=== PATIENT | female | born 1945 | race Caucasian/White ===

== ENCOUNTER 2020-10-26 12:00 | Outpatient (REF) | payer MEDICARE, SELFPAY ==
[2020-10-26 13:49] LABS: MANUAL DIFF FLAG NO
[2020-10-26 13:58] LABS: Basophils Absolute Auto 0.1 X10*3/uL (0.0-0.2); Eosinophils Absolute Auto 0.4 X10*3/uL (0.0-0.4); Eosinophils Percent Auto 5.9 % (0-4); Hematocrit 37.6 % (37-47); Hemoglobin 11.7 g/dl (12.0-16.0); Imm Gran Abs Auto 0.02 X10*3/uL (0.00-0.03); Imm Gran Pct Auto 0.3 % (0.0-0.4); Lymphocytes Absolute Auto 1.1 X10*3/uL (1.2-4.9); Lymphocytes Percent Auto 17.1 % (20-40); Mean Corpuscular HGB Conc 31.1 g/dl (31.0-35.0); Mean Corpuscular Volume 96.4 fL (80-98); Monocytes Absolute Auto 0.6 X10*3/uL (0.1-1.2); Monocytes Percent Auto 9.8 % (2-11); Neutrophils Absolute Auto 4.1 X10*3/uL (2.0-8.3); Neutrophils Percent Auto 65.9 % (45-73); Platelet Count 175 X10*3/uL (160-400); Red Cell Distribution Width 12.7 % (11.0-16.0); White Blood Count 6.2 X10*3/uL (4.8-10.8)
[2020-10-26 14:11] LABS: Glucose Urine UA NEG (NEG); Leukocyte Esterase Urine TRACE (NEG); Nitrite Urine NEG (NEG); PH 5.5 (5.0-8.0); Urine Blood NEG (NEG); Urine Ketones NEG (NEG); Urine Protein TRACE MG/DL (NEG-TRACE)
[2020-10-26 14:13] LABS: Appearance Urine HAZY; Color Urine YELLOW
[2020-10-26 14:23] LABS: Bacteria Urine 2+ /LPF; RBC Urine 0 /HPF (0); Squamous Epithelial Cell Urine 2+ /LPF
[2020-10-26 14:24] LABS: Alanine Aminotransferase 14 U/L (0-31); Albumin Level 4.3 g/dL (3.5-5.0); Alkaline Phosphatase 61 U/L (39-117); Anion Gap 11 (12-20); Aspartate Amino Transferase 21 U/L (5-31); Bilirubin Total 0.6 mg/dL (0.0-1.0); Blood Urea Nitrogen 16 mg/dL (9-16); Calcium 9.4 mg/dL (8.4-10.2); Carbon Dioxide 31 mmol/L (22-29); Chloride 104 mmol/L (96-108); Estimated Glomerular Filt Rate 43; Glucose Fasting 91 mg/dL (60-99); Sodium 142 mmol/L (135-145); Total Protein 6.4 g/dL (6.5-8.0)
[2020-10-26 14:45] LABS: Thyroid Stimulating Hormone 0.39 uIU/mL (0.32-4.0)
== END 2020-10-26 12:01 | disposition home or self-care (01) ==
LOC: HO.10HDL 12:00
PROVIDERS: Visit Provider Internal Medicine
DX: I10 Essential (primary) hypertension (principal); K58.9 Irritable bowel syndrome, unspecified; E03.9 Hypothyroidism, unspecified; N18.9 Chronic kidney disease, unspecified
CPT/HCPCS: 36415; 80053; 81001; 81003; 84439; 84443; 85025; 87086

== ENCOUNTER 2021-02-01 10:40 | Outpatient (REF) | payer MEDICARE, SELFPAY ==
[2021-02-01 13:15] LABS: MANUAL DIFF FLAG NO
[2021-02-01 13:35] LABS: Basophils Absolute Auto 0.1 X10*3/uL (0.0-0.2); Basophils Percent Auto 1.4 % (0-2); Eosinophils Absolute Auto 0.3 X10*3/uL (0.0-0.4); Eosinophils Percent Auto 5.5 % (0-4); Hematocrit 34.7 % (37-47); Hemoglobin 11.1 g/dl (12.0-16.0); Imm Gran Abs Auto 0.01 X10*3/uL (0.00-0.03); Imm Gran Pct Auto 0.2 % (0.0-0.4); Lymphocytes Absolute Auto 1.2 X10*3/uL (1.2-4.9); Lymphocytes Percent Auto 23.9 % (20-40); Mean Corpuscular Hemoglobin 30.1 pg (27.0-33.0); Mean Platelet Volume 11.8 fL (9.4-12.3); Monocytes Absolute Auto 0.5 X10*3/uL (0.1-1.2); Monocytes Percent Auto 9.4 % (2-11); Neutrophils Percent Auto 59.6 % (45-73); Platelet Count 172 X10*3/uL (160-400); Red Blood Count 3.69 X10*6/uL (4.20-5.50); Red Cell Distribution Width 12.9 % (11.0-16.0); White Blood Count 5.1 X10*3/uL (4.8-10.8)
[2021-02-01 13:40] LABS: Alanine Aminotransferase 11 U/L (0-31); Alkaline Phosphatase 57 U/L (39-117); Anion Gap 9 (12-20); Aspartate Amino Transferase 15 U/L (5-31); Bilirubin Total 0.7 mg/dL (0.0-1.0); Blood Urea Nitrogen 18 mg/dL (9-16); C Reactive Protein 0.07 mg/dL (< or = 0.50); Calcium 8.8 mg/dL (8.4-10.2); Carbon Dioxide 31 mmol/L (22-29); Chloride 106 mmol/L (96-108); Estimated Glomerular Filt Rate 46; Glucose Random 100 mg/dL (60-115); Sodium 142 mmol/L (135-145); Total Protein 6.1 g/dL (6.5-8.0)
== END 2021-02-01 10:41 | disposition home or self-care (01) ==
LOC: HO.10HDL 10:40
PROVIDERS: Visit Provider Internal Medicine
DX: I12.9 Hypertensive chronic kidney disease with stage 1 through stage 4 chronic kidney disease, or unspecified chronic kidney disease (principal); N18.9 Chronic kidney disease, unspecified; K58.9 Irritable bowel syndrome, unspecified; I25.10 Atherosclerotic heart disease of native coronary artery without angina pectoris
CPT/HCPCS: 36415; 80053; 85025; 86140

== ENCOUNTER 2021-03-08 13:11 | Outpatient (REF) | payer MEDICARE, SELFPAY ==
--- NOTE | ~2021-03-08 | MM_ITS ---
EXAMINATION: MM SCREENING DIGITAL BREAST TOMOSYNTHESIS, BILATERAL CLINICAL INFORMATION: Screening. Asymptomatic. The lifetime risk of breast cancer based on the Tyrer-Cuzick Model is 3%. COMPARISON: Mammography: 01/21/2019, 01/03/2018, 12/15/2016, 10/28/2015 TECHNIQUE: Digital breast tomosynthesis is performed in both the craniocaudal and mediolateral oblique views along with computer-aided detection (CAD). Synthesized 2D images are generated from the tomosynthesis. FINDINGS: There are scattered areas of fibroglandular density (ACR BI-RADS breast composition Category b). There are no significant masses, abnormal calcifications, or other abnormalities. Parenchymal pattern is similar to prior studies. No developing density. Again, there is intramammary node mid upper outer left breast and stable smooth nodule anterior central 1:00 right breast. No significant changes. MM/MM tomosynthesis screening BI IMPRESSION: No significant changes from prior exams. ASSESSMENT: BI-RADS 2: Benign RECOMMENDATION: Routine annual mammography screening. This patient's information was entered into a reminder system with a target due date for their next mammogram.
--- NOTE | ~2021-03-08 | MM_ITS ---
EXAMINATION: BONE DENSITOMETRY CLINICAL INDICATION: Menopause. COMPARISON: Previous BD dated 09/08/2010 and baseline BD dated 04/27/2008. TECHNIQUE: Using a [employer] DXA System (software version: 13.1) manufactured by [employer] dual-energy x-ray absorptiometry was performed of the lumbar spine and left hip. The images are of good technical quality. Summary results are attached. FINDINGS: AP SPINE L1-L4 (excluding L2 and L3): The data of L1-L4 has been changed to exclude the L2 and L3 vertebral bodies, because degenerative changes at these levels may cause overestimation of lumbar spine density. Current: BMD 1.230 g/cm2, Z-score 1.9, T-score 0.5, normal, 0.5% increase from previous, 7.0% increase from baseline (<5% change is not significant). Prior: BMD 1.224 g/cm2. Baseline: BMD 1.150 g/cm2. LEFT FEMUR, NECK: Current: BMD 0.922 g/cm2, Z-score 0.9, T-score -0.8, normal. Prior: BMD 0.968 g/cm2. Baseline: BMD 0.965 g/cm2. LEFT FEMUR, TOTAL: Current: BMD 1.045 g/cm2, Z-score 1.8, T-score 0.3, normal, 2.8% decrease from previous, 5.9% decrease from baseline (<5% change is not significant). Prior: BMD 1.075 g/cm2. Baseline: BMD 1.111 g/cm2. IDENTIFIED RISK FACTORS: Secondary osteoporosis, tobacco use (current smoker), menopause. HISTORY OF FRACTURE: None listed. MEDICATIONS: Vitamin D. MM/XR DEXA axial skeleton IMPRESSION: 1. DIAGNOSIS: Normal bone density based on the lowest T-score value of -0.8 in the femoral neck applying World Health Organization criteria. 2. 10-YEAR FRACTURE RISK PREDICTION, FRAX: Major osteoporotic fracture (clinical spine, forearm, hip or shoulder) 9.9%. Hip fracture 2.4%. 3. Treatment Recommendations: NOF guidelines recommend consideration for treatment in postmenopausal women and men age 50 and older presenting with the following: -A hip or vertebral (clinical or morphometric) fracture. -T-score less than or equal to -2.5 at the femoral neck or spine after appropriate evaluation to exclude secondary causes. -Low bone mass at the hip or spine and a 10-year fracture probability by FRAX of greater than or equal to 3% for hip fracture or greater than or equal to 20% for major osteoporotic fracture based on the [place] adapted WHO algorithm. 4. Other Recommendations: All treatment decisions require clinical judgment and consideration of individual patient factors, including patient preferences, comorbidities, previous drug use, risk factors not captured in the FRAX model (e.g. frailty, falls, vitamin D deficiency, increased bone turnover, interval significant decline in bone density) and possible under or overestimation of fracture risk by FRAX. FUTURE SCAN RECOMMENDATION: People with diagnosed cases of osteoporosis or at high risk for fracture should have regular bone mineral density tests. For patients eligible for Medicare, routine testing is allowed once every 2 years. The testing frequency can be increased to one year for patients who have rapidly progressing disease, those who are receiving or discontinuing medical therapy to restore bone mass, or have additional risk factors.
== END 2021-03-08 13:12 | disposition home or self-care (01) ==
LOC: HO.MAMMO 13:11
PROVIDERS: PCP Internal Medicine; Visit Provider Internal Medicine
DX: Z12.31 Encounter for screening mammogram for malignant neoplasm of breast (principal); M81.0 Age-related osteoporosis without current pathological fracture; F17.200 Nicotine dependence, unspecified, uncomplicated; Z78.0 Asymptomatic menopausal state
CPT/HCPCS: 77063; 77067; 77080

== ENCOUNTER 2021-05-31 12:58 | Outpatient (REF) | payer MEDICARE, SELFPAY ==
[2021-05-31 13:35] LABS: MANUAL DIFF FLAG NO
[2021-05-31 13:37] LABS: Basophils Absolute Auto 0.1 X10*3/uL (0.0-0.2); Basophils Percent Auto 0.9 % (0-2); Eosinophils Absolute Auto 0.4 X10*3/uL (0.0-0.4); Eosinophils Percent Auto 4.6 % (0-4); Hematocrit 34.1 % (37-47); Imm Gran Abs Auto 0.03 X10*3/uL (0.00-0.03); Imm Gran Pct Auto 0.4 % (0.0-0.4); Lymphocytes Absolute Auto 1.4 X10*3/uL (1.2-4.9); Lymphocytes Percent Auto 17.8 % (20-40); Mean Corpuscular HGB Conc 32.3 g/dl (31.0-35.0); Mean Corpuscular Hemoglobin 30.1 pg (27.0-33.0); Mean Corpuscular Volume 93.4 fL (80-98); Mean Platelet Volume 10.9 fL (9.4-12.3); Monocytes Absolute Auto 0.7 X10*3/uL (0.1-1.2); Monocytes Percent Auto 8.6 % (2-11); Neutrophils Absolute Auto 5.2 X10*3/uL (2.0-8.3); Neutrophils Percent Auto 67.7 % (45-73); Platelet Count 163 X10*3/uL (160-400); Red Blood Count 3.65 X10*6/uL (4.20-5.50); Red Cell Distribution Width 13.2 % (11.0-16.0); White Blood Count 7.6 X10*3/uL (4.8-10.8)
[2021-05-31 14:01] LABS: Alanine Aminotransferase 12 U/L (0-31); Albumin Level 4.2 g/dL (3.5-5.0); Alkaline Phosphatase 69 U/L (39-117); Anion Gap 16 (12-20); Aspartate Amino Transferase 19 U/L (5-31); Bilirubin Total 0.6 mg/dL (0.0-1.0); Blood Urea Nitrogen 23 mg/dL (9-16); Calcium 9.7 mg/dL (8.4-10.2); Carbon Dioxide 23 mmol/L (22-29); Chloride 105 mmol/L (96-108); Cholesterol 187 mg/dL; Estimated Glomerular Filt Rate 37; Glucose Random 97 mg/dL (60-115); Iron 104 mcg/dL (30-160); Percent Iron Saturation 33 % (15-50); Potassium 4.4 mmol/L (3.3-5.1); Sodium 140 mmol/L (135-145); Total Iron Binding Capacity 315 mcg/dL (228-428); Total Protein 6.4 g/dL (6.5-8.0); Unsaturated Iron Binding 211 ug/dL
[2021-05-31 14:24] LABS: Free T4 (Free Thyroxine) 1.09 ng/dL (0.71-1.85); Thyroid Stimulating Hormone 0.25 uIU/mL (0.32-4.0)
== END 2021-05-31 12:59 | disposition home or self-care (01) ==
LOC: HO.LAB 12:58
PROVIDERS: PCP Internal Medicine; Visit Provider Internal Medicine
DX: D64.9 Anemia, unspecified (principal); I25.10 Atherosclerotic heart disease of native coronary artery without angina pectoris; E03.9 Hypothyroidism, unspecified; I12.9 Hypertensive chronic kidney disease with stage 1 through stage 4 chronic kidney disease, or unspecified chronic kidney disease; N18.9 Chronic kidney disease, unspecified
CPT/HCPCS: 36415; 80053; 82465; 83540; 84439; 84443; 85025

== ENCOUNTER → 2021-09-14 15:00 | Outpatient (REF) | payer MEDICARE, SELFPAY ==
--- NOTE | 2021-09-14 15:03 | CA_ITS ---
Transthoracic Echocardiogram Patient (Last, First, Middle): Tonia Lynch, Gender: Female Date of : 1945 Age: 76 Procedure Date: 09/14/2021 Procedure Type: Transthoracic Echocardiogram Location: OP Height: 162.56 cm Weight: 77.11 kg BSA: 1.83 m2 Heart Rate: bpm BP: 130 / 80 mmHg Director Of Media: MUSA Referring MD: Reza Nava MD Pigment Grinder: Dion Degroot MD Symptoms: CARDIAC MURMUR, ASHD WWITHOUT PECTORIS Study Quality: Fair ECG Rhythm: Sinus Conclusions: - 1. Ebgp-au-aqpstixe LV systolic dysfunction with underlying wall motion abnormality which are not completely well defined on this study suggestive underlying CAD with grade 1 diastolic dysfunction next 2. Mildly dilated left atrium 3. Mitral and calcification with normal cardiac valvular Doppler 4. Normal RV systolic pressure 5. Trivial pericardial effusion Findings Left Ventricle Normal left ventricular cavity size. There is normal left ventricular wall thickness. The left ventricular systolic function is mild to moderately decreased. The visually estimated ejection fraction is between 40-45%. There is evidence of regional wall motion abnormalities. Spectral Doppler is indicative of an impaired relaxation filling pattern. E/E prime ratio is <8, consistent with normal filling pressures. Evidence suggests grade I (mild) diastolic dysfunction. Right Ventricle Normal right ventricular cavity size and systolic function. Atria The left atrium is mildly dilated. Interatrial shunt cannot be excluded. The right atrium is normal in size. Aortic Valve There is mild calcification of the aortic valve. There are fibrocalcifications on the aortic valve leaflets. There is no aortic valve stenosis. There is no aortic valve regurgitation. Mitral Valve There is mild anterior and moderate posterior mitral leaflet thickening. There is moderate mitral annular calcification. There is trace mitral valve regurgitation. There is no mitral valve stenosis. Pulmonic Valve The pulmonic valve was not well visualized. Tricuspid Valve Likely normal tricuspid valve structure and function. There is trace tricuspid valve regurgitation. The right ventricular systolic pressure is normal. The right ventricular systolic pressure is 26 mmHg. Normal right atrial pressure. There is no evidence of pulmonary hypertension. Great Vessels All visible segments of the aorta are normal in size. The pulmonary artery was not well visualized. Venous The inferior vena cava is normal in size and collapses greater than 50% with inspiration. Large echo lucent cystic structure noticed in the liver. Dedicated liver imaging should be considered Pericardium/Pleural There is a trivial loculated pericardial effusion overlying the left ventricle. Prior Study Comparison No previous study in the last 5 years for comparison Measurements 2D Linear Measurements IVSd: 0.78 0.6-0.9/0.6-1.0 cm LVIDd: 4.97 3.9-5.3/4.2-5.9 cm LVIDd Index: 2.72 2.4-3.2/2.2-3.1 cm/m2 LVIDs: 3.62 2.0-3.6 cm LVPWd: 0.90 0.7-1.1 cm Ao Root: 3.20 2.1-3.5 cm LA Diam: 4.00 2.7-3.8/3.0-4.0 cm LAIDs Index: 2.19 1.5-2.3 cm/m2 LV Mass: 177.89 67-162/88-224 g LV Mass Index: 97.21 43-95/49-115 g/m2 LVOT Diam: 2.30 3.0+(-)1.3 cm 2D Systolic Function EF 4C: 53.60 >55% EF 2C: 36.70 >55% EF BiP: 46.80 >55% Mitral Valve MV Pk E: 0.55 MV PK A: 0.88 MV Decel Time: 151.00 E/A: 0.60 E'Lateral: 3.05 E'Medial: 3.59 E/E' Med: 15.30 E/E' Lat: 18.00 PHT: 44.00 MVA PHT: 5.00 Decel [place]: 3.62 Aortic Valve AoV Pk Pipo: 1.15 AoV Mn Pipo: 0.83 AoV VTI: 0.27 AoV Pk Grad: 5.00 Aov Mn Grad: 3.00 ABIGAIL Cont.VTI: 2.27 LVOT LVOT Pk Pipo: 0.58 LVOT Mn Pipo: 0.38 LVOT VTI: 0.15 LVOT Pk Grad: 1.00 LVOT Mn Grad: 1.00 LVOT Diam: 2.30 LVOT Area: 4.15 Diastolic Function MV Pk E: 0.55 MV Pk A: 0.88 E/A: 0.60 E'Medial: 3.59 E/E' Med: 15.30 E' Laterial: 3.05 E/E' Lat: 18.00 Right Ventricle TAPSE (mm): 1.69 TVS' Pipo: 18.00 Tricuspid Valve TR Pk Pipo: 2.38 TR Pk Grad: 23.00 RA Press: 3.00 RVSP: 26.00 Great Vessels Aorta Ao Root-2D: 3.20 2.0-3.7 cm Ao Asc: 3.10 2.1-3.4 cm Ao Arch: 2.70 Updated in Other Vendor System with Status of Final Dion Degroot MD electronically signed on 09/15/2021 9:02:17 AM with status of Final
== END ==
LOC: HO.CARD 15:00
PROVIDERS: PCP Internal Medicine; Visit Provider Internal Medicine
DX: I25.10 Atherosclerotic heart disease of native coronary artery without angina pectoris (principal); R01.1 Cardiac murmur, unspecified
CPT/HCPCS: 93306

== ENCOUNTER 2021-09-23 11:07 | Outpatient (REF) | payer MEDICARE, SELFPAY ==
[2021-09-23 13:59] LABS: MANUAL DIFF FLAG NO
[2021-09-23 14:03] LABS: Basophils Absolute Auto 0.1 X10*3/uL (0.0-0.2); Basophils Percent Auto 1.3 % (0-2); Eosinophils Absolute Auto 0.3 X10*3/uL (0.0-0.4); Eosinophils Percent Auto 4.7 % (0-4); Hematocrit 33.7 % (37.0-47.0); Hemoglobin 10.7 g/dl (12.0-16.0); Imm Gran Abs Auto 0.02 X10*3/uL (0.00-0.03); Imm Gran Pct Auto 0.3 % (0.0-0.4); Lymphocytes Absolute Auto 1.3 X10*3/uL (1.2-4.9); Mean Corpuscular HGB Conc 31.8 g/dl (31.0-35.0); Mean Corpuscular Hemoglobin 30.2 pg (27.0-33.0); Mean Corpuscular Volume 95.2 fL (80.0-98.0); Mean Platelet Volume 12.2 fL (9.4-12.3); Monocytes Absolute Auto 0.7 X10*3/uL (0.1-1.2); Monocytes Percent Auto 10.1 % (2-11); Neutrophils Absolute Auto 4.6 x10*3/uL (2.0-8.3); Neutrophils Percent Auto 64.6 % (45-73); Platelet Count 162 X10*3/uL (160-400); Red Blood Count 3.54 X10*6/uL (4.20-5.50); Red Cell Distribution Width 12.9 % (11.0-16.0); White Blood Count 7.1 X10*3/uL (4.8-10.8)
[2021-09-23 14:30] LABS: Alanine Aminotransferase 13 U/L (0-31); Alkaline Phosphatase 60 U/L (39-117); Anion Gap 13 (12-20); Aspartate Amino Transferase 18 U/L (5-31); Bilirubin Total 0.8 mg/dL (0.0-1.0); Blood Urea Nitrogen 20 mg/dL (9-16); Calcium 9.3 mg/dL (8.4-10.2); Carbon Dioxide 28 mmol/L (22-29); Chloride 105 mmol/L (96-108); Estimated Glomerular Filt Rate 40; Glucose Fasting 87 mg/dL (60-99); Potassium 3.9 mmol/L (3.3-5.1); Sodium 142 mmol/L (135-145); Total Protein 6.1 g/dL (6.5-8.0)
== END 2021-09-23 11:08 | disposition home or self-care (01) ==
LOC: HO.10HDL 11:07
PROVIDERS: Visit Provider Internal Medicine
DX: I12.9 Hypertensive chronic kidney disease with stage 1 through stage 4 chronic kidney disease, or unspecified chronic kidney disease (principal); N18.9 Chronic kidney disease, unspecified; D64.9 Anemia, unspecified; E03.9 Hypothyroidism, unspecified
CPT/HCPCS: 36415; 80053; 85025

== ENCOUNTER → 2021-10-27 14:31 | Outpatient (BNVA) | payer MEDICARE, SELFPAY | PROVIDERS: PCP Internal Medicine; Referring Provider Internal Medicine; Visit Provider Internal Medicine Cardiovascular Disease | DX: I25.10 Atherosclerotic heart disease of native coronary artery without angina pectoris (principal); I42.9 Cardiomyopathy, unspecified; R06.00 Dyspnea, unspecified | CPT/HCPCS: 93005; 99202 ==

== ENCOUNTER → 2021-12-28 13:52 | Outpatient (BNVA) | payer MEDICARE, SELFPAY | PROVIDERS: PCP Internal Medicine; Referring Provider Internal Medicine; Visit Provider Nurse Practitioner Family | DX: I25.10 Atherosclerotic heart disease of native coronary artery without angina pectoris (principal); I42.9 Cardiomyopathy, unspecified; R06.00 Dyspnea, unspecified; Z95.5 Presence of coronary angioplasty implant and graft | CPT/HCPCS: 99212 ==

== ENCOUNTER 2022-01-31 15:29 | Outpatient (REF) | payer MEDICARE, SELFPAY ==
[2022-01-31 15:52] LABS: MANUAL DIFF FLAG NO
[2022-01-31 16:31] LABS: Basophils Absolute Auto 0.1 X10*3/uL (0.0-0.2); Basophils Percent Auto 1.1 % (0-2); Eosinophils Absolute Auto 0.3 X10*3/uL (0.0-0.4); Eosinophils Percent Auto 3.7 % (0-4); Hematocrit 34.5 % (37.0-47.0); Hemoglobin 10.7 g/dl (12.0-16.0); Imm Gran Abs Auto 0.01 X10*3/uL (0.00-0.03); Imm Gran Pct Auto 0.1 % (0.0-0.4); Lymphocytes Absolute Auto 1.4 X10*3/uL (1.2-4.9); Lymphocytes Percent Auto 18.9 % (20-40); Mean Corpuscular Hemoglobin 29.8 pg (27.0-33.0); Mean Corpuscular Volume 96.1 fL (80.0-98.0); Mean Platelet Volume 11.9 fL (9.4-12.3); Monocytes Absolute Auto 0.5 X10*3/uL (0.1-1.2); Monocytes Percent Auto 7.2 % (2-11); Neutrophils Absolute Auto 5.1 x10*3/uL (2.0-8.3); Platelet Count 157 X10*3/uL (160-400); Red Blood Count 3.59 X10*6/uL (4.20-5.50); Red Cell Distribution Width 12.9 % (11.0-16.0); White Blood Count 7.4 X10*3/uL (4.8-10.8)
[2022-01-31 16:45] LABS: Prothrombin Time 11.5 SEC (9.9-13.0)
[2022-01-31 17:08] LABS: Anion Gap 15 (12-20); Blood Urea Nitrogen 24 mg/dL (9-16); Calcium 9.9 mg/dL (8.4-10.2); Carbon Dioxide 24 mmol/L (22-29); Chloride 106 mmol/L (96-108); Estimated Glomerular Filt Rate 35; Glucose Random 87 mg/dL (60-115); Potassium 4.3 mmol/L (3.3-5.1); Sodium 141 mmol/L (135-145)
== END 2022-01-31 15:30 | disposition home or self-care (01) ==
LOC: HO.LAB 15:29
PROVIDERS: PCP Internal Medicine; Visit Provider Nurse Practitioner Family
DX: I42.9 Cardiomyopathy, unspecified (principal); R06.00 Dyspnea, unspecified
CPT/HCPCS: 36415; 80048; 85025; 85610

== ENCOUNTER 2022-02-06 13:56 | Outpatient (REF) | payer MEDICARE, SELFPAY ==
[2022-02-06 15:20] LABS: Anion Gap 13 (12-20); Blood Urea Nitrogen 16 mg/dL (9-16); Calcium 9.7 mg/dL (8.4-10.2); Carbon Dioxide 24 mmol/L (22-29); Chloride 105 mmol/L (96-108); Estimated Glomerular Filt Rate 42; Glucose Random 86 mg/dL (60-115); Potassium 3.9 mmol/L (3.3-5.1); Sodium 138 mmol/L (135-145)
== END 2022-02-06 13:57 | disposition home or self-care (01) ==
LOC: HO.LAB 13:56
PROVIDERS: PCP Internal Medicine; Visit Provider Nurse Practitioner Family
DX: I25.10 Atherosclerotic heart disease of native coronary artery without angina pectoris (principal)
CPT/HCPCS: 36415; 80048

== ENCOUNTER 2022-03-13 14:56 | Outpatient (REF) | payer MEDICARE, SELFPAY ==
--- NOTE | ~2022-03-13 | MM_ITS ---
EXAMINATION: MM SCREENING DIGITAL BREAST TOMOSYNTHESIS, BILATERAL CLINICAL INFORMATION: Screening. Asymptomatic. The lifetime risk of breast cancer based on the Tyrer-Cuzick Model is 3%. COMPARISON: Mammography: 03/08/2021, 01/21/2019, 01/03/2018 TECHNIQUE: Digital breast tomosynthesis is performed in both the craniocaudal and mediolateral oblique views along with computer-aided detection (CAD). Synthesized 2D images are generated from the tomosynthesis. Additional exaggerated right CC view is provided. FINDINGS: There are scattered areas of fibroglandular density (ACR BI-RADS breast composition Category b). There are no significant masses, abnormal calcifications, or other abnormalities. There is fine fibronodular pattern similar to prior studies. Intramammary nodes again seen mid upper outer left breast. There is chronic oval nodular asymmetry mid 3:00 right breast similar to prior studies. No developing density or architectural abnormality. No significant changes. MM/MM tomosynthesis screening BI IMPRESSION: No mammographic evidence of malignancy. ASSESSMENT: BI-RADS 2: Benign RECOMMENDATION: Routine annual mammography screening. This patient's information was entered into a reminder system with a target due date for their next mammogram.
== END 2022-03-13 14:57 | disposition home or self-care (01) ==
LOC: HO.MAMMO 14:56
PROVIDERS: Visit Provider Internal Medicine
DX: Z12.31 Encounter for screening mammogram for malignant neoplasm of breast (principal)
CPT/HCPCS: 77063; 77067

== ENCOUNTER 2022-04-04 13:52 | Outpatient (REF) | payer MEDICARE, SELFPAY ==
[2022-04-04 15:37] LABS: MANUAL DIFF FLAG NO
[2022-04-04 16:00] LABS: Basophils Absolute Auto 0.1 X10*3/uL (0.0-0.2); Basophils Percent Auto 1.5 % (0-2); Eosinophils Absolute Auto 0.4 X10*3/uL (0.0-0.4); Eosinophils Percent Auto 7.2 % (0-4); Hematocrit 29.2 % (37.0-47.0); Hemoglobin 9.5 g/dl (12.0-16.0); Imm Gran Abs Auto 0.02 X10*3/uL (0.00-0.03); Imm Gran Pct Auto 0.3 % (0.0-0.4); Lymphocytes Percent Auto 16.8 % (20-40); Mean Corpuscular HGB Conc 32.5 g/dl (31.0-35.0); Mean Corpuscular Hemoglobin 30.4 pg (27.0-33.0); Mean Corpuscular Volume 93.6 fL (80.0-98.0); Mean Platelet Volume 11.8 fL (9.4-12.3); Monocytes Absolute Auto 0.7 X10*3/uL (0.1-1.2); Monocytes Percent Auto 11.2 % (2-11); Neutrophils Absolute Auto 3.8 x10*3/uL (2.0-8.3); Platelet Count 151 X10*3/uL (160-400); Red Blood Count 3.12 X10*6/uL (4.20-5.50); Red Cell Distribution Width 13.2 % (11.0-16.0)
[2022-04-04 16:40] LABS: Alanine Aminotransferase 29 U/L (0-31); Alkaline Phosphatase 66 U/L (39-117); Anion Gap 12 (12-20); Aspartate Amino Transferase 33 U/L (5-31); Blood Urea Nitrogen 25 mg/dL (9-16); C Reactive Protein 0.05 mg/dL (< or = 0.50); Carbon Dioxide 24 mmol/L (22-29); Chloride 106 mmol/L (96-108); Estimated Glomerular Filt Rate 26; Glucose Random 102 mg/dL (60-115); Potassium 3.8 mmol/L (3.3-5.1); Sodium 138 mmol/L (135-145); Total Protein 6.4 g/dL (6.5-8.0)
[2022-04-04 16:46] LABS: Erythrocyte Sedimentation Rate 12 MM/HR (0-20)
[2022-04-04 16:47] LABS: B Type Natriuretic Peptide 165 pg/mL (<100)
[2022-04-04 17:03] LABS: Free T4 (Free Thyroxine) 1.43 ng/dL (0.71-1.85); Thyroid Stimulating Hormone 0.04 uIU/mL (0.32-4.0)
== END 2022-04-04 13:53 | disposition home or self-care (01) ==
LOC: HO.LAB 13:52
PROVIDERS: PCP Internal Medicine; Referring Provider Internal Medicine; Visit Provider Nurse Practitioner Family
DX: I25.10 Atherosclerotic heart disease of native coronary artery without angina pectoris (principal); R06.00 Dyspnea, unspecified; M54.2 Cervicalgia; I12.9 Hypertensive chronic kidney disease with stage 1 through stage 4 chronic kidney disease, or unspecified chronic kidney disease; N18.9 Chronic kidney disease, unspecified; M54.9 Dorsalgia, unspecified; I42.9 Cardiomyopathy, unspecified; Z95.5 Presence of coronary angioplasty implant and graft; Z98.890 Other specified postprocedural states
CPT/HCPCS: 36415; 80053; 83880; 84439; 84443; 85025; 85652; 86140; 99212

== ENCOUNTER → 2022-04-19 15:11 | Outpatient (BNVA) | payer MEDICARE, SELFPAY | PROVIDERS: PCP Internal Medicine; Referring Provider Internal Medicine; Visit Provider Nurse Practitioner Family | DX: I42.9 Cardiomyopathy, unspecified (principal); I25.10 Atherosclerotic heart disease of native coronary artery without angina pectoris; R06.00 Dyspnea, unspecified; Z98.890 Other specified postprocedural states; Z95.5 Presence of coronary angioplasty implant and graft | CPT/HCPCS: 99212 ==

== ENCOUNTER 2022-05-13 13:33 | Emergency (ER) | payer MEDICARE, SELFPAY ==
--- NOTE | 2022-05-13 | ECG_ITS ---
Test Reason : DIZZINESS Blood Pressure : / mmHG Vent. Rate : 071 BPM Atrial Rate : 071 BPM P-R Int : 130 ms QRS Dur : 124 ms QT Int : 462 ms P-R-T Axes : -09 048 -07 degrees QTc Int : 502 ms Normal sinus rhythm Left bundle branch block Abnormal ECG When compared with ECG of 09-AUG-2015 09:25, Premature ventricular complexes are no longer Present Criteria for Septal infarct are no longer Present Referred By: Generic ED Physician Electronically Signed By:FRANK VERAS MD
--- NOTE | ~2022-05-13 | XR_ITS ---
EXAMINATION: XR CHEST CLINICAL INFORMATION: Shortness of breath COMPARISON: 01/22/2018 TECHNIQUE: Frontal view of the chest was obtained. FINDINGS: Cardiomediastinal silhouette is normal. The lungs are clear without consolidation, pleural effusion or pneumothorax. Atherosclerotic calcification in the aortic arch. XR/XR chest 1V IMPRESSION: No acute cardiopulmonary process.
[2022-05-13 13:35] VITALS: BP 129/46; PULSE 73; RESP 18; TEMP 36.1; O2SAT 98; BMI 27.1
[2022-05-13 14:00] LABS: MANUAL DIFF FLAG NO
[2022-05-13 14:02] LABS: Basophils Percent Auto 0.8 % (0-2); Eosinophils Absolute Auto 0.3 X10*3/uL (0.0-0.4); Eosinophils Percent Auto 8.7 % (0-4); Hematocrit 32.6 % (37.0-47.0); Hemoglobin 10.7 g/dl (12.0-16.0); Imm Gran Abs Auto 0.01 X10*3/uL (0.00-0.03); Imm Gran Pct Auto 0.3 % (0.0-0.4); Lymphocytes Absolute Auto 0.9 X10*3/uL (1.2-4.9); Mean Corpuscular HGB Conc 32.8 g/dl (31.0-35.0); Mean Corpuscular Volume 94.5 fL (80.0-98.0); Mean Platelet Volume 10.9 fL (9.4-12.3); Monocytes Absolute Auto 0.5 X10*3/uL (0.1-1.2); Monocytes Percent Auto 14.9 % (2-11); Neutrophils Absolute Auto 1.8 x10*3/uL (2.0-8.3); Neutrophils Percent Auto 50.3 % (45-73); Platelet Count 153 X10*3/uL (160-400); Red Blood Count 3.45 X10*6/uL (4.20-5.50); Red Cell Distribution Width 13.2 % (11.0-16.0); White Blood Count 3.6 X10*3/uL (4.8-10.8)
[2022-05-13 14:22] LABS: Alanine Aminotransferase 11 U/L (0-31); Albumin Level 4.1 g/dL (3.5-5.0); Alkaline Phosphatase 62 U/L (39-117); Anion Gap 14 (12-20); Aspartate Amino Transferase 19 U/L (5-31); Bilirubin Direct 0.2 mg/dL (0.0-0.5); Bilirubin Total 0.4 mg/dL (0.0-1.0); Blood Urea Nitrogen 18 mg/dL (9-16); Calcium 9.5 mg/dL (8.4-10.2); Carbon Dioxide 24 mmol/L (22-29); Chloride 104 mmol/L (96-108); Creatinine Clr Calc Pharmacy 28.6; Estimated Glomerular Filt Rate 32; Glucose Random 108 mg/dL (60-115); Lipase 39 U/L (8-78); Potassium 3.6 mmol/L (3.3-5.1); Sodium 138 mmol/L (135-145); Total Protein 6.6 g/dL (6.5-8.0)
[2022-05-13 14:28] LABS: Troponin-I High Sensitivity 44.2 ng/L (<3.5-17.0)
[2022-05-13 14:28] LABS: B Type Natriuretic Peptide 200 pg/mL (<100)
[2022-05-13 14:51] LABS: Influenza A PCR NEGATIVE (Negative); Influenza B PCR NEGATIVE (Negative); Resp Syncy Virus RNA Qual PCR NEGATIVE (Negative); SARS COV2 PCR INHOUSE POSITIVE (Negative)
--- NOTE | 2022-05-13 15:00 | ED.DIZZY ---
HPI - Dizziness General Chief Complaint: Dizziness Stated Complaint: Cough/Weakness/Cough Time Seen by Provider: 05/13/22 13:45 Source: patient Mode of arrival: ambulatory Limitations: no limitations History of Present Illness HPI Narrative: 77-year-old female with a history of HLD, cardiomyopathy (last ef 40-45% echo 09/14/21), asthma/bronchitis, coronary artery disease (recent cath 02/10 with 2 RAYMOND placed to RCA) here with reports of URI symptoms with continued shortness of breath w/ exertion, dizziness with moving for longer period time. Patient tells me that for more than 6 months she has had shortness of breath and near-syncope. These were her pre cath symptoms. She felt that they would be resolved after having a cardiac catheterization but they continued. 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 For the last 1 week she has had cough, sore throat, chills, body aches (started Sunday) She came to the emergency room today because she felt like her shortness of breath and dizziness were worsened and she was becoming quite frustrated at home. She denies any fevers, chills, leg swelling or leg pain. Patient has received COVID vaccinations x3 (moderna) Related Data Home Medications Medication Instructions Recorded Confirmed amlodipine 5 mg tablet 5 mg PO DAILY 10/27/21 04/19/22 aspirin 81 mg tablet,delayed 81 mg PO DAILY 10/27/21 04/19/22 release cholecalciferol (vitamin D3) 25 25 mcg PO DAILY 10/27/21 04/19/22 mcg (1,000 unit) capsule dicyclomine 20 mg tablet 20 mg PO TID 10/27/21 04/19/22 fluticasone 250 mcg-salmeterol 50 1 ea inhalation BID 10/27/21 04/19/22 mcg/dose blistr powdr for inhalation (Advair Diskus) levothyroxine 75 mcg tablet 75 mcg PO DAILY 10/27/21 04/19/22 lorazepam 1 mg tablet 1 mg PO BID PRN 10/27/21 04/19/22 pantoprazole 40 mg tablet,delayed 40 mg PO DAILY 10/27/21 04/19/22 release rosuvastatin 20 mg tablet 20 mg PO BEDTIME 10/27/21 04/19/22 atenolol 25 mg tablet 25 mg PO DAILY 02/27/22 04/19/22 albuterol sulfate 90 mcg/actuation 0 mcg inhalation 04/19/22 04/19/22 aerosol inhaler Previous Rx's Medication Instructions Recorded clopidogrel 75 mg tablet (Plavix) 75 mg PO DAILY 30 days #30 tabs 04/04/22 Allergies Allergy/AdvReac Type Severity Reaction Status Date / Time citalopram Allergy Unknown upsets Verified 04/04/22 14:20 stomach Review of Systems Review of Systems: Yes all other systems are reviewed and are negative Constitutional: Constitutional: Reports no additional constitutional complaints, Reports body ache(s), Reports chills, Denies fever(s), Denies headache(s) and Reports weakness Eyes: Eyes: Reports no additional eye complaints and Denies change in vision ENT: Reports system reviewed and no additional complaints, except as documented, Reports dizziness, Denies headache(s), Denies nasal congestion, Denies nasal discharge, Denies neck pain and Reports sore throat Cardiovascular: Cardiovascular: Reports no additional cardiovascular complaints, Denies chest pain, Denies leg edema and Reports dyspnea Respiratory: Respiratory: Reports no additional respiratory complaints, Reports cough and Reports dyspnea Gastrointestinal: Gastrointestinal: Reports no additional gastrointestinal complaints, Denies abdominal pain, Denies diarrhea, Denies nausea and Denies vomiting Genitourinary: Genitourinary: Reports no additional female genitourinary complaints and Denies urinary incontinence Musculoskeletal: Musculoskeletal: Reports no additional musculoskeletal complaints, Denies back pain, Denies arthralgias, Denies joint swelling, Denies neck pain, Denies numbness and Denies tingling Integumentary/Breasts: Skin/Breast: Reports system reviewed and no additional complaints, except as docu and Denies rash Neurologic: Reports system reviewed and no additional complaints, except as documented, Denies Abnormal speech present, Reports dizziness, Denies headache(s), Denies numbness, Denies tingling and Reports weakness PMFSH Past Medical History Attestation statement: The following information was validated with the patient. Source: old records reviewed and nursing notes reviewed Family History Family History Mother CAD (coronary artery disease) Father No problems noted. Social History Social History Alcohol intake: current Alcohol intake frequency: a few times a week Patient Tobacco Use Status: Former Tobacco user Quit Date: 1989 Smoked: 40 +/- Advance Directives: Yes Advance Directives Information Provided: Yes Advance Directives on File: No Physical Exam Vital Signs: Vital Signs: Last Vital Signs Temp 98.1 F 05/13/22 16:11 Pulse 61 05/13/22 16:11 Resp 18 05/13/22 16:11 BP 139/64 05/13/22 16:11 Pulse Ox 96 05/13/22 16:11 O2 Del Method 05/13/22 16:11 BMI result Body Mass Index 27.1 Const: General: cooperative, healthy appearing, comfortable and no acute distress Orientation/consciousness: patient oriented x3 Limitations: no limitations HEENT: Head: Yes normal to inspection Ears: hearing grossly normal bilaterally and TM's normal bilaterally General nose exam: Normal external nose present Face and sinus: Yes normal facial exam Mouth: Normal oral and palatal mucosa present Throat: Yes posterior oropharynx normal, Yes tonsils normal and Yes uvula midline Eyes: General: appearance normal, both eyes and all related structures Pupils: Equal, round and reactive pupils present Neck: Neck: Yes normal visual inspection, Yes full ROM, Yes no lymphadenopathy and Yes no meningeal signs Chest: Chest palpation & inspection: normal inspection of the chest Resp: Effort & Inspection: normal respiratory effort Auscultation: clear to auscultation bilaterally Cardio: Rate: regular rate Rhythm: regular rhythm Peripheral pulses: Peripheral pulses 2+ throughout GI: Inspection: Yes normal to inspection Palpation (GI): Soft to palpation and nontender Auscultation: normal bowel sounds Back/Spine/Pelvis: Thoracic/Lumbar Spine: thoracic and lumbar spine normal to inspection Skin: General skin exam: no rashes or lesions noted Neuro: General: patient oriented x3, no meningeal signs, no focal motor deficits and normal sensation to monofilament Cranial nerves: Yes CN's II-XII intact bilaterally, Yes Equal, round and reactive pupils present, Yes Bilaterally intact EOM present, Yes Nystagmus not present, Yes Normal facial strength present and Yes Midline tongue present Cognition (Neuro): normal cognition Speech: No Abnormal speech present Gait exam (Neuro): Normal gait present Motor exam (neuro): 5/5 motor strength present throughout Sensory Exam: Normal double simultaneous stimulation for sensation Extrem: General: Yes normal to inspection, Yes no pedal edema and Yes no calf tenderness Course Course Course Narrative: COVID screen is positive. Chest x-ray shows no acute finding. No hypoxia or tachypnea or tachycardia. Patient's orthostatics are positive. Will receive 1 L of fluid and reassess Troponin indeterminate. No EKG changes. Plan for repeat 3 hour. Low concern for ACS. Labs show leukopenia, mild thrombocytopenia consistent with a viral infection Reevaluation(s) Reevaluation #1: 1830-troponin x2 unchanged. Patient feels improved after receiving 1 L of IV fluid. Will discharge home with supportive care. Unfortunately due to the length of her symptoms she is not a candidate for antiviral COVID treatment or monoclonal antibodies. Recommend supportive care. Reviewed worrisome signs and symptoms of when to return to the emergency department. Comfortable discharge home. MDM - Dizziness MDM Narrative Medical decision making narrative: 69-year-old female here with your URI symptoms since Sunday with acute on chronic dyspnea with exertion, dizziness with moving. Vitals are stable. Normal neurological exam. Will send testing for flu, COVID, obtain chest x-ray, labs and EKG -low concern for ACS with troponin x2 unchanged an EKG which shows no ischemic changes and no chest pain with atypical symptoms for ACS. -low concern for PE with no hypoxia, no tachypnea, no tachycardia, no clinical findings concerning for DVT. Medical Records Attestation: I reviewed the patient's medical records. Lab Data Attestation: I reviewed the patient's lab results. Result diagrams: 05/13/22 13:53 05/13/22 13:54 Labs: Lab Results 05/13/22 05/13/22 05/13/22 Range/Units 13:53 13:54 13:54 WBC 3.6 L (4.8-10.8) X10*3/uL RBC 3.45 L (4.20-5.50) X10*6/uL Hgb 10.7 L (12.0-16.0) g/dl Hct 32.6 L (37.0-47.0) % MCV 94.5 (80.0-98.0) fL MCH 31.0 (27.0-33.0) pg MCHC 32.8 (31.0-35.0) g/dl RDW 13.2 (11.0-16.0) % Plt Count 153 L (160-400) X10*3/uL MPV 10.9 (9.4-12.3) fL Immature Gran % (Auto) 0.3 (0.0-0.4) % Neut % (Auto) 50.3 (45-73) % Lymph % (Auto) 25.0 (20-40) % [place] % (Auto) 14.9 H (2-11) % Eos % (Auto) 8.7 H (0-4) % Baso % (Auto) 0.8 (0-2) % Lymph # (Auto) 0.9 L (1.2-4.9) X10*3/uL [place] # (Auto) 0.5 (0.1-1.2) X10*3/uL Eos # (Auto) 0.3 (0.0-0.4) X10*3/uL Baso # (Auto) 0.0 (0.0-0.2) X10*3/uL Abs Immat Gran (auto) 0.01 (0.00-0.03) X10*3/uL Absolute Neuts (auto) 1.8 L (2.0-8.3) x10*3/uL Absolute Nucleated RBC 0.000 (0.0-0.012) X10*3/uL Nucleated RBC % (auto) 0.0 (0.0-0.2) /100WBC Sodium 138 (135-145) mmol/L Potassium 3.6 (3.3-5.1) mmol/L Chloride 104 (96-108) mmol/L Carbon Dioxide 24 (22-29) mmol/L Anion Gap 14 (12-20) BUN 18 H (9-16) mg/dL Creatinine 1.57 H (0.5-1.4) mg/dL Estim Creat Clear Calc 28.6 Estimated GFR 32 Random Glucose 108 (60-115) mg/dL Calcium 9.5 (8.4-10.2) mg/dL Magnesium 1.9 (1.6-2.6) mg/dL Total Bilirubin 0.4 (0.0-1.0) mg/dL Direct Bilirubin 0.2 (0.0-0.5) mg/dL AST 19 D (5-31) U/L ALT 11 (0-31) U/L Alkaline Phosphatase 62 (39-117) U/L Troponin I High Sens (<3.5-17.0) ng/L B-Natriuretic Peptide 200 H (<100) pg/mL Total Protein 6.6 (6.5-8.0) g/dL Albumin 4.1 (3.5-5.0) g/dL Lipase 39 (8-78) U/L Influenza Type A (PCR) (Negative) Influenza Type B (PCR) (Negative) RSV RNA Qual (PCR) (Negative) SARS-CoV-2 RNA (RT-PCR) (Negative) 05/13/22 05/13/22 05/13/22 Range/Units 13:54 13:55 17:49 WBC (4.8-10.8) X10*3/uL RBC (4.20-5.50) X10*6/uL Hgb (12.0-16.0) g/dl Hct (37.0-47.0) % MCV (80.0-98.0) fL MCH (27.0-33.0) pg MCHC (31.0-35.0) g/dl RDW (11.0-16.0) % Plt Count (160-400) X10*3/uL MPV (9.4-12.3) fL Immature Gran % (Auto) (0.0-0.4) % Neut % (Auto) (45-73) % Lymph % (Auto) (20-40) % [place] % (Auto) (2-11) % Eos % (Auto) (0-4) % Baso % (Auto) (0-2) % Lymph # (Auto) (1.2-4.9) X10*3/uL [place] # (Auto) (0.1-1.2) X10*3/uL Eos # (Auto) (0.0-0.4) X10*3/uL Baso # (Auto) (0.0-0.2) X10*3/uL Abs Immat Gran (auto) (0.00-0.03) X10*3/uL Absolute Neuts (auto) (2.0-8.3) x10*3/uL Absolute Nucleated RBC (0.0-0.012) X10*3/uL Nucleated RBC % (auto) (0.0-0.2) /100WBC Sodium (135-145) mmol/L Potassium (3.3-5.1) mmol/L Chloride (96-108) mmol/L Carbon Dioxide (22-29) mmol/L Anion Gap (12-20) BUN (9-16) mg/dL Creatinine (0.5-1.4) mg/dL Estim Creat Clear Calc Estimated GFR Random Glucose (60-115) mg/dL Calcium (8.4-10.2) mg/dL Magnesium (1.6-2.6) mg/dL Total Bilirubin (0.0-1.0) mg/dL Direct Bilirubin (0.0-0.5) mg/dL AST (5-31) U/L ALT (0-31) U/L Alkaline Phosphatase (39-117) U/L Troponin I High Sens 44.2 H 38.7 H (<3.5-17.0) ng/L B-Natriuretic Peptide (<100) pg/mL Total Protein (6.5-8.0) g/dL Albumin (3.5-5.0) g/dL Lipase (8-78) U/L Influenza Type A (PCR) NEGATIVE (Negative) Influenza Type B (PCR) NEGATIVE (Negative) RSV RNA Qual (PCR) NEGATIVE (Negative) SARS-CoV-2 RNA (RT-PCR) POSITIVE A (Negative) Imaging Data Chest x-ray: Attestation: I personally reviewed and interpreted this imaging study as follows: Radiologist's impression: [place] [id number] XRay Report Signed Patient: Tonia Lynch MR#: [id number] : 1945 Acct:[id number] Age/Sex: 77 / F ADM Date: 05/13/22 Loc: .ED Attending Dr: Ordering Physician: Galdino Galvan MD Date of Service: 05/13/22 Procedure(s): XR chest 1V Accession Number(s): [id number] cc: Galdino Galvan MD~ EXAMINATION: XR CHEST CLINICAL INFORMATION: Shortness of breath COMPARISON: 01/22/2018 TECHNIQUE: Frontal view of the chest was obtained. FINDINGS: Cardiomediastinal silhouette is normal. The lungs are clear without consolidation, pleural effusion or pneumothorax. Atherosclerotic calcification in the aortic arch. XR/XR chest 1V IMPRESSION: No acute cardiopulmonary process. ? ECG Data Attestation: I personally reviewed and interpreted this ECG as follows: ECG interpretation date: 05/13/22 ECG interpretation time: 13:36 Interpretation: Normal sinus rhythm with a rate of 71, normal MA, normal QRS, left bundle-branch block, QTC 502 Discharge Plan Discharge Clinical Impression: Orthostatic hypotension, COVID-19 Patient Disposition: Home, Self-Care Instructions: Hypotension (ED), COVID-19 (Coronavirus Disease 2019) (ED) Additional Instructions: Change positions slowly Stay well hydrated Take Tylenol for pain or fever Prescriptions: No Action atenolol 25 mg tablet 25 mg PO DAILY clopidogrel [Plavix] 75 mg tablet 75 mg PO DAILY 30 Days Qty: 30 2RF Rx Instructions: On the first day ONLY - take 300mg ( 4 tabs) followed by 1 tablet daily pantoprazole 40 mg tablet,delayed release (DR/EC) 40 mg PO DAILY dicyclomine 20 mg tablet 20 mg PO TID levothyroxine 75 mcg tablet 75 mcg PO DAILY amlodipine 5 mg tablet 5 mg PO DAILY fluticasone propion-salmeterol [Advair Diskus] 250-50 mcg/dose blister with device 1 ea inhalation BID lorazepam 1 mg tablet 1 mg PO BID PRN rosuvastatin 20 mg tablet 20 mg PO BEDTIME aspirin 81 mg tablet,delayed release (DR/EC) 81 mg PO DAILY cholecalciferol (vitamin D3) 25 mcg (1,000 unit) capsule 25 mcg PO DAILY albuterol sulfate 90 mcg/actuation HFA aerosol inhaler 0 mcg inhalation Referrals: Reza Nava MD [Primary Care Provider] -
[2022-05-13 15:39] LABS: Magnesium 1.9 mg/dL (1.6-2.6)
[2022-05-13 15:53] VITALS: BP 142/63; PULSE 60
[2022-05-13 15:57] VITALS: BP 119/56; PULSE 65
[2022-05-13 15:58] VITALS: BP 92/49; PULSE 70
[2022-05-13 16:11] VITALS: BP 139/64; PULSE 61; RESP 18; TEMP 36.7; O2SAT 96
[2022-05-13] MEDS: 0.9 % Sodium Chloride 1,000 ML 999 ML IV (16:43)
--- NOTE | 2022-05-13 16:44 | PC.NURSE ---
patient A/OX4. pupils equal and reactive . patient positive for covid. lungs clear .heart rate regular rhythm . skin pink warm dry and intact . bowels active in all four quadrants . patient aware of plan of care .
[2022-05-13 18:19] LABS: Troponin-I High Sensitivity 38.7 ng/L (<3.5-17.0)
== END 2022-05-13 18:57 | disposition home or self-care (01) ==
PROVIDERS: Nurse Practitioner Family; Emergency Provider Emergency Medicine Emergency Medical Services; PCP Internal Medicine
DX: U07.1 COVID-19 (principal); R06.02 Shortness of breath; I95.1 Orthostatic hypotension; Z79.899 Other long term (current) drug therapy
CPT/HCPCS: 0241U; 36415; 71045; 80053; 82248; 83690; 83735; 83880; 84484; 85025; 93005; 96360; 99284

== ENCOUNTER 2022-06-05 12:58 | Outpatient (RCR) | payer MEDICARE, SELFPAY ==
[2022-06-05 13:27] VITALS: BP 114/62; BP 136/58; BMI 26.4
--- NOTE | 2022-06-05 15:31 | MHC.CR.ITI ---
[address] [phone] F: [phone] Please see additional notes from [facility] Initial Assessment/ITP Cardiac Rehab Initial Assessment/ITP Start: 05/08/22 12:28 Freq: Status: Active Protocol: Activity Type Activity Date Activity User E-sign Co-sign Detail Recorded Client Recorded Date Recorded By Document 06/05/22 13:27 [email or web address] [id number] 06/05/22 13:39 BRIEN 06/05/22 13:27 Cardiac Rehab ITP Initial [Excercise] -Podiatrist Required Yes -Preferred Language Scottish -Number of sessions approved 36 -Diagnosis Angioplasty ( PTCA) Z95.5 -Other Diagnosis asthma, stents, mi 20 yrs ago, high cholesterol, hypothyroid, CAD -Comments angioplasty [Functional Assessment] -6 Min Cycle (distance in miles/ ft) 830 -METS Achieved 2.20 -Resting HR 64 -Resting BP 114/62 -Resting SpO2 100 -Exercise HR 79 -Exercise BP 136/58 -Exercise SpO2 98 -RPE 11 -Dyspnea No -ECG Summary SR with BBB -Comments Tolerated walk well [Pre Rehab] -Pre Rehab Home Exercise No -Comments Pt does not exercise- does house work when she can, used to walk in neighborhood and loves to dance but since angioplasty she is very tired. -Risk Stratification: Low Risk Uncomplicated Participants ME; CABG; angioplasty; atherectomy -Fall Risk No -Assistive Devices None -Comments steady gait [Exercise Plan] [Intervention] -Exercise Prescription NuStep, Recumbent Bike, UBE -Duration Intensity 36 Sessions -Frequency 2-3x/week -Angina with Exercise No [Exercise Education] -Exercise Education Exercise orientation, Exercise safety ,RPE,Self pulse checking,Signs and symptoms, Warmup/cooldown -Date Completed 06/05/22 -Initials darshan -Education Summary Pt understands the above teachings. Demonstrated self pulse check. [Exercise Goals] -Exercise Most Days of the Week Yes -Exercise 30-45 mins/day Yes -Target HR Range +20 - +30 beats above resting -Target RPE range 11-13 -Increase METS next 30 days 0.5-1.0 METS Every two weeks -METs goal by Discharge 5 METS -Comments Pt does not exercise much at home. Spoke to pt, about above goals while here in rehab. [Nutrition] [Hyperlipidemia] -Hyperlipidemia Yes -Are lab results available No [Diabetes] -Diabetes No -Are lab results available No -Monitors Glucose No [Weight Management] -Height 5 ft 4 in -Weight 70 kg -BMI 26.4 -Recommended Diet dash -Comments Lost 15lbs since stent/ angioplasty, unintentional- decreased appetite, smaller portions. [Drug/Alchohol Use] -Drug/Alcohol Use Yes -Type wine -Amount one glass per night [Nutritional Screen (Rate Your Plate)] -Score 34 -Interpretation of Score many ways pt can make healthier choices -Comments tries to watch what she eats. [Nutrition Plan] [Intervention] -Referral(s) Nutrition Brochures [Nutrition Education] -Nutrition Education Hydration, Nutrition, Reading food labels -Date Completed 06/05/22 -Initials darshan -Education Summary Importance of hydration during/ after exercise went over with pt. [Nutrition Goals] -Goals BMI < 25, Fasting BG 80- 120 mg/dL,HDL > 40,LDL < 70, Total CHOL < 200 -Weight goal no -Comments recently lost 15lbs [Psycho/Social] -Learning Barriers None -Occupation Retired -PHQ9 Score 8 -Interpretation of Score higher score at risk for depression -Plan of Action/Follow-up to fax to pcp -Comments pt feels down sometimes because shes tired -Patient Self-Reports Depression No -Family Support Lives with spouse/others -Comments Daughter lives in downstairs apartment- very supportive- more than daughter. Daughter has addiction issues- was on prescription opioids for back problems. [Psycho/Social Plan] [Intervention] -Referral(s) No consult needed,Patient refused consults [Psycho/Social Education] -Psycho/Social Education Advanced directives, Coping techniques, Depression and CAD,Positive support system, Relaxation Techniques, Reviewed PHQ9 Score w/pt, Stress management -Date Completed 06/05/22 -Initials darshan -Education Summary Loves to read, used to love dancing but since stents/ angioplasty has slowed down- no energy [Psycho/Social Goals] -Goals Improve depression screen score, Improve depressive symptoms,Manage /reduce stress [Other Core Comp] [Risk Factors] -Risk Factors Dyslipidemia, Hypertension, Physical Inactivity -Comments: Pt on HTN meds as well as high cholesterol meds. [Hypertension] -Hypertention Yes -Resting BP: 114/62 [Tobacco Use] -Patient Tobacco Use Status Former Tobacco user -Years smoked 30 yrs -Smoking Quit Date 30 years ago [Heart Failure] -Heart Failure No -Dyspnea at Rest No [Other Core Comp Plan] [Intervention] -Referral(s) Not Applicable [Other Core Comp Education] -Other Core Comp Education Medication compliance, Understanding hypertension -Date Completed 06/05/22 -Initials darshan -Education Summary Takes meds as prescribed, went over whole list, pt knows what meds are for. [Other Core Comp Goals] -Goals Medication compliance, Resting BP < 130/80 -Comments Compliant with meds [Medication Plan] [Intervention] -Medications albuterol sulfate 90 mcg inh prn wheezing/sob amlodipine 5mg po daily asa 81 mg po daily atenolol 25 mg po daily vit d3 25 mcg po daily dicyclomine 20mg tid prn advair 250/50 mcg bid lorazepam 1mg po bid prn rosuvastatin 20 mg po hs levothyroxine 75 mg po daily pratoprazole 40 mg po daily -Compliance Patient reports compliance w/ prescribed meds [Medication Education] -Education Importance of medication compliance, Medication purpose, Medication schedule, Medication side effects -Date Completed 06/05/22 -Initials darshan -Education Summary pt takes meds as prescribed [Medication Goals] -Goals Adherence to medication compliance [Treatment Times] -Rehab Services with ECG Monitor -Time 1300 -End Time 1530 -Visit Duration 150
[2022-07-04 06:59] VITALS: BP 108/62; BMI 25.5
--- NOTE | 2022-07-04 08:10 | MHC.CR.ITR ---
[address] [phone] F: [phone] Please see additional notes from [facility] Reassessment/ITP Cardiac Rehab Reassessment/ITP Start: 05/08/22 12:28 Freq: Status: Active Protocol: Activity Type Activity Date Activity User E-sign Co-sign Detail Recorded Client Recorded Date Recorded By Document 07/04/22 06:59 NAEEM [id number] 07/04/22 08:09 NAEEM 07/04/22 06:59 Cardiac Rehab Reassessment/ITP [Exercise] -Engineer Exhauster Required No -Preferred Language Maltese -Progress Note Type 30-Day Note -Total Sessions Attended 9 -Comments angioplasty Pat has increased intensity and duration of exercise with supervision and guidance. She seeks out opportunity to increase her exercise routine. (e.g has added free weights to increase strength) [Functional Assessment] -ECG Summary SR with BBB -Home-Based Rehab Pt approved for home-based exercise -Comments had not exercised since stent placement but has started walking at moderate pace on non-rehab days. -Fall Risk No [Exercise Plan] [Intervention] -Exercise Prescription NuStep, Recumbent Bike, UBE -Duration Intensity 36 Sessions -Angina with Exercise No [Home Exercise] -Mode walking -Frequency non-rehab days -Intensity moderate -Comments continues to be easily fatigued. walks to tolerance. [Exercise Education] -Exercise Education Exercise orientation, Exercise safety ,Home exercise, RPE,Self pulse checking,Signs and symptoms, Warmup/cooldown -Date Completed 06/05/22 -Initials darshan -Education Summary Accurately demonstrates self pulse check. warms up with resistant bands and cools down with free weights. Uses equipment safely and is aware of S/S to monitor. Understand and uses RPE scale appropriately [Exercise Goals] -Exercise Most Days of the Week Yes -Exercise 30-45 mins/day Yes -Target HR Range +20 - +30 beats above resting -Target RPE range 11-13 -Increase METS next 30 days 0.5-1.0 METS Every two weeks -METs goal by Discharge 5 METS -Comments Pt does not exercise much at home. Spoke to pt, about above goals while here in rehab. [Nutrition] [Hyperlipidemia] -Are lab results available Yes -Hyperlipidemia Yes -Comments 03/25/2022 cholesterol- 187 triglycerides- 114 LDL-103 HDL- 70 [Diabetes] -Diabetes No -Fasting Glucose 87 -Date 09/23/21 [Weight Management] -Weight 67.5 kg -BMI 25.5 -Comments has lost 2.5 kg since starting CR [Drug/Alchohol Use] -Drug/Alcohol Use Yes -Comment drinks 1 glass of wine nightly [Nutrition Plan] [Intervention] -Attended Nutrition Brochures [Nutrition Education] -Nutrition Education Hydration, Nutrition, Reading food labels -Date Completed 06/05/22 -Initials darshan -Education Summary Importance of hydration during/ after exercise went over with pt. hydrates freely . Denies awareness of any S/S of hypo /hyperglycemia. [Nutrition Goals] -Goals BMI < 25, Fasting BG 80- 120 mg/dL,HDL > 40,LDL < 70, Total CHOL < 200 -Weight goal none -Comments happy with current weight [Psycho/Social] -Occupation Retired -PHQ9 Score 8 -Interpretation of Score moderate risk for depression -Plan of Action/Follow-up to fax to pcp -Patient Self-Reports Depression No -Comments continues to express concern re: becoming easily fatigued . [Psycho/Social Plan] [Intervention] -Attended No consult needed [Psycho/Social Education] -Psycho/Social Education Advanced directives, Coping techniques, Depression and CAD,Positive support system, Relaxation Techniques, Reviewed PHQ9 Score w/pt, Sexuality and CAD,Signs and symptoms of CAD ,Stress management -Date Completed 06/05/22 -Initials darshan -Education Summary Loves to read, used to love dancing but since stents/ angioplasty has slowed down- no energy no questions or concerns re: sexuality, support system, relaxation and coping techniques [Psycho/Social Goals] -Goals Improve depression screen score, Improve depressive symptoms,Manage /reduce stress [Other Core Comp] [Hypertension] -Hypertention Yes -Resting BP: 108/62 -Medication Changes No [Tobacco Use] -Change in Use No -Comments smoked in the past (> 30 years ago) [Heart Failure] -Heart Failure No -Dyspnea at Rest No [Other Core Comp Plan] [Intervention] -Attended Not Applicable [Other Core Comp Education] -Other Core Comp Education HF Disease progression, Medication compliance,Risk factor modifications, RPD Scale/SOB management, Understanding hypertension -Date Completed 06/05/22 -Initials darshan -Education Summary Takes meds as prescribed, went over whole list, pt knows what meds are for. denies questions or concerns. [Other Core Comp Goals] -Goals Manage risk factors, Medication compliance, Resting BP < 130/80 -Comments Compliant with meds Is aware of risk factors to monitor (Diet, exercise, depression etc) [Medication Plan] [Intervention] -Medications albuterol sulfate 90 mcg INH amlodipine 5 mg PO Daily ASA 81 mg PO Daily Atenolol 25 mg PO Daily Vit D3 25 mcg PO Daily plavix 75 mg PO daily for 30 days dicyclomine 20 mg PO TID fluticasone propion-s salmeterol 250- 50 mcg/dose BID INH lorazepam 1mg PO BID prn rosuvastatin 20 mg PO HS levothyroxine 75 mg Pratoprazole 40 mg PO daily -Compliance Patient reports compliance w/ prescribed meds [Medication Education] -Education Importance of medication compliance, Medication purpose, Medication schedule, Medication side effects -Date Completed 06/05/22 -Initials darshan -Education Summary pt takes meds as prescribed [Medication Goals] -Goals Adherence to medication compliance
[2022-07-31 08:43] VITALS: BP 122/62; BMI 25.9
--- NOTE | 2022-07-31 08:50 | MHC.CR.ITR ---
[address] [phone] F: [phone] Please see additional notes from [facility] Reassessment/ITP Cardiac Rehab Reassessment/ITP Start: 05/08/22 12:28 Freq: Status: Active Protocol: Activity Type Activity Date Activity User E-sign Co-sign Detail Recorded Client Recorded Date Recorded By Document 07/31/22 08:43 NAEEM [id number] 07/31/22 08:49 NAEEM 07/31/22 08:43 Cardiac Rehab Reassessment/ITP [Exercise] -Curing Room Supervisor Required No -Preferred Language Maltese -Progress Note Type 60-Day Note -Total Sessions Attended 9 -Comments angioplasty Pat has increased intensity and duration of exercise with supervision and guidance. She seeks out opportunity to increase her exercise routine. (e.g has added free weights to increase strength) [Functional Assessment] -ECG Summary SR with BBB -Home-Based Rehab Pt approved for home-based exercise -Comments had not exercised since stent placement but has started walking at moderate pace on non-rehab days. -Fall Risk No [Exercise Plan] [Intervention] -Exercise Prescription NuStep, Recumbent Bike, UBE -Duration Intensity 36 Sessions -Exercise Minutes/Day 30 -Exercise Days/Week 5 -Angina with Exercise No -Peak METs 4 [Home Exercise] -Mode walking -Frequency non-rehab days -Intensity moderate -Comments continues to be easily fatigued. walks to tolerance. [Exercise Education] -Exercise Education Exercise orientation, Exercise safety ,Home exercise, RPE,Self pulse checking,Signs and symptoms, Warmup/cooldown -Date Completed 06/05/22 -Initials darshan -Education Summary Accurately demonstrates self pulse check. warms up with resistant bands and cools down with free weights. Uses equipment safely and is aware of S/S to monitor. Understand and uses RPE scale appropriately [Exercise Goals] -Exercise Most Days of the Week Yes -Exercise 30-45 mins/day Yes -Target HR Range +20 - +30 beats above resting -Target RPE range 11-13 -Increase METS next 30 days 0.5-1.0 METS Every two weeks -METs goal by Discharge 5 METS -Comments has been sedentary up until recently. [Nutrition] [Hyperlipidemia] -Are lab results available Yes -Hyperlipidemia Yes -Comments 03/25/2022 cholesterol- 187 triglycerides- 114 LDL-103 HDL- 70 [Diabetes] -Diabetes No -Fasting Glucose 87 -Date 09/23/21 [Weight Management] -Weight 68.68 kg -BMI 25.9 [Drug/Alchohol Use] -Drug/Alcohol Use Yes -Comment drinks 1 glass of wine nightly [Nutrition Plan] [Intervention] -Attended Nutrition Brochures [Nutrition Education] -Nutrition Education Hydration, Nutrition, Reading food labels -Date Completed 06/05/22 -Initials darshan -Education Summary Importance of hydration during/ after exercise went over with pt. hydrates freely . Denies awareness of any S/S of hypo /hyperglycemia. [Nutrition Goals] -Goals BMI < 25, Fasting BG 80- 120 mg/dL,HDL > 40,LDL < 70, Total CHOL < 200 -Weight goal none -Comments happy with current weight [Psycho/Social] -Occupation Retired -PHQ9 Score 8 -Interpretation of Score moderate risk for depression -Plan of Action/Follow-up to fax to pcp -Patient Self-Reports Depression No -Comments continues to express concern re: becoming easily fatigued . [Psycho/Social Plan] [Intervention] -Attended No consult needed [Psycho/Social Education] -Psycho/Social Education Advanced directives, Coping techniques, Depression and CAD,Positive support system, Relaxation Techniques, Reviewed PHQ9 Score w/pt, Sexuality and CAD,Signs and symptoms of CAD ,Stress management -Date Completed 06/05/22 -Initials darshan -Education Summary Loves to read, used to love dancing but since stents/ angioplasty has slowed down- no energy no questions or concerns re: sexuality, support system, relaxation and coping techniques [Psycho/Social Goals] -Goals Improve depression screen score, Improve depressive symptoms,Manage /reduce stress [Other Core Comp] [Hypertension] -Hypertention Yes -Resting BP: 122/62 -Medication Changes No [Tobacco Use] -Change in Use No -Comments smoked in the past (> 30 years ago) [Heart Failure] -Heart Failure No -Dyspnea at Rest No [Other Core Comp Plan] [Intervention] -Attended Not Applicable [Other Core Comp Education] -Other Core Comp Education HF Disease progression, Medication compliance,Risk factor modifications, RPD Scale/SOB management, Understanding hypertension -Date Completed 06/05/22 -Initials darshan -Education Summary Takes meds as prescribed, went over whole list, pt knows what meds are for. denies questions or concerns. [Other Core Comp Goals] -Goals Manage risk factors, Medication compliance, Resting BP < 130/80 -Comments Compliant with meds Is aware of risk factors to monitor (Diet, exercise, depression etc) [Medication Plan] [Intervention] -Medications albuterol sulfate 90 mcg INH amlodipine 5 mg PO Daily ASA 81 mg PO Daily Atenolol 25 mg PO Daily Vit D3 25 mcg PO Daily plavix 75 mg PO daily for 30 days dicyclomine 20 mg PO TID fluticasone propion-s salmeterol 250- 50 mcg/dose BID INH lorazepam 1mg PO BID prn rosuvastatin 20 mg PO HS levothyroxine 75 mg Pratoprazole 40 mg PO daily -Compliance Patient reports compliance w/ prescribed meds [Medication Education] -Education Importance of medication compliance, Medication purpose, Medication schedule, Medication side effects -Date Completed 06/05/22 -Initials darshan -Education Summary pt takes meds as prescribed [Medication Goals] -Goals Adherence to medication compliance
[2022-08-29 08:42] VITALS: BP 110/54; BMI 25.2
--- NOTE | 2022-08-29 08:47 | MHC.CR.ITR ---
[address] [phone] F: [phone] Please see additional notes from [facility] Reassessment/ITP Cardiac Rehab Reassessment/ITP Start: 05/08/22 12:28 Freq: Status: Active Protocol: Activity Type Activity Date Activity User E-sign Co-sign Detail Recorded Client Recorded Date Recorded By Document 08/29/22 08:42 NAEEM [id number] 08/29/22 08:47 NAEEM 08/29/22 08:42 Cardiac Rehab Reassessment/ITP [Exercise] -Assembler For Puller Over Hand Required No -Preferred Language Turkmen -Progress Note Type 90-Day Note -Total Sessions Attended 21 -Comments angioplasty Chiqui has increased intensity and duration of exercise with supervision and guidance. She seeks out opportunity to increase her exercise routine. (e.g has added free weights to increase strength) has had some pulmonary issues for which she has seen machinist class b. new inhalers added to medication regimen [Functional Assessment] -ECG Summary SR with BBB -Home-Based Rehab Pt approved for home-based exercise -Comments had not exercised since stent placement but has started walking at moderate pace on non-rehab days. -Fall Risk No [Exercise Plan] [Intervention] -Exercise Prescription NuStep, Recumbent Bike, UBE -Duration Intensity 36 Sessions -Exercise Minutes/Day 30 -Exercise Days/Week 5 -Angina with Exercise No -Peak METs 4 [Home Exercise] -Mode walking -Frequency non-rehab days -Intensity moderate -Comments continues to be easily fatigued. walks to tolerance. [Exercise Education] -Exercise Education Exercise orientation, Exercise safety ,Home exercise, RPE,Self pulse checking,Signs and symptoms, Warmup/cooldown -Date Completed 06/05/22 -Initials drashan -Education Summary Accurately demonstrates self pulse check. warms up with resistant bands and cools down with free weights. Uses equipment safely and is aware of S/S to monitor. Understand and uses RPE scale appropriately [Exercise Goals] -Exercise Most Days of the Week Yes -Exercise 30-45 mins/day Yes -Target HR Range +20 - +30 beats above resting -Target RPE range 11-13 -Increase METS next 30 days 0.5-1.0 METS Every two weeks -METs goal by Discharge 5 METS -Comments has been sedentary up until recently. [Nutrition] [Hyperlipidemia] -Are lab results available Yes -Hyperlipidemia Yes -Comments 03/25/2022 cholesterol- 187 triglycerides- 114 LDL-103 HDL- 70 [Diabetes] -Diabetes No -Fasting Glucose 87 -Date 09/23/21 [Weight Management] -Weight 66.77 kg -BMI 25.2 [Drug/Alchohol Use] -Drug/Alcohol Use Yes -Comment drinks 1 glass of wine nightly [Nutrition Plan] [Intervention] -Attended Nutrition Brochures [Nutrition Education] -Nutrition Education Hydration, Nutrition, Reading food labels -Date Completed 06/05/22 -Initials darshan -Education Summary Importance of hydration during/ after exercise went over with pt. hydrates freely . Denies awareness of any S/S of hypo /hyperglycemia. [Nutrition Goals] -Goals BMI < 25, Fasting BG 80- 120 mg/dL,HDL > 40,LDL < 70, Total CHOL < 200 -Weight goal none -Comments happy with current weight [Psycho/Social] -Occupation Retired -PHQ9 Score 8 -Interpretation of Score moderate risk for depression -Plan of Action/Follow-up to fax to pcp -Patient Self-Reports Depression No -Comments continues to express concern re: becoming easily fatigued . [Psycho/Social Plan] [Intervention] -Attended No consult needed [Psycho/Social Education] -Psycho/Social Education Advanced directives, Coping techniques, Depression and CAD,Positive support system, Relaxation Techniques, Reviewed PHQ9 Score w/pt, Sexuality and CAD,Signs and symptoms of CAD ,Stress management -Date Completed 06/05/22 -Initials darshan -Education Summary Loves to read, used to love dancing but since stents/ angioplasty has slowed down- no energy no questions or concerns re: sexuality, support system, relaxation and coping techniques [Psycho/Social Goals] -Goals Improve depression screen score, Improve depressive symptoms,Manage /reduce stress [Other Core Comp] [Hypertension] -Hypertention Yes -Resting BP: 110/54 -Medication Changes No [Tobacco Use] -Change in Use No -Comments smoked in the past (> 30 years ago) [Heart Failure] -Heart Failure No -Dyspnea at Rest No [Other Core Comp Plan] [Intervention] -Attended Not Applicable [Other Core Comp Education] -Other Core Comp Education HF Disease progression, Medication compliance,Risk factor modifications, RPD Scale/SOB management, Understanding hypertension -Date Completed 06/05/22 -Initials darshan -Education Summary Takes meds as prescribed, went over whole list, pt knows what meds are for. denies questions or concerns. [Other Core Comp Goals] -Goals Manage risk factors, Medication compliance, Resting BP < 130/80 -Comments Compliant with meds Is aware of risk factors to monitor (Diet, exercise, depression etc) [Medication Plan] [Intervention] -Medications albuterol sulfate 90 mcg INH amlodipine 5 mg PO Daily ASA 81 mg PO Daily Atenolol 25 mg PO Daily Vit D3 25 mcg PO Daily plavix 75 mg PO daily for 30 days dicyclomine 20 mg PO TID fluticasone propion-s salmeterol 250- 50 mcg/dose BID INH lorazepam 1mg PO BID prn rosuvastatin 20 mg PO HS levothyroxine 75 mg Pratoprazole 40 mg PO daily spiriva MDI daily -Compliance Patient reports compliance w/ prescribed meds [Medication Education] -Education Importance of medication compliance, Medication purpose, Medication schedule, Medication side effects -Date Completed 06/05/22 -Initials darshan -Education Summary pt takes meds as prescribed educated re: assembly and use of spiriva. demonstrated accurate administration, [Medication Goals] -Goals Adherence to medication compliance
[2022-10-03 08:54] VITALS: BP 116/58; BMI 24.7
--- NOTE | 2022-10-03 09:04 | MHC.CR.ITR ---
[address] [phone] F: [phone] Please see additional notes from [facility] Cardiac Rehab Reassessment/ITP Cardiac Rehab Reassessment/ITP Start: 05/08/22 12:28 Freq: Status: Active Protocol: Activity Type Activity Date Activity User E-sign Co-sign Detail Recorded Client Recorded Date Recorded By Document 10/03/22 08:54 NAEEM [id number] 10/03/22 09:04 NAEEM 10/03/22 08:54 Cardiac Rehab Reassessment/ITP [Exercise] -Vice Provost Required No -Preferred Language Serbian -Progress Note Type 90-Day Note -Total Sessions Attended 30 -Comments angioplasty Chiqui has increased intensity and duration of exercise with supervision and guidance. She seeks out opportunity to increase her exercise routine. (e.g has added free weights to increase strength) has had some pulmonary issues for which she has seen bean viner. new inhalers added to medication regimen [Functional Assessment] -ECG Summary SR with BBB -Home-Based Rehab Pt approved for home-based exercise -Comments had not exercised since stent placement but has started walking at moderate pace on non-rehab days. -Fall Risk No [Exercise Plan] [Intervention] -Exercise Prescription NuStep, Recumbent Bike, UBE -Duration Intensity 36 Sessions -Exercise Minutes/Day 30 -Exercise Days/Week 5 -Angina with Exercise No -Peak METs 4 [Home Exercise] -Mode walking -Frequency non-rehab days -Intensity moderate -Comments continues to be easily fatigued. walks to tolerance. [Exercise Education] -Exercise Education Exercise orientation, Exercise safety ,Home exercise, RPE,Self pulse checking,Signs and symptoms, Warmup/cooldown -Date Completed 06/05/22 -Initials darshan -Education Summary Accurately demonstrates self pulse check. warms up with resistant bands and cools down with free weights. Uses equipment safely and is aware of S/S to monitor. Understand and uses RPE scale appropriately [Exercise Goals] -Exercise Most Days of the Week Yes -Exercise 30-45 mins/day Yes -Target HR Range +20 - +30 beats above resting -Target RPE range 11-13 -Increase METS next 30 days 0.5-1.0 METS Every two weeks -METs goal by Discharge 5 METS -Comments has been sedentary up until recently. [Nutrition] [Hyperlipidemia] -Are lab results available Yes -Hyperlipidemia Yes -Comments 03/25/2022 cholesterol- 187 triglycerides- 114 LDL-103 HDL- 70 [Diabetes] -Diabetes No -Fasting Glucose 87 -Date 09/23/21 [Weight Management] -Weight 65.45 kg -BMI 24.7 [Drug/Alchohol Use] -Drug/Alcohol Use Yes -Comment drinks 1 glass of wine nightly [Nutrition Plan] [Intervention] -Attended Nutrition Brochures [Nutrition Education] -Nutrition Education Hydration, Nutrition, Reading food labels -Date Completed 06/05/22 -Initials darshan -Education Summary Importance of hydration during/ after exercise went over with pt. hydrates freely . Denies awareness of any S/S of hypo /hyperglycemia. [Nutrition Goals] -Goals BMI < 25, Fasting BG 80- 120 mg/dL,HDL > 40,LDL < 70, Total CHOL < 200 -Weight goal none -Comments happy with current weight [Psycho/Social] -Occupation Retired -PHQ9 Score 8 -Interpretation of Score moderate risk for depression -Plan of Action/Follow-up to fax to pcp -Patient Self-Reports Depression No -Comments continues to express concern re: becoming easily fatigued . [Psycho/Social Plan] [Intervention] -Attended No consult needed [Psycho/Social Education] -Psycho/Social Education Advanced directives, Coping techniques, Depression and CAD,Positive support system, Relaxation Techniques, Reviewed PHQ9 Score w/pt, Sexuality and CAD,Signs and symptoms of CAD ,Stress management -Date Completed 06/05/22 -Initials darshan -Education Summary Loves to read, used to love dancing but since stents/ angioplasty has slowed down- no energy no questions or concerns re: sexuality, support system, relaxation and coping techniques [Psycho/Social Goals] -Goals Improve depression screen score, Improve depressive symptoms,Manage /reduce stress [Other Core Comp] [Hypertension] -Hypertention Yes -Resting BP: 116/58 -Medication Changes No [Tobacco Use] -Change in Use No -Comments smoked in the past (> 30 years ago) [Heart Failure] -Heart Failure No -Dyspnea at Rest No [Other Core Comp Plan] [Intervention] -Attended Not Applicable [Other Core Comp Education] -Other Core Comp Education HF Disease progression, Medication compliance,Risk factor modifications, RPD Scale/SOB management, Understanding hypertension -Date Completed 06/05/22 -Initials darshan -Education Summary Takes meds as prescribed, went over whole list, pt knows what meds are for. denies questions or concerns. [Other Core Comp Goals] -Goals Manage risk factors, Medication compliance, Resting BP < 130/80 -Comments Compliant with meds Is aware of risk factors to monitor (Diet, exercise, depression etc) [Medication Plan] [Intervention] -Medications albuterol sulfate 90 mcg INH amlodipine 5 mg PO Daily ASA 81 mg PO Daily Atenolol 25 mg PO Daily Vit D3 25 mcg PO Daily plavix 75 mg PO daily for 30 days dicyclomine 20 mg PO TID fluticasone propion-s salmeterol 250- 50 mcg/dose BID INH lorazepam 1mg PO BID prn rosuvastatin 20 mg PO HS levothyroxine 75 mg Pratoprazole 40 mg PO daily spiriva MDI daily -Compliance Patient reports compliance w/ prescribed meds [Medication Education] -Education Importance of medication compliance, Medication purpose, Medication schedule, Medication side effects -Date Completed 06/05/22 -Initials darshan -Education Summary pt takes meds as prescribed educated re: assembly and use of spiriva. demonstrated accurate administration, [Medication Goals] -Goals Adherence to medication compliance
[2022-10-31 07:18] VITALS: BP 116/58; BMI 24.8
--- NOTE | 2022-10-31 07:30 | MHC.CR.ITR ---
[address] [phone] F: [phone] Please see additional notes from [facility] Cardiac Rehab Reassessment/ITP Cardiac Rehab Reassessment/ITP Start: 05/08/22 12:28 Freq: Status: Active Protocol: Activity Type Activity Date Activity User E-sign Co-sign Detail Recorded Client Recorded Date Recorded By Document 10/31/22 07:18 [email or web address] [id number] 10/31/22 07:29 NAEEM 10/31/22 07:18 Cardiac Rehab Reassessment/ITP [Exercise] -Farm Management Teacher Required No -Preferred Language Lithuanian -Progress Note Type 120-Day Note -Total Sessions Attended 30 -Comments angioplasty This is Chiqui's 150 day progress note. She has not attended CR since 10/02/22 due ti illness and scheduling of physician's appointments. On 10/23/22 phone to state she would be away through the rest of October visiting family for the holidays. states she would call in November once she returns to the area. Previously Chiqui has increased intensity and duration of exercise with supervision and guidance. She seeks out opportunity to increase her exercise routine. (e.g has added free weights to increase strength). [Functional Assessment] -ECG Summary SR with BBB -Home-Based Rehab Pt approved for home-based exercise -Comments had not exercised since stent placement but has started walking at moderate pace on non-rehab days. -Fall Risk No [Exercise Plan] [Intervention] -Exercise Prescription NuStep, Recumbent Bike, UBE -Duration Intensity 36 Sessions -Exercise Minutes/Day 30 -Exercise Days/Week 5 -Angina with Exercise No -Peak METs 4 [Home Exercise] -Mode walking -Frequency non-rehab days -Intensity moderate -Comments continues to be easily fatigued. walks to tolerance. [Exercise Education] -Exercise Education Exercise orientation, Exercise safety ,Home exercise, RPE,Self pulse checking,Signs and symptoms, Warmup/cooldown -Date Completed 06/05/22 -Initials darshan -Education Summary Accurately demonstrates self pulse check. warms up with resistant bands and cools down with free weights. Uses equipment safely and is aware of S/S to monitor. Understand and uses RPE scale appropriately [Exercise Goals] -Exercise Most Days of the Week Yes -Exercise 30-45 mins/day Yes -Target HR Range +20 - +30 beats above resting -Target RPE range 11-13 -Increase METS next 30 days 0.5-1.0 METS Every two weeks -METs goal by Discharge 5 METS -Comments has been sedentary up until recently. [Nutrition] [Hyperlipidemia] -Are lab results available Yes -Hyperlipidemia Yes -Comments 03/25/2022 cholesterol- 187 triglycerides- 114 LDL-103 HDL- 70 [Diabetes] -Diabetes No -Fasting Glucose 87 -Date 09/23/21 [Weight Management] -Weight 65.8 kg -BMI 24.8 [Drug/Alchohol Use] -Drug/Alcohol Use Yes -Comment drinks 1 glass of wine nightly [Nutrition Plan] [Intervention] -Attended Nutrition Brochures [Nutrition Education] -Nutrition Education Hydration, Nutrition, Reading food labels -Date Completed 06/05/22 -Initials darshan -Education Summary Importance of hydration during/ after exercise went over with pt. hydrates freely . Denies awareness of any S/S of hypo /hyperglycemia. [Nutrition Goals] -Goals BMI < 25, Fasting BG 80- 120 mg/dL,HDL > 40,LDL < 70, Total CHOL < 200 -Weight goal none -Comments happy with current weight [Psycho/Social] -Occupation Retired -PHQ9 Score 8 -Interpretation of Score moderate risk for depression -Plan of Action/Follow-up to fax to pcp -Patient Self-Reports Depression No -Comments continues to express concern re: becoming easily fatigued . [Psycho/Social Plan] [Intervention] -Attended No consult needed [Psycho/Social Education] -Psycho/Social Education Advanced directives, Coping techniques, Depression and CAD,Positive support system, Relaxation Techniques, Reviewed PHQ9 Score w/pt, Sexuality and CAD,Signs and symptoms of CAD ,Stress management -Date Completed 06/05/22 -Initials darshan -Education Summary Loves to read, used to love dancing but since stents/ angioplasty has slowed down- no energy no questions or concerns re: sexuality, support system, relaxation and coping techniques [Psycho/Social Goals] -Goals Improve depression screen score, Improve depressive symptoms,Manage /reduce stress [Other Core Comp] [Hypertension] -Hypertention Yes -Resting BP: 116/58 -Medication Changes No [Tobacco Use] -Change in Use No -Comments smoked in the past (> 30 years ago) [Heart Failure] -Heart Failure No -Dyspnea at Rest No [Other Core Comp Plan] [Intervention] -Attended Not Applicable [Other Core Comp Education] -Other Core Comp Education HF Disease progression, Medication compliance,Risk factor modifications, RPD Scale/SOB management, Understanding hypertension -Date Completed 06/05/22 -Initials darshan -Education Summary Takes meds as prescribed, went over whole list, pt knows what meds are for. denies questions or concerns. [Other Core Comp Goals] -Goals Manage risk factors, Medication compliance, Resting BP < 130/80 -Comments Compliant with meds Is aware of risk factors to monitor (Diet, exercise, depression etc) [Medication Plan] [Intervention] -Medications albuterol sulfate 90 mcg INH amlodipine 5 mg PO Daily ASA 81 mg PO Daily Atenolol 25 mg PO Daily Vit D3 25 mcg PO Daily plavix 75 mg PO daily for 30 days dicyclomine 20 mg PO TID fluticasone propion-s salmeterol 250- 50 mcg/dose BID INH lorazepam 1mg PO BID prn rosuvastatin 20 mg PO HS levothyroxine 75 mg Pratoprazole 40 mg PO daily spiriva MDI daily -Compliance Patient reports compliance w/ prescribed meds [Medication Education] -Education Importance of medication compliance, Medication purpose, Medication schedule, Medication side effects -Date Completed 06/05/22 -Initials darshan -Education Summary pt takes meds as prescribed educated re: assembly and use of spiriva. demonstrated accurate administration, [Medication Goals] -Goals Adherence to medication compliance
[2022-11-15 12:30] VITALS: BP 116/58; BMI 24.8
--- NOTE | 2022-11-15 12:31 | MHC.CR.ITR ---
[address] [phone] F: [phone] Please see additional notes from [facility] Cardiac Rehab Reassessment/ITP Cardiac Rehab Reassessment/ITP Start: 05/08/22 12:28 Freq: Status: Active Protocol: Activity Type Activity Date Activity User E-sign Co-sign Detail Recorded Client Recorded Date Recorded By Document 11/15/22 12:30 NAEEM Desktop 11/15/22 12:31 NAEEM 11/15/22 12:30 Cardiac Rehab Reassessment/ITP [Exercise] -Beauty Consultant Required No -Preferred Language Romansh -Total Sessions Attended 30 -Comments angioplasty This is Chiqui's 180 day progress note. She has not attended CR since 10/02/22 due to illness and scheduling of physician's appointments. On 10/23/22 phoned to state she would be away through the rest of October visiting family for the holidays. states she would call in November once she returns to the area. Previously Chiqui has increased intensity and duration of exercise with supervision and guidance. She seeks out opportunity to increase her exercise routine. (e.g has added free weights to increase strength). [Functional Assessment] -ECG Summary SR with BBB -Home-Based Rehab Pt approved for home-based exercise -Comments had not exercised since stent placement but has started walking at moderate pace on non-rehab days. -Fall Risk No [Exercise Plan] [Intervention] -Exercise Prescription NuStep, Recumbent Bike, UBE -Duration Intensity 36 Sessions -Exercise Minutes/Day 30 -Exercise Days/Week 5 -Angina with Exercise No -Peak METs 4 [Home Exercise] -Mode walking -Frequency non-rehab days -Intensity moderate -Comments continues to be easily fatigued. walks to tolerance. [Exercise Education] -Exercise Education Exercise orientation, Exercise safety ,Home exercise, RPE,Self pulse checking,Signs and symptoms, Warmup/cooldown -Date Completed 06/05/22 -Initials darshan -Education Summary Accurately demonstrates self pulse check. warms up with resistant bands and cools down with free weights. Uses equipment safely and is aware of S/S to monitor. Understand and uses RPE scale appropriately [Exercise Goals] -Exercise Most Days of the Week Yes -Exercise 30-45 mins/day Yes -Target HR Range +20 - +30 beats above resting -Target RPE range 11-13 -Increase METS next 30 days 0.5-1.0 METS Every two weeks -METs goal by Discharge 5 METS -Comments has been sedentary up until recently. [Nutrition] [Hyperlipidemia] -Are lab results available Yes -Hyperlipidemia Yes -Comments 03/25/2022 cholesterol- 187 triglycerides- 114 LDL-103 HDL- 70 [Diabetes] -Diabetes No -Fasting Glucose 87 -Date 09/23/21 [Weight Management] -Weight 65.8 kg -BMI 24.8 [Drug/Alchohol Use] -Drug/Alcohol Use Yes -Comment drinks 1 glass of wine nightly [Nutrition Plan] [Intervention] -Attended Nutrition Brochures [Nutrition Education] -Nutrition Education Hydration, Nutrition, Reading food labels -Date Completed 06/05/22 -Initials darshan -Education Summary Importance of hydration during/ after exercise went over with pt. hydrates freely . Denies awareness of any S/S of hypo /hyperglycemia. [Nutrition Goals] -Goals BMI < 25, Fasting BG 80- 120 mg/dL,HDL > 40,LDL < 70, Total CHOL < 200 -Weight goal none -Comments happy with current weight [Psycho/Social] -Occupation Retired -PHQ9 Score 8 -Interpretation of Score moderate risk for depression -Plan of Action/Follow-up to fax to pcp -Patient Self-Reports Depression No -Comments continues to express concern re: becoming easily fatigued . [Psycho/Social Plan] [Intervention] -Attended No consult needed [Psycho/Social Education] -Psycho/Social Education Advanced directives, Coping techniques, Depression and CAD,Positive support system, Relaxation Techniques, Reviewed PHQ9 Score w/pt, Sexuality and CAD,Signs and symptoms of CAD ,Stress management -Date Completed 06/05/22 -Initials darshan -Education Summary Loves to read, used to love dancing but since stents/ angioplasty has slowed down- no energy no questions or concerns re: sexuality, support system, relaxation and coping techniques [Psycho/Social Goals] -Goals Improve depression screen score, Improve depressive symptoms,Manage /reduce stress [Other Core Comp] [Hypertension] -Hypertention Yes -Resting BP: 116/58 -Medication Changes No [Tobacco Use] -Change in Use No -Comments smoked in the past (> 30 years ago) [Heart Failure] -Heart Failure No -Dyspnea at Rest No [Other Core Comp Plan] [Intervention] -Attended Not Applicable [Other Core Comp Education] -Other Core Comp Education HF Disease progression, Medication compliance,Risk factor modifications, RPD Scale/SOB management, Understanding hypertension -Date Completed 06/05/22 -Initials darshan -Education Summary Takes meds as prescribed, went over whole list, pt knows what meds are for. denies questions or concerns. [Other Core Comp Goals] -Goals Manage risk factors, Medication compliance, Resting BP < 130/80 -Comments Compliant with meds Is aware of risk factors to monitor (Diet, exercise, depression etc) [Medication Plan] [Intervention] -Medications albuterol sulfate 90 mcg INH amlodipine 5 mg PO Daily ASA 81 mg PO Daily Atenolol 25 mg PO Daily Vit D3 25 mcg PO Daily plavix 75 mg PO daily for 30 days dicyclomine 20 mg PO TID fluticasone propion-s salmeterol 250- 50 mcg/dose BID INH lorazepam 1mg PO BID prn rosuvastatin 20 mg PO HS levothyroxine 75 mg Pratoprazole 40 mg PO daily spiriva MDI daily -Compliance Patient reports compliance w/ prescribed meds [Medication Education] -Education Importance of medication compliance, Medication purpose, Medication schedule, Medication side effects -Date Completed 06/05/22 -Initials darshan -Education Summary pt takes meds as prescribed educated re: assembly and use of spiriva. demonstrated accurate administration, [Medication Goals] -Goals Adherence to medication compliance
[2022-12-25 12:09] VITALS: BP 116/58; BMI 24.8
--- NOTE | 2022-12-25 12:10 | MHC.CR.ITR ---
[address] [phone] F: [phone] Please see additional notes from [facility] Cardiac Rehab Reassessment/ITP Cardiac Rehab Reassessment/ITP Start: 05/08/22 12:28 Freq: Status: Active Protocol: Activity Type Activity Date Activity User E-sign Co-sign Detail Recorded Client Recorded Date Recorded By Document 12/25/22 12:09 NAEEM Desktop 12/25/22 12:10 NAEEM 12/25/22 12:09 Cardiac Rehab Reassessment/ITP [Exercise] -Silver Plater Required No -Preferred Language Setswana -Total Sessions Attended 30 -Comments angioplasty This is Chiqui's 210 day progress note. She has not attended CR since 10/02/22 due to illness and scheduling of physician's appointments. On 10/23/22 phoned to state she would be away through the rest of October visiting family for the holidays. states she would call in November once she returns to the area. Previously Pat has increased intensity and duration of exercise with supervision and guidance. [Functional Assessment] -ECG Summary SR with BBB -Home-Based Rehab Pt approved for home-based exercise -Comments had not exercised since stent placement but has started walking at moderate pace on non-rehab days. -Fall Risk No [Exercise Plan] [Intervention] -Exercise Prescription NuStep, Recumbent Bike, UBE -Duration Intensity 36 Sessions -Exercise Minutes/Day 30 -Exercise Days/Week 5 -Angina with Exercise No -Peak METs 4 [Home Exercise] -Mode walking -Frequency non-rehab days -Intensity moderate -Comments continues to be easily fatigued. walks to tolerance. [Exercise Education] -Exercise Education Exercise orientation, Exercise safety ,Home exercise, RPE,Self pulse checking,Signs and symptoms, Warmup/cooldown -Date Completed 06/05/22 -Initials darshan -Education Summary Accurately demonstrates self pulse check. warms up with resistant bands and cools down with free weights. Uses equipment safely and is aware of S/S to monitor. Understand and uses RPE scale appropriately [Exercise Goals] -Exercise Most Days of the Week Yes -Exercise 30-45 mins/day Yes -Target HR Range +20 - +30 beats above resting -Target RPE range 11-13 -Increase METS next 30 days 0.5-1.0 METS Every two weeks -METs goal by Discharge 5 METS -Comments has been sedentary up until recently. [Nutrition] [Hyperlipidemia] -Are lab results available Yes -Hyperlipidemia Yes -Comments 03/25/2022 cholesterol- 187 triglycerides- 114 LDL-103 HDL- 70 [Diabetes] -Diabetes No -Fasting Glucose 87 -Date 09/23/21 [Weight Management] -Weight 65.8 kg -BMI 24.8 [Drug/Alchohol Use] -Drug/Alcohol Use Yes -Comment drinks 1 glass of wine nightly [Nutrition Plan] [Intervention] -Attended Nutrition Brochures [Nutrition Education] -Nutrition Education Hydration, Nutrition, Reading food labels -Date Completed 06/05/22 -Initials darshan -Education Summary Importance of hydration during/ after exercise went over with pt. hydrates freely . Denies awareness of any S/S of hypo /hyperglycemia. [Nutrition Goals] -Goals BMI < 25, Fasting BG 80- 120 mg/dL,HDL > 40,LDL < 70, Total CHOL < 200 -Weight goal none -Comments happy with current weight [Psycho/Social] -Occupation Retired -PHQ9 Score 8 -Interpretation of Score moderate risk for depression -Plan of Action/Follow-up to fax to pcp -Patient Self-Reports Depression No -Comments continues to express concern re: becoming easily fatigued . [Psycho/Social Plan] [Intervention] -Attended No consult needed [Psycho/Social Education] -Psycho/Social Education Advanced directives, Coping techniques, Depression and CAD,Positive support system, Relaxation Techniques, Reviewed PHQ9 Score w/pt, Sexuality and CAD,Signs and symptoms of CAD ,Stress management -Date Completed 06/05/22 -Initials darshan -Education Summary Loves to read, used to love dancing but since stents/ angioplasty has slowed down- no energy no questions or concerns re: sexuality, support system, relaxation and coping techniques [Psycho/Social Goals] -Goals Improve depression screen score, Improve depressive symptoms,Manage /reduce stress [Other Core Comp] [Hypertension] -Hypertention Yes -Resting BP: 116/58 -Medication Changes No [Tobacco Use] -Change in Use No -Comments smoked in the past (> 30 years ago) [Heart Failure] -Heart Failure No -Dyspnea at Rest No [Other Core Comp Plan] [Intervention] -Attended Not Applicable [Other Core Comp Education] -Other Core Comp Education HF Disease progression, Medication compliance,Risk factor modifications, RPD Scale/SOB management, Understanding hypertension -Date Completed 06/05/22 -Initials darshan -Education Summary Takes meds as prescribed, went over whole list, pt knows what meds are for. denies questions or concerns. [Other Core Comp Goals] -Goals Manage risk factors, Medication compliance, Resting BP < 130/80 -Comments Compliant with meds Is aware of risk factors to monitor (Diet, exercise, depression etc) [Medication Plan] [Intervention] -Medications albuterol sulfate 90 mcg INH amlodipine 5 mg PO Daily ASA 81 mg PO Daily Atenolol 25 mg PO Daily Vit D3 25 mcg PO Daily plavix 75 mg PO daily for 30 days dicyclomine 20 mg PO TID fluticasone propion-s salmeterol 250- 50 mcg/dose BID INH lorazepam 1mg PO BID prn rosuvastatin 20 mg PO HS levothyroxine 75 mg Pratoprazole 40 mg PO daily spiriva MDI daily -Compliance Patient reports compliance w/ prescribed meds [Medication Education] -Education Importance of medication compliance, Medication purpose, Medication schedule, Medication side effects -Date Completed 06/05/22 -Initials darshan -Education Summary pt takes meds as prescribed educated re: assembly and use of spiriva. demonstrated accurate administration, [Medication Goals] -Goals Adherence to medication compliance
[2023-02-09 08:35] VITALS: BP 116/58; BMI 24.8
--- NOTE | 2023-02-09 08:36 | MHC.CR.ITD ---
[address] [phone] F: [phone] Please see additional notes from [facility] Cardiac Rehab Discharge/ITP Cardiac Rehab Discharge/ITP Start: 05/08/22 12:28 Freq: Status: Active Protocol: Activity Type Activity Date Activity User E-sign Co-sign Detail Recorded Client Recorded Date Recorded By Document 02/09/23 08:35 NAEEM [id number] 02/09/23 08:36 NAEEM 02/09/23 08:35 Cardiac Rehab Discharge/ITP [Exercise] -Hydraulic Press In Operator Required No -Preferred Language Slovenian -Total Sessions Attended 30 -Comments angioplasty This is Chiqui's discharge note. She has not attended CR since 10/02/22 due to illness and scheduling of physician's appointments. On 10/23/22 phoned to state she would be away through the rest of October visiting family for the holidays. states she would call in November once she returns to the area. Previously Chiqui has increased intensity and duration of exercise with supervision and guidance. Chiqui has not returned to CR as of today (). discharge 6 minute walk, PHQ9 and rate my plate assessments have not been completed [Functional Assessment] -ECG Summary SR with BBB -Fall Risk No [Exercise Plan] [Intervention] -Exercise Prescription NuStep, Recumbent Bike, UBE -Duration Intensity 36 Sessions -Exercise Minutes/Day 30 -Exercise Days/Week 5 -Angina with Exercise No -Peak METs 4 [Home Exercise] -Mode walking -Frequency non-rehab days -Intensity moderate -Comments continues to be easily fatigued. walks to tolerance. [Exercise Education] -Exercise Education Exercise orientation, Exercise safety ,Home exercise, RPE,Self pulse checking,Signs and symptoms, Warmup/cooldown -Date Completed 06/05/22 -Initials darshan -Education Summary Accurately demonstrates self pulse check. warms up with resistant bands and cools down with free weights. Uses equipment safely and is aware of S/S to monitor. Understand and uses RPE scale appropriately [Exercise Goals] -Exercise Most Days of the Week Yes -Exercise 30-45 mins/day Yes -Target HR Range +20 - +30 beats above resting -Target RPE range 11-13 -Increase METS next 30 days 0.5-1.0 METS Every two weeks -METs goal by Discharge 5 METS -Comments has been sedentary up until recently. [Nutrition] [Hyperlipidemia] -Are lab results available Yes -Hyperlipidemia Yes -Comments 03/25/2022 cholesterol- 187 triglycerides- 114 LDL-103 HDL- 70 [Diabetes] -Diabetes No -Fasting Glucose 87 -Date 09/23/21 [Weight Management] -Weight 65.8 kg -BMI 24.8 [Drug/Alchohol Use] -Drug/Alcohol Use Yes -Comment drinks 1 glass of wine nightly [Nutrition Plan] [Intervention] -Attended Nutrition Brochures [Nutrition Education] -Nutrition Education Hydration, Nutrition, Reading food labels -Date Completed 06/05/22 -Initials darshan -Education Summary Importance of hydration during/ after exercise went over with pt. hydrates freely . Denies awareness of any S/S of hypo /hyperglycemia. [Nutrition Goals] -Goals BMI < 25, Fasting BG 80- 120 mg/dL,HDL > 40,LDL < 70, Total CHOL < 200 -Weight goal none -Comments happy with current weight [Psycho/Social] -Occupation Retired -PHQ9 Score 8 -Interpretation of Score moderate risk for depression -Plan of Action/Follow-up to fax to pcp -Patient Self-Reports Depression No -Comments continues to express concern re: becoming easily fatigued . [Psycho/Social Plan] [Intervention] -Attended No consult needed [Psycho/Social Education] -Psycho/Social Education Advanced directives, Coping techniques, Depression and CAD,Positive support system, Relaxation Techniques, Reviewed PHQ9 Score w/pt, Sexuality and CAD,Signs and symptoms of CAD ,Stress management -Date Completed 06/05/22 -Initials darshan -Education Summary Loves to read, used to love dancing but since stents/ angioplasty has slowed down- no energy no questions or concerns re: sexuality, support system, relaxation and coping techniques [Psycho/Social Goals] -Goals Improve depression screen score, Improve depressive symptoms,Manage /reduce stress [Other Core Comp] [Hypertension] -Hypertention Yes -Resting BP: 116/58 -Medication Changes No [Tobacco Use] -Change in Use No -Comments smoked in the past (> 30 years ago) [Heart Failure] -Dyspnea at Rest No [Other Core Comp Plan] [Intervention] -Attended Not Applicable [Other Core Comp Education] -Other Core Comp Education HF Disease progression, Medication compliance,Risk factor modifications, RPD Scale/SOB management, Understanding hypertension -Date Completed 06/05/22 -Initials darshan -Education Summary Takes meds as prescribed, went over whole list, pt knows what meds are for. denies questions or concerns. [Other Core Comp Goals] -Goals Manage risk factors, Medication compliance, Resting BP < 130/80 -Comments Compliant with meds Is aware of risk factors to monitor (Diet, exercise, depression etc) [Medication Plan] [Intervention] -Medications albuterol sulfate 90 mcg INH amlodipine 5 mg PO Daily ASA 81 mg PO Daily Atenolol 25 mg PO Daily Vit D3 25 mcg PO Daily plavix 75 mg PO daily for 30 days dicyclomine 20 mg PO TID fluticasone propion-s salmeterol 250- 50 mcg/dose BID INH lorazepam 1mg PO BID prn rosuvastatin 20 mg PO HS levothyroxine 75 mg Pratoprazole 40 mg PO daily spiriva MDI daily -Compliance Patient reports compliance w/ prescribed meds [Medication Education] -Education Importance of medication compliance, Medication purpose, Medication schedule, Medication side effects -Date Completed 06/05/22 -Initials darshan -Education Summary pt takes meds as prescribed educated re: assembly and use of spiriva. demonstrated accurate administration, [Medication Goals] -Goals Adherence to medication compliance
== END 2023-02-23 08:21 | disposition home or self-care (01) ==
LOC: HO.CR 12:58
PROVIDERS: PCP Internal Medicine; Visit Provider Nurse Practitioner Family
DX: R06.00 Dyspnea, unspecified (principal); Z95.5 Presence of coronary angioplasty implant and graft; Z98.890 Other specified postprocedural states
CPT/HCPCS: 93798

== ENCOUNTER → 2022-08-04 11:34 | Outpatient (REF) | payer MEDICARE, SELFPAY ==
[2022-06-05 13:27] VITALS: BP 114/62; BP 136/58
[2022-07-31 08:43] VITALS: BP 122/62; BMI 25.9
--- NOTE | 2022-08-04 | HM_ITS ---
Conclusion: 1. Patient was monitored for total period of 3 days 2. Baseline was normal sinus rhythm with average heart rate of 68 beats per minute 3. No significant pauses or bradycardia noted 4. Total of 2795 PVCs accounting for 0.96% of total beats accounting for occasional PVCs 5. Two episodes of nonsustained VT, 3 and 5 beats at 129 beats per minute 6. No patient reported events MTDD
== END ==
LOC: HO.CARD 11:34
PROVIDERS: Visit Provider Internal Medicine
DX: H81.10 Benign paroxysmal vertigo, unspecified ear (principal); R42 Dizziness and giddiness; I25.10 Atherosclerotic heart disease of native coronary artery without angina pectoris; Z91.81 History of falling
CPT/HCPCS: 93242

== ENCOUNTER 2022-08-07 14:45 | Outpatient (REF) | payer MEDICARE, SELFPAY ==
[2022-08-07 14:30] VITALS: BP 114/62; BP 122/62; BP 136/58; BMI 25.9
[2022-08-07 15:06] LABS: MANUAL DIFF FLAG NO
[2022-08-07 15:31] LABS: Basophils Absolute Auto 0.1 X10*3/uL (0.0-0.2); Basophils Percent Auto 1.1 % (0-2); Eosinophils Absolute Auto 0.4 X10*3/uL (0.0-0.4); Eosinophils Percent Auto 6.1 % (0-4); Hematocrit 32.6 % (37.0-47.0); Hemoglobin 10.4 g/dl (12.0-16.0); Imm Gran Abs Auto 0.01 X10*3/uL (0.00-0.03); Imm Gran Pct Auto 0.2 % (0.0-0.4); Lymphocytes Percent Auto 16.4 % (20-40); Mean Corpuscular HGB Conc 31.9 g/dl (31.0-35.0); Mean Corpuscular Hemoglobin 30.8 pg (27.0-33.0); Mean Corpuscular Volume 96.4 fL (80.0-98.0); Monocytes Absolute Auto 0.6 X10*3/uL (0.1-1.2); Neutrophils Absolute Auto 4.1 x10*3/uL (2.0-8.3); Neutrophils Percent Auto 67.2 % (45-73); Platelet Count 154 X10*3/uL (160-400); Red Blood Count 3.38 X10*6/uL (4.20-5.50); Red Cell Distribution Width 13.2 % (11.0-16.0); White Blood Count 6.1 X10*3/uL (4.8-10.8)
[2022-08-07 15:53] LABS: Alanine Aminotransferase 16 U/L (0-31); Albumin Level 4.2 g/dL (3.5-5.0); Alkaline Phosphatase 55 U/L (39-117); Anion Gap 14 (12-20); Aspartate Amino Transferase 21 U/L (5-31); Bilirubin Total 0.7 mg/dL (0.0-1.0); Blood Urea Nitrogen 23 mg/dL (9-16); Carbon Dioxide 26 mmol/L (22-29); Chloride 104 mmol/L (96-108); Estimated Glomerular Filt Rate 33; Glucose Random 94 mg/dL (60-115); Iron 100 mcg/dL (30-160); Percent Iron Saturation 31 % (15-50); Potassium 4.2 mmol/L (3.3-5.1); Sodium 140 mmol/L (135-145); Total Iron Binding Capacity 322 mcg/dL (228-428); Total Protein 6.5 g/dL (6.5-8.0); Unsaturated Iron Binding 222 ug/dL
[2022-08-07 16:16] LABS: Free T4 (Free Thyroxine) 1.08 ng/dL (0.71-1.85); Thyroid Stimulating Hormone 0.61 uIU/mL (0.32-4.0)
== END 2022-08-07 14:46 | disposition home or self-care (01) ==
LOC: HO.LAB 14:45
PROVIDERS: PCP Internal Medicine; Visit Provider Internal Medicine
DX: I12.9 Hypertensive chronic kidney disease with stage 1 through stage 4 chronic kidney disease, or unspecified chronic kidney disease (principal); I25.10 Atherosclerotic heart disease of native coronary artery without angina pectoris; I42.9 Cardiomyopathy, unspecified; N18.9 Chronic kidney disease, unspecified; E03.9 Hypothyroidism, unspecified; D64.9 Anemia, unspecified; Z79.899 Other long term (current) drug therapy; R06.00 Dyspnea, unspecified
CPT/HCPCS: 36415; 80053; 83540; 84439; 84443; 85025; 99212

== ENCOUNTER → 2022-08-29 15:45 | Outpatient (REF) | payer MEDICARE, SELFPAY ==
[2022-08-07 14:30] VITALS: BP 114/62; BP 122/62; BP 136/58; BMI 25.9
--- NOTE | 2022-08-29 15:48 | CA_ITS ---
Transthoracic Echocardiogram Amended Patient (Last, First, Middle): Tonia Lynch, Gender: Female Date of : 1945 Age: 77 Procedure Date: 08/29/2022 Procedure Type: Transthoracic Echocardiogram Location: OP Height: 162.56 cm Weight: 68.49 kg BSA: 1.74 m2 Heart Rate: bpm BP: 122 / 78 mmHg Event Host: BELEN Referring MD: Julio César Vanegas MD Rehabilitation Physician: Julio César Vanegas MD Symptoms: I42.9 - Cardiomyopathy, unspecified Study Quality: Fair/contrast Conclusions: - Normal left ventricular cavity size. There is mildly increased left ventricular wall thickness. The left ventricular systolic function is low normal. The visually estimated ejection fraction is between 50-55%. - E/E prime ratio is between 8 and 15 consistent with indeterminate filling pressures. - The basal inferior and basal inferoseptal segments are akinetic. - The left atrium is moderately dilated. Findings Procedure Information Contrast agent, definity, is being given per protocol without apparent complications. Left Ventricle Normal left ventricular cavity size. There is mildly increased left ventricular wall thickness. The left ventricular systolic function is low normal. The visually estimated ejection fraction is between 50-55%. There is evidence of regional wall motion abnormalities. Abnormal diastolic function is noted. Spectral Doppler is indicative of an impaired relaxation filling pattern. E/E prime ratio is between 8 and 15 consistent with indeterminate filling pressures. Wall Motion Rest Echo Findings The basal inferior and basal inferoseptal segments are akinetic. Right Ventricle Normal right ventricular cavity size and systolic function. Atria The left atrium is moderately dilated. The right atrium is normal in size. Aortic Valve Normal aortic valve structure and function. There is no aortic valve stenosis. There is no aortic valve regurgitation. Mitral Valve There is moderate mitral annular calcification. There is mild to moderate mitral valve regurgitation. There is no mitral valve stenosis. Pulmonic Valve Normal pulmonic valve structure and function. There is trace pulmonic valve regurgitation. Tricuspid Valve Normal tricuspid valve structure and function. There is mild tricuspid valve regurgitation. Normal right atrial pressure. There is no evidence of pulmonary hypertension. Great Vessels All visible segments of the aorta are normal in size. The visualized portions of the pulmonary artery and branches are normal. Venous The inferior vena cava is normal in size and collapses greater than 50% with inspiration. Pericardium/Pleural There is no evidence of pericardial effusion. Prior Study Comparison Changes noted compared to prior study dated: 09/14/2021. EF 50-55%. RWMA inferior and inferoseptum. Measurements 2D Linear Measurements IVSd: 1.00 0.6-0.9/0.6-1.0 cm LVIDd: 5.17 3.9-5.3/4.2-5.9 cm LVIDd Index: 2.97 2.4-3.2/2.2-3.1 cm/m2 LVIDs: 3.87 2.0-3.6 cm LVPWd: 1.02 0.7-1.1 cm LA Diam: 3.90 2.7-3.8/3.0-4.0 cm LAIDs Index: 2.24 1.5-2.3 cm/m2 LV Mass: 242.69 67-162/88-224 g LV Mass Index: 139.47 43-95/49-115 g/m2 LVOT Diam: 2.30 3.0+(-)1.3 cm 2D Volumes LA Vol: 44.50 2D Systolic Function EF 4C: 37.00 >55% EF 2C: 42.50 >55% Mitral Valve MV Pk E: 0.65 MV PK A: 0.88 MV Decel Time: 214.00 E/A: 0.70 E'Lateral: 5.77 E'Medial: 3.70 E/E' Med: 17.60 E/E' Lat: 11.30 PHT: 63.00 MVA PHT: 3.49 Decel Ada: 3.04 Aortic Valve AoV Pk Pipo: 1.17 AoV Mn Pipo: 0.85 AoV VTI: 0.32 AoV Pk Grad: 5.00 Aov Mn Grad: 3.00 ABIGAIL Cont.VTI: 2.14 LVOT LVOT Pk Pipo: 0.65 LVOT Mn Pipo: 0.43 LVOT VTI: 0.17 LVOT Pk Grad: 2.00 LVOT Mn Grad: 1.00 LVOT Diam: 2.30 LVOT Area: 4.15 Diastolic Function MV Pk E: 0.65 MV Pk A: 0.88 E/A: 0.70 E'Medial: 3.70 E/E' Med: 17.60 E' Laterial: 5.77 E/E' Lat: 11.30 Right Ventricle TAPSE (mm): 25.20 TVS' Pipo: 16.50 Tricuspid Valve TR Pk Pipo: 2.84 TR Pk Grad: 32.00 RA Press: 3.00 RVSP: 35.00 Great Vessels Aorta Sinus of Valsalva: 3.27 2.0-3.5 cm Ao Asc: 3.10 2.1-3.4 cm Updated in Other Vendor System with Status of Final Julio César Vanegas MD electronically signed on 08/30/2022 12:46:21 PM with status of Final
== END ==
LOC: HO.CARD 15:45
PROVIDERS: PCP Internal Medicine; Visit Provider Internal Medicine Cardiovascular Disease
DX: I42.9 Cardiomyopathy, unspecified (principal)
CPT/HCPCS: 93306; Q9957

== ENCOUNTER 2022-08-30 12:13 | Outpatient (REF) | payer MEDICARE, SELFPAY ==
[2022-08-07 14:30] VITALS: BP 114/62; BP 136/58
[2022-08-29 08:42] VITALS: BP 110/54; BMI 25.2
[2022-08-30 12:31] LABS: MANUAL DIFF FLAG NO
[2022-08-30 14:00] LABS: Basophils Absolute Auto 0.1 X10*3/uL (0.0-0.2); Basophils Percent Auto 1.2 % (0-2); Eosinophils Absolute Auto 0.5 X10*3/uL (0.0-0.4); Eosinophils Percent Auto 8.6 % (0-4); Hemoglobin 9.6 g/dl (12.0-16.0); Imm Gran Abs Auto 0.04 X10*3/uL (0.00-0.03); Imm Gran Pct Auto 0.7 % (0.0-0.4); Lymphocytes Percent Auto 17.8 % (20-40); Mean Corpuscular Hemoglobin 30.4 pg (27.0-33.0); Mean Corpuscular Volume 94.9 fL (80.0-98.0); Mean Platelet Volume 11.7 fL (9.4-12.3); Monocytes Absolute Auto 0.6 X10*3/uL (0.1-1.2); Monocytes Percent Auto 9.8 % (2-11); Neutrophils Absolute Auto 3.6 x10*3/uL (2.0-8.3); Neutrophils Percent Auto 61.9 % (45-73); Platelet Count 146 X10*3/uL (160-400); Red Blood Count 3.16 X10*6/uL (4.20-5.50); Red Cell Distribution Width 13.2 % (11.0-16.0); White Blood Count 5.8 X10*3/uL (4.8-10.8)
[2022-08-30 14:09] LABS: Anion Gap 14 (12-20); Blood Urea Nitrogen 17 mg/dL (9-16); Calcium 9.3 mg/dL (8.4-10.2); Carbon Dioxide 26 mmol/L (22-29); Chloride 103 mmol/L (96-108); Estimated Glomerular Filt Rate 39; Magnesium 1.6 mg/dL (1.6-2.6); Phosphorus 3.4 mg/dL (2.7-4.5); Potassium 4.1 mmol/L (3.3-5.1); Sodium 139 mmol/L (135-145)
[2022-08-30 14:32] LABS: Vitamin D 25-OH Total 56.3 ng/mL (>30)
[2022-08-30 14:58] LABS: Appearance Urine Clear; Color Urine Yellow; Glucose Urine UA Negative (Negative); Leukocyte Esterase Urine Trace (Negative); Nitrite Urine Negative (Negative); Specific Gravity - Urine 1.015 (1.005-1.025); UMIC TRIGGER UA YES; Urine Blood Negative (Negative); Urine Ketones Negative (Negative); Urine Protein 100 (2+) mg/dL (Neg-Trace)
[2022-08-30 15:04] LABS: Bacteria Urine 1+ (None Seen); RBC Urine 0-2 /HPF (0-2)
[2022-08-30 15:41] LABS: Creatinine Urine 167.15 mg/dL; Microalbum/Creatinine Ratio Ur 62.8 ug/mg cr; Protein/Creatinine Ratio, Ur 0.59 (<0.2); Total Protein Urine Random 99 mg/dL (<12)
[2022-08-31 09:53] LABS: HBS Num1 209.04 mIU/mL (0-7.99); HBsAGNum1 0.18 S/CO (0.00-0.99); Hepatitis B Core Antibody Nonreactive (Nonreactive); Hepatitis B Surface Antigen Negative (Negative); ~HepC Num1 0.11 S/CO (0.00-0.79); ~Hepatitis B Surface Antibody REACTIVE (Nonreactive); ~Hepatitis C Antibody Nonreactive (Nonreactive)
[2022-08-31 13:18] LABS: Complement C3 60 mg/dL (83-193)
[2022-08-31 13:21] LABS: Calcium (PTHI) 9.4 mg/dL (8.6-10.4); PTHI 94 pg/mL (16-77)
[2022-09-01 21:51] LABS: Prot Elec - Albumin 3.7 g/dL (3.8-4.8); Prot Elec - Alpha1 0.3 g/dL (0.2-0.3); Prot Elec - Alpha2 0.6 g/dL (0.5-0.9); Prot Elec - Beta 1 0.4 g/dL (0.4-0.6); Prot Elec - Beta 2 0.2 g/dL (0.2-0.5); Prot Elec - Gamma 0.6 g/dL (0.8-1.7); Prot Elec - Total Protein 5.8 g/dL (6.1-8.1)
[2022-09-04 13:37] LABS: Kappa Light Chain, Free Serum 15.1 mg/L (3.3-19.4); Kappa/Lambda Lt Ch Free Ratio 1.23 (0.26-1.65); Lambda Light Chain, Free Serum 12.3 mg/L (5.7-26.3)
[2022-09-05 15:42] LABS: Anti Nuclear Antibody Screen POSITIVE (NEGATIVE)
== END 2022-08-30 12:14 | disposition home or self-care (01) ==
LOC: HO.LAB 12:13
PROVIDERS: PCP Internal Medicine; Visit Provider Internal Medicine Nephrology
DX: I12.9 Hypertensive chronic kidney disease with stage 1 through stage 4 chronic kidney disease, or unspecified chronic kidney disease (principal); N18.32 Chronic kidney disease, stage 3b; N25.0 Renal osteodystrophy
CPT/HCPCS: 36415; 80051; 81001; 82040; 82043; 82306; 82310; 82565; 83521; 83735; 83970; 84100; 84156; 84165; 84520; 85025; 86038; 86039; 86160; 86704; 86705; 86706; 86803; 87086; 87340

== ENCOUNTER → 2022-09-06 13:40 | Outpatient (BNVA) | payer MEDICARE, SELFPAY ==
[2022-08-07 14:30] VITALS: BP 114/62; BP 136/58
[2022-08-29 08:42] VITALS: BP 110/54; BMI 25.2
== END ==
PROVIDERS: PCP Internal Medicine; Visit Provider Orthopaedic Surgery
DX: M65.331 Trigger finger, right middle finger (principal)
CPT/HCPCS: 99202

== ENCOUNTER 2022-10-23 16:24 | Outpatient (REF) | payer MEDICARE, SELFPAY ==
[2022-08-07 14:30] VITALS: BP 114/62; BP 136/58
[2022-10-23 16:24] VITALS: BP 116/58; BMI 24.7
[2022-10-23 16:45] LABS: MANUAL DIFF FLAG NO
[2022-10-23 16:58] LABS: Basophils Absolute Auto 0.1 X10*3/uL (0.0-0.2); Basophils Percent Auto 1.1 % (0-2); Eosinophils Absolute Auto 0.3 X10*3/uL (0.0-0.4); Eosinophils Percent Auto 5.2 % (0-4); Hematocrit 33.7 % (37.0-47.0); Hemoglobin 10.6 g/dl (12.0-16.0); Imm Gran Abs Auto 0.02 X10*3/uL (0.00-0.03); Imm Gran Pct Auto 0.3 % (0.0-0.4); Lymphocytes Absolute Auto 1.1 X10*3/uL (1.2-4.9); Lymphocytes Percent Auto 17.2 % (20-40); Mean Corpuscular HGB Conc 31.5 g/dl (31.0-35.0); Mean Corpuscular Hemoglobin 30.2 pg (27.0-33.0); Monocytes Absolute Auto 0.6 X10*3/uL (0.1-1.2); Monocytes Percent Auto 9.3 % (2-11); Neutrophils Absolute Auto 4.2 x10*3/uL (2.0-8.3); Neutrophils Percent Auto 66.9 % (45-73); Platelet Count 158 X10*3/uL (160-400); Red Blood Count 3.51 X10*6/uL (4.20-5.50); White Blood Count 6.3 X10*3/uL (4.8-10.8)
[2022-10-23 17:27] LABS: Anion Gap 14 (12-20); Blood Urea Nitrogen 18 mg/dL (9-16); C Reactive Protein 0.03 mg/dL (< or = 0.50); Calcium 9.4 mg/dL (8.4-10.2); Carbon Dioxide 26 mmol/L (22-29); Chloride 104 mmol/L (96-108); Estimated Glomerular Filt Rate 35; Glucose Random 93 mg/dL (60-115); Rheumatoid Factor < 15.0 IU/mL (<15.0); Sodium 140 mmol/L (135-145)
[2022-10-23 17:39] LABS: Erythrocyte Sedimentation Rate 8 MM/HR (0-20)
== END 2022-10-23 16:25 | disposition home or self-care (01) ==
LOC: HO.LAB 16:24
PROVIDERS: PCP Internal Medicine; Visit Provider Internal Medicine
DX: I25.10 Atherosclerotic heart disease of native coronary artery without angina pectoris (principal); K21.9 Gastro-esophageal reflux disease without esophagitis; R79.89 Other specified abnormal findings of blood chemistry; N18.9 Chronic kidney disease, unspecified; M25.50 Pain in unspecified joint
CPT/HCPCS: 36415; 80048; 85025; 85652; 86140; 86431

== ENCOUNTER → 2022-10-26 13:36 | Outpatient (BNVA) | payer MEDICARE, SELFPAY ==
[2022-08-07 14:30] VITALS: BP 114/62; BP 136/58
[2022-10-23 16:24] VITALS: BP 116/58; BMI 24.7
== END ==
PROVIDERS: PCP Internal Medicine; Referring Provider Internal Medicine; Visit Provider Internal Medicine Cardiovascular Disease
DX: I25.118 Atherosclerotic heart disease of native coronary artery with other forms of angina pectoris (principal); I42.9 Cardiomyopathy, unspecified; R06.00 Dyspnea, unspecified
CPT/HCPCS: 99212

== ENCOUNTER 2023-01-24 14:29 | Outpatient (REF) | payer MEDICARE, SELFPAY ==
[2022-08-07 14:30] VITALS: BP 114/62; BP 136/58
[2023-01-24 14:29] VITALS: BMI 24.8
[2023-01-24 15:43] LABS: MANUAL DIFF FLAG NO
[2023-01-24 16:32] LABS: Basophils Absolute Auto 0.1 X10*3/uL (0.0-0.2); Basophils Percent Auto 1.3 % (0-2); Eosinophils Absolute Auto 0.4 X10*3/uL (0.0-0.4); Eosinophils Percent Auto 5.2 % (0-4); Hematocrit 33.7 % (37.0-47.0); Hemoglobin 10.7 g/dl (12.0-16.0); Imm Gran Abs Auto 0.04 X10*3/uL (0.00-0.03); Imm Gran Pct Auto 0.6 % (0.0-0.4); Lymphocytes Absolute Auto 0.9 X10*3/uL (1.2-4.9); Mean Corpuscular HGB Conc 31.8 g/dl (31.0-35.0); Mean Corpuscular Hemoglobin 30.5 pg (27.0-33.0); Mean Platelet Volume 11.2 fL (9.4-12.3); Monocytes Absolute Auto 0.7 X10*3/uL (0.1-1.2); Monocytes Percent Auto 9.8 % (2-11); Neutrophils Percent Auto 70.1 % (45-73); Platelet Count 148 X10*3/uL (160-400); Red Blood Count 3.51 X10*6/uL (4.20-5.50); Red Cell Distribution Width 13.5 % (11.0-16.0); White Blood Count 7.1 X10*3/uL (4.8-10.8)
[2023-01-24 17:16] LABS: Anion Gap 12 (12-20); Blood Urea Nitrogen 21 mg/dL (9-16); Calcium 9.1 mg/dL (8.4-10.2); Carbon Dioxide 27 mmol/L (22-29); Chloride 106 mmol/L (96-108); Estimated Glomerular Filt Rate 41; Glucose Random 87 mg/dL (60-115); Potassium 4.2 mmol/L (3.3-5.1); Sodium 141 mmol/L (135-145)
== END 2023-01-24 14:30 | disposition home or self-care (01) ==
LOC: HO.LAB 14:29
PROVIDERS: PCP Internal Medicine; Referring Provider Internal Medicine; Visit Provider Internal Medicine Cardiovascular Disease
DX: I25.119 Atherosclerotic heart disease of native coronary artery with unspecified angina pectoris (principal); Z98.890 Other specified postprocedural states
CPT/HCPCS: 36415; 80048; 85025; 85610; 93005; 99212

== ENCOUNTER → 2023-02-20 13:52 | Outpatient (BNVA) | payer MEDICARE, SELFPAY ==
[2023-01-24 14:29] VITALS: BMI 24.8
== END ==
PROVIDERS: PCP Internal Medicine; Referring Provider Internal Medicine; Visit Provider Nurse Practitioner Family
DX: I25.10 Atherosclerotic heart disease of native coronary artery without angina pectoris (principal); R06.00 Dyspnea, unspecified; Z98.890 Other specified postprocedural states; Z95.5 Presence of coronary angioplasty implant and graft
CPT/HCPCS: 99212

== ENCOUNTER 2023-03-09 10:43 | Outpatient (REF) | payer MEDICARE, SELFPAY ==
--- NOTE | ~2023-03-09 | US_ITS ---
EXAMINATION: US RETROPERITONEAL LIMITED (RENAL ONLY) CLINICAL INFORMATION: Chronic kidney disease. Hypertension.. COMPARISON: Previous CT of the abdomen and pelvis from 2009 TECHNIQUE: Doppler color and grayscale evaluation of the kidneys and renal arteries including waveform spectral analysis. Exam is limited due to patient body habitus. FINDINGS: RIGHT KIDNEY: 9 x 4.5 x 4.5 cm (SAG x AP x TRV). The kidney is normal in size. The kidney is lobulated in shape. There is a 3 mm stone in the midpole. There is an 8 mm cyst in the lower pole. No renal mass or hydronephrosis. LEFT KIDNEY: 10 4.8 x 4.7 cm (SAG x AP x TRV). The kidney is normal in size. The kidney is lobulated in shape. There are 2 cysts measuring 7 mm in the upper and midpole. No renal mass or hydronephrosis. Aortic peak systolic velocity is 60 cm/s. Right renal artery peak systolic velocities measure 176, 80 and 95 cm/s proximally, in the midportion and distally. Upper normal peak systolic velocity is 180 cm/s. Right renal artery to aorta ratio is 2.9. Resistive indices of the segmental renal arteries in the right kidney measure 0.8-0.9. Upper normal resistive indices is 0.8. The right renal vein is patent. Left renal systolic velocities measure 130, 117 and 107 cm/s proximally, in the midportion and distally. Left renal artery to aorta ratio is 2.2. Resistive indices of the segmental renal arteries in the left kidney are normal and measure 0.8. The left renal vein is patent. US/US renal doppler IMPRESSION: Limited exam. Lobulated kidneys. Small bilateral renal cysts. Small right renal stone. No evidence of left renal artery stenosis. Proximal right renal artery peak systolic velocity is upper normal and resistive indices in the right kidney are slightly elevated.
[2023-03-09 12:32] LABS: MANUAL DIFF FLAG NO
[2023-03-09 12:49] LABS: Basophils Absolute Auto 0.1 X10*3/uL (0.0-0.2); Basophils Percent Auto 1.6 % (0-2); Eosinophils Absolute Auto 0.3 X10*3/uL (0.0-0.4); Hematocrit 32.4 % (37.0-47.0); Hemoglobin 10.3 g/dl (12.0-16.0); Imm Gran Abs Auto 0.03 X10*3/uL (0.00-0.03); Imm Gran Pct Auto 0.5 % (0.0-0.4); Lymphocytes Percent Auto 16.4 % (20-40); Mean Corpuscular HGB Conc 31.8 g/dl (31.0-35.0); Mean Corpuscular Hemoglobin 30.7 pg (27.0-33.0); Mean Corpuscular Volume 96.4 fL (80.0-98.0); Mean Platelet Volume 10.6 fL (9.4-12.3); Monocytes Absolute Auto 0.6 X10*3/uL (0.1-1.2); Monocytes Percent Auto 8.8 % (2-11); Neutrophils Absolute Auto 4.3 x10*3/uL (2.0-8.3); Neutrophils Percent Auto 67.7 % (45-73); Platelet Count 148 X10*3/uL (160-400); Red Blood Count 3.36 X10*6/uL (4.20-5.50); Red Cell Distribution Width 13.2 % (11.0-16.0); White Blood Count 6.4 X10*3/uL (4.8-10.8)
[2023-03-09 13:23] LABS: Alanine Aminotransferase 18 U/L (0-31); Alkaline Phosphatase 53 U/L (39-117); Anion Gap 12 (12-20); Aspartate Amino Transferase 25 U/L (5-31); Bilirubin Total 0.8 mg/dL (0.0-1.0); Blood Urea Nitrogen 19 mg/dL (9-16); Calcium 9.5 mg/dL (8.4-10.2); Carbon Dioxide 26 mmol/L (22-29); Chloride 109 mmol/L (96-108); Cholesterol 179 mg/dL; Estimated Glomerular Filt Rate 41; Glucose Fasting 91 mg/dL (60-99); HDL Cholesterol 63 mg/dL; LDL Cholesterol Calculated 91 mg/dl; Sodium 143 mmol/L (135-145); Total Protein 5.9 g/dL (6.5-8.0); Triglycerides 125 mg/dL
[2023-03-09 13:37] LABS: Free T4 (Free Thyroxine) 1.13 ng/dL (0.71-1.85); Thyroid Stimulating Hormone 1.12 uIU/mL (0.32-4.0)
== END 2023-03-09 10:44 | disposition home or self-care (01) ==
LOC: HO.US 10:43
PROVIDERS: Internal Medicine; Visit Provider Internal Medicine Nephrology
DX: N18.32 Chronic kidney disease, stage 3b (principal); N25.0 Renal osteodystrophy; I10 Essential (primary) hypertension
CPT/HCPCS: 36415; 76775; 80053; 80061; 84439; 84443; 85025; 93975

== ENCOUNTER 2023-04-19 15:38 | Outpatient (REF) | payer MEDICARE, SELFPAY ==
--- NOTE | ~2023-04-19 | XR_ITS ---
EXAMINATION: XR CERVICAL SPINE CLINICAL INFORMATION: Neck pain COMPARISON: 01/23/2014 TECHNIQUE: 5 views of the cervical spine were obtained. FINDINGS: Vertebral bodies are well aligned, intervertebral discs are preserved except of mild narrowing of C5-C6 and C6-C7 with minimal marginal spurring, stable since previous study. Neuroforamina are not encroached on the right and mildly narrow on the left due to osteophytosis at the level of C5-C6. Soft tissues unremarkable. Odontoid is normal. XR/XR cervical spine 4V IMPRESSION: Mild degenerative changes at the level of C5-C6 and C6-C7.
[2023-04-19 18:15] LABS: Erythrocyte Sedimentation Rate 7 MM/HR (0-20)
[2023-04-19 18:26] LABS: Anion Gap 14 (12-20); Blood Urea Nitrogen 23 mg/dL (9-16); C Reactive Protein < 0.10 mg/dL (< or = 0.50); Carbon Dioxide 26 mmol/L (22-29); Chloride 103 mmol/L (96-108); Estimated Glomerular Filt Rate 37; Glucose Random 92 mg/dL (60-115); Potassium 4.3 mmol/L (3.3-5.1); Sodium 139 mmol/L (135-145)
== END 2023-04-19 15:39 | disposition home or self-care (01) ==
LOC: HO.LAB 15:38
PROVIDERS: PCP Internal Medicine; Visit Provider Internal Medicine
DX: M54.2 Cervicalgia (principal); I25.10 Atherosclerotic heart disease of native coronary artery without angina pectoris; I12.9 Hypertensive chronic kidney disease with stage 1 through stage 4 chronic kidney disease, or unspecified chronic kidney disease; N18.9 Chronic kidney disease, unspecified
CPT/HCPCS: 36415; 72050; 80048; 82550; 85652; 86140

== ENCOUNTER 2023-06-13 14:12 | Outpatient (AMB) | payer MEDICARE, SELFPAY ==
[2023-05-24 12:49] VITALS: BP 118/58; BMI 25.4
[2023-06-13 14:23] VITALS: BP 134/72; PULSE 65; BMI 26.0
--- NOTE | 2023-06-13 14:23 | MHC.OFFVIS ---
Intake Vital Signs 06/13/23 14:23 Height 5 ft 4 in Weight 151 lb 10.848 oz BMI 26.0 BP 134/72 Blood Pressure Location Lt brachial Position Sitting Pulse 65 Pulse Source Pulse Oximeter Intake Visit Reasons: 3 mth f/up per dc Intake Note: 3 month follow up. Assistant Corporation Counsel Required: No Accompanied by: Self / Same As Patient Allergies pollen extracts Allergy (Intermediate, Verified 06/13/23 14:28) Sneezing citalopram Allergy (Unknown, Verified 06/13/23 14:28) upsets stomach Medication List - Last Reconciled 06/13/23 by Julio César Vanegas MD albuterol sulfate 90 mcg/actuation 0 mcg inhalation aspirin 81 mg PO DAILY atenolol 25 mg PO DAILY cholecalciferol (vitamin D3) 25 mcg PO DAILY clopidogrel (Plavix) 75 mg PO DAILY 90 days dicyclomine 20 mg PO TID fluticasone propion-salmeterol 500-50 mcg/dose (Advair Diskus) 1 ea inhalation BID gabapentin 200 mg PO BID levothyroxine 75 mcg PO DAILY lorazepam 1 mg PO BID PRN pantoprazole 40 mg PO DAILY rosuvastatin 20 mg PO BEDTIME umeclidinium 62.5 mcg/actuation (Incruse Ellipta) 1 inh inhalation DAILY HPI HPI Comments History of Present Illness Details 77-year-old female who is here for follow-up. She underwent right coronary artery PCI in the past. She is saying that she has been short of breath and has background of asthmatic bronchitis. she is following pulmonology for and has been started on new inhalers. She is still complaining of shortness of breath. Occasionally also gets chest discomfort. Previously had LAD PCI and there is InStent restenosis of the LAD which was medically treated in the past. Her main complaint is shortness of breath with exertion. She has no history of lung disease and new inhalers have been added. She is planning to go to [place] on October 31 and will come back and of the month. She will be attending her grandson's wedding. She returns for f/u today. She continues to have AGUSTIN. She has been taking medications regularly. No bleeding concern. 06/13/23: She is here for follow-up. She underwent LAD PCI for InStent restenoses. She is saying she has significant improvement in her dyspnea and feels great. She has no chest discomfort. Blood pressure control is good. No bleeding concerns currently. Tolerating medications well. Undergoing cardiac rehabilitation. [facility] Medical History Coronary artery disease Surgical History History of cardiac catheterization History of heart artery stent Family History Mother CAD (coronary artery disease) Father No problems noted. Social History Alcohol intake: current Alcohol intake frequency: a few times a week Patient Tobacco Use Status: Former Tobacco user Quit Date: 1989 Tobacco use type: Cigarette Cigarette Packs Per Day: 0.25 Years Smoked: 30 Current occupational status: retired Current occupation: right handed, retired Review of Systems Const Denies weakness ENT Denies dizziness Card Denies chest pain, Denies chest pain with activity, Denies syncope, Denies rapid heart rate, Denies pedal edema, Denies edema, Denies leg edema, Denies lightheadedness, Denies palpitations, Denies dyspnea, Denies dyspnea on exertion and Denies orthopnea Resp Denies cough, Denies dyspnea and Denies dyspnea on exertion GI Denies hematochezia and Denies change in stool character Musc Denies abnormal gait, Denies muscle cramps, Denies muscle weakness, Denies numbness, Denies radiating pain into limb and Denies tingling Neuro Denies abnormal gait, Denies dizziness, Denies syncope, Denies numbness, Denies tingling and Denies weakness Endo Denies palpitations Physical Exam Vital Signs: Last Vital Signs Pulse 65 06/13/23 14:23 BP 134/72 06/13/23 14:23 BMI result Body Mass Index 26.0 GENERAL APPEARANCE: in no acute distress, pleasant. NECK: no carotid bruit, no jugular venous distention. SKIN: no suspicious lesions, warm and dry. HEART: no murmurs, regular rate and rhythm. LUNGS: clear to auscultation bilaterally. ABDOMEN: soft, nontender. EXTREMITIES: no edema. PERIPHERAL PULSES: equal. NEUROLOGIC: No gross deficits, AAO X 3 Assessment & Plan Assessment & Plan (1) Cardiomyopathy: Code(s): I42.9 - Cardiomyopathy, unspecified (2) S/P coronary angioplasty: Code(s): Z98.61 - Coronary angioplasty status (3) Stable angina: Code(s): I20.8 - Other forms of angina pectoris Plan Pleasant 78-year-old female here for follow-up. She has background history of a mild cardiomyopathy. She previously had LAD PCI. She had InStent restenoses but also had severe right coronary artery stenosis was treated 1st. Subsequently she was taken for PCI to the InStent restenoses. Since the PCI to LAD she has been feeling great. She has no dyspnea on exertion. No chest discomfort. Blood pressure control is good. Tolerating aspirin Plavix. She continue aspirin Plavix for at least 1 year. After that aspirin potentially can be discontinued and she should stay on Plavix long-term. Thank you for allowing me to participate in the care of your patient. Please feel free to contact me if you have any questions. Coding Level of Care Code Est Pt Level 4 (66221) Diagnoses Cardiomyopathy I42.9 S/P coronary angioplasty Z98.61 Stable angina I20.8
== END 2023-06-13 14:52 | disposition home or self-care (01) ==
PROVIDERS: Visit Provider Internal Medicine Cardiovascular Disease
DX: I42.9 Cardiomyopathy, unspecified (principal); Z98.61 Coronary angioplasty status; I20.8 Other forms of angina pectoris
CPT/HCPCS: 99214

== ENCOUNTER → 2023-06-13 14:12 | Outpatient (BNVA) | payer MEDICARE, SELFPAY ==
[2023-05-24 12:49] VITALS: BP 118/58; BP 122/60; BMI 25.4
== END ==
PROVIDERS: Visit Provider Internal Medicine Cardiovascular Disease
DX: I42.9 Cardiomyopathy, unspecified (principal); I20.8 Other forms of angina pectoris; Z98.61 Coronary angioplasty status
CPT/HCPCS: 99212

== ENCOUNTER 2023-06-15 14:39 | Outpatient (REF) | payer MEDICARE, SELFPAY ==
[2023-05-24 12:49] VITALS: BP 118/58; BP 122/60; BMI 25.4
[2023-06-15 14:56] LABS: MANUAL DIFF FLAG NO
[2023-06-15 15:04] LABS: Basophils Absolute Auto 0.1 X10*3/uL (0.0-0.2); Basophils Percent Auto 1.3 % (0-2); Eosinophils Absolute Auto 0.5 X10*3/uL (0.0-0.4); Eosinophils Percent Auto 7.3 % (0-4); Hematocrit 31.3 % (37.0-47.0); Hemoglobin 9.9 g/dl (12.0-16.0); Imm Gran Abs Auto 0.02 X10*3/uL (0.00-0.03); Imm Gran Pct Auto 0.3 % (0.0-0.4); Lymphocytes Percent Auto 13.6 % (20-40); Mean Corpuscular HGB Conc 31.6 g/dl (31.0-35.0); Mean Corpuscular Hemoglobin 30.6 pg (27.0-33.0); Mean Corpuscular Volume 96.6 fL (80.0-98.0); Mean Platelet Volume 11.2 fL (9.4-12.3); Monocytes Absolute Auto 0.8 X10*3/uL (0.1-1.2); Monocytes Percent Auto 10.1 % (2-11); Neutrophils Percent Auto 67.4 % (45-73); Platelet Count 142 X10*3/uL (160-400); Red Blood Count 3.24 X10*6/uL (4.20-5.50); Red Cell Distribution Width 13.1 % (11.0-16.0); White Blood Count 7.4 X10*3/uL (4.8-10.8)
[2023-06-15 15:27] LABS: Alanine Aminotransferase 24 U/L (0-31); Albumin Level 3.8 g/dL (3.5-5.0); Alkaline Phosphatase 58 U/L (39-117); Anion Gap 13 (12-20); Aspartate Amino Transferase 25 U/L (5-31); Bilirubin Total 0.5 mg/dL (0.0-1.0); Blood Urea Nitrogen 20 mg/dL (9-16); C Reactive Protein < 0.10 mg/dL (< or = 0.50); Calcium 9.4 mg/dL (8.4-10.2); Carbon Dioxide 23 mmol/L (22-29); Chloride 105 mmol/L (96-108); Estimated Glomerular Filt Rate 35; Glucose Random 82 mg/dL (60-115); Potassium 4.1 mmol/L (3.3-5.1); Sodium 137 mmol/L (135-145); Total Protein 6.1 g/dL (6.5-8.0)
== END 2023-06-15 14:40 | disposition home or self-care (01) ==
LOC: HO.LAB 14:39
PROVIDERS: PCP Internal Medicine; Visit Provider Internal Medicine
DX: I25.10 Atherosclerotic heart disease of native coronary artery without angina pectoris (principal); E03.9 Hypothyroidism, unspecified; D64.9 Anemia, unspecified
CPT/HCPCS: 36415; 80053; 85025; 86140

== ENCOUNTER 2023-07-09 14:24 | Outpatient (REF) | payer MEDICARE, SELFPAY ==
[2023-05-24 12:49] VITALS: BP 118/58; BP 122/60; BMI 25.4
== END 2023-07-09 14:25 | disposition home or self-care (01) ==
LOC: HO.MAMMO 14:24
PROVIDERS: PCP Internal Medicine; Visit Provider Internal Medicine
DX: Z12.31 Encounter for screening mammogram for malignant neoplasm of breast (principal)
CPT/HCPCS: 77063; 77067

== ENCOUNTER → 2023-07-09 14:30 | Outpatient (BNV) | payer MEDICARE, SELFPAY ==
[2023-05-24 12:49] VITALS: BP 118/58; BP 122/60
[2023-06-20 06:25] VITALS: BMI 26.1
[2023-07-27 07:02] VITALS: BP 124/68
== END ==
PROVIDERS: PCP Internal Medicine; Visit Provider Radiology Diagnostic Radiology
DX: Z12.31 Encounter for screening mammogram for malignant neoplasm of breast (principal)
CPT/HCPCS: 77063; 77067

== ENCOUNTER 2023-10-17 15:18 | Outpatient (AMB) | payer MEDICARE, SELFPAY ==
[2023-05-24 12:49] VITALS: BP 118/58; BP 122/60; BMI 25.4
[2023-06-20 06:25] VITALS: BMI 26.1
[2023-07-27 07:02] VITALS: BP 124/68
[2023-10-17 15:20] VITALS: BP 140/60; PULSE 67; BMI 27.0
--- NOTE | 2023-10-17 15:20 | MHC.OFFVIS ---
Intake Vital Signs 10/17/23 15:20 Height 5 ft 4 in Weight 157 lb 6.561 oz BMI 27.0 BP 140/60 H Blood Pressure Location Lt brachial Position Sitting Pulse 67 Pulse Source Pulse Oximeter Intake Visit Reasons: 4 month follow up Intake Note: 4 month f/up patients feels good. [employer] Inspector Required: No Accompanied by: Self / Same As Patient Allergies pollen extracts Allergy (Intermediate, Verified 10/17/23 15:23) Sneezing citalopram Allergy (Unknown, Verified 10/17/23 15:23) upsets stomach Medication List - Last Reconciled 10/17/23 by Julio César Vanegas MD albuterol sulfate 90 mcg/actuation 0 mcg inhalation aspirin 81 mg PO DAILY atenolol 25 mg PO DAILY cholecalciferol (vitamin D3) 25 mcg PO DAILY clopidogrel (Plavix) 75 mg PO DAILY 90 days dicyclomine 20 mg PO TID fluticasone propion-salmeterol 500-50 mcg/dose (Advair Diskus) 1 ea inhalation BID gabapentin 200 mg PO BID levothyroxine 75 mcg PO DAILY lorazepam 1 mg PO BID PRN pantoprazole 40 mg PO DAILY rosuvastatin 20 mg PO BEDTIME umeclidinium 62.5 mcg/actuation (Incruse Ellipta) 1 inh inhalation DAILY HPI HPI Comments History of Present Illness Details 78-year-old female who is here for follow-up. She underwent right coronary artery PCI in the past. She is saying that she has been short of breath and has background of asthmatic bronchitis. she is following pulmonology for and has been started on new inhalers. She is still complaining of shortness of breath. Occasionally also gets chest discomfort. Previously had LAD PCI and there is InStent restenosis of the LAD which was medically treated in the past. Her main complaint is shortness of breath with exertion. She has no history of lung disease and new inhalers have been added. She is planning to go to [place] on October 31 and will come back and of the month. She will be attending her grandson's wedding. She returns for f/u today. She continues to have AGUSTIN. She has been taking medications regularly. No bleeding concern. 06/13/23: She is here for follow-up. She underwent LAD PCI for InStent restenoses. She is saying she has significant improvement in her dyspnea and feels great. She has no chest discomfort. Blood pressure control is good. No bleeding concerns currently. Tolerating medications well. Undergoing cardiac rehabilitation. 10/17/2023: She returns for follow-up. She has been doing well. No chest pain or shortness breath. She said she got admitted to [facility] with some chest discomfort and was ruled out and she was told that nothing serious was noted. Blood pressure is mildly elevated. She has been taking aspirin Plavix. No bleeding concerns. [facility] Medical History Coronary artery disease Surgical History History of cardiac catheterization History of heart artery stent Family History Mother CAD (coronary artery disease) Father No problems noted. Social History Alcohol intake: current Alcohol intake frequency: a few times a week Patient Tobacco Use Status: Former Tobacco user Quit Date: 1989 Tobacco use type: Cigarette Cigarette Packs Per Day: 0.25 Years Smoked: 30 Current occupational status: retired Current occupation: right handed, retired Review of Systems Const Reports chills, Reports fatigue, Reports fever(s), Reports frequent falls, Reports weakness, Reports weight gain and Reports weight loss ENT Reports dizziness Card Reports chest pain, Reports leg edema, Reports lightheadedness, Reports palpitations, Reports dyspnea and Reports dyspnea on exertion Resp Reports cough, Reports dyspnea and Reports dyspnea on exertion GI Reports hematochezia Musc Reports abnormal gait, Reports muscle weakness, Reports numbness, Reports radiating pain into limb and Reports tingling Neuro Reports abnormal gait, Reports dizziness, Reports frequent falls, Reports numbness, Reports tingling and Reports weakness Endo Reports fatigue and Reports palpitations Physical Exam Vital Signs: BMI result Body Mass Index 27.0 GENERAL APPEARANCE: in no acute distress, pleasant. NECK: no carotid bruit, no jugular venous distention. SKIN: no suspicious lesions, warm and dry. HEART: no murmurs, regular rate and rhythm. LUNGS: clear to auscultation bilaterally. ABDOMEN: soft, nontender. EXTREMITIES: no edema. PERIPHERAL PULSES: equal. NEUROLOGIC: No gross deficits, AAO X 3 Assessment & Plan Assessment & Plan (1) S/P coronary angioplasty: Code(s): Z98.61 - Coronary angioplasty status (2) Stable angina: Code(s): I20.8 - Other forms of angina pectoris Plan Pleasant 78 year female who is here for follow-up. She had RCA followed by LAD PCI for dyspnea on exertion. She had mild cardiomyopathy. Clinically not in heart failure. No anginal symptoms. Doing well with current medications. Her blood pressure is mildly elevated. She will keep a log of her blood pressure over the next few weeks and will call us. Thank you for allowing me to participate in the care of your patient. Please feel free to contact me if you have any questions. Coding Level of Care Code Est Pt Level 4 (11006) Diagnoses S/P coronary angioplasty Z98.61 Stable angina I20.8
== END 2023-10-17 15:35 | disposition home or self-care (01) ==
PROVIDERS: PCP Internal Medicine; Visit Provider Internal Medicine Cardiovascular Disease
DX: Z98.61 Coronary angioplasty status (principal); I20.8 Other forms of angina pectoris
CPT/HCPCS: 99214

== ENCOUNTER → 2023-10-17 15:18 | Outpatient (BNVA) | payer MEDICARE, SELFPAY ==
[2023-05-24 12:49] VITALS: BP 118/58; BP 122/60
[2023-06-20 06:25] VITALS: BMI 26.1
[2023-07-27 07:02] VITALS: BP 124/68
== END ==
PROVIDERS: PCP Internal Medicine; Visit Provider Internal Medicine Cardiovascular Disease
DX: I20.89 Other forms of angina pectoris (principal); Z98.61 Coronary angioplasty status
CPT/HCPCS: 99212

== ENCOUNTER 2023-10-26 05:02 | Emergency (ER) | payer MEDICARE, SELFPAY ==
[2023-05-24 12:49] VITALS: BP 118/58; BP 122/60
[2023-06-20 06:25] VITALS: BMI 26.1
[2023-07-27 07:02] VITALS: BP 124/68
--- NOTE | ~2023-10-26 | CT_ITS ---
EXAMINATION: CT ABDOMEN AND PELVIS WITH CONTRAST CLINICAL INFORMATION: History of previous abdominal surgery, pain, concern for obstruction COMPARISON: None available. TECHNIQUE: Multidetector volumetric images were obtained from the superior aspect of the liver through the pubic symphysis following administration 85 mL of Omnipaque 350 intravenous contrast. Sagittal and coronal reformatted images were obtained on the technologist's workstation. Oral contrast: No This CT examination was performed using dose optimization techniques as appropriate, variously including the following: *Automated exposure control *Adjustment of mA and/or kV according to patient size (this includes techniques or standardized protocols for targeted exams where dose is matched to indication/reason for exam; i.e. 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 LUNG BASES: Prominent heart. No pericardial effusion. Mild atelectasis. LIVER, GALLBLADDER, AND BILIARY TREE: Diffuse hypoattenuation to the liver parenchyma. Multiple hepatic lesions, some too small to characterize, largest measuring 4.1 cm near the dome with Hounsfield units consistent with simple cyst. No biliary ductal dilatation is present. The gallbladder is unremarkable with no evidence of radiopaque gallstones, gallbladder wall thickening, or obvious pericholecystic inflammatory changes. PANCREAS: Unremarkable. SPLEEN: Unremarkable. ADRENAL GLANDS: Unremarkable. KIDNEYS AND URETERS: The kidneys are bilaterally lobulated in appearance with cortical thinning and scarring, left greater than right. Right medial upper pole 1 cm cyst. Multiple too small to characterize left renal hypodensities, likely cysts. No hydronephrosis, hydroureter, or calculi seen. No perinephric stranding. BLADDER decompressed likely accounting for thick mercedes. GASTROINTESTINAL TRACT: Small hiatal hernia. Under distended stomach. Nonobstructive bowel pattern. Terminal ileum is decompressed likely accounting for thickened appearance. Unremarkable appendix. Contrast reaches the rectosigmoid. Diverticulosis without diverticulitis. ABDOMINAL WALL: Small fat filled umbilical hernia. LYMPH NODES: 1.1 cm right lower quadrant lymph node. No pathologic lymphadenopathy VASCULAR: Dense calcifications nonaneurysmal aorta and iliac arteries with patency of mesenteric vessels. Unremarkable inferior vena cava and iliac veins. Patent portal system. PELVIC VISCERA: Fibroid uterus. OSSEOUS STRUCTURES: Unremarkable. CT/CT abdomen pelvis w IV con IMPRESSION: No acute intra-abdominal or pelvic pathology. Hepatic steatosis. Hepatic and renal cysts. Diverticulosis without diverticulitis. Specifically as questioned, no CT evidence of bowel obstruction. Fleischner guidelines were followed.
--- NOTE | ~2023-10-26 | XR_ITS ---
EXAMINATION: XR ABDOMEN KUB CLINICAL INDICATION: Constipation. COMPARISON: None available. TECHNIQUE: AP view of the abdomen. FINDINGS: The bowel gas pattern is normal with no evidence of ileus or obstruction. There is scattered retained stool. No unusual soft tissue calcifications are noted. The bones are unremarkable. XR/XR KUB IMPRESSION: Nonspecific bowel gas pattern. Scattered retained stool.
[2023-10-26 05:05] VITALS: BP 145/55; PULSE 69; RESP 18; TEMP 36.2; O2SAT 96; BMI 26.1
[2023-10-26 05:23] VITALS: BP 175/68; PULSE 66; RESP 16; TEMP 36.6; O2SAT 95
[2023-10-26 06:01] LABS: MANUAL DIFF FLAG NO
[2023-10-26 06:05] LABS: Basophils Absolute Auto 0.1 X10*3/uL (0.0-0.2); Basophils Percent Auto 1.7 % (0-2); Eosinophils Absolute Auto 0.5 X10*3/uL (0.0-0.4); Eosinophils Percent Auto 8.4 % (0-4); Hematocrit 33.1 % (37.0-47.0); Hemoglobin 10.7 g/dl (12.0-16.0); Imm Gran Abs Auto 0.02 X10*3/uL (0.00-0.03); Imm Gran Pct Auto 0.4 % (0.0-0.4); Lymphocytes Absolute Auto 1.1 X10*3/uL (1.2-4.9); Lymphocytes Percent Auto 21.1 % (20-40); Mean Corpuscular HGB Conc 32.3 g/dl (31.0-35.0); Mean Corpuscular Hemoglobin 30.9 pg (27.0-33.0); Mean Corpuscular Volume 95.7 fL (80.0-98.0); Mean Platelet Volume 10.1 fL (9.4-12.3); Monocytes Absolute Auto 0.7 X10*3/uL (0.1-1.2); Monocytes Percent Auto 13.8 % (2-11); Neutrophils Absolute Auto 2.9 x10*3/uL (2.0-8.3); Neutrophils Percent Auto 54.6 % (45-73); Platelet Count 171 X10*3/uL (160-400); Red Blood Count 3.46 X10*6/uL (4.20-5.50); White Blood Count 5.4 X10*3/uL (4.8-10.8)
[2023-10-26 06:22] LABS: Alanine Aminotransferase 10 U/L (0-31); Alkaline Phosphatase 57 U/L (39-117); Anion Gap 15 (12-20); Aspartate Amino Transferase 25 U/L (5-31); Bilirubin Total 0.7 mg/dL (0.0-1.0); Blood Urea Nitrogen 15 mg/dL (9-16); Calcium 9.9 mg/dL (8.4-10.2); Carbon Dioxide 25 mmol/L (22-29); Chloride 106 mmol/L (96-108); Creatinine Clr Calc Pharmacy 35.9; Estimated Glomerular Filt Rate 43; Glucose Random 88 mg/dL (60-115); Potassium 4.4 mmol/L (3.3-5.1); Sodium 142 mmol/L (135-145); Total Protein 7.2 g/dL (6.5-8.0)
--- NOTE | 2023-10-26 06:44 | ED_ITS ---
HPI - General Adult General Chief complaint: Abdominal Pain Stated complaint: Constipated Time Seen by Provider: 10/26/23 06:41 Source: patient Mode of arrival: ambulatory Limitations: no limitations History of Present Illness HPI narrative: Patient is a 78 year old assigned female at with a history of IBS, CAD, and cardiomyopathy presenting to the emergency department today with abdominal pain and possible constipation. Patient states that over the last week she has had constipation and abodminal pain. Patient states that she took an immodium 1 week ago due to diarrhea because she was attending a wake. States that she has since only had a very little ball of stool pass but she is having abdominal pain. Patient states that she has had multiple abdominal surgeries including an expiatory lap for possible appendicitis with no removal of the appendix and an intussusception repair. Patient denies any dizziness, lightheadedness, nausea, vomiting, fever, chills, blurry vision, double vision, loss of vision, chest pain, difficulty breathing, shortness of breath, back pain, night sweats, pain with urination, increased urinary frequency, increased urinary urgency, blood in her urine or stool, syncope or a near syncopal episode, recent trauma or falls, bowel incontinence, bladder incontinence, bowel retention, bladder retention, or any other complaints at this time. Onset (ago): week(s) (1) Location: abdomen Radiation: non-radiation Severity: mild Severity scale (1-10): 4 Quality: aching and dull Pain Consistency: constant Relieving factors: none Exacerbating factors: none Associated symptoms: denies other symptoms Treatments prior to arrival: none Related Data Home Medications Medication Instructions Recorded Confirmed aspirin 81 mg tablet,delayed 81 mg PO DAILY 10/27/21 10/17/23 release cholecalciferol (vitamin D3) 25 25 mcg PO DAILY 10/27/21 10/17/23 mcg (1,000 unit) capsule dicyclomine 20 mg tablet 20 mg PO TID 10/27/21 10/17/23 levothyroxine 75 mcg tablet 75 mcg PO DAILY 10/27/21 10/17/23 lorazepam 1 mg tablet 1 mg PO BID PRN 10/27/21 10/17/23 pantoprazole 40 mg tablet,delayed 40 mg PO DAILY 10/27/21 10/17/23 release rosuvastatin 20 mg tablet 20 mg PO BEDTIME 10/27/21 10/17/23 atenolol 25 mg tablet 25 mg PO DAILY 02/27/22 10/17/23 albuterol sulfate 90 mcg/actuation 0 mcg inhalation 04/19/22 10/17/23 aerosol inhaler fluticasone 500 mcg-salmeterol 50 1 ea inhalation BID 10/26/22 10/17/23 mcg/dose blistr powdr for inhalation (Advair Diskus) umeclidinium 62.5 mcg/actuation 1 inh inhalation DAILY 02/20/23 10/17/23 blister powder for inhalation (Incruse Ellipta) gabapentin 100 mg capsule 200 mg PO BID 06/13/23 10/17/23 Previous Rx's Medication Instructions Recorded clopidogrel 75 mg tablet (Plavix) 75 mg PO DAILY 90 days #90 tabs 06/27/22 cefuroxime axetil 250 mg tablet 250 mg PO BID 7 days #14 tabs 10/26/23 Allergies Allergy/AdvReac Type Severity Reaction Status Date / Time pollen extracts Allergy Intermediate Sneezing Verified 10/26/23 05:05 citalopram Allergy Unknown upsets Verified 10/26/23 05:05 stomach Review of Systems 2 Constitutional: Constitutional: Reports no additional constitutional complaints, Denies chills, Denies fever(s) and Denies night sweats Eyes: Eyes: Reports no additional eye complaints, Denies blurry vision, Denies change in vision, Denies diplopia, Denies eye discharge, Denies loss of vision and Denies eye pain ENT: Denies dizziness Cardiovascular: Cardiovascular: Reports no additional cardiovascular complaints, Denies chest pain, Denies lightheadedness, Denies Loss of Consciousness and Denies dyspnea Respiratory: Respiratory: Reports no additional respiratory complaints and Denies dyspnea Gastrointestinal: Gastrointestinal: Reports no additional gastrointestinal complaints, Reports abdominal pain, Denies melena, Denies hematochezia, Reports change in bowel habits, Reports change in stool character and Reports constipation Genitourinary: Genitourinary: Denies hematuria, Denies urinary frequency, Denies dysuria, Denies urinary incontinence, Denies urinary hesitancy and Denies urinary urgency Musculoskeletal: Musculoskeletal: Reports no additional musculoskeletal complaints, Denies numbness and Denies tingling Neurologic: Denies dizziness, Denies loss of vision, Denies numbness and Denies tingling Psychiatric: Psychiatric: Reports no additional psychiatric complaints Endocrine: Endocrine: Reports no additional endocrine complaints Hematologic/Lymphatic: Hematologic/Lymphatic: Reports no additional hematologic/lymphatic complaints Allergic/Immunologic: Allergic/Immunologic: Reports no additional allergic/immunologic complaints [facility] Past Medical History Attestation statement: The following information was validated with the patient. Source: old records reviewed and nursing notes reviewed Medical History Coronary artery disease Surgical History History of cardiac catheterization History of heart artery stent Family History Family History Mother CAD (coronary artery disease) Father No problems noted. Social History Social History Alcohol intake: current Alcohol intake frequency: holidays/special occasions only Alcohol type: wine and hard liquor Patient Tobacco Use Status: Former Tobacco user Quit Date: 1989 Tobacco use type: Cigarette Cigarette Packs Per Day: 0.25 Years Smoked: 30 Smoked in Last 30 Days: No Use of substances other than those prescribed or required for medical reasons: No Advance Directives: No Advance Directives Information Provided: No Current occupational status: retired Current occupation: right handed, retired Physical Exam ED Vital Signs: Vital Signs - 24 hr 10/26/23 05:05 10/26/23 05:23 10/26/23 07:19 Temperature 97.1 F 97.8 F Pulse Rate 69 66 66 Respiratory Rate 18 16 19 Blood Pressure 145/55 H 175/68 H 176/60 H Pulse Oximetry 96 95 98 Oxygen Delivery Method Room Air Room Air 10/26/23 07:41 Temperature Pulse Rate 62 Respiratory Rate 18 Blood Pressure 167/61 H Pulse Oximetry 98 Oxygen Delivery Method Room Air BMI result Body Mass Index 26.1 Const General: cooperative, no acute distress, alert and awake Nutritional Appearance: well nourished Orientation/consciousness: patient oriented x3 Limitations: no limitations HENMT Head: Yes normal to inspection and Yes atraumatic Ears: hearing grossly normal bilaterally and external ears normal General nose exam: Normal external nose present, no nasal discharge noted and no epistaxis Face and sinus: Yes normal facial exam, No abrasion and No laceration Mouth: Normal oral and palatal mucosa present, no drooling and no muffled voice Eyes General: appearance normal, both eyes and all related structures Periorbital: periorbital findings normal Eyelids: Yes eyelids normal Conjunctivae: conjunctivae normal Pupils: Equal, round and reactive pupils present EOM: EOMs intact bilaterally Neck Neck: Yes normal visual inspection, Yes full ROM and Yes no lymphadenopathy Chest Chest palpation & inspection: normal inspection of the chest Resp Effort & Inspection: normal respiratory effort and able to speak in complete sentences GI Other: multiple scars from previous abdominal surgeries Palpation (GI): Soft to palpation, not firm, nontender, no guarding and not rigid Neuro General: patient oriented x3 and moves all extremities Cranial nerves: Yes Equal, round and reactive pupils present Cognition (Neuro): normal cognition Motor exam (neuro): 5/5 motor strength present throughout Sensory Exam: Normal double simultaneous stimulation for sensation Coordination: [id number] test normal Extrem General: Yes normal to inspection, Yes full ROM and Yes capillary refill normal Psych Appearance: grossly normal Mental Status: mental status grossly normal Affect: normal affect Attitude: cooperative Thought process: Normal thought process present Thought content: Normal thought content present Insight: Good insight present (Psych) Medications Administered Discontinued Medications Generic Name Dose Route Start Last Admin Trade Name Freq PRN Reason Stop Dose Admin Diatrizoate Meglum/Diatrizoate Sod 30 ml 10/26/23 09:50 10/26/23 09:51 Diatrizoate Meglumine, Sodium 30 Ml Solution PO 10/26/23 09:51 30 ml ONCE ONE Administration Sodium Chloride 1,000 mls @ 999 mls/hr 10/26/23 07:15 10/26/23 11:11 Ns IV 10/26/23 08:15 Infused .Q1H1M GERARD Infusion Iohexol 85 ml 10/26/23 09:47 10/26/23 09:48 Iohexol 350 Mg/Ml 100 Ml Infus..Btl IV 10/26/23 09:48 85 ml ONCE ONE Administration Morphine Sulfate 4 mg 10/26/23 07:05 10/26/23 07:15 Morphine Sulfate 4 Mg/Ml Cartridge IVPUSH 10/26/23 07:06 4 mg ONCE ONE Administration Protocol Ondansetron HCl 4 mg 10/26/23 07:05 10/26/23 07:15 Ondansetron Hcl 4 Mg/2 Ml Vial IVPUSH 10/26/23 07:06 4 mg ONCE ONE Administration Medical Decision Making Medical Decision Making [facility] Narrative: Patient is a 78 year old assigned female at with a history of CAD, IBS, and cardiomyopathy presenting to the emergency department today with abdominal pain and constipation. Patient's physical exam was unremarkable. Patient's blood work was unremarkable. Patient's urine showed a urinary tract infection. Patient's KUB x-ray showed no acute process. Patient's CT abdomen/pelvis showed no acute process. Patient was given PO contrast which caused her to have a large bowel movement before her scan was obtained. I explained my physical exam findings as well as all test results to the patient. I answered all questions asked by the patient. I stressed the importance of the patient taking her medication as prescribed. I stressed the importance of the patient following up with her primary care provider. I stressed the importance of the patient returning to the emergency department immediately if her symptoms were to worsen or if she were to develop any dizziness, shortness of breath, difficulty breathing, chest pain, blurry vision, loss of vision, nausea, vomiting, abdominal pain, fever, chills, back pain, or any other complaints. Patient verbalized agreement and understanding with this treatment plan and discharge. Differential Diagnosis Differential Diagnoses: The differential diagnosis associated with the presentation includes Constipation Abdominal pain UTI Admission/Observation Consideration of admission/observation: Escalation of care including admission/observation considered Patient would have been admitted to the hospital had her work up had any findings where hospital admission was appropriate and her clinical presentation warranted hospital admission. Lab Data [facility] Lab Attestation statement: I reviewed the patient's lab results. My interpretation of these results are in the [facility] Rationale portion of this note. 10/26/23 05:37 10/26/23 05:37 Labs: Lab Results 10/26/23 10/26/23 Range/Units 05:37 07:17 WBC 5.4 (4.8-10.8) X10*3/uL RBC 3.46 L (4.20-5.50) X10*6/uL Hgb 10.7 L (12.0-16.0) g/dl Hct 33.1 L (37.0-47.0) % MCV 95.7 (80.0-98.0) fL MCH 30.9 (27.0-33.0) pg MCHC 32.3 (31.0-35.0) g/dl RDW 13.0 (11.0-16.0) % Plt Count 171 (160-400) X10*3/uL MPV 10.1 (9.4-12.3) fL Immature Gran % (Auto) 0.4 (0.0-0.4) % Neut % (Auto) 54.6 (45-73) % Lymph % (Auto) 21.1 (20-40) % [place] % (Auto) 13.8 H (2-11) % Eos % (Auto) 8.4 H (0-4) % Baso % (Auto) 1.7 (0-2) % Lymph # (Auto) 1.1 L (1.2-4.9) X10*3/uL [place] # (Auto) 0.7 (0.1-1.2) X10*3/uL Eos # (Auto) 0.5 H (0.0-0.4) X10*3/uL Baso # (Auto) 0.1 (0.0-0.2) X10*3/uL Abs Immat Gran (auto) 0.02 (0.00-0.03) X10*3/uL Absolute Neuts (auto) 2.9 (2.0-8.3) x10*3/uL Absolute Nucleated RBC 0.000 (0.0-0.012) X10*3/uL Nucleated RBC % (auto) 0.0 (0.0-0.2) /100WBC Sodium 142 (135-145) mmol/L Potassium 4.4 (3.3-5.1) mmol/L Chloride 106 (96-108) mmol/L Carbon Dioxide 25 (22-29) mmol/L Anion Gap 15 (12-20) BUN 15 (9-16) mg/dL Creatinine 1.21 (0.5-1.4) mg/dL Estim Creat Clear Calc 35.9 Estimated GFR 43 Random Glucose 88 (60-115) mg/dL Calcium 9.9 (8.4-10.2) mg/dL Total Bilirubin 0.7 (0.0-1.0) mg/dL AST 25 (5-31) U/L ALT 10 (0-31) U/L Alkaline Phosphatase 57 (39-117) U/L Total Protein 7.2 (6.5-8.0) g/dL Albumin 4.0 (3.5-5.0) g/dL Urine Color Yellow Urine Appearance Clear Urine pH 6.5 (5.0-9.0) Ur Specific [place] 1.010 (1.005-1.025) Urine Protein 30 (1+) H (Neg-Trace) mg/dL Urine Glucose (UA) Negative (Negative) mg/dL Urine Ketones Negative (Negative) mg/dL Urine Blood Trace H (Negative) Urine Nitrite Negative (Negative) Ur Leukocyte Esterase Moderate (2+) H (Negative) Urine RBC 0-2 (0-2) /HPF Urine WBC 11-20 H (0-5) /HPF Ur Squamous Epith Cells 11-20 (0-2) /HPF Urine Bacteria 1+ (None Seen) Hyaline Casts 0-2 (0-2) /LPF Influenza Type A (PCR) NEGATIVE (Negative) Influenza Type B (PCR) NEGATIVE (Negative) RSV RNA Qual (PCR) NEGATIVE (Negative) SARS-CoV-2 RNA (RT-PCR) NEGATIVE (Negative) Independent Interpretation I performed an independent interpretation of an: Plain X-Ray and CT Scan Interpretation: My interpretation is in agreement with the radiologist's impression of these imaging studies. - EXAMINATION: CT ABDOMEN AND PELVIS WITH CONTRAST CLINICAL INFORMATION: History of previous abdominal surgery, pain, concern for obstruction COMPARISON: None available. TECHNIQUE: Multidetector volumetric images were obtained from the superior aspect of the liver through the pubic symphysis following administration 85 mL of Omnipaque 350 intravenous contrast. Sagittal and coronal reformatted images were obtained on the technologist's workstation. Oral contrast: No This CT examination was performed using dose optimization techniques as appropriate, variously including the following: *Automated exposure control *Adjustment of mA and/or kV according to patient size (this includes techniques or standardized protocols for targeted exams where dose is matched to indication/reason for exam; i.e. 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 LUNG BASES: Prominent heart. No pericardial effusion. Mild atelectasis. LIVER, GALLBLADDER, AND BILIARY TREE: Diffuse hypoattenuation to the liver parenchyma. Multiple hepatic lesions, some too small to characterize, largest measuring 4.1 cm near the dome with Hounsfield units consistent with simple cyst. No biliary ductal dilatation is present. The gallbladder is unremarkable with no evidence of radiopaque gallstones, gallbladder wall thickening, or obvious pericholecystic inflammatory changes. PANCREAS: Unremarkable. SPLEEN: Unremarkable. ADRENAL GLANDS: Unremarkable. KIDNEYS AND URETERS: The kidneys are bilaterally lobulated in appearance with cortical thinning and scarring, left greater than right. Right medial upper pole 1 cm cyst. Multiple too small to characterize left renal hypodensities, likely cysts. No hydronephrosis, hydroureter, or calculi seen. No perinephric stranding. BLADDER decompressed likely accounting for thick mercedes. GASTROINTESTINAL TRACT: Small hiatal hernia. Under distended stomach. Nonobstructive bowel pattern. Terminal ileum is decompressed likely accounting for thickened appearance. Unremarkable appendix. Contrast reaches the rectosigmoid. Diverticulosis without diverticulitis. ABDOMINAL WALL: Small fat filled umbilical hernia. LYMPH NODES: 1.1 cm right lower quadrant lymph node. No pathologic lymphadenopathy VASCULAR: Dense calcifications nonaneurysmal aorta and iliac arteries with patency of mesenteric vessels. Unremarkable inferior vena cava and iliac veins. Patent portal system. PELVIC VISCERA: Fibroid uterus. OSSEOUS STRUCTURES: Unremarkable. CT/CT abdomen pelvis w IV con IMPRESSION: No acute intra-abdominal or pelvic pathology. Hepatic steatosis. Hepatic and renal cysts. Diverticulosis without diverticulitis. Specifically as questioned, no CT evidence of bowel obstruction. Fleischner guidelines were followed. Dictated By: Ludmila Soto MD Signed By: Electronically signed by Ludmila Soto MD 10/26/23 1009 - EXAMINATION: XR ABDOMEN KUB CLINICAL INDICATION: Constipation. COMPARISON: None available. TECHNIQUE: AP view of the abdomen. FINDINGS: The bowel gas pattern is normal with no evidence of ileus or obstruction. There is scattered retained stool. No unusual soft tissue calcifications are noted. The bones are unremarkable. XR/XR KUB IMPRESSION: Nonspecific bowel gas pattern. Scattered retained stool. Dictated By: Brian An Signed By: Electronically signed by Brian An 10/26/23 0632 Radiology Impression Discussion of test interpretation with radiology: I have reviewed the radiologist's reading. Prescription Management I considered prescription management with: Antibiotic (patient prescribed an antibiotic for her UTI) Discharge Plan Discharge Clinical Impression: Constipation, Acute UTI Patient Disposition: Home, Self-Care Instructions: Constipation (DC), Urinary Tract Infection in Older Adults (ED) Additional Instructions: Follow up with your primary care provider. Return to the emergency department immediately if your symptoms worsen or if you develop any dizziness, shortness of breath, difficulty breathing, chest pain, blurry vision, loss of vision, nausea, vomiting, abdominal pain, fever, chills, back pain, or any other complaints. Prescriptions: New cefuroxime axetil 250 mg tablet 250 mg PO BID 7 Days Qty: 14 0RF No Action atenolol 25 mg tablet 25 mg PO DAILY clopidogrel [Plavix] 75 mg tablet 75 mg PO DAILY 90 Days Qty: 90 3RF Incruse Ellipta 62.5 mcg/actuation blister with device 1 inh inhalation DAILY pantoprazole 40 mg tablet,delayed release (DR/EC) 40 mg PO DAILY dicyclomine 20 mg tablet 20 mg PO TID levothyroxine 75 mcg tablet 75 mcg PO DAILY lorazepam 1 mg tablet 1 mg PO BID PRN rosuvastatin 20 mg tablet 20 mg PO BEDTIME aspirin 81 mg tablet,delayed release (DR/EC) 81 mg PO DAILY cholecalciferol (vitamin D3) 25 mcg (1,000 unit) capsule 25 mcg PO DAILY albuterol sulfate 90 mcg/actuation HFA aerosol inhaler 0 mcg inhalation fluticasone propion-salmeterol [Advair Diskus] 500-50 mcg/dose blister with device 1 ea inhalation BID gabapentin 100 mg capsule 200 mg PO BID Referrals: Reza Nava MD [Primary Care Provider] - Print Language: [place]
[2023-10-26] MEDS: Morphine Sulfate 4 MG/ML CARTRIDGE IVPUSH (07:15)
[2023-10-26] MEDS: ondansetron HCL 4 MG/2 ML VIAL IVPUSH (07:15)
[2023-10-26] MEDS: 0.9 % Sodium Chloride 1,000 ML 999 ML IV (07:16)
[2023-10-26 07:19] VITALS: BP 176/60; PULSE 66; RESP 19; O2SAT 98
[2023-10-26 07:24] LABS: Appearance Urine Clear; Color Urine Yellow; Glucose Urine UA Negative (Negative); Leukocyte Esterase Urine Moderate (2+) (Negative); Nitrite Urine Negative (Negative); PH 6.5 (5.0-9.0); UMIC TRIGGER UACC YES; Urine Blood Trace (Negative); Urine Ketones Negative (Negative); Urine Protein 30 (1+) mg/dL (Neg-Trace)
[2023-10-26 07:31] LABS: Bacteria Urine 1+ (None Seen); Hyaline Casts Urine 0-2 /LPF (0-2); RBC Urine 0-2 /HPF (0-2); UACC Culture Trigger YES
[2023-10-26 07:41] VITALS: BP 167/61; PULSE 62; RESP 18; O2SAT 98
[2023-10-26 08:00] LABS: Influenza A PCR NEGATIVE (Negative); Influenza B PCR NEGATIVE (Negative); Resp Syncy Virus RNA Qual PCR NEGATIVE (Negative); SARS COV2 PCR INHOUSE NEGATIVE (Negative)
[2023-10-26] MEDS: iohexoL 350 MG/ML 100 ML INFUS..BTL 85 ML IV (09:48)
[2023-10-26] MEDS: Diatrizoate Meglumine, Sodium 30 ML SOLUTION PO (09:51)
== END 2023-10-26 11:27 | disposition home or self-care (01) ==
PROVIDERS: Physician Assistant Medical; Emergency Provider Emergency Medicine; PCP Internal Medicine
DX: K59.00 Constipation, unspecified (principal); N39.0 Urinary tract infection, site not specified; Z79.899 Other long term (current) drug therapy; Z20.822 Contact with and (suspected) exposure to COVID-19; Z20.828 Contact with and (suspected) exposure to other viral communicable diseases; I25.10 Atherosclerotic heart disease of native coronary artery without angina pectoris; Z87.891 Personal history of nicotine dependence
CPT/HCPCS: 0241U; 36415; 74018; 74177; 80053; 81001; 85025; 87086; 96361; 96374; 96375; 99285; J2270; J2405; Q9967

== ENCOUNTER 2023-11-28 10:46 | Outpatient (REF) | payer MEDICARE, SELFPAY ==
[2023-05-24 12:49] VITALS: BP 118/58; BP 122/60
[2023-06-20 06:25] VITALS: BMI 26.1
[2023-07-27 07:02] VITALS: BP 124/68
[2023-11-28 11:28] LABS: Influenza A PCR NEGATIVE (Negative); Influenza B PCR NEGATIVE (Negative); Resp Syncy Virus RNA Qual PCR NEGATIVE (Negative); SARS COV2 PCR INHOUSE NEGATIVE (Negative)
== END 2023-11-28 10:47 | disposition home or self-care (01) ==
LOC: HO.LNP 10:46
PROVIDERS: Visit Provider Internal Medicine
DX: R06.2 Wheezing (principal); R09.81 Nasal congestion; R51.9 Headache, unspecified; Z11.52 Encounter for screening for COVID-19; Z20.828 Contact with and (suspected) exposure to other viral communicable diseases
CPT/HCPCS: 0241U

== ENCOUNTER 2023-11-30 11:42 | Outpatient (REF) | payer MEDICARE, SELFPAY ==
[2023-05-24 12:49] VITALS: BP 118/58; BP 122/60
[2023-06-20 06:25] VITALS: BMI 26.1
[2023-07-27 07:02] VITALS: BP 124/68
--- NOTE | ~2023-11-30 | XR_ITS ---
EXAMINATION: XR SINUSES CLINICAL INFORMATION: Sinus congestion, cough COMPARISON: Sinus x-rays on 01/15/2014 TECHNIQUE: 3 views of the sinuses were obtained. FINDINGS: There appears to be mild mucosal thickening and haziness in bilateral maxillary sinuses. Paranasal sinuses appear otherwise clear without air-fluid levels. No fractures are identified. No radiodense foreign bodies. XR/XR sinus min 3V IMPRESSION: Interval development of Mild mucosal thickening and haziness in the maxillary sinuses.
== END 2023-11-30 11:43 | disposition home or self-care (01) ==
LOC: HO.XRAY 11:42
PROVIDERS: PCP Internal Medicine; Visit Provider Internal Medicine
DX: R09.81 Nasal congestion (principal); R05.9 Cough, unspecified
CPT/HCPCS: 70220

== ENCOUNTER 2023-12-14 09:29 | Outpatient (REF) | payer MEDICARE, SELFPAY ==
[2023-05-24 12:49] VITALS: BP 118/58; BP 122/60
[2023-06-20 06:25] VITALS: BMI 26.1
[2023-07-27 07:02] VITALS: BP 124/68
[2023-12-14 09:51] LABS: MANUAL DIFF FLAG NO
[2023-12-14 10:33] LABS: Basophils Absolute Auto 0.1 X10*3/uL (0.0-0.2); Basophils Percent Auto 1.8 % (0-2); Eosinophils Absolute Auto 0.3 X10*3/uL (0.0-0.4); Eosinophils Percent Auto 4.8 % (0-4); Hematocrit 34.1 % (37.0-47.0); Hemoglobin 10.9 g/dl (12.0-16.0); Imm Gran Abs Auto 0.02 X10*3/uL (0.00-0.03); Imm Gran Pct Auto 0.3 % (0.0-0.4); Lymphocytes Absolute Auto 1.2 X10*3/uL (1.2-4.9); Lymphocytes Percent Auto 19.3 % (20-40); Mean Corpuscular Hemoglobin 30.3 pg (27.0-33.0); Mean Corpuscular Volume 94.7 fL (80.0-98.0); Monocytes Absolute Auto 0.5 X10*3/uL (0.1-1.2); Monocytes Percent Auto 8.5 % (2-11); Neutrophils Absolute Auto 4.1 x10*3/uL (2.0-8.3); Neutrophils Percent Auto 65.3 % (45-73); Platelet Count 211 X10*3/uL (160-400); Red Cell Distribution Width 12.4 % (11.0-16.0); White Blood Count 6.2 X10*3/uL (4.8-10.8)
[2023-12-14 11:16] LABS: Alanine Aminotransferase 12 U/L (0-31); Albumin Level 3.6 g/dL (3.5-5.0); Alkaline Phosphatase 56 U/L (39-117); Anion Gap 13 (12-20); Aspartate Amino Transferase 19 U/L (5-31); Bilirubin Total 0.6 mg/dL (0.0-1.0); Blood Urea Nitrogen 20 mg/dL (9-16); C Reactive Protein < 0.10 mg/dL (< or = 0.50); Calcium 9.7 mg/dL (8.4-10.2); Carbon Dioxide 26 mmol/L (22-29); Chloride 108 mmol/L (96-108); Estimated Glomerular Filt Rate 39; Glucose Random 81 mg/dL (60-115); Iron 106 mcg/dL (30-160); Percent Iron Saturation 42 % (15-50); Potassium 3.4 mmol/L (3.3-5.1); Sodium 144 mmol/L (135-145); Total Iron Binding Capacity 253 mcg/dL (228-428); Total Protein 5.9 g/dL (6.5-8.0); Unsaturated Iron Binding 147 ug/dL
[2023-12-14 11:27] LABS: Free T4 (Free Thyroxine) 1.08 ng/dL (0.71-1.85); Thyroid Stimulating Hormone 0.41 uIU/mL (0.32-4.0)
[2023-12-14 11:40] LABS: Vitamin B12 279 pg/mL (200-900)
== END 2023-12-14 09:30 | disposition home or self-care (01) ==
LOC: HO.LAB 09:29
PROVIDERS: PCP Internal Medicine; Visit Provider Internal Medicine
DX: I25.10 Atherosclerotic heart disease of native coronary artery without angina pectoris (principal); D64.9 Anemia, unspecified; R53.83 Other fatigue; R05.9 Cough, unspecified; E03.9 Hypothyroidism, unspecified; K58.9 Irritable bowel syndrome, unspecified
CPT/HCPCS: 36415; 80053; 82607; 83540; 84439; 84443; 85025; 86140

== ENCOUNTER 2024-02-02 02:26 | Emergency (ER) | payer MEDICARE, SELFPAY ==
[2023-05-24 12:49] VITALS: BP 118/58; BP 122/60
[2023-06-20 06:25] VITALS: BMI 26.1
[2023-07-27 07:02] VITALS: BP 124/68
[2023-08-21 10:50] VITALS: BP 118/58; BP 122/60; BP 124/68; BMI 26.1
--- NOTE | ~2024-02-02 | CT_ITS ---
EXAMINATION: CT HEAD WITHOUT CONTRAST CT CERVICAL SPINE WITHOUT CONTRAST CLINICAL INFORMATION: Trauma. Pain. COMPARISON: None available. TECHNIQUE: Contiguous axial imaging was performed through the head and cervical spine without intravenous administration of contrast. Sagittal and coronal reformatted images also obtained. This CT examination was performed using dose optimization techniques as appropriate, variously including the following: *Automated exposure control *Adjustment of mA and/or kV according to patient size (this includes techniques or standardized protocols for targeted exams where dose is matched to indication/reason for exam; i.e. extremities or head) *Use of iterative reconstruction technique DLP: 1014 mGy-cm FINDINGS: There is cerebral volume loss with prominence of the lateral and the third ventricles. The cortical sulci are widened appropriately. The fourth ventricle and basal cisterns are normally outlined. There is mild bilateral periventricular and central white matter image attenuation. There is no acute territorial defect, hemorrhage or midline shift. The extra-axial spaces are unremarkable. Calvarium: Intact. Maxillofacial sinuses and mastoids: Clear as visualized. Cervical spine: There is mild diffuse cervical disc degenerative change with minimal loss of disc space at multiple levels, endplate change and minimal multilevel posterior osteophytes associated with diffuse facet osteoarthritic hypertrophic change without significant spinal canal and with mild right C5-C6 neuroforaminal narrowing. No fracture is seen. The soft tissues are unremarkable. There is biapical pleural thickening. There is right chest wall subcutaneous emphysema CT/CT cervical spine wo IV con IMPRESSION: 1. No acute intracranial process seen. 2. Mild cerebral volume loss with chronic small vessel ischemic changes. 3. No acute cervical spine abnormality seen. There is mild diffuse cervical spondylosis with mild right C5-C6 neuroforaminal narrowing.
--- NOTE | ~2024-02-02 | CT_ITS ---
EXAMINATION: CT CHEST, ABDOMEN AND PELVIS WITH CONTRAST CLINICAL INFORMATION: Fall. Pain. COMPARISON: None available. TECHNIQUE: Multidetector volumetric CT imaging of the chest, abdomen and pelvis was obtained after the administration of oral and 85 mL of Omnipaque 350 intravenous contrast without immediate adverse reactions. Axial MIP volume rendering provided. Sagittal and coronal reformatted images were obtained. This CT examination was performed using dose optimization techniques as appropriate, variously including the following: *Automated exposure control *Adjustment of mA and/or kV according to patient size (this includes techniques or standardized protocols for targeted exams where dose is matched to indication/reason for exam; i.e. 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 LUNGS: Minimal atelectatic change or scarring at the lung bases. There is no active infiltrate. MEDIASTINUM: The heart is mildly enlarged. There is no pericardial effusion. There is no significant lymph node enlargement. PLEURA: There is no pleural effusion. There is no pneumothorax. AXILLA: There is right chest wall subcutaneous emphysema. There is a small amount of dense fluid within the right axilla extending along the right chest wall. OSSEOUS STRUCTURES: No fracture is seen. LIVER, GALLBLADDER, AND BILIARY TREE: Scattered hepatic cysts are noted measuring up to 4.2 cm left lobe of the liver. There is no intrahepatic biliary duct dilatation. The gallbladder is normal in appearance. PANCREAS: Unremarkable. SPLEEN: Unremarkable. ADRENAL GLANDS: Unremarkable. KIDNEYS AND URETERS: The kidneys are normal in size, shape, and attenuation. . Renal vascular calcifications are noted. There is a small cyst upper pole right kidney. There are subcentimeter left lower pole renal cysts. There is no hydronephrosis. BLADDER: The urinary bladder is mildly distended. GASTROINTESTINAL TRACT: There are diverticula of the descending and the sigmoid colon without diverticulitis. ABDOMINAL WALL: Unremarkable. LYMPH NODES: Normal. VASCULAR: There is significant atherosclerotic plaque of the abdominal aorta and proximal branches. PELVIC VISCERA: A small calcified uterine fibroid is noted. OSSEOUS STRUCTURES: Unremarkable. CT/CT abdomen pelvis w IV con IMPRESSION: 1. Subcutaneous emphysema of the right chest wall with a small amount of dense fluid within the right axilla extending along the right chest wall likely hemorrhage. 2. No evidence of acute traumatic injury to the chest, abdomen or pelvis. 3. Diverticulosis without diverticulitis.
--- NOTE | ~2024-02-02 | CT_ITS ---
EXAMINATION: CT CHEST, ABDOMEN AND PELVIS WITH CONTRAST CLINICAL INFORMATION: Fall. Pain. COMPARISON: None available. TECHNIQUE: Multidetector volumetric CT imaging of the chest, abdomen and pelvis was obtained after the administration of oral and 85 mL of Omnipaque 350 intravenous contrast without immediate adverse reactions. Axial MIP volume rendering provided. Sagittal and coronal reformatted images were obtained. This CT examination was performed using dose optimization techniques as appropriate, variously including the following: *Automated exposure control *Adjustment of mA and/or kV according to patient size (this includes techniques or standardized protocols for targeted exams where dose is matched to indication/reason for exam; i.e. 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 LUNGS: Minimal atelectatic change or scarring at the lung bases. There is no active infiltrate. MEDIASTINUM: The heart is mildly enlarged. There is no pericardial effusion. There is no significant lymph node enlargement. PLEURA: There is no pleural effusion. There is no pneumothorax. AXILLA: There is right chest wall subcutaneous emphysema. There is a small amount of dense fluid within the right axilla extending along the right chest wall. OSSEOUS STRUCTURES: No fracture is seen. LIVER, GALLBLADDER, AND BILIARY TREE: Scattered hepatic cysts are noted measuring up to 4.2 cm left lobe of the liver. There is no intrahepatic biliary duct dilatation. The gallbladder is normal in appearance. PANCREAS: Unremarkable. SPLEEN: Unremarkable. ADRENAL GLANDS: Unremarkable. KIDNEYS AND URETERS: The kidneys are normal in size, shape, and attenuation. . Renal vascular calcifications are noted. There is a small cyst upper pole right kidney. There are subcentimeter left lower pole renal cysts. There is no hydronephrosis. BLADDER: The urinary bladder is mildly distended. GASTROINTESTINAL TRACT: There are diverticula of the descending and the sigmoid colon without diverticulitis. ABDOMINAL WALL: Unremarkable. LYMPH NODES: Normal. VASCULAR: There is significant atherosclerotic plaque of the abdominal aorta and proximal branches. PELVIC VISCERA: A small calcified uterine fibroid is noted. OSSEOUS STRUCTURES: Unremarkable. CT/CT chest w IV con IMPRESSION: 1. Subcutaneous emphysema of the right chest wall with a small amount of dense fluid within the right axilla extending along the right chest wall likely hemorrhage. 2. No evidence of acute traumatic injury to the chest, abdomen or pelvis. 3. Diverticulosis without diverticulitis.
--- NOTE | 2024-02-02 02:39 | ECG_ITS ---
Test Reason : FALL Blood Pressure : / mmHG Vent. Rate : 067 BPM Atrial Rate : 067 BPM P-R Int : 102 ms QRS Dur : 128 ms QT Int : 470 ms P-R-T Axes : 049 072 038 degrees QTc Int : 496 ms Sinus rhythm with short NC Left bundle branch block Abnormal ECG When compared with ECG of 13-MAY-2022 13:36, Nonspecific T wave abnormality now evident in Anterior leads T wave inversion no longer evident in Lateral leads Referred By: Jewell Bosch Electronically Signed By:FRANK VERAS MD
[2024-02-02 02:46] VITALS: BP 124/72; BP 134/56; PULSE 66; PULSE 74; RESP 18; TEMP 37.1; O2SAT 96; O2SAT 98; BMI 31.6
--- NOTE | 2024-02-02 02:53 | ED.FALL ---
HPI - Fall General Chief Complaint: Fall Stated Complaint: FALL Time Seen by Provider: 02/02/24 02:39 Source: patient and old records reviewed Mode of arrival: EMS Limitations: no limitations History of Present Illness HPI Narrative: 78 yo female with PMH of CAD s/p stent on plavix, cardiomyopathy, asthma, hypothyroidism here with c/o getting up to use the bathroom and the next thing she knew she was on the ground - she injured her R chest/flank on a wooeden chair spindle and a spindle was sticking out of her chest wall her pulled it out on EMS arrival. She also has a linear thin laceration to R upper lateral clavicle area. She denies dizziness CP/SOB. 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) Fall from: standing Fall witnessed: no Place fall occurred: home Loss of consciousness: yes Prolonged down time: no Symptoms prior to fall: none Location of injury: head, chest and back Severity: moderate Quality: aching Associated symptoms (after fall): other (lacerations) Related Data Home Medications Medication Instructions Recorded Confirmed aspirin 81 mg tablet,delayed 81 mg PO DAILY 10/27/21 10/17/23 release cholecalciferol (vitamin D3) 25 25 mcg PO DAILY 10/27/21 10/17/23 mcg (1,000 unit) capsule dicyclomine 20 mg tablet 20 mg PO TID 10/27/21 10/17/23 levothyroxine 75 mcg tablet 75 mcg PO DAILY 10/27/21 10/17/23 lorazepam 1 mg tablet 1 mg PO BID PRN 10/27/21 10/17/23 pantoprazole 40 mg tablet,delayed 40 mg PO DAILY 10/27/21 10/17/23 release rosuvastatin 20 mg tablet 20 mg PO BEDTIME 10/27/21 10/17/23 atenolol 25 mg tablet 25 mg PO DAILY 02/27/22 10/17/23 albuterol sulfate 90 mcg/actuation 0 mcg inhalation 04/19/22 10/17/23 aerosol inhaler fluticasone 500 mcg-salmeterol 50 1 ea inhalation BID 10/26/22 10/17/23 mcg/dose blistr powdr for inhalation (Advair Diskus) umeclidinium 62.5 mcg/actuation 1 inh inhalation DAILY 02/20/23 10/17/23 blister powder for inhalation (Incruse Ellipta) gabapentin 100 mg capsule 200 mg PO BID 06/13/23 10/17/23 Previous Rx's Medication Instructions Recorded clopidogrel 75 mg tablet (Plavix) 75 mg PO DAILY 90 days #90 tabs 06/27/22 cefuroxime axetil 250 mg tablet 250 mg PO BID 7 days #14 tabs 10/26/23 Allergies Allergy/AdvReac Type Severity Reaction Status Date / Time pollen extracts Allergy Intermediate Sneezing Verified 02/02/24 02:45 citalopram Allergy Unknown upsets Verified 02/02/24 02:45 stomach Review of Systems Review of Systems: Constitutional : No Fever, No Chills ENT/Mouth : No Ear Pain, No Hoarseness, No sore throat Eyes: No Eye Pain, No Swelling, No Redness, No Foreign Body Cardiovascular : No Chest Pain, No SOB, pos rib pain Respiratory : No Cough, No Dyspnea Gastrointestinal : No Nausea, No Vomiting, No Diarrhea, No abdominal Pain Genitourinary : No Dysuria, No Hematuria Musculoskeletal : positive joint pain, No Myalgias, No Joint Swelling Skin : pos Skin lacerations, No rash Neuro : No Weakness, No Numbness, No Loss of Consciousness, No Dizziness, No Headache Psych : No Anxiety/Panic, No Depression Heme/Lymph: no easy bruising, no Lymphadenopathy Endocrine : No Polyuria, No Polydipsia All other systems reviewed and are negative [facility] Past Medical History Source: old records reviewed Medical History Coronary artery disease Surgical History History of cardiac catheterization History of heart artery stent Family History Family History Mother CAD (coronary artery disease) Father No problems noted. Social History Social History Alcohol intake: current Alcohol intake frequency: holidays/special occasions only Alcohol type: wine and hard liquor Patient Tobacco Use Status: Former Tobacco user Quit Date: 1989 Tobacco use type: Cigarette Cigarette Packs Per Day: 0.25 Years Smoked: 30 Smoked in Last 30 Days: No Use of substances other than those prescribed or required for medical reasons: No Advance Directives: Yes Advance Directives Information Provided: Yes Advance Directives on File: No Current occupational status: retired Current occupation: right handed, retired Physical Exam Vital Signs: Vital Signs: Last Vital Signs Temp 98.9 F 02/02/24 05:12 Pulse 67 02/02/24 05:12 Resp 15 02/02/24 05:12 BP 169/70 H 02/02/24 05:12 Pulse Ox 96 02/02/24 05:12 O2 Del Method Room Air 02/02/24 05:12 BMI result Body Mass Index 31.6 Appearance: Alert. Oriented X3. Mild acute distress. Eyes: Pupils equal, round and reactive to light. ENT: Pharynx normal. atraumatic Neck: Normal inspection. Neck supple. CVS: Normal heart rate and rhythm. Pulses normal. Chest: R upper clavicle area 3cm superficial linear laceration Back: R flank 8+ cm down to subq bleeding controlled no bubbling seen down to subq noted laceration Respiratory: No respiratory distress. Breath sounds normal. Abdomen: Soft and nontender. Skin: Skin warm and dry. pale skin color. Normal skin turgor. Extremities: No lower extremity edema. No calf ttp Neuro: Oriented X 3. No motor deficit. No sensory deficit. Course Course Course Narrative: call to surgery given wound and I think she needs a wash out as well as hemorrhage seen though there is no active bleeding. Dr. Fletcher to look at scans 532am Reevaluation(s) Reevaluation #1: call from Dr. Fletcher discussed states she should go to trauma center after reviewing CT scans 556am Reevaluation #2: call to trauma [facility] 6am Reevaluation #3: accepted trauma consult to the ED Dr. Velazquez 627am. Medications Administered Discontinued Medications Generic Name Dose Route Start Last Admin Trade Name Freq PRN Reason Stop Dose Admin Diphtheria/Tetanus/Acell Pertussis 0.5 ml 02/02/24 04:43 02/02/24 04:54 Diphth,Pertus(Acell),Tet Adult 0.5 Ml Syringe IM 02/02/24 04:44 0.5 ml .ONCE ONE Administration Fentanyl 50 mcg 02/02/24 04:58 02/02/24 05:15 Fentanyl Citrate/Pf 100 Mcg/2 Ml Vial IVPUSH 02/02/24 04:59 50 mcg ONCE ONE Administration Protocol Cefazolin Sodium 1 gm/ Sodium 50 mls @ 100 mls/hr 02/02/24 04:43 02/02/24 05:24 Chloride IV 02/02/24 05:12 Infused ONCE ONE Infusion Iohexol 85 ml 02/02/24 03:22 02/02/24 03:22 Iohexol 350 Mg/Ml 100 Ml Infus..Btl IV 02/02/24 03:23 85 ml ONCE ONE Administration Ondansetron HCl 4 mg 02/02/24 04:58 02/02/24 05:14 Ondansetron Hcl 4 Mg/2 Ml Vial IVPUSH 02/02/24 04:59 4 mg ONCE ONE Administration Medical Decision Making Medical Decision Making [facility] Narrative: 78 yo female with PMH of CAD s/p stent on plavix, cardiomyopathy, asthma, hypothyroidism here with fall after getting up no prodrome has no CP/SOB but suffered penetrating wound from wood to R chest wall/flank has two open areas I am unsure if these are communicating vs two separate injuries. At this time will need CT head/cspine, chest abdomen and pelvis, labs, and depending on trauma CT scans will require significant clean out and tdap along with empiric cefazolin. Differential Diagnosis Differential Diagnoses: The differential diagnosis associated with the presentation includes syncope, fall, laceration, penetrating injury Admission/Observation Consideration of admission/observation: Escalation of care including admission/observation considered needs higher level of care to assess the wound Consult Healthcare Provider Management of the patient was discussed with: Manager Facility Lab Data [facility] Lab Attestation statement: I reviewed the patient's lab results. 02/02/24 03:22 02/02/24 03:22 Labs: Lab Results 02/02/24 02/02/24 Range/Units 03:22 04:21 WBC 4.1 L (4.8-10.8) X10*3/uL RBC 2.79 L D (4.20-5.50) X10*6/uL Hgb 8.5 L D (12.0-16.0) g/dl Hct 26.6 L D (37.0-47.0) % MCV 95.3 (80.0-98.0) fL MCH 30.5 (27.0-33.0) pg MCHC 32.0 (31.0-35.0) g/dl RDW 14.3 (11.0-16.0) % Plt Count 156 L D (160-400) X10*3/uL MPV 10.2 (9.4-12.3) fL Immature Gran % (Auto) 0.2 (0.0-0.4) % Neut % (Auto) 56.1 (45-73) % Lymph % (Auto) 23.2 (20-40) % [place] % (Auto) 12.6 H (2-11) % Eos % (Auto) 6.7 H (0-4) % Baso % (Auto) 1.2 (0-2) % Lymph # (Auto) 0.9 L (1.2-4.9) X10*3/uL [place] # (Auto) 0.5 (0.1-1.2) X10*3/uL Eos # (Auto) 0.3 (0.0-0.4) X10*3/uL Baso # (Auto) 0.1 (0.0-0.2) X10*3/uL Abs Immat Gran (auto) 0.01 (0.00-0.03) X10*3/uL Absolute Neuts (auto) 2.3 (2.0-8.3) x10*3/uL Absolute Nucleated RBC 0.000 (0.0-0.012) X10*3/uL Nucleated RBC % (auto) 0.0 (0.0-0.2) /100WBC PT 11.4 (11.1-13.3) SEC INR 0.9 (0.9-1.1) Sodium 142 (135-145) mmol/L Potassium 3.8 (3.3-5.1) mmol/L Chloride 114 H (96-108) mmol/L Carbon Dioxide 21 L (22-29) mmol/L Anion Gap 11 L (12-20) BUN 20 H (9-16) mg/dL Creatinine 1.07 (0.5-1.4) mg/dL Estim Creat Clear Calc 44.5 Estimated GFR 49 Random Glucose 88 (60-115) mg/dL Calcium 9.0 D (8.4-10.2) mg/dL Magnesium 1.8 (1.6-2.6) mg/dL Total Bilirubin 0.2 (0.0-1.0) mg/dL Direct Bilirubin < 0.2 (0.0-0.5) mg/dL AST 14 (5-31) U/L ALT 9 (0-31) U/L Alkaline Phosphatase 57 (39-117) U/L Total Creatine Kinase 91 (26-140) U/L Troponin I High Sens 16.4 (<3.5-17.0) ng/L Total Protein 5.2 L (6.5-8.0) g/dL Albumin 3.1 L (3.5-5.0) g/dL Lipase 37 (8-78) U/L Urine Color Yellow Urine Appearance Clear Urine pH 6.5 (5.0-9.0) Ur Specific [place] 1.015 (1.005-1.025) Urine Protein Trace (Neg-Trace) mg/dL Urine Glucose (UA) Negative (Negative) mg/dL Urine Ketones Negative (Negative) mg/dL Urine Blood Trace H (Negative) Urine Nitrite Negative (Negative) Ur Leukocyte Esterase Negative (Negative) Urine RBC 0-2 (0-2) /HPF Urine WBC 0-5 (0-5) /HPF Ur Squamous Epith Cells 0-2 (0-2) /HPF Urine Bacteria None Seen (None Seen) Hyaline Casts 0-2 (0-2) /LPF Blood Type B Positive Antibody Screen NEGATIVE Independent Interpretation I performed an independent interpretation of an: EKG and CT Scan Interpretation: Rate: 67 Rhythm: NSR [place]: normal Normal P waves. Normal TERRI. LBBB ST T wave : normal no EMILY qTC: 496 prior studies: no acute change from prior The study has been interpreted contemporaneously by me. . Radiology Impression Discussion of test interpretation with radiology: I have reviewed the radiologist's reading. Independent Historian Clinical information obtained from an independent historian. History obtained from or confirmed by: EMS and Other (daughter) External Record Review External record reviewed: Inpatient record Critical Care Time Critical Care Time Critical Care Time: Yes Total Critical Care Time: 45 Attestation: trauma consult, call to general surgery, review of records, transfer I attest to this time spent taking care of the patient Discharge Plan Discharge Clinical Impression: Acute on chronic anemia Puncture wound of chest wall Qualifiers: Encounter type: initial encounter Qualified Code(s): S21.139A - Puncture wound without foreign body of unspecified front wall of thorax without penetration into thoracic cavity, initial encounter Laceration of chest wall Qualifiers: Encounter type: initial encounter Laterality: right Qualified Code(s): S21.111A - Laceration without foreign body of right front wall of thorax without penetration into thoracic cavity, initial encounter Patient Disposition: [facility] Transfer Details: [facility] Prescriptions: No Action atenolol 25 mg tablet 25 mg PO DAILY clopidogrel [Plavix] 75 mg tablet 75 mg PO DAILY 90 Days Qty: 90 3RF cefuroxime axetil 250 mg tablet 250 mg PO BID 7 Days Qty: 14 0RF Incruse Ellipta 62.5 mcg/actuation blister with device 1 inh inhalation DAILY pantoprazole 40 mg tablet,delayed release (DR/EC) 40 mg PO DAILY dicyclomine 20 mg tablet 20 mg PO TID levothyroxine 75 mcg tablet 75 mcg PO DAILY lorazepam 1 mg tablet 1 mg PO BID PRN rosuvastatin 20 mg tablet 20 mg PO BEDTIME aspirin 81 mg tablet,delayed release (DR/EC) 81 mg PO DAILY cholecalciferol (vitamin D3) 25 mcg (1,000 unit) capsule 25 mcg PO DAILY albuterol sulfate 90 mcg/actuation HFA aerosol inhaler 0 mcg inhalation fluticasone propion-salmeterol [Advair Diskus] 500-50 mcg/dose blister with device 1 ea inhalation BID gabapentin 100 mg capsule 200 mg PO BID
--- NOTE | 2024-02-02 03:11 | PC.NURSE ---
pt biba from home a&ox4, respirations even and unlabored, after a fall. pt reports ambulating to the bathroom when she tripped and fell in her bedroom landing on a wooden box. upon EMS arrival, pt was on scene removing wooden piece from pt right side. pt upon arrival noted to have 3cm laceration to the right shoulder. pt noted to have large laceration to the right ribs, unable to assess size, bleeding controlled and wrapped with dressing. 20G placed in left ac. pt to CT at this time.
[2024-02-02] MEDS: iohexoL 350 MG/ML 100 ML INFUS..BTL 85 ML IV (03:22)
--- NOTE | 2024-02-02 03:26 | PC.NURSE ---
labs obtained and sent to lab at this time.
[2024-02-02 03:29] LABS: MANUAL DIFF FLAG NO
[2024-02-02 03:30] LABS: Basophils Absolute Auto 0.1 X10*3/uL (0.0-0.2); Basophils Percent Auto 1.2 % (0-2); Eosinophils Absolute Auto 0.3 X10*3/uL (0.0-0.4); Eosinophils Percent Auto 6.7 % (0-4); Hematocrit 26.6 % (37.0-47.0); Hemoglobin 8.5 g/dl (12.0-16.0); Imm Gran Abs Auto 0.01 X10*3/uL (0.00-0.03); Imm Gran Pct Auto 0.2 % (0.0-0.4); Lymphocytes Absolute Auto 0.9 X10*3/uL (1.2-4.9); Lymphocytes Percent Auto 23.2 % (20-40); Mean Corpuscular Hemoglobin 30.5 pg (27.0-33.0); Mean Corpuscular Volume 95.3 fL (80.0-98.0); Mean Platelet Volume 10.2 fL (9.4-12.3); Monocytes Absolute Auto 0.5 X10*3/uL (0.1-1.2); Monocytes Percent Auto 12.6 % (2-11); Neutrophils Absolute Auto 2.3 x10*3/uL (2.0-8.3); Neutrophils Percent Auto 56.1 % (45-73); Platelet Count 156 X10*3/uL (160-400); Red Blood Count 2.79 X10*6/uL (4.20-5.50); Red Cell Distribution Width 14.3 % (11.0-16.0); White Blood Count 4.1 X10*3/uL (4.8-10.8)
[2024-02-02 03:37] LABS: INTERNATIONAL NORM RATIO 0.9 (0.9-1.1); Prothrombin Time 11.4 SEC (11.1-13.3)
[2024-02-02 03:44] LABS: Alanine Aminotransferase 9 U/L (0-31); Albumin Level 3.1 g/dL (3.5-5.0); Alkaline Phosphatase 57 U/L (39-117); Anion Gap 11 (12-20); Aspartate Amino Transferase 14 U/L (5-31); Bilirubin Direct < 0.2 mg/dL (0.0-0.5); Bilirubin Total 0.2 mg/dL (0.0-1.0); Blood Urea Nitrogen 20 mg/dL (9-16); Carbon Dioxide 21 mmol/L (22-29); Chloride 114 mmol/L (96-108); Creatinine Clr Calc Pharmacy 44.5; Estimated Glomerular Filt Rate 49; Glucose Random 88 mg/dL (60-115); Lipase 37 U/L (8-78); Magnesium 1.8 mg/dL (1.6-2.6); Potassium 3.8 mmol/L (3.3-5.1); Sodium 142 mmol/L (135-145); Total Protein 5.2 g/dL (6.5-8.0)
[2024-02-02 03:49] LABS: Troponin-I High Sensitivity 16.4 ng/L (<3.5-17.0)
--- NOTE | 2024-02-02 04:29 | PC.NURSE ---
Addendum entered by Jennifer Ang 02/02/24 06:15: late entry- dry dressings placed on pt laceration to the right shoulder and laceration to right ribs. Original Note: pt assisted onto bedpan at this time.
[2024-02-02 04:33] LABS: Appearance Urine Clear; Color Urine Yellow; Glucose Urine UA Negative (Negative); Leukocyte Esterase Urine Negative (Negative); Nitrite Urine Negative (Negative); PH 6.5 (5.0-9.0); Specific Gravity - Urine 1.015 (1.005-1.025); UMIC TRIGGER UACC YES; Urine Blood Trace (Negative); Urine Ketones Negative (Negative); Urine Protein Trace mg/dL (Neg-Trace)
[2024-02-02 04:48] LABS: Bacteria Urine None Seen (None Seen); Hyaline Casts Urine 0-2 /LPF (0-2); RBC Urine 0-2 /HPF (0-2); Squamous Epithelial Cell Urine 0-2 /HPF (0-2); WBC Urine 0-5 /HPF (0-5)
[2024-02-02] MEDS: Diphth,Pertus(ACell),Tet Adult 0.5 ML SYRINGE IM (04:54)
[2024-02-02 05:12] VITALS: BP 169/70; PULSE 67; RESP 15; TEMP 37.2; O2SAT 96
[2024-02-02] MEDS: ondansetron HCL 4 MG/2 ML VIAL IVPUSH (05:14)
[2024-02-02] MEDS: fentaNYL citrate/PF 100 MCG/2 ML VIAL 50 MCG IVPUSH (05:15)
--- NOTE | 2024-02-02 05:15 | PC.NURSE ---
pt medicated per mar for 10/10 right rib pain.
[2024-02-02 06:32] VITALS: BP 167/60; PULSE 63; RESP 13; TEMP 36.9; O2SAT 100
--- NOTE | 2024-02-02 06:41 | PC.NURSE ---
attempted to give [facility] report x4, unable to give report at this time due to no answer.
--- NOTE | 2024-02-02 06:55 | MHC.EDTECH ---
CALL OUT TO [facility] AT 0630 TO BOOK TRANSPORT FOR PT, ESTIMATED ETA GIVEN WAS 0900
[2024-02-02] MEDS: HYDROmorphone HCl 0.5 MG/0.5 ML SYRINGE IVPUSH (07:25)
[2024-02-02 08:14] VITALS: BP 143/59; PULSE 69; RESP 10; O2SAT 100
--- NOTE | 2024-02-02 08:21 | PC.NURSE ---
assumed care of pt at 0700. pt a&o x4, pleasant, calm, and cooperative. pt reporting 8/10 pain, medicated with dilaudid per mar with positive effect. pt resting quietly, in no apparent distress. vss and updated in worklist. pt on 2L O2 sating 100%, titrated off to room air sating 98%. pt found to be sating 92% on room air. placed back on 2L O2 sating 99%. pt awaiting transfer to [facility] as trauma. EMS scheduled for 0900. rr even/unlabroed. call collier within reach. plan of care ongoing.
[2024-02-02 08:52] VITALS: BP 143/59; PULSE 69; RESP 10; TEMP 37.1; O2SAT 100
== END 2024-02-02 08:54 | disposition short-term general hospital (02) ==
PROVIDERS: Emergency Provider Emergency Medicine; PCP Internal Medicine
DX: S21.131A Puncture wound without foreign body of right front wall of thorax without penetration into thoracic cavity, initial encounter (principal); W01.190A Fall on same level from slipping, tripping and stumbling with subsequent striking against furniture, initial encounter; Y93.89 Activity, other specified; Y92.89 Other specified places as the place of occurrence of the external cause; Y99.9 Unspecified external cause status; Z23 Encounter for immunization; I25.10 Atherosclerotic heart disease of native coronary artery without angina pectoris; Z79.01 Long term (current) use of anticoagulants; Z95.2 Presence of prosthetic heart valve
CPT/HCPCS: 36415; 70450; 71260; 72125; 74177; 80048; 80076; 81001; 82550; 83690; 83735; 84484; 85025; 85610; 86850; 86900; 86901; 90471; 90715; 93005; 96365; 96375; 99285; J0690; J1170; J2405; J3010; Q9967

== ENCOUNTER → 2024-02-02 02:39 | Outpatient (BNV) | payer MEDICARE, SELFPAY ==
[2023-08-21 10:50] VITALS: BP 118/58; BP 122/60; BP 124/68; BMI 26.1
== END ==
PROVIDERS: Emergency Provider Emergency Medicine; PCP Internal Medicine; Visit Provider Internal Medicine Cardiovascular Disease
DX: R94.31 Abnormal electrocardiogram [ECG] [EKG] (principal)
CPT/HCPCS: 93010

== ENCOUNTER 2024-02-18 15:32 | Outpatient (AMB) | payer MEDICARE, SELFPAY ==
[2023-05-24 12:49] VITALS: BP 118/58; BP 122/60
[2023-06-20 06:25] VITALS: BMI 26.1
[2023-07-27 07:02] VITALS: BP 124/68
[2023-08-21 10:50] VITALS: BP 118/58; BP 122/60; BP 124/68; BMI 26.1
[2024-02-18 15:37] VITALS: BP 140/62; PULSE 79; BMI 26.3
--- NOTE | 2024-02-18 15:37 | MHC.OFFVIS ---
Intake Vital Signs 02/18/24 15:37 Height 5 ft 4 in Weight 153 lb 7.068 oz BMI 26.3 BP 140/62 H Blood Pressure Location Lt brachial Position Sitting Pulse 79 Pulse Source Pulse Oximeter Intake Visit Reasons: 4 mth fu Intake Note: pt states that she its doing fine. 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 Accompanied by: Self / Same As Patient Allergies pollen extracts Allergy (Intermediate, Verified 02/02/24 02:45) Sneezing citalopram Allergy (Unknown, Verified 02/02/24 02:45) upsets stomach Medication List - Last Reconciled 02/18/24 by Julio César Vanegas MD albuterol sulfate 90 mcg/actuation 0 mcg inhalation aspirin 81 mg PO DAILY atenolol 25 mg PO DAILY cefuroxime axetil 250 mg PO BID 7 days cholecalciferol (vitamin D3) 25 mcg PO DAILY clopidogrel (Plavix) 75 mg PO DAILY 90 days dicyclomine 20 mg PO TID fluticasone propion-salmeterol 500-50 mcg/dose (Advair Diskus) 1 ea inhalation BID gabapentin 200 mg PO BID levothyroxine 75 mcg PO DAILY lorazepam 1 mg PO BID PRN pantoprazole 40 mg PO DAILY rosuvastatin 20 mg PO BEDTIME umeclidinium 62.5 mcg/actuation (Incruse Ellipta) 1 inh inhalation DAILY HPI HPI Comments History of Present Illness Details 78-year-old female who is here for follow-up. She underwent right coronary artery PCI in the past. She is saying that she has been short of breath and has background of asthmatic bronchitis. she is following pulmonology for and has been started on new inhalers. She is still complaining of shortness of breath. Occasionally also gets chest discomfort. Previously had LAD PCI and there is InStent restenosis of the LAD which was medically treated in the past. Her main complaint is shortness of breath with exertion. She has no history of lung disease and new inhalers have been added. She is planning to go to [place] on October 31 and will come back and of the month. She will be attending her grandson's wedding. She returns for f/u today. She continues to have AGUSTIN. She has been taking medications regularly. No bleeding concern. 06/13/23: She is here for follow-up. She underwent LAD PCI for InStent restenoses. She is saying she has significant improvement in her dyspnea and feels great. She has no chest discomfort. Blood pressure control is good. No bleeding concerns currently. Tolerating medications well. Undergoing cardiac rehabilitation. 10/17/2023: She returns for follow-up. She has been doing well. No chest pain or shortness breath. She said she got admitted to [facility] with some chest discomfort and was ruled out and she was told that nothing serious was noted. Blood pressure is mildly elevated. She has been taking aspirin Plavix. No bleeding concerns. 02/18/24: She returns for follow-up. She was in the ER in January 2024 after a fall at night and injury to her arm. She had a broken chair with a spindles taking out which she unfortunately fell on an injured her arm. She was brought to [facility] and then transferred to [facility] for trauma assessment. She said she was assessed and sutured. She has been doing well since then. No syncope episode. No chest pain or shortness of breath otherwise clinically stable. [facility] Medical History Coronary artery disease Surgical History History of cardiac catheterization History of heart artery stent Family History Mother CAD (coronary artery disease) Father No problems noted. Social History Alcohol intake: current Alcohol intake frequency: holidays/special occasions only Alcohol type: wine and hard liquor Patient Tobacco Use Status: Former Tobacco user Quit Date: 1989 Tobacco use type: Cigarette Cigarette Packs Per Day: 0.25 Years Smoked: 30 Current occupational status: retired Current occupation: right handed, retired Review of Systems Const Denies chills, Denies fatigue, Denies fever(s), Denies frequent falls, Denies weakness, Denies weight gain and Denies weight loss ENT Denies dizziness Card Denies chest pain, Denies leg edema, Denies lightheadedness, Denies palpitations, Denies dyspnea and Denies dyspnea on exertion Resp Denies cough, Denies dyspnea and Denies dyspnea on exertion GI Denies hematochezia Musc Denies abnormal gait, Denies muscle weakness, Denies numbness, Denies radiating pain into limb and Denies tingling Neuro Denies abnormal gait, Denies dizziness, Denies frequent falls, Denies numbness, Denies tingling and Denies weakness Endo Denies fatigue and Denies palpitations Physical Exam Vital Signs: Last Vital Signs Pulse 79 02/18/24 15:37 BP 140/62 H 02/18/24 15:37 BMI result Body Mass Index 26.3 GENERAL APPEARANCE: in no acute distress, pleasant. NECK: no carotid bruit, no jugular venous distention. SKIN: no suspicious lesions, warm and dry. HEART: no murmurs, regular rate and rhythm. LUNGS: clear to auscultation bilaterally. ABDOMEN: soft, nontender. EXTREMITIES: no edema. PERIPHERAL PULSES: equal. NEUROLOGIC: No gross deficits, AAO X 3 Assessment & Plan Assessment & Plan (1) Stable angina: Code(s): I20.8 - Other forms of angina pectoris (2) Cardiomyopathy: Code(s): I42.9 - Cardiomyopathy, unspecified Plan Pleasant 78 year female who is here for follow-up. She has background history of coronary disease and mild cardiomyopathy with EF 50 55% based on last echocardiogram. She was treated with drug-eluting stent to right coronary artery and RCA. She is on aspirin and Plavix currently. Tolerating medications well. Clinically stable. She will see us back in 4 months. Thank you for allowing me to participate in the care of your patient. Please feel free to contact me if you have any questions. Coding Level of Care Code Est Pt Level 4 (45274) Diagnoses Stable angina I20.8 Cardiomyopathy I42.9
== END 2024-02-18 15:56 | disposition home or self-care (01) ==
PROVIDERS: PCP Internal Medicine; Visit Provider Internal Medicine Cardiovascular Disease
DX: I20.89 Other forms of angina pectoris (principal); I42.9 Cardiomyopathy, unspecified
CPT/HCPCS: 99214

== ENCOUNTER → 2024-02-18 15:32 | Outpatient (BNVA) | payer MEDICARE, SELFPAY ==
[2023-08-21 10:50] VITALS: BP 118/58; BP 122/60; BP 124/68; BMI 26.1
== END ==
PROVIDERS: PCP Internal Medicine; Visit Provider Internal Medicine Cardiovascular Disease
DX: I25.118 Atherosclerotic heart disease of native coronary artery with other forms of angina pectoris (principal); I11.0 Hypertensive heart disease with heart failure; I42.9 Cardiomyopathy, unspecified; Z95.5 Presence of coronary angioplasty implant and graft; Z98.890 Other specified postprocedural states; Z79.82 Long term (current) use of aspirin; Z79.899 Other long term (current) drug therapy
CPT/HCPCS: 99212

== ENCOUNTER 2024-03-24 13:55 | Outpatient (REF) | payer MEDICARE, SELFPAY ==
[2023-08-21 10:50] VITALS: BP 118/58; BP 122/60; BP 124/68; BMI 26.1
[2024-03-24 14:46] LABS: MANUAL DIFF FLAG NO
[2024-03-24 15:20] LABS: Basophils Absolute Auto 0.1 X10*3/uL (0.0-0.2); Basophils Percent Auto 1.2 % (0-2); Eosinophils Absolute Auto 0.3 X10*3/uL (0.0-0.4); Eosinophils Percent Auto 4.6 % (0-4); Hemoglobin 10.5 g/dl (12.0-16.0); Imm Gran Abs Auto 0.01 X10*3/uL (0.00-0.03); Imm Gran Pct Auto 0.1 % (0.0-0.4); Lymphocytes Absolute Auto 0.9 X10*3/uL (1.2-4.9); Mean Corpuscular HGB Conc 31.8 g/dl (31.0-35.0); Mean Corpuscular Hemoglobin 30.6 pg (27.0-33.0); Mean Corpuscular Volume 96.2 fL (80.0-98.0); Mean Platelet Volume 10.8 fL (9.4-12.3); Monocytes Absolute Auto 0.7 X10*3/uL (0.1-1.2); Neutrophils Absolute Auto 4.6 x10*3/uL (2.0-8.3); Neutrophils Percent Auto 69.1 % (45-73); Platelet Count 157 X10*3/uL (160-400); Red Blood Count 3.43 X10*6/uL (4.20-5.50); Red Cell Distribution Width 13.1 % (11.0-16.0); White Blood Count 6.7 X10*3/uL (4.8-10.8)
[2024-03-24 16:14] LABS: Parathyroid Hormone Intact 78.8 pg/mL (8.7-77.1)
[2024-03-24 16:30] LABS: Albumin Level 3.9 g/dL (3.5-5.0); Anion Gap 15 (12-20); Blood Urea Nitrogen 21 mg/dL (9-16); Carbon Dioxide 23 mmol/L (22-29); Chloride 107 mmol/L (96-108); Estimated Glomerular Filt Rate 34; Magnesium 1.8 mg/dL (1.6-2.6); Potassium 4.2 mmol/L (3.3-5.1); Sodium 141 mmol/L (135-145)
[2024-03-28 02:18] LABS: VITAMIN D (1,25 OH) D3 21 pg/mL; Vit D (1,25-Dihydroxy) Total 21 pg/mL (18-72); Vitamin D (1,25 OH) D2 <8 pg/mL
== END 2024-03-24 13:56 | disposition home or self-care (01) ==
LOC: HO.LAB 13:55
PROVIDERS: PCP Internal Medicine; Visit Provider Internal Medicine Nephrology
DX: N25.0 Renal osteodystrophy (principal); N18.32 Chronic kidney disease, stage 3b; R80.1 Persistent proteinuria, unspecified
CPT/HCPCS: 36415; 80051; 82040; 82310; 82565; 82652; 83735; 83970; 84100; 84520; 85025

== ENCOUNTER 2024-07-02 15:02 | Outpatient (AMB) | payer MEDICARE, SELFPAY ==
[2023-08-21 10:50] VITALS: BP 118/58; BP 122/60; BP 124/68; BMI 26.1
[2024-07-02 15:04] VITALS: BP 130/62; PULSE 65; BMI 25.2
--- NOTE | 2024-07-02 15:04 | A.OFFVIS_ITS ---
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 Accompanied by: Self / Same As Patient Allergies pollen extracts Allergy (Intermediate, Verified 02/02/24 02:45) Sneezing citalopram Allergy (Unknown, Verified 02/02/24 02:45) upsets stomach Medication List - Last Reconciled 07/02/24 by Julio César Vanegas MD albuterol sulfate 90 mcg/actuation 0 mcg inhalation aspirin 81 mg PO DAILY atenolol 25 mg PO DAILY cefuroxime axetil 250 mg PO BID 7 days cholecalciferol (vitamin D3) 25 mcg PO DAILY clopidogrel (Plavix) 75 mg PO DAILY 90 days dicyclomine 20 mg PO TID fluticasone propion-salmeterol 500-50 mcg/dose (Advair Diskus) 1 ea inhalation BID gabapentin 200 mg PO BID levothyroxine 75 mcg PO DAILY lorazepam 1 mg PO BID PRN pantoprazole 40 mg PO DAILY rosuvastatin 20 mg PO BEDTIME HPI Comments Details: 79-year-old female who is here for follow-up. She underwent right coronary artery PCI in the past. She is saying that she has been short of breath and has background of asthmatic bronchitis. she is following pulmonology for and has been started on new inhalers. She is still complaining of shortness of breath. Occasionally also gets chest discomfort. Previously had LAD PCI and there is InStent restenosis of the LAD which was medically treated in the past. Her main complaint is shortness of breath with exertion. She has no history of lung disease and new inhalers have been added. She is planning to go to [place] on October 31 and will come back and of the month. She will be attending her grandson's wedding. She returns for f/u today. She continues to have AGUSTIN. She has been taking medications regularly. No bleeding concern. 06/13/23: She is here for follow-up. She underwent LAD PCI for InStent restenoses. She is saying she has significant improvement in her dyspnea and feels great. She has no chest discomfort. Blood pressure control is good. No bleeding concerns currently. Tolerating medications well. Undergoing cardiac rehabilitation. 10/17/2023: She returns for follow-up. She has been doing well. No chest pain or shortness breath. She said she got admitted to [facility] with some chest discomfort and was ruled out and she was told that nothing serious was noted. Blood pressure is mildly elevated. She has been taking aspirin Plavix. No bleeding concerns. 02/18/24: She returns for follow-up. She was in the ER in January 2024 after a fall at night and injury to her arm. She had a broken chair with a spindles taking out which she unfortunately fell on an injured her arm. She was brought to [facility] and then transferred to [facility] for trauma assessment. She said she was assessed and sutured. She has been doing well since then. No syncope episode. No chest pain or shortness of breath otherwise clinically stable. 07/02/24: She is here for follow-up. She has been experiencing bilateral shoulder and arm discomfort with activities. She is thinking that this is due to neck problem and apparently is getting some neck imaging to. She also has been getting some shortness of breath. She has known history of coronary disease and previously had PCI to right coronary artery and LAD. [facility] Medical History Coronary artery disease Surgical History History of cardiac catheterization History of heart artery stent Family History Mother CAD (coronary artery disease) Father No problems noted. Social History Alcohol intake: current Alcohol intake frequency: holidays/special occasions only Alcohol type: wine and hard liquor Patient Tobacco Use Status: Former Tobacco user Tobacco use type: Cigarette Cigarette Packs Per Day: 0.25 Years Smoked: 30 Current occupational status: retired Current occupation: right handed, retired Review of Systems Const Denies chills, Denies fatigue, Denies fever(s), Denies frequent falls, Denies weakness, Denies weight gain and Denies weight loss ENT Denies dizziness Card Denies chest pain, Denies leg edema, Denies lightheadedness, Denies palpitations, Denies dyspnea and Denies dyspnea on exertion Resp Denies cough, Denies dyspnea and Denies dyspnea on exertion GI Denies hematochezia Musc Denies abnormal gait, Denies muscle weakness, Denies numbness, Denies radiating pain into limb and Denies tingling Neuro Denies abnormal gait, Denies dizziness, Denies frequent falls, Denies numbness, Denies tingling and Denies weakness Endo Denies fatigue and Denies palpitations Physical Exam Vital Signs: Last Vital Signs Pulse 65 07/02/24 15:04 BP 130/62 07/02/24 15:04 BMI result Body Mass Index 25.2 GENERAL APPEARANCE: in no acute distress, pleasant. NECK: no carotid bruit, no jugular venous distention. SKIN: no suspicious lesions, warm and dry. HEART: no murmurs, regular rate and rhythm. LUNGS: clear to auscultation bilaterally. ABDOMEN: soft, nontender. EXTREMITIES: no edema. PERIPHERAL PULSES: equal. NEUROLOGIC: No gross deficits, AAO X 3 Assessment & Plan Assessment & Plan (1) Stable angina: Code(s): I20.8 - Other forms of angina pectoris Category: Medical (2) Dyspnea on exertion: Code(s): R06.00 - Dyspnea, unspecified Category: Medical Plan Pleasant 79-year-old female who is here for follow-up. She has known history of coronary artery disease with previous right coronary artery as well as LAD PCI. She is returning is complaining of bilateral shoulder and arm discomfort with activity. She is thinking this is due to neck issue. She does not have any pain with neck movement and these symptoms are happening with activity. I have explained to her that she has known history of coronary disease and these symptoms are somewhat suspicious for angina. She previously did not have similar complaints and most of her symptoms were related to shortness of breath which improved after PCI. She is short of breath again. I will do some basic blood workup including CBC and iron studies to start with. If these testing is normal then I will arrange a stress test for her. Thank you for allowing me to participate in the care of your patient. Please feel free to contact me if you have any questions. Orders: Orders Complete Blood Count no Diff Today R06.00 - Dyspnea, unspecified IRON PROFILE Today R06.00 - Dyspnea, unspecified Ferritin Today R06.00 - Dyspnea, unspecified Basic Metabolic Panel Today R06.00 - Dyspnea, unspecified B Type Natriuretic Peptide Today R06.00 - Dyspnea, unspecified Coding Level of Care Code Est Pt Level 4 (06342) Diagnoses Stable angina I20.8 Dyspnea on exertion R06.00
== END 2024-07-02 15:28 | disposition home or self-care (01) ==
PROVIDERS: PCP Internal Medicine; Visit Provider Internal Medicine Cardiovascular Disease
DX: I20.89 Other forms of angina pectoris (principal); R06.00 Dyspnea, unspecified
CPT/HCPCS: 99214

== ENCOUNTER → 2024-07-02 15:02 | Outpatient (BNVA) | payer MEDICARE, SELFPAY ==
[2023-08-21 10:50] VITALS: BP 118/58; BP 122/60; BP 124/68; BMI 26.1
== END ==
PROVIDERS: PCP Internal Medicine; Visit Provider Internal Medicine Cardiovascular Disease
DX: I20.89 Other forms of angina pectoris (principal); R06.00 Dyspnea, unspecified; Z87.891 Personal history of nicotine dependence
CPT/HCPCS: 99212

== ENCOUNTER 2024-07-04 13:28 | Outpatient (REF) | payer MEDICARE, SELFPAY ==
[2023-08-21 10:50] VITALS: BP 118/58; BP 122/60; BP 124/68; BMI 26.1
[2024-07-04 14:11] LABS: Hematocrit 30.8 % (37.0-47.0); Mean Corpuscular HGB Conc 32.5 g/dl (31.0-35.0); Mean Corpuscular Volume 95.4 fL (80.0-98.0); Mean Platelet Volume 11.6 fL (9.4-12.3); Platelet Count 137 X10*3/uL (160-400); Red Blood Count 3.23 X10*6/uL (4.20-5.50); Red Cell Distribution Width 13.9 % (11.0-16.0); White Blood Count 6.3 X10*3/uL (4.8-10.8)
[2024-07-04 14:37] LABS: B Type Natriuretic Peptide 886 pg/mL (<100)
[2024-07-04 14:38] LABS: Anion Gap 12 (12-20); Blood Urea Nitrogen 17 mg/dL (9-16); Carbon Dioxide 30 mmol/L (22-29); Chloride 105 mmol/L (96-108); Estimated Glomerular Filt Rate 34; Glucose Random 99 mg/dL (60-115); Iron 86 mcg/dL (30-160); Percent Iron Saturation 36 % (15-50); Potassium 3.9 mmol/L (3.3-5.1); Sodium 143 mmol/L (135-145); Total Iron Binding Capacity 242 mcg/dL (228-428); Unsaturated Iron Binding 156 ug/dL
[2024-07-04 14:56] LABS: Ferritin 108 ng/mL (10-250)
== END 2024-07-04 13:29 | disposition home or self-care (01) ==
LOC: HO.LAB 13:28
PROVIDERS: PCP Internal Medicine; Visit Provider Internal Medicine Cardiovascular Disease
DX: R06.00 Dyspnea, unspecified (principal)
CPT/HCPCS: 36415; 80048; 82728; 83540; 83880; 85027

== ENCOUNTER 2024-07-16 15:55 | Inpatient (IN) | payer MEDICARE, SELFPAY ==
[2023-08-21 10:50] VITALS: BP 118/58; BP 122/60; BP 124/68; BMI 26.1
--- NOTE | ~2024-07-16 | CT_ITS ---
EXAMINATION: CT HEAD WITHOUT CONTRAST CT CERVICAL SPINE WITHOUT CONTRAST CLINICAL INFORMATION: Fall, pain. COMPARISON: CT head and cervical spine 02/02/2024. TECHNIQUE: Contiguous axial imaging was performed from the skull base to vertex without intravenous administration of contrast. Contiguous axial imaging was performed from the upper chest through the skull base without intravenous administration of contrast. Coronal and sagittal reformats were obtained at the acquisition workstation. This CT examination was performed using dose optimization techniques as appropriate, variously including the following: *Automated exposure control *Adjustment of mA and/or kV according to patient size (this includes techniques or standardized protocols for targeted exams where dose is matched to indication/reason for exam; i.e. extremities or head) *Use of iterative reconstruction technique DLP: 972 mGy-cm FINDINGS: Head: There is no evidence of acute intracranial hemorrhage or edematous territorial infarction. Scattered hypoattenuation in the periventricular and deep white matter are consistent with moderate microangiopathy. Stable lacunar infarcts in the bilateral basal ganglia. Nolan-white matter differentiation is preserved. Proportional prominence of the ventricles and sulcal spaces. No evidence for obstructive hydrocephalus. No abnormal mass effect or midline shift. No extra-axial fluid collections. No acute soft tissue or osseous abnormalities. Mild mucosal thickening of the paranasal sinuses. No air-fluid levels. The mastoids and middle ear cavities are clear. Bilateral lens extraction. Cervical Spine: The atlantooccipital and atlantoaxial articulations remain well aligned. No evidence of acute compression deformity or traumatic subluxation. Moderate multilevel cervical spondylosis with intervertebral disc height loss, marginal osteophytes and uncovertebral hypertrophy leading to various degrees of neural foraminal encroachment. There is no prevertebral soft tissue swelling. The thyroid gland and remaining cervical soft tissues are normal in appearance. The lung apices demonstrate biapical pleuroparenchymal thickening/scarring CT/CT cervical spine wo IV con IMPRESSION: 1. No acute intracranial pathology. 2. Chronic microangiopathy and generalized cerebral volume loss. 3. No acute cervical spinal fractures or malalignment. 4. Moderate cervical spondylosis. Electronically signed by: Conchis Resendiz MD 07/16/2024 05:24 PM EDT
[2024-07-16 16:10] VITALS: BP 118/72; BP 134/54; PULSE 74; PULSE 85; RESP 16; TEMP 36.5; O2SAT 95; O2SAT 99; BMI 24.5
--- NOTE | 2024-07-16 16:17 | ED.GENADULT ---
HPI - General Adult General Chief complaint: Fall Stated complaint: got weak and fell, 2nd fall in 2 weeks. neck pain Time Seen by Provider: 07/16/24 16:17 Source: patient and EMS Mode of arrival: EMS Limitations: no limitations History of Present Illness ED Provider: Cecy Lawson PA-C HPI narrative: Patient is an 79 year old assigned female at with a history of CAD and cardiomyopathy presenting to the emergency department today after she got weak and fell. Patient states that she was walking at home with her walker when she began to feel weak and fell onto her right side. Patient denies any dizziness, lightheadedness, abdominal pain, nausea, vomiting, fever, chills, blurry vision, double vision, loss of vision, chest pain, difficulty breathing, shortness of breath, back pain, night sweats, pain with urination, increased urinary frequency, increased urinary urgency, blood in her urine or stool, syncope or a near syncopal episode, bowel incontinence, bladder incontinence, or any other complaints at this time. Relieving factors: none Exacerbating factors: none Associated symptoms: denies other symptoms Treatments prior to arrival: none Related Data Home Medications ?Medication ?Instructions ?Recorded ?Confirmed aspirin 81 mg tablet,delayed 81 mg PO DAILY 10/27/21 07/17/24 release dicyclomine 20 mg tablet 20 mg PO BID 10/27/21 07/17/24 levothyroxine 75 mcg tablet 75 mcg PO MOTUWETHFR@0600 10/27/21 07/17/24 lorazepam 1 mg tablet 1 mg PO DAILY PRN Anxiety 10/27/21 07/17/24 pantoprazole 40 mg tablet,delayed 40 mg PO DAILY@0630 10/27/21 07/17/24 release rosuvastatin 20 mg tablet 20 mg PO BEDTIME 10/27/21 07/17/24 atenolol 25 mg tablet 25 mg PO BID 02/27/22 07/17/24 albuterol sulfate 90 mcg/actuation 2 puff inhalation Q4-6H PRN 04/19/22 07/17/24 aerosol inhaler Shortness Of Breath Or Wheezing fluticasone 500 mcg-salmeterol 50 1 ea inhalation BID 10/26/22 07/17/24 mcg/dose blistr powdr for inhalation (Advair Diskus) gabapentin 100 mg capsule 200 mg PO BID 06/13/23 07/17/24 cholecalciferol (vitamin D3) 50 50 mcg PO DAILY 07/17/24 07/17/24 mcg (2,000 unit) tablet (Vitamin D3) lorazepam 1 mg tablet 1 mg PO BEDTIME 07/17/24 07/17/24 umeclidinium 62.5 mcg/actuation 1 inh inhalation DAILY 07/17/24 07/17/24 blister powder for inhalation (Incruse Ellipta) Previous Rx's ?Medication ?Instructions ?Recorded clopidogrel 75 mg tablet (Plavix) 75 mg PO DAILY 90 days #90 tabs 06/27/22 furosemide 40 mg tablet 40 mg PO DAILY #90 tabs 07/06/24 Allergies Allergy/AdvReac Type Severity Reaction Status Date / Time pollen extracts Allergy Intermediate Sneezing Verified 07/16/24 16:16 citalopram Allergy Unknown upsets Verified 07/16/24 16:16 stomach Review of Systems Constitutional: Constitutional: Reports no additional constitutional complaints, Denies chills, Denies fever(s), Denies night sweats and Reports weakness Eyes: Eyes: Reports no additional eye complaints, Denies blurry vision, Denies change in vision, Denies diplopia, Denies eye discharge, Denies loss of vision and Denies eye pain ENT: Denies dizziness and Reports neck pain Cardiovascular: Cardiovascular: Reports no additional cardiovascular complaints, Denies chest pain, Denies lightheadedness, Denies Loss of Consciousness and Denies dyspnea Respiratory: Respiratory: Reports no additional respiratory complaints and Denies dyspnea Gastrointestinal: Gastrointestinal: Reports no additional gastrointestinal complaints, Denies abdominal pain, Denies melena, Denies hematochezia, Denies change in bowel habits and Denies change in stool character Genitourinary: Genitourinary: Denies hematuria, Denies urinary frequency, Denies dysuria, Denies urinary incontinence, Denies urinary hesitancy and Denies urinary urgency Musculoskeletal: Musculoskeletal: Reports no additional musculoskeletal complaints, Reports neck pain, Denies numbness and Denies tingling Neurologic: Denies dizziness, Denies loss of vision, Denies numbness, Denies tingling and Reports weakness Psychiatric: Psychiatric: Reports no additional psychiatric complaints Endocrine: Endocrine: Reports no additional endocrine complaints Hematologic/Lymphatic: Hematologic/Lymphatic: Reports no additional hematologic/lymphatic complaints Allergic/Immunologic: Allergic/Immunologic: Reports no additional allergic/immunologic complaints [facility] Past Medical History Attestation statement: The following information was validated with the patient. Source: old records reviewed and nursing notes reviewed Medical History Coronary artery disease Surgical History History of cardiac catheterization History of heart artery stent Family History Family History Mother CAD (coronary artery disease) Father No problems noted. Social History Social History Alcohol intake: current Alcohol intake frequency: holidays/special occasions only Alcohol type: wine and hard liquor Patient Tobacco Use Status: Former Tobacco user Tobacco use type: Cigarette Cigarette Packs Per Day: 0.25 Years Smoked: 30 Smoked in Last 30 Days: No Use of substances other than those prescribed or required for medical reasons: No Advance Directives: Yes Advance Directives Information Provided: No Advance Directives on File: No Do you have a plan to hurt others: No Plan Nutrition Risks: No Nutritional Risk service: No Current occupational status: retired Current occupation: right handed, retired Physical Exam ED Vital Signs: Vital Signs - 24 hr 07/16/24 19:57 Temperature 97.8 F Pulse Rate 67 Respiratory Rate 19 Blood Pressure 123/92 H Pulse Oximetry 98 Oxygen Delivery Method Room Air BMI result Body Mass Index 24.5 Const General: cooperative, no acute distress, alert and awake Nutritional Appearance: well nourished Orientation/consciousness: patient oriented x3 Limitations: no limitations [facility] Head: Yes normal to inspection and Yes atraumatic Ears: hearing grossly normal bilaterally and external ears normal General nose exam: Normal external nose present, no nasal discharge noted and no epistaxis Face and sinus: Yes normal facial exam, No abrasion and No laceration Mouth: Normal oral and palatal mucosa present, no drooling and no muffled voice Eyes General: appearance normal, both eyes and all related structures Periorbital: periorbital findings normal Eyelids: Yes eyelids normal Conjunctivae: conjunctivae normal Pupils: Equal, round and reactive pupils present EOM: EOMs intact bilaterally Neck Neck: Yes normal visual inspection, Yes full ROM and Yes no lymphadenopathy Chest Chest palpation & inspection: normal inspection of the chest Resp Effort & Inspection: normal respiratory effort and able to speak in complete sentences GI Inspection: Yes normal to inspection Neuro General: patient oriented x3 and moves all extremities Cranial nerves: Yes Equal, round and reactive pupils present Cognition (Neuro): normal cognition Extrem Other: skin tear to dorsal right forearm, no active bleeding General: Yes full ROM and Yes capillary refill normal Psych Appearance: grossly normal Mental Status: mental status grossly normal Affect: normal affect Attitude: cooperative Thought process: Normal thought process present Thought content: Normal thought content present Insight: Good insight present (Psych) Medications Administered Generic Name Dose Route Start Last Admin Trade Name Freq PRN Reason Stop Dose Admin Aspirin 81 mg 07/17/24 12:30 07/17/24 13:11 Aspirin Enteric Coated 81 Mg Tablet.Dr PO 81 mg DAILY GERARD Administration Clopidogrel Bisulfate 75 mg 07/17/24 12:30 07/17/24 13:11 Clopidogrel Bisulfate 75 Mg Tablet PO 75 mg DAILY GERARD Administration Cyanocobalamin 1,000 mcg 07/17/24 12:00 07/17/24 13:11 Cyanocobalamin (Vitamin B-12) 1,000 Mcg/Ml Vial IM 07/20/24 09:01 1,000 mcg DAILY GERARD Administration Enoxaparin Sodium 30 mg 07/17/24 09:00 07/17/24 09:05 Enoxaparin Sodium 30 Mg/0.3 Ml Syringe SUBCUT 30 mg Q24H GERARD Administration Lactated Ringer's 1,000 mls @ 100 mls/hr 07/17/24 09:00 07/17/24 09:04 Lr IVCONT 100 mls/hr .Q10H GERARD Administration Sodium Chloride 3 ml 07/17/24 00:00 07/17/24 08:35 0.9 % Sodium Chloride Flush 3 Ml Syringe IVFLUSH Not Given QSHIFT GERARD Discontinued Medications Generic Name Dose Route Start Last Admin Trade Name Freq PRN Reason Stop Dose Admin Sodium Chloride 1,000 mls @ 999 mls/hr 07/16/24 18:30 07/16/24 21:28 Ns IV 07/16/24 19:30 Infused .Q1H1M GERARD Infusion Sodium Chloride 1,000 mls @ 999 mls/hr 07/16/24 20:30 07/16/24 22:48 Ns IV 07/16/24 21:30 Infused .Q1H1M GERARD Infusion Potassium Chloride 40 meq 07/16/24 20:24 07/16/24 21:25 Potassium Chloride Er 20 Meq Tab.Er.Prt PO 07/16/24 20:25 40 meq ONCE ONE Administration Potassium Chloride 40 meq 07/16/24 23:50 07/17/24 00:17 Potassium Chloride Packet 20 Meq Packet PO 07/16/24 23:51 40 meq ONCE ONE Administration Medical Decision Making Medical Decision Making MDM Narrative: Patient is an 79 year old assigned female at with a history of CAD presenting to the emergency department today after a mechanical fall secondary to weakness. Patient's physical exam was as noted in the physical exam portion of this note. Patient's blood work is pending. Patient's head and c-spine CT showed no acute process. I explained my physical exam findings as well as all test results to the patient. I answered all questions asked by the patient. Patient signed out to Tyrone Hurd PA-C pending orthostatic vitals, UA, labs, and fluids. Differential Diagnosis Differential Diagnoses: The differential diagnosis associated with the presentation includes Orthostatic hypotension Admission/Observation Consideration of admission/observation: Escalation of care including admission/observation considered Patient's disposition will be determined after results. Lab Data [facility] Lab Attestation statement: I reviewed the patient's lab results. My interpretation of these results are in the MDM Rationale portion of this note. 07/17/24 04:45 07/17/24 04:45 Labs: Lab Results 07/16/24 07/16/24 07/16/24 Range/Units 17:39 19:55 21:11 WBC 11.8 H (4.8-10.8) X10*3/uL RBC 3.41 L (4.20-5.50) X10*6/uL Hgb 10.4 L (12.0-16.0) g/dl Hct 31.8 L (37.0-47.0) % MCV 93.3 (80.0-98.0) fL MCH 30.5 (27.0-33.0) pg MCHC 32.7 (31.0-35.0) g/dl RDW 13.7 (11.0-16.0) % Plt Count 177 D (160-400) X10*3/uL MPV 11.6 (9.4-12.3) fL Immature Gran % (Auto) 0.5 H (0.0-0.4) % Neut % (Auto) 78.6 H (45-73) % Lymph % (Auto) 7.9 L (20-40) % [place] % (Auto) 11.4 H (2-11) % Eos % (Auto) 0.9 (0-4) % Baso % (Auto) 0.7 (0-2) % Lymph # (Auto) 0.9 L (1.2-4.9) X10*3/uL [place] # (Auto) 1.3 H (0.1-1.2) X10*3/uL Eos # (Auto) 0.1 (0.0-0.4) X10*3/uL Baso # (Auto) 0.1 (0.0-0.2) X10*3/uL Abs Immat Gran (auto) 0.06 H (0.00-0.03) X10*3/uL Absolute Neuts (auto) 9.3 H (2.0-8.3) x10*3/uL Absolute Nucleated RBC 0.000 (0.0-0.012) X10*3/uL Nucleated RBC % (auto) 0.0 (0.0-0.2) /100WBC Sodium 139 (135-145) mmol/L Potassium 2.8 L* D (3.3-5.1) mmol/L Chloride 92 L (96-108) mmol/L Carbon Dioxide 34 H (22-29) mmol/L Anion Gap 16 (12-20) BUN 33 H (9-16) mg/dL Creatinine 2.36 H (0.5-1.4) mg/dL Estim Creat Clear Calc 16.4 Estimated GFR 20 Random Glucose 111 (60-115) mg/dL Calcium 10.1 (8.4-10.2) mg/dL Magnesium 2.0 (1.6-2.6) mg/dL Total Bilirubin 1.1 H (0.0-1.0) mg/dL AST 13 (5-31) U/L ALT 9 (0-31) U/L Alkaline Phosphatase 48 (39-117) U/L Troponin I High Sens 21.8 H 25.4 H (<3.5-17.0) ng/L Total Protein 6.7 (6.5-8.0) g/dL Albumin 4.0 (3.5-5.0) g/dL Urine Color Yellow Urine Appearance Clear Urine pH 6.0 (5.0-9.0) Ur Specific [place] <= 1.005 (1.005-1.025) Urine Protein 30 (1+) H (Neg-Trace) mg/dL Urine Glucose (UA) Negative (Negative) mg/dL Urine Ketones Negative (Negative) mg/dL Urine Blood Small (1+) H (Negative) Urine Nitrite Negative (Negative) Ur Leukocyte Esterase Trace H (Negative) Urine RBC 0-2 (0-2) /HPF Urine WBC 0-5 (0-5) /HPF Ur Squamous Epith Cells 0-2 (0-2) /HPF Urine Bacteria None Seen (None Seen) Hyaline Casts 0-2 (0-2) /LPF Influenza Type A (PCR) NEGATIVE (Negative) Influenza Type B (PCR) NEGATIVE (Negative) RSV RNA Qual (PCR) NEGATIVE (Negative) SARS-CoV-2 RNA (RT-PCR) NEGATIVE (Negative) Independent Interpretation I performed an independent interpretation of an: CT Scan Interpretation: My interpretation is in agreement with the radiologist's impression of these imaging studies. EXAMINATION: CT HEAD WITHOUT CONTRAST CT CERVICAL SPINE WITHOUT CONTRAST CLINICAL INFORMATION: Fall, pain. COMPARISON: CT head and cervical spine 02/02/2024. TECHNIQUE: Contiguous axial imaging was performed from the skull base to vertex without intravenous administration of contrast. Contiguous axial imaging was performed from the upper chest through the skull base without intravenous administration of contrast. Coronal and sagittal reformats were obtained at the acquisition workstation. This CT examination was performed using dose optimization techniques as appropriate, variously including the following: *Automated exposure control *Adjustment of mA and/or kV according to patient size (this includes techniques or standardized protocols for targeted exams where dose is matched to indication/reason for exam; i.e. extremities or head) *Use of iterative reconstruction technique DLP: 972 mGy-cm FINDINGS: Head: There is no evidence of acute intracranial hemorrhage or edematous territorial infarction. Scattered hypoattenuation in the periventricular and deep white matter are consistent with moderate microangiopathy. Stable lacunar infarcts in the bilateral basal ganglia. Nolan-white matter differentiation is preserved. Proportional prominence of the ventricles and sulcal spaces. No evidence for obstructive hydrocephalus. No abnormal mass effect or midline shift. No extra-axial fluid collections. No acute soft tissue or osseous abnormalities. Mild mucosal thickening of the paranasal sinuses. No air-fluid levels. The mastoids and middle ear cavities are clear. Bilateral lens extraction. Cervical Spine: The atlantooccipital and atlantoaxial articulations remain well aligned. No evidence of acute compression deformity or traumatic subluxation. Moderate multilevel cervical spondylosis with intervertebral disc height loss, marginal osteophytes and uncovertebral hypertrophy leading to various degrees of neural foraminal encroachment. There is no prevertebral soft tissue swelling. The thyroid gland and remaining cervical soft tissues are normal in appearance. The lung apices demonstrate biapical pleuroparenchymal thickening/scarring CT/CT cervical spine wo IV con IMPRESSION: 1. No acute intracranial pathology. 2. Chronic microangiopathy and generalized cerebral volume loss. 3. No acute cervical spinal fractures or malalignment. 4. Moderate cervical spondylosis. Electronically signed by: Conchis Resendiz MD 07/16/2024 05:24 PM EDT Dictated By: Conchis Resendiz Signed By: Electronically signed by Conchis Resendiz 07/16/24 1222 Radiology Impression Discussion of test interpretation with radiology: I have reviewed the radiologist's reading. Independent Historian Clinical information obtained from an independent historian. History obtained from or confirmed by: EMS (EMS provided additional history and confirmed the history provided by the patient.) and Other (patient's son provided additional history and confirmed the history provided by the patient.) Discharge Plan Discharge Clinical Impression: Weakness, Fall, SHIRIN (acute kidney injury) Patient Disposition: Admitted As Inpatient Interventions: Admission Worksheet (ED) Last Done: 07/17/24 14:17 Discharge Date/Time: 07/17/24 15:19
--- NOTE | 2024-07-16 16:18 | ECG_ITS ---
Test Reason : WEAKESS FALLS Blood Pressure : / mmHG Vent. Rate : 064 BPM Atrial Rate : 064 BPM P-R Int : 166 ms QRS Dur : 146 ms QT Int : 486 ms P-R-T Axes : 067 025 128 degrees QTc Int : 501 ms Normal sinus rhythm Left bundle branch block Abnormal ECG When compared with ECG of 02-FEB-2024 03:19, Nonspecific T wave abnormality no longer evident in Anterior leads T wave inversion now evident in Lateral leads Referred By: Cecy Lawson Electronically Signed By:ROHITH VILA
[2024-07-16 17:58] LABS: MANUAL DIFF FLAG NO
[2024-07-16 18:19] LABS: Basophils Absolute Auto 0.1 X10*3/uL (0.0-0.2); Basophils Percent Auto 0.7 % (0-2); Eosinophils Absolute Auto 0.1 X10*3/uL (0.0-0.4); Eosinophils Percent Auto 0.9 % (0-4); Hematocrit 31.8 % (37.0-47.0); Hemoglobin 10.4 g/dl (12.0-16.0); Imm Gran Abs Auto 0.06 X10*3/uL (0.00-0.03); Imm Gran Pct Auto 0.5 % (0.0-0.4); Lymphocytes Absolute Auto 0.9 X10*3/uL (1.2-4.9); Lymphocytes Percent Auto 7.9 % (20-40); Mean Corpuscular HGB Conc 32.7 g/dl (31.0-35.0); Mean Corpuscular Hemoglobin 30.5 pg (27.0-33.0); Mean Corpuscular Volume 93.3 fL (80.0-98.0); Mean Platelet Volume 11.6 fL (9.4-12.3); Monocytes Absolute Auto 1.3 X10*3/uL (0.1-1.2); Monocytes Percent Auto 11.4 % (2-11); Neutrophils Absolute Auto 9.3 x10*3/uL (2.0-8.3); Neutrophils Percent Auto 78.6 % (45-73); Platelet Count 177 X10*3/uL (160-400); Red Blood Count 3.41 X10*6/uL (4.20-5.50); Red Cell Distribution Width 13.7 % (11.0-16.0); White Blood Count 11.8 X10*3/uL (4.8-10.8)
[2024-07-16 18:32] LABS: Troponin-I High Sensitivity 21.8 ng/L (<3.5-17.0)
[2024-07-16] MEDS: 0.9 % Sodium Chloride 1,000 ML 999 ML IV ×2 (18:38→21:26)
[2024-07-16 18:46] LABS: Influenza A PCR NEGATIVE (Negative); Influenza B PCR NEGATIVE (Negative); Resp Syncy Virus RNA Qual PCR NEGATIVE (Negative); SARS COV2 PCR INHOUSE NEGATIVE (Negative)
[2024-07-16 19:57] VITALS: BP 123/92; PULSE 67; RESP 19; TEMP 36.6; O2SAT 98
[2024-07-16 20:21] LABS: Troponin-I High Sensitivity 25.4 ng/L (<3.5-17.0)
[2024-07-16 20:22] LABS: Alanine Aminotransferase 9 U/L (0-31); Alkaline Phosphatase 48 U/L (39-117); Anion Gap 16 (12-20); Aspartate Amino Transferase 13 U/L (5-31); Bilirubin Total 1.1 mg/dL (0.0-1.0); Blood Urea Nitrogen 33 mg/dL (9-16); Calcium 10.1 mg/dL (8.4-10.2); Carbon Dioxide 34 mmol/L (22-29); Chloride 92 mmol/L (96-108); Creatinine Clr Calc Pharmacy 16.4; Estimated Glomerular Filt Rate 20; Glucose Random 111 mg/dL (60-115); Potassium 2.8 mmol/L (3.3-5.1); Sodium 139 mmol/L (135-145); Total Protein 6.7 g/dL (6.5-8.0)
[2024-07-16 21:22] LABS: Appearance Urine Clear; Color Urine Yellow; Glucose Urine UA Negative (Negative); Leukocyte Esterase Urine Trace (Negative); Nitrite Urine Negative (Negative); Specific Gravity - Urine <= 1.005 (1.005-1.025); UMIC TRIGGER UACC YES; Urine Blood Small (1+) (Negative); Urine Ketones Negative (Negative); Urine Protein 30 (1+) mg/dL (Neg-Trace)
[2024-07-16] MEDS: Potassium Chloride ER 20 MEQ TAB.ER.PRT 40 MEQ PO (21:25)
[2024-07-16 21:38] LABS: Bacteria Urine None Seen (None Seen); Hyaline Casts Urine 0-2 /LPF (0-2); RBC Urine 0-2 /HPF (0-2); Squamous Epithelial Cell Urine 0-2 /HPF (0-2); WBC Urine 0-5 /HPF (0-5)
--- NOTE | 2024-07-16 23:05 | PM.IMHP ---
History of Present Illness Date of Service: 07/16/24 Chief Complaint: Weakness This is a 79-year-old female with pertinent history of CAD status post stent, hypothyroidism, peripheral neuropathy, gastroesophageal reflux disease who presents to the emergency department for evaluation of generalized weakness and fall. Patient states on the day of presentation she was trying to go from her kitchen to her restroom using her walker, when she felt weak and fell. Did not lose consciousness. No dizziness or lightheadedness prior to the fall. No chest pain or palpitations prior to the fall. No jerking movement of extremities. Patient states she has been having loose stools which she has had for a while due to IBS. Admits poor p.o. intake and ongoing weakness. Has had 3 falls in the last 2 weeks due to weakness. No fever, chills, chest discomfort, palpitations, abdominal pain, nausea, vomiting, changes in urinary habits. In the emergency department, potassium was found to be low and creatinine found to be elevated. Review of Systems Constitutional: Constitutional: Reports fatigue, Reports malaise and Reports weakness Cardiovascular: Cardiovascular: Reports no additional cardiovascular complaints Respiratory: Respiratory: Reports no additional respiratory complaints Gastrointestinal: Gastrointestinal: Reports loose stools Genitourinary: Genitourinary: Reports no additional female genitourinary complaints Neurologic: Reports weakness Endocrine: Endocrine: Reports fatigue COUNT INCLUDES THE [facility] Medical History Coronary artery disease Family History Mother CAD (coronary artery disease) Father No problems noted. Surgical History History of cardiac catheterization History of heart artery stent Social History Alcohol intake: current Alcohol intake frequency: holidays/special occasions only Alcohol type: wine and hard liquor Patient Tobacco Use Status: Former Tobacco user Tobacco use type: Cigarette Cigarette Packs Per Day: 0.25 Years Smoked: 30 Advance Directives: Yes Advance Directives Information Provided: No Advance Directives on File: No Do you have a plan to hurt others: No Plan Current occupational status: retired Current occupation: right handed, retired Meds Allergies Allergy/AdvReac Type Severity Reaction Status Date / Time pollen extracts Allergy Intermediate Sneezing Verified 07/16/24 16:16 citalopram Allergy Unknown upsets Verified 07/16/24 16:16 stomach Home Medications ?Medication ?Instructions ?Recorded ?Confirmed ?Last Taken ?Type aspirin 81 mg tablet,delayed 81 mg PO DAILY 10/27/21 07/02/24 Unknown History release cholecalciferol (vitamin D3) 25 25 mcg PO DAILY 10/27/21 07/02/24 Unknown History mcg (1,000 unit) capsule dicyclomine 20 mg tablet 20 mg PO TID 10/27/21 07/02/24 Unknown History levothyroxine 75 mcg tablet 75 mcg PO DAILY 10/27/21 07/02/24 Unknown History lorazepam 1 mg tablet 1 mg PO BID PRN 10/27/21 07/02/24 Unknown History pantoprazole 40 mg tablet,delayed 40 mg PO DAILY 10/27/21 07/02/24 Unknown History release rosuvastatin 20 mg tablet 20 mg PO BEDTIME 10/27/21 07/02/24 Unknown History atenolol 25 mg tablet 25 mg PO DAILY 02/27/22 07/02/24 Unknown History albuterol sulfate 90 mcg/actuation 0 mcg inhalation 04/19/22 07/02/24 Unknown History aerosol inhaler fluticasone 500 mcg-salmeterol 50 1 ea inhalation BID 10/26/22 07/02/24 Unknown History mcg/dose blistr powdr for inhalation (Advair Diskus) gabapentin 100 mg capsule 200 mg PO BID 06/13/23 07/02/24 Unknown History Physical Exam Vital Signs and Narrative: Vital Signs: Last Vital Signs Temp 97.8 F 07/16/24 19:57 Pulse 67 07/16/24 19:57 Resp 19 07/16/24 19:57 BP 123/92 H 07/16/24 19:57 Pulse Ox 98 07/16/24 19:57 O2 Del Method Room Air 07/16/24 19:57 Oxygen Flow Rate 2 07/16/24 16:10 BMI result Body Mass Index 24.5 Middle-aged female lying in bed in no distress Neck supple, no JVD Regular rate and rhythm, S1-S2 heard Regular breath sounds bilaterally, no wheezing or crackles appreciated Abdomen soft nontender, no guarding, no rigidity Patient is awake, alert and oriented to self, place, time and person ; no focal motor deficit Psych: Normal mood No pedal edema Results Labs 07/16/24 17:39 07/16/24 19:55 Labs: Laboratory Results - last 24 hr 07/16/24 07/16/24 07/16/24 17:39 19:55 21:11 MCV 93.3 MCH 30.5 MCHC 32.7 RDW 13.7 Plt Count 177 D MPV 11.6 Immature Gran % (Auto) 0.5 H Neut % (Auto) 78.6 H Lymph % (Auto) 7.9 L [place] % (Auto) 11.4 H Eos % (Auto) 0.9 Baso % (Auto) 0.7 Lymph # (Auto) 0.9 L [place] # (Auto) 1.3 H Eos # (Auto) 0.1 Baso # (Auto) 0.1 Abs Immat Gran (auto) 0.06 H Absolute Neuts (auto) 9.3 H Absolute Nucleated RBC 0.000 Nucleated RBC % (auto) 0.0 Anion Gap 16 Estim Creat Clear Calc 16.4 Estimated GFR 20 Random Glucose 111 Calcium 10.1 Magnesium 2.0 Total Bilirubin 1.1 H AST 13 ALT 9 Alkaline Phosphatase 48 Troponin I High Sens 21.8 H 25.4 H Total Protein 6.7 Albumin 4.0 Urine Color Yellow Urine Appearance Clear Urine pH 6.0 Ur Specific [place] <= 1.005 Urine Protein 30 (1+) H Urine Glucose (UA) Negative Urine Ketones Negative Urine Blood Small (1+) H Urine Nitrite Negative Ur Leukocyte Esterase Trace H Urine RBC 0-2 Urine WBC 0-5 Ur Squamous Epith Cells 0-2 Urine Bacteria None Seen Hyaline Casts 0-2 Influenza Type A (PCR) NEGATIVE Influenza Type B (PCR) NEGATIVE RSV RNA Qual (PCR) NEGATIVE SARS-CoV-2 RNA (RT-PCR) NEGATIVE Imaging Radiologist's Impressions: Impressions Cervical Spine CT 07/16/24 16:39 IMPRESSION: 1. No acute intracranial pathology. 2. Chronic microangiopathy and generalized cerebral volume loss. 3. No acute cervical spinal fractures or malalignment. 4. Moderate cervical spondylosis. Electronically signed by: Conchis Resendiz MD 07/16/2024 05:[address] 07/16/24 16:39 IMPRESSION: 1. No acute intracranial pathology. 2. Chronic microangiopathy and generalized cerebral volume loss. 3. No acute cervical spinal fractures or malalignment. 4. Moderate cervical spondylosis. Electronically signed by: Conchis Resendiz MD 07/16/2024 05:24 PM EDT RP Assessment and Plan (1) Acute kidney injury: Status: Acute Plan This is a 79-year-old female with pertinent history of CAD status post stent, hypothyroidism, peripheral neuropathy, gastroesophageal reflux disease who presents to the emergency department for evaluation of generalized weakness and fall. #. Acute kidney injury, prerenal: Monitor creatinine and urine output with crystalloid resuscitation. Avoid nephrotoxins. Hold furosemide #. Diarrhea: Which patient attributes to IBS. Symptomatic treatment. GI panel and C diff pending #. Hypokalemia due to GI losses: Repleting #. CAD status post stent: On antiplatelet therapy and high-intensity statin. Also on beta-colton #. Hypothyroidism: On Synthroid #. Peripheral neuropathy: On gabapentin #. Generalized weakness with frequent falls due to debility: Consulting Physical therapy to evaluate and treat. TSH and B12 pending Med rec pending DVT prophylaxis: Lovenox Full code Admit as inpatient and will require two night minimum hospital stay for close monitoring of kidney function and serum electrolytes (as above), which is not possible in a lesser acute setting. Quality Stroke Does the patient have a stroke diagnosis?: No VTE Prior VTE?: No VTE Risk Level:: Medical - moderate - high VTE Device Contraindication: Treatment Not Indicated VTE Drug Contraindication: N/A - Med Ordered
[2024-07-17] VITALS (8 sets, daily range): BP systolic 113–152; BP diastolic 40–65; PULSE 66–77; RESP 16–20; TEMP 36.5–36.7; O2SAT 95–98; BMI 24.5
[2024-07-17] MEDS: Potassium Chloride Packet 20 MEQ PACKET 40 MEQ PO (00:17)
[2024-07-17] MEDS: 0.9 % Sodium Chloride Flush 3 ML SYRINGE IVFLUSH (00:17)
[2024-07-17 05:26] LABS: MANUAL DIFF FLAG NO
[2024-07-17 05:31] LABS: Basophils Absolute Auto 0.1 X10*3/uL (0.0-0.2); Basophils Percent Auto 1.2 % (0-2); Eosinophils Absolute Auto 0.2 X10*3/uL (0.0-0.4); Eosinophils Percent Auto 2.9 % (0-4); Hematocrit 31.3 % (37.0-47.0); Hemoglobin 10.1 g/dl (12.0-16.0); Imm Gran Abs Auto 0.03 X10*3/uL (0.00-0.03); Imm Gran Pct Auto 0.4 % (0.0-0.4); Lymphocytes Absolute Auto 1.2 X10*3/uL (1.2-4.9); Lymphocytes Percent Auto 15.5 % (20-40); Mean Corpuscular HGB Conc 32.3 g/dl (31.0-35.0); Mean Corpuscular Hemoglobin 30.7 pg (27.0-33.0); Mean Corpuscular Volume 95.1 fL (80.0-98.0); Mean Platelet Volume 11.8 fL (9.4-12.3); Monocytes Absolute Auto 0.9 X10*3/uL (0.1-1.2); Monocytes Percent Auto 11.8 % (2-11); Neutrophils Absolute Auto 5.1 x10*3/uL (2.0-8.3); Neutrophils Percent Auto 68.2 % (45-73); Platelet Count 140 X10*3/uL (160-400); Red Blood Count 3.29 X10*6/uL (4.20-5.50); Red Cell Distribution Width 13.7 % (11.0-16.0); White Blood Count 7.5 X10*3/uL (4.8-10.8)
[2024-07-17 06:02] LABS: Anion Gap 14 (12-20); Blood Urea Nitrogen 30 mg/dL (9-16); Calcium 9.3 mg/dL (8.4-10.2); Carbon Dioxide 28 mmol/L (22-29); Chloride 103 mmol/L (96-108); Creatinine Clr Calc Pharmacy 19.6; Estimated Glomerular Filt Rate 24; Glucose Random 92 mg/dL (60-115); Sodium 141 mmol/L (135-145)
[2024-07-17 06:07] LABS: Vitamin B12 191 pg/mL (200-900)
[2024-07-17 06:09] LABS: Thyroid Stimulating Hormone 0.25 uIU/mL (0.32-4.0)
[2024-07-17 08:50] LABS: Free T4 (Free Thyroxine) 1.11 ng/dL (0.71-1.85)
[2024-07-17] MEDS: Lactated Ringers 1,000 ML 100 ML IVCONT ×2 (09:04→22:22)
[2024-07-17] MEDS: Enoxaparin Sodium 30 MG/0.3 ML SYRINGE SUBCUT (09:05)
--- NOTE | 2024-07-17 09:15 | PC.NURSE ---
patient is awake and alert, a&o x4. patient respirations equal and unlabored, skin dry and intact. LR running 100ml/hr.
--- NOTE | 2024-07-17 09:49 | PC.NURSE ---
patient up one assist to the commode, patient changed into hospital attire out of street clothes. patient voided on commode. PT in room with patient
--- NOTE | 2024-07-17 10:04 | PHA.MEDREC ---
Addendum entered by Chalino Malone mindy 07/17/24 11:20: med rec checked by [facility] Original Note: Pharmacy Consult ? Medication Reconciliation Pharmacy has completed the medication reconciliation. Spoke to Patient to confirm med list. Patient had a list of her medications and was able to confirm all meds. Patient states she hasn't started Breztri Aerosphere 25 mcg daily. Dicyclomine 20 mg patient only takes Bid, claims stated Tid. Lorazepam 1 mg patient takes 1 at bedtime and one in the morning only if needed.
--- NOTE | 2024-07-17 12:16 | P.PNIM_ITS ---
Subjective Subjective Date of Service: 07/17/24 Interval History: chronic diarrhea since her 20s endorses neuropathy no abd pain Review of Systems Review of Systems: Yes all other systems are reviewed and are negative Physical Exam 2 Vital Signs: Vital Signs: Last Vital Signs Temp 97.8 F 07/17/24 10:02 Pulse 66 07/17/24 10:04 Resp 16 07/17/24 10:02 BP 148/52 H 07/17/24 10:04 Pulse Ox 96 07/17/24 10:04 O2 Del Method Room Air 07/17/24 10:02 Oxygen Flow Rate 2 07/16/24 16:10 BMI result Body Mass Index 24.5 Gen: in no acute distress HEENT: sclera anicteric, moist mucus membranes Neck: supple Lungs: clear to auscultation bilaterally Heart: regular rate and rhythm, no murmurs Abd: soft, non-tender, non-distended Ext: no edema Skin: warm/well-perfused Neuro: alert and oriented x3, no focal findings Psych: appropriate affect Objective Data Active Medications Acetaminophen (Acetaminophen 325 Mg Tablet) 650 mg PO Q6H PRN PRN Reason: Pain, Mild (Pain Scale 1-3), fever or headache Calcium Carbonate (Calcium Carbonate 750 Mg Tab.Chew) 750 mg PO Q4H PRN PRN Reason: Heartburn Cyanocobalamin (Cyanocobalamin (Vitamin B-12) 1,000 Mcg/Ml Vial) 1,000 mcg IM DAILY [facility] Stop: 07/20/24 09:01 Enoxaparin Sodium (Enoxaparin Sodium 30 Mg/0.3 Ml Syringe) 30 mg SUBCUT Q24H [facility] Last Admin: 07/17/24 09:05 Dose: 30 mg Documented By: JOSUE Lactated Ringer's (Lr) 1,000 mls @ 100 mls/hr IVCONT .Q10H [facility] Last Admin: 07/17/24 09:04 Dose: 100 mls/hr Documented By: JOSUE Magnesium Hydroxide (Milk Of Magnesia 30 Ml Oral.Susp) 30 ml PO DAILY PRN PRN Reason: Constipation Melatonin (Melatonin 3 Mg Tablet) 6 mg PO BEDTIME PRN PRN Reason: Insomnia Ondansetron HCl (Ondansetron Hcl 4 Mg/2 Ml Vial) 4 mg IVPUSH Q8H PRN PRN Reason: Nausea and Vomiting Sodium Chloride (0.9 % Sodium Chloride Flush 3 Ml Syringe) 3 ml IVFLUSH QSHIFT [facility] Last Admin: 07/17/24 08:35 Dose: Not Given Documented By: JOSUE Non-Admin Reason: See Note Labs 07/17/24 04:45 07/17/24 04:45 Labs: Laboratory Results - last 24 hr 07/16/24 07/16/24 07/16/24 17:39 19:55 21:11 MCV 93.3 MCH 30.5 MCHC 32.7 RDW 13.7 Plt Count 177 D MPV 11.6 Immature Gran % (Auto) 0.5 H Neut % (Auto) 78.6 H Lymph % (Auto) 7.9 L Haines % (Auto) 11.4 H Eos % (Auto) 0.9 Baso % (Auto) 0.7 Lymph # (Auto) 0.9 L Haines # (Auto) 1.3 H Eos # (Auto) 0.1 Baso # (Auto) 0.1 Abs Immat Gran (auto) 0.06 H Absolute Neuts (auto) 9.3 H Absolute Nucleated RBC 0.000 Nucleated RBC % (auto) 0.0 Anion Gap 16 Estim Creat Clear Calc 16.4 Estimated GFR 20 Random Glucose 111 Calcium 10.1 Magnesium 2.0 Total Bilirubin 1.1 H AST 13 ALT 9 Alkaline Phosphatase 48 Total Creatine Kinase Troponin I High Sens 21.8 H 25.4 H Total Protein 6.7 Albumin 4.0 Vitamin B12 TSH Free T4 Urine Color Yellow Urine Appearance Clear Urine pH 6.0 Ur Specific [place] <= 1.005 Urine Protein 30 (1+) H Urine Glucose (UA) Negative Urine Ketones Negative Urine Blood Small (1+) H Urine Nitrite Negative Ur Leukocyte Esterase Trace H Urine RBC 0-2 Urine WBC 0-5 Ur Squamous Epith Cells 0-2 Urine Bacteria None Seen Hyaline Casts 0-2 Influenza Type A (PCR) NEGATIVE Influenza Type B (PCR) NEGATIVE RSV RNA Qual (PCR) NEGATIVE SARS-CoV-2 RNA (RT-PCR) NEGATIVE 07/17/24 04:45 MCV 95.1 MCH 30.7 MCHC 32.3 RDW 13.7 Plt Count 140 L MPV 11.8 Immature Gran % (Auto) 0.4 Neut % (Auto) 68.2 Lymph % (Auto) 15.5 L Haines % (Auto) 11.8 H Eos % (Auto) 2.9 Baso % (Auto) 1.2 Lymph # (Auto) 1.2 Haines # (Auto) 0.9 Eos # (Auto) 0.2 Baso # (Auto) 0.1 Abs Immat Gran (auto) 0.03 Absolute Neuts (auto) 5.1 Absolute Nucleated RBC 0.000 Nucleated RBC % (auto) 0.0 Anion Gap 14 Estim Creat Clear Calc 19.6 Estimated GFR 24 Random Glucose 92 Calcium 9.3 D Magnesium Total Bilirubin AST ALT Alkaline Phosphatase Total Creatine Kinase 102 Troponin I High Sens Total Protein Albumin Vitamin B12 191 L TSH 0.25 L Free T4 1.11 Urine Color Urine Appearance Urine pH Ur Specific [place] Urine Protein Urine Glucose (UA) Urine Ketones Urine Blood Urine Nitrite Ur Leukocyte Esterase Urine RBC Urine WBC Ur Squamous Epith Cells Urine Bacteria Hyaline Casts Influenza Type A (PCR) Influenza Type B (PCR) RSV RNA Qual (PCR) SARS-CoV-2 RNA (RT-PCR) Assessment and Plan (1) Acute kidney injury: Status: Acute Assessment and Plan: d2 79yo F with CAD s/p PCI, hypothyroidism, peripheral neuropathy, GERD presenting with generalized weakness causing fall without LOC, admitted for SHIRIN prerenal SHIRIN - hold furosemide, give IV LR, recheck BMP in AM hypoK - repleted B12 deficiency - likely the cause of her neuropathy. Check intrinsic factor + parietal cell antibodies and start repletion with 1000 mcg IM B12 daily x7d then weekly x4wk then monthly diarrhea - longstanding, attributed to IBS; however states diarrhea is worse as of late. will check GI panel, Cdiff, stool WBCs 79-year-old female with pertinent history of CAD status post stent, hypothyroidism, peripheral neuropathy, gastroesophageal reflux disease who presents to the emergency department for evaluation of generalized weakness and fall. CAD s/p PCI - continue ASA + clopidogrel + atenolol + statin hypothyroidism - continue LT4 but will decrease dose as TSH is a little over-suppressed neuropathy - gabapentin, replete B12 as above falls/weakness - PT consulted, AIR recommended VTE ppx - enoxaparin In my clinical judgment, the patient requires continued inpatient hospitalization for the following reasons: SHIRIN Total time managing care of this patient today: 35 minutes. Quality Stroke Does the patient have a stroke diagnosis?: No VTE Prior VTE?: No VTE Risk Level:: Medical - moderate - high VTE Device Contraindication: Treatment Not Indicated VTE Drug Contraindication: N/A - Med Ordered
[2024-07-17] MEDS: Cyanocobalamin (Vitamin B-12) 1,000 MCG/ML VIAL 1000 MCG IM (13:11)
[2024-07-17] MEDS: Aspirin Enteric Coated 81 MG TABLET.DR PO (13:11)
[2024-07-17] MEDS: Clopidogrel Bisulfate 75 MG TABLET PO (13:11)
--- NOTE | 2024-07-17 15:52 | MHC.CM.PN ---
PT REPORTS SHE LIVES WITH HER AND IS INDEPENDENT AT BASELINE SHE HAS A CANE AND WALKER SHE USES PRN SHE SAYS SHE HAS A HCP, COPY REQUESTED PCP: JACQUI MORA IMM DELIVERED PT STATES SHE WOULD PREFER TO DC HOME, HER JUST HAD A BYPASS AND THEY CARE FOR EACH OTHER SHE IS AGREEABLE TO VNA SERVICES REFERRAL TO [facility] WHO SHE HAS BEEN WITH IN THE PAST SON WILL TRANSPORT
[2024-07-17] MEDS: Dicyclomine HCl 10 MG CAPSULE 20 MG PO (20:44)
[2024-07-17] MEDS: Atorvastatin Calcium 80 MG TABLET PO (20:44)
[2024-07-17] MEDS: atenoloL 25 MG TABLET PO (20:44)
[2024-07-17] MEDS: Gabapentin 100 MG CAPSULE 200 MG PO (20:44)
[2024-07-17] MEDS: LORazepam 1 MG TABLET PO (20:44)
[2024-07-18 04:00] VITALS: BP 167/70; PULSE 67; RESP 16; TEMP 36.2; O2SAT 100
[2024-07-18] MEDS: Levothyroxine Sodium 50 MCG TABLET PO (05:44)
[2024-07-18] MEDS: Lactated Ringers 1,000 ML 100 ML IVCONT (05:45)
[2024-07-18 06:43] LABS: Anion Gap 10 (12-20); Blood Urea Nitrogen 34 mg/dL (9-16); Calcium 9.2 mg/dL (8.4-10.2); Carbon Dioxide 28 mmol/L (22-29); Chloride 105 mmol/L (96-108); Creatinine Clr Calc Pharmacy 28.6; Estimated Glomerular Filt Rate 38; Glucose Random 95 mg/dL (60-115); Potassium 3.4 mmol/L (3.3-5.1); Sodium 140 mmol/L (135-145)
[2024-07-18] MEDS: Pantoprazole Sodium 20 MG TABLET.DR 40 MG PO (06:50)
[2024-07-18 07:22] VITALS: BP 139/63; PULSE 69; RESP 12; TEMP 36.5; O2SAT 96
[2024-07-18] MEDS: Cyanocobalamin (Vitamin B-12) 1,000 MCG/ML VIAL 1000 MCG IM (08:59)
[2024-07-18] MEDS: Gabapentin 100 MG CAPSULE 200 MG PO (09:00)
[2024-07-18] MEDS: atenoloL 25 MG TABLET PO (09:00)
[2024-07-18] MEDS: Clopidogrel Bisulfate 75 MG TABLET PO (09:00)
[2024-07-18] MEDS: Cholecalciferol (Vitamin D3) 25 MCG TABLET 50 MCG PO (09:00)
[2024-07-18] MEDS: Aspirin Enteric Coated 81 MG TABLET.DR PO (09:00)
[2024-07-18] MEDS: Dicyclomine HCl 10 MG CAPSULE 20 MG PO (09:00)
--- NOTE | 2024-07-18 10:13 | HO.WOUND ---
Wound Consult: Initial 79yr old?[place] [facility] - See progress notes and H&P for detailed history.? Wound consult placed for Right Forearm Skin Tear.? Discussed with direct care nurse no concern for skin tear - reports system prompted her to place consult. Discussed topical treatment - direct care nurse reports skin cleansed with NS, xeroform applied and gauze wrap. Appropriate treatment in place no new interventions needed at this time. Wound care consult to be discontinued direct care nurse advised to reconsult should concerns arise. Recommendations: 1. Right Arm Skin Tear - - Cleanse with normal saline, pat dry. ?Apply Xeroform secure with Abd pads, gauze wrap and tape. ?Do not apply tape to patient?s skin.? Avoid Adhesive application to skin - when necessary, apply skin prep prior.?
--- NOTE | 2024-07-18 10:46 | MHC.CM.PN ---
Per MD rounds patient medically cleared for dc. PT rec acute rehab. Patient declines. DC plan: home w/ new services through [facility]. Son or daughter will transport.
--- NOTE | 2024-07-18 12:22 | P.F2F_ITS ---
Service Date Service Date: 07/18/24 Encounter Date of encounter: 07/18/24 Reasons for Services Signs and symptoms assessed: neuropathy Reason for custodial: administration of IV, SQ, or IM injection, medication management, medication treatment and teach disease management Reason for physical therapy: home safety and mobility, therapeutic exercises, gait/transfer training, assess need for DME, ADL training, energy conservation and other Homebound: Leaving the home is medically contraindicated at this time without the asist of a device and/or another person due th the listed conditions above and below. Reason homebound: unsteady gait / fall risk, poor balance / fall risk and weakness related to hospital stay Certification: Based on the above findings, I certify that this patient is confined to the home and needs intermittent custodial care, physical therapy and/or speech therapy, or continues to need occupational therapy. The patient is under my care, and I have initiated the establishment of the plan of care. The patient will be followed by a physician who will periodically review the plan of care. Time Spent With Patient Time: Total time managing care of this patient today ____ minutes.
--- NOTE | 2024-07-18 12:46 | P.DS_ITS ---
DS: Providers Provider Date of Service: 07/18/24 Date of admission: 07/16/24 23:03 Date of discharge: 07/18/24 Primary care physician: Reza Nava MD DS: Diagnosis Discharge Diagnosis (1) Acute kidney injury: Status: Acute (2) B12 deficiency: Status: Acute (3) Hypothyroidism: Status: Acute (4) Fall: Status: Acute (5) Weakness: Status: Acute DS: Summary Hospital Course Hospital Course: From the history and physical by the admitting hospitalist, Maximiliano Venegas MD, 07/16/24: This is a 79-year-old female with pertinent history of CAD status post stent, hypothyroidism, peripheral neuropathy, gastroesophageal reflux disease who presents to the emergency department for evaluation of generalized weakness and fall. Patient states on the day of presentation she was trying to go from her kitchen to her restroom using her walker, when she felt weak and fell. Did not lose consciousness. No dizziness or lightheadedness prior to the fall. No chest pain or palpitations prior to the fall. No jerking movement of extremities. Patient states she has been having loose stools which she has had for a while due to IBS. Admits poor p.o. intake and ongoing weakness. Has had 3 falls in the last 2 weeks due to weakness. No fever, chills, chest discomfort, palpitations, abdominal pain, nausea, vomiting, changes in urinary habits. In the emergency department, potassium was found to be low and creatinine found to be elevated. 79yo F with CAD s/p PCI, hypothyroidism, peripheral neuropathy, and GERD presenting with generalized weakness causing fall without LOC, admitted to the medical-surgical unit for SHIRIN. Hospital course by problem: prerenal SHIRIN - Furosemide stopped. Given IV Ringer's Lactate and serum creatinine improved to 1.35. Continue to hold furosemide and recheck BMP on 07/22/24. hypoK - Repleted; did not require maintenance. B12 deficiency - Level 191. Likely the cause of her neuropathy. Check intrinsic factor + parietal cell antibodies sent and pending. Started repletion with 1000 mcg IM B12 daily x2 doses; should get 1000 mcg IM B12 daily x5 doses [or at least 3x a week if daily not possible], then weekly x4wk then monthly. Repeat CBC and B12 in a month. hypothyroidism - TSH was a little over-suppressed; levothyroxine decreased from 75 mcg MoTuWeThFr to 75 mcg MoTuWeTh and 50 mcg Fr. She was seen by PT and acute inpatient rehabilitation was recommended. She declined. She was sent home with VNA services. Time Attestation Discharge Coordination Time (in mins): 40 Quality: Safe Use of Opioids Does Pt have an Active Cancer Diagnosis on the Problem List?: No Quality: Stroke Does the patient have a stroke diagnosis?: No Physical Exam Vital Signs: Vital Signs: Last Vital Signs Temp 97.7 F 07/18/24 07:22 Pulse 69 07/18/24 07:22 Resp 12 07/18/24 07:22 BP 139/63 07/18/24 07:22 Pulse Ox 96 07/18/24 07:22 O2 Del Method Room Air 07/18/24 07:22 Oxygen Flow Rate 2 07/16/24 16:10 BMI result Body Mass Index 24.5 Gen: in no acute distress HEENT: sclera anicteric, moist mucus membranes Neck: supple Lungs: clear to auscultation bilaterally Heart: regular rate and rhythm, no murmurs Abd: soft, non-tender, non-distended Ext: no edema Skin: warm/well-perfused Neuro: alert and oriented x3, no focal findings Psych: appropriate affect DS: Data Data Completed and Pending Labs on day of discharge: Laboratory Results WBC 7.5 X10*3/uL (4.8-10.8) 07/17/24 04:45 RBC 3.29 X10*6/uL (4.20-5.50) L 07/17/24 04:45 Hgb 10.1 g/dl (12.0-16.0) L 07/17/24 04:45 Hct 31.3 % (37.0-47.0) L 07/17/24 04:45 MCV 95.1 fL (80.0-98.0) 07/17/24 04:45 MCH 30.7 pg (27.0-33.0) 07/17/24 04:45 MCHC 32.3 g/dl (31.0-35.0) 07/17/24 04:45 RDW 13.7 % (11.0-16.0) 07/17/24 04:45 Plt Count 140 X10*3/uL (160-400) L 07/17/24 04:45 MPV 11.8 fL (9.4-12.3) 07/17/24 04:45 Immature Gran % (Auto) 0.4 % (0.0-0.4) 07/17/24 04:45 Neut % (Auto) 68.2 % (45-73) 07/17/24 04:45 Lymph % (Auto) 15.5 % (20-40) L 07/17/24 04:45 [place]iss % (Auto) 11.8 % (2-11) H 07/17/24 04:45 Eos % (Auto) 2.9 % (0-4) 07/17/24 04:45 Baso % (Auto) 1.2 % (0-2) 07/17/24 04:45 Lymph # (Auto) 1.2 X10*3/uL (1.2-4.9) 07/17/24 04:45 Prentiss # (Auto) 0.9 X10*3/uL (0.1-1.2) 07/17/24 04:45 Eos # (Auto) 0.2 X10*3/uL (0.0-0.4) 07/17/24 04:45 Baso # (Auto) 0.1 X10*3/uL (0.0-0.2) 07/17/24 04:45 Abs Immat Gran (auto) 0.03 X10*3/uL (0.00-0.03) 07/17/24 04:45 Absolute Neuts (auto) 5.1 x10*3/uL (2.0-8.3) 07/17/24 04:45 Absolute Nucleated RBC 0.000 X10*3/uL (0.0-0.012) 07/17/24 04:45 Nucleated RBC % (auto) 0.0 /100WBC (0.0-0.2) 07/17/24 04:45 Hold Purple Top SEE NOTE 07/18/24 05:23 Sodium 140 mmol/L (135-145) 07/18/24 05:23 Potassium 3.4 mmol/L (3.3-5.1) 07/18/24 05:23 Chloride 105 mmol/L (96-108) 07/18/24 05:23 Carbon Dioxide 28 mmol/L (22-29) 07/18/24 05:23 Anion Gap 10 (12-20) L 07/18/24 05:23 BUN 34 mg/dL (9-16) H 07/18/24 05:23 Creatinine 1.35 mg/dL (0.5-1.4) 07/18/24 05:23 Estim Creat Clear Calc 28.6 07/18/24 05:23 Estimated GFR 38 07/18/24 05:23 Random Glucose 95 mg/dL (60-115) 07/18/24 05:23 Calcium 9.2 mg/dL (8.4-10.2) 07/18/24 05:23 Magnesium 2.0 mg/dL (1.6-2.6) 07/16/24 19:55 Total Bilirubin 1.1 mg/dL (0.0-1.0) H 07/16/24 19:55 AST 13 U/L (5-31) 07/16/24 19:55 ALT 9 U/L (0-31) 07/16/24 19:55 Alkaline Phosphatase 48 U/L (39-117) 07/16/24 19:55 Total Creatine Kinase 102 U/L (26-140) 07/17/24 04:45 Troponin I High Sens 25.4 ng/L (<3.5-17.0) H 07/16/24 19:55 Total Protein 6.7 g/dL (6.5-8.0) 07/16/24 19:55 Albumin 4.0 g/dL (3.5-5.0) 07/16/24 19:55 Vitamin B12 191 pg/mL (200-900) L 07/17/24 04:45 TSH 0.25 uIU/mL (0.32-4.0) L 07/17/24 04:45 Free T4 1.11 ng/dL (0.71-1.85) 07/17/24 04:45 Urine Color Yellow 07/16/24 21:11 Urine Appearance Clear 07/16/24 21:11 Urine pH 6.0 (5.0-9.0) 07/16/24 21:11 Ur Specific [place] <= 1.005 (1.005-1.025) 07/16/24 21:11 Urine Protein 30 (1+) mg/dL (Neg-Trace) H 07/16/24 21:11 Urine Glucose (UA) Negative mg/dL (Negative) 07/16/24 21:11 Urine Ketones Negative mg/dL (Negative) 07/16/24 21:11 Urine Blood Small (1+) (Negative) H 07/16/24 21:11 Urine Nitrite Negative (Negative) 07/16/24 21:11 Ur Leukocyte Esterase Trace (Negative) H 07/16/24 21:11 Urine RBC 0-2 /HPF (0-2) 07/16/24 21:11 Urine WBC 0-5 /HPF (0-5) 07/16/24 21:11 Ur Squamous Epith Cells 0-2 /HPF (0-2) 07/16/24 21:11 Urine Bacteria None Seen (None Seen) 07/16/24 21:11 Hyaline Casts 0-2 /LPF (0-2) 07/16/24 21:11 Influenza Type A (PCR) NEGATIVE (Negative) 07/16/24 17:39 Influenza Type B (PCR) NEGATIVE (Negative) 07/16/24 17:39 RSV RNA Qual (PCR) NEGATIVE (Negative) 07/16/24 17:39 SARS-CoV-2 RNA (RT-PCR) NEGATIVE (Negative) 07/16/24 17:[address] 07/16/24 16:39 IMPRESSION: 1. No acute intracranial pathology. 2. Chronic microangiopathy and generalized cerebral volume loss. 3. No acute cervical spinal fractures or malalignment. 4. Moderate cervical spondylosis. Electronically signed by: Conchis Resendiz MD 07/16/2024 05:24 PM EDT RP Head CT 07/16/24 16:39 IMPRESSION: 1. No acute intracranial pathology. 2. Chronic microangiopathy and generalized cerebral volume loss. 3. No acute cervical spinal fractures or malalignment. 4. Moderate cervical spondylosis. Electronically signed by: Conchis Resendiz MD 07/16/2024 05:24 PM EDT RP Discharge Plan Discharge Anticipated Discharge Date/Time: 07/18/24 12:32 Patient Disposition: Home Health Service Discharge Diagnosis: acute kidney injury B12 deficiency Referrals: [facility] [Outside] - 3-5 Days ([facility] will call you to schedule physical therapy appointments) Reza Nava MD [Primary Care Provider] - 1 Week Discharge Medications: New levothyroxine 75 mcg Tablet 75 mcg PO MOTUWETH@0600 Qty: 30 0RF levothyroxine 50 mcg Tablet 50 mcg PO Fr@0600 Qty: 30 0RF cyanocobalamin (vitamin B-12) 1,000 mcg/mL Solution See Rx Instructions .ROUTE .COMPLEX Qty: 10 0RF Rx Instructions: 1000 mcg IM daily x 5 days, then 1000 mcg IM weekly x 4 weeks, then 1000 mcg IM monthly (DME) syringe with needle 1 mL 21 gauge x 1 syringe See Rx Instructions .Route Qty: 100 0RF Rx Instructions: As directed Continued atenolol 25 mg tablet 25 mg PO BID clopidogrel [Plavix] 75 mg tablet 75 mg PO DAILY 90 Days Qty: 90 3RF Incruse Ellipta 62.5 mcg/actuation blister with device 1 inh INHALATION DAILY cholecalciferol (vitamin D3) [Vitamin D3] 50 mcg (2,000 unit) Tablet 50 mcg PO DAILY lorazepam 1 mg tablet 1 mg PO BEDTIME pantoprazole 40 mg tablet,delayed release (DR/EC) 40 mg PO DAILY@0630 dicyclomine 20 mg tablet 20 mg PO BID lorazepam 1 mg tablet 1 mg PO DAILY PRN (Reason: Anxiety) rosuvastatin 20 mg tablet 20 mg PO BEDTIME aspirin 81 mg tablet,delayed release (DR/EC) 81 mg PO DAILY albuterol sulfate 90 mcg/actuation HFA aerosol inhaler 2 puff inhalation Q4-6H PRN (Reason: Shortness Of Breath Or Wheezing) fluticasone propion-salmeterol [Advair Diskus] 500-50 mcg/dose blister with device 1 ea inhalation BID gabapentin 100 mg capsule 200 mg PO BID Discontinued furosemide 40 mg tablet 40 mg PO DAILY Qty: 90 3RF levothyroxine 75 mcg tablet 75 mcg PO MOTUWETHFR@0600 Rx Instructions: off on Saturdays and Sundays Discharge Orders: Discharge Order (Routine); Ordered 07/18/24 Ordered By: Ariel Yates Diet: Advance to usual diet Activity on Discharge: As tolerated Stand Alone Forms: Patient Portal Discharge page Print Language: Hebrew Other Ambulatory Orders: Vitamin B12 (Routine) Timeframe: 1 Month Facility: [facility] - Location: Laboratory Ordered By: rAiel Yates Basic Metabolic Panel (Routine) Timeframe: 20240722 Facility: [facility] - Location: Laboratory Ordered By: Ariel Yates Complete Blood Count Auto Diff (Routine) Timeframe: 1 Month Facility: [facility] - Location: Laboratory Ordered By: Ariel Yates Thyroid Stimulating Hormone (Routine) Timeframe: 1 Month Facility: [facility] - Location: Laboratory Ordered By: Ariel Yates Care Plan Goals: kidney health fall prevention Health Concerns: acute kidney injury B12 deficiency Plan of Treatment: refused acute inpatient rehabilitation; will arrange home VNA services drink plenty of fluid stop furosemide for now recheck BMP on 07/22/24 vitamin B12 [cyanocobalamin] 1000 mcg IM daily x 5 days, then 1000 mcg IM weekly x 4 weeks, then 1000 mcg IM monthly recheck CBC and B12 level in 1 month TSH was a little too low. Change from levothyroxine 75 mcg MoTuWeThFr to 75 mcg MoTuWeTh and 50 mcg Fr. Recheck TSH in 1 month Please follow up with your primary care doctor within 1 week. Pending lab studies: intrinsic factor antibody, parietal cell antibody. Return to the hospital if you experience recurrent or worsening symptoms. Assessment: See Discharge Summary.
[2024-07-21 14:48] LABS: Intrinsic Factor Antibodies Negative (Negative)
[2024-07-24 14:14] LABS: Parietal Cell Antibody <=20.0 Unit (<=20.0)
== END 2024-07-18 15:55 | disposition home health service (06) | DRG 684 ==
LOC: HO.ED 19:01 → HO.EDOVER 23:33 → HO.S3 07-17 13:31
PROVIDERS: Physician Assistant; Physician Assistant Medical; Admitting Provider Student in an Organized Health Care Education/Training Program; Emergency Provider Emergency Medicine; PCP Internal Medicine; Visit Provider Family Medicine
DX: N17.9 Acute kidney failure, unspecified (principal); I25.10 Atherosclerotic heart disease of native coronary artery without angina pectoris; E03.9 Hypothyroidism, unspecified; K58.0 Irritable bowel syndrome with diarrhea; G62.9 Polyneuropathy, unspecified; E87.6 Hypokalemia; E53.8 Deficiency of other specified B group vitamins; Z20.822 Contact with and (suspected) exposure to COVID-19; W19.XXXA Unspecified fall, initial encounter; Z95.5 Presence of coronary angioplasty implant and graft; Z87.891 Personal history of nicotine dependence; Z79.02 Long term (current) use of antithrombotics/antiplatelets; Z79.51 Long term (current) use of inhaled steroids; Z79.82 Long term (current) use of aspirin; Z79.890 Hormone replacement therapy; Z79.899 Other long term (current) drug therapy
CPT/HCPCS: 0241U; 36415; 70450; 72125; 80048; 80053; 81001; 82550; 82607; 83516; 83735; 84439; 84443; 84484; 85025; 86340; 93005; 97162; 99285; J1650; J3420; J7120

== ENCOUNTER → 2024-07-16 16:48 | Outpatient (BNV) | payer MEDICARE, SELFPAY ==
[2023-08-21 10:50] VITALS: BP 118/58; BP 122/60; BP 124/68; BMI 26.1
== END ==
PROVIDERS: Emergency Provider Emergency Medicine; PCP Internal Medicine; Visit Provider Student in an Organized Health Care Education/Training Program
DX: N17.9 Acute kidney failure, unspecified (principal); E53.8 Deficiency of other specified B group vitamins; E03.9 Hypothyroidism, unspecified; W19.XXXA Unspecified fall, initial encounter; R53.1 Weakness
CPT/HCPCS: 99223; 99232; 99239; G0180

== ENCOUNTER 2024-07-23 09:43 | Outpatient (REF) | payer MEDICARE, SELFPAY ==
[2023-08-21 10:50] VITALS: BP 118/58; BP 122/60; BP 124/68; BMI 26.1
[2024-07-23 11:11] LABS: Anion Gap 13 (12-20); Blood Urea Nitrogen 20 mg/dL (9-16); Calcium 9.8 mg/dL (8.4-10.2); Carbon Dioxide 27 mmol/L (22-29); Chloride 105 mmol/L (96-108); Estimated Glomerular Filt Rate 32; Glucose Random 94 mg/dL (60-115); Potassium 3.4 mmol/L (3.3-5.1); Sodium 142 mmol/L (135-145)
== END 2024-07-23 09:44 | disposition home or self-care (01) ==
LOC: HO.LAB 09:43
PROVIDERS: PCP Internal Medicine; Visit Provider Family Medicine
DX: N17.9 Acute kidney failure, unspecified (principal)
CPT/HCPCS: 36415; 80048

== ENCOUNTER 2024-08-18 14:04 | Outpatient (REF) | payer MEDICARE, SELFPAY ==
[2023-08-21 10:50] VITALS: BP 118/58; BP 122/60; BP 124/68; BMI 26.1
[2024-08-18 14:12] LABS: MANUAL DIFF FLAG NO
[2024-08-18 14:22] LABS: Basophils Absolute Auto 0.1 X10*3/uL (0.0-0.2); Basophils Percent Auto 1.4 % (0-2); Eosinophils Absolute Auto 0.6 X10*3/uL (0.0-0.4); Eosinophils Percent Auto 7.9 % (0-4); Hematocrit 32.2 % (37.0-47.0); Hemoglobin 10.3 g/dl (12.0-16.0); Imm Gran Abs Auto 0.01 X10*3/uL (0.00-0.03); Imm Gran Pct Auto 0.1 % (0.0-0.4); Lymphocytes Absolute Auto 1.3 X10*3/uL (1.2-4.9); Lymphocytes Percent Auto 16.5 % (20-40); Mean Corpuscular Hemoglobin 31.8 pg (27.0-33.0); Mean Corpuscular Volume 99.4 fL (80.0-98.0); Mean Platelet Volume 11.3 fL (9.4-12.3); Monocytes Absolute Auto 0.7 X10*3/uL (0.1-1.2); Monocytes Percent Auto 9.5 % (2-11); Neutrophils Percent Auto 64.6 % (45-73); Platelet Count 154 X10*3/uL (160-400); Red Blood Count 3.24 X10*6/uL (4.20-5.50); Red Cell Distribution Width 13.8 % (11.0-16.0); White Blood Count 7.7 X10*3/uL (4.8-10.8)
[2024-08-18 15:24] LABS: Thyroid Stimulating Hormone 2.02 uIU/mL (0.32-4.0)
[2024-08-18 15:31] LABS: Vitamin B12 944 pg/mL (200-900)
== END 2024-08-18 14:05 | disposition home or self-care (01) ==
LOC: HO.LNP 14:04
PROVIDERS: Visit Provider Family Medicine
DX: E53.8 Deficiency of other specified B group vitamins (principal); N17.9 Acute kidney failure, unspecified; E03.9 Hypothyroidism, unspecified
CPT/HCPCS: 80048; 82607; 84443; 85025

== ENCOUNTER 2024-09-08 15:32 | Outpatient (REF) | payer MEDICARE, SELFPAY ==
[2023-08-21 10:50] VITALS: BP 118/58; BP 122/60; BP 124/68; BMI 26.1
[2024-09-08 15:37] LABS: MANUAL DIFF FLAG NO
[2024-09-08 15:49] LABS: Basophils Absolute Auto 0.1 X10*3/uL (0.0-0.2); Basophils Percent Auto 1.2 % (0-2); Eosinophils Absolute Auto 0.4 X10*3/uL (0.0-0.4); Eosinophils Percent Auto 6.2 % (0-4); Hematocrit 32.1 % (37.0-47.0); Hemoglobin 10.2 g/dl (12.0-16.0); Imm Gran Abs Auto 0.03 X10*3/uL (0.00-0.03); Imm Gran Pct Auto 0.5 % (0.0-0.4); Lymphocytes Percent Auto 15.7 % (20-40); Mean Corpuscular HGB Conc 31.8 g/dl (31.0-35.0); Mean Corpuscular Hemoglobin 31.1 pg (27.0-33.0); Mean Corpuscular Volume 97.9 fL (80.0-98.0); Mean Platelet Volume 11.7 fL (9.4-12.3); Monocytes Absolute Auto 0.7 X10*3/uL (0.1-1.2); Neutrophils Absolute Auto 4.3 x10*3/uL (2.0-8.3); Neutrophils Percent Auto 66.4 % (45-73); Platelet Count 159 X10*3/uL (160-400); Red Blood Count 3.28 X10*6/uL (4.20-5.50); Red Cell Distribution Width 13.1 % (11.0-16.0); White Blood Count 6.5 X10*3/uL (4.8-10.8)
[2024-09-08 16:38] LABS: Alanine Aminotransferase 22 U/L (0-31); Alkaline Phosphatase 53 U/L (39-117); Anion Gap 11 (12-20); Aspartate Amino Transferase 34 U/L (5-31); Bilirubin Total 0.7 mg/dL (0.0-1.0); Blood Urea Nitrogen 28 mg/dL (9-16); Calcium 9.3 mg/dL (8.4-10.2); Carbon Dioxide 27 mmol/L (22-29); Chloride 105 mmol/L (96-108); Estimated Glomerular Filt Rate 35; Glucose Random 74 mg/dL (60-115); Iron 149 mcg/dL (30-160); Percent Iron Saturation 52 % (15-50); Potassium 3.9 mmol/L (3.3-5.1); Sodium 139 mmol/L (135-145); Total Iron Binding Capacity 287 mcg/dL (228-428); Total Protein 5.9 g/dL (6.5-8.0); Unsaturated Iron Binding 138 ug/dL
[2024-09-08 17:07] LABS: Vitamin B12 606 pg/mL (200-900)
== END 2024-09-08 15:33 | disposition home or self-care (01) ==
LOC: HO.LNP 15:32
PROVIDERS: Visit Provider Internal Medicine
DX: R53.83 Other fatigue (principal); E03.9 Hypothyroidism, unspecified
CPT/HCPCS: 80053; 82607; 83540; 85025

== ENCOUNTER 2025-04-08 15:59 | Outpatient (REF) | payer MEDICARE, SELFPAY ==
[2023-08-21 10:50] VITALS: BP 118/58; BP 122/60; BP 124/68; BMI 26.1
[2025-04-08 16:23] LABS: MANUAL DIFF FLAG NO
[2025-04-08 17:06] LABS: Basophils Absolute Auto 0.1 X10*3/uL (0.0-0.2); Basophils Percent Auto 1.5 % (0-2); Eosinophils Absolute Auto 0.3 X10*3/uL (0.0-0.4); Eosinophils Percent Auto 4.7 % (0-4); Hematocrit 33.1 % (37.0-47.0); Hemoglobin 10.4 g/dl (12.0-16.0); Imm Gran Abs Auto 0.01 X10*3/uL (0.00-0.03); Imm Gran Pct Auto 0.2 % (0.0-0.4); Lymphocytes Absolute Auto 1.2 X10*3/uL (1.2-4.9); Lymphocytes Percent Auto 19.1 % (20-40); Mean Corpuscular HGB Conc 31.4 g/dl (31.0-35.0); Mean Corpuscular Hemoglobin 30.4 pg (27.0-33.0); Mean Corpuscular Volume 96.8 fL (80.0-98.0); Mean Platelet Volume 11.3 fL (9.4-12.3); Monocytes Absolute Auto 0.6 X10*3/uL (0.1-1.2); Monocytes Percent Auto 9.8 % (2-11); Neutrophils Percent Auto 64.7 % (45-73); Platelet Count 150 X10*3/uL (160-400); Red Blood Count 3.42 X10*6/uL (4.20-5.50); Red Cell Distribution Width 13.6 % (11.0-16.0); White Blood Count 6.1 X10*3/uL (4.8-10.8)
[2025-04-08 17:30] LABS: Alanine Aminotransferase 16 U/L (0-31); Albumin Level 4.2 g/dL (3.5-5.0); Alkaline Phosphatase 62 U/L (39-117); Anion Gap 11 (12-20); Aspartate Amino Transferase 25 U/L (5-31); Bilirubin Total 0.6 mg/dL (0.0-1.0); Blood Urea Nitrogen 21 mg/dL (9-16); Calcium 9.5 mg/dL (8.4-10.2); Carbon Dioxide 28 mmol/L (22-29); Chloride 107 mmol/L (96-108); Estimated Glomerular Filt Rate 41; Glucose Random 93 mg/dL (60-115); Iron 98 mcg/dL (30-160); Percent Iron Saturation 36 % (15-50); Potassium 3.7 mmol/L (3.3-5.1); Sodium 142 mmol/L (135-145); Total Iron Binding Capacity 272 mcg/dL (228-428); Total Protein 6.5 g/dL (6.5-8.0); Unsaturated Iron Binding 174 ug/dL
[2025-04-08 17:48] LABS: Ferritin 55 ng/mL (10-250)
== END 2025-04-08 16:00 | disposition home or self-care (01) ==
LOC: HO.LAB 15:59
PROVIDERS: Absent Provider Internal Medicine Nephrology; PCP Internal Medicine; Visit Provider Internal Medicine
DX: N18.4 Chronic kidney disease, stage 4 (severe) (principal); D63.1 Anemia in chronic kidney disease; E87.5 Hyperkalemia; I10 Essential (primary) hypertension
CPT/HCPCS: 36415; 80053; 82728; 83540; 85025

== ENCOUNTER 2025-04-09 16:00 | Outpatient (REF) | payer MEDICARE, SELFPAY ==
[2023-08-21 10:50] VITALS: BP 118/58; BP 122/60; BP 124/68; BMI 26.1
[2025-04-09 18:22] LABS: Creatinine Urine 89.38 mg/dL; Protein/Creatinine Ratio, Ur 0.68 (<0.2); Total Protein Urine Random 61 mg/dL (<12)
== END 2025-04-09 16:01 | disposition home or self-care (01) ==
LOC: HO.LNP 16:00
PROVIDERS: Visit Provider Internal Medicine Nephrology
DX: I12.9 Hypertensive chronic kidney disease with stage 1 through stage 4 chronic kidney disease, or unspecified chronic kidney disease (principal); N18.4 Chronic kidney disease, stage 4 (severe); D63.1 Anemia in chronic kidney disease
CPT/HCPCS: 82570; 84156

== ENCOUNTER 2025-04-17 13:58 | Outpatient (REF) | payer MEDICARE, SELFPAY ==
[2023-08-21 10:50] VITALS: BP 118/58; BP 122/60; BP 124/68; BMI 26.1
[2025-04-17 15:41] LABS: MANUAL DIFF FLAG NO
[2025-04-17 16:34] LABS: Basophils Absolute Auto 0.1 X10*3/uL (0.0-0.2); Basophils Percent Auto 1.3 % (0-2); Eosinophils Absolute Auto 0.3 X10*3/uL (0.0-0.4); Eosinophils Percent Auto 4.6 % (0-4); Hematocrit 31.8 % (37.0-47.0); Hemoglobin 10.3 g/dl (12.0-16.0); Imm Gran Abs Auto 0.03 X10*3/uL (0.00-0.03); Imm Gran Pct Auto 0.4 % (0.0-0.4); Lymphocytes Absolute Auto 1.3 X10*3/uL (1.2-4.9); Mean Corpuscular HGB Conc 32.4 g/dl (31.0-35.0); Mean Corpuscular Hemoglobin 31.2 pg (27.0-33.0); Mean Corpuscular Volume 96.4 fL (80.0-98.0); Mean Platelet Volume 11.5 fL (9.4-12.3); Monocytes Absolute Auto 0.6 X10*3/uL (0.1-1.2); Monocytes Percent Auto 8.9 % (2-11); Neutrophils Absolute Auto 4.6 x10*3/uL (2.0-8.3); Neutrophils Percent Auto 65.8 % (45-73); Platelet Count 164 X10*3/uL (160-400); Red Cell Distribution Width 13.6 % (11.0-16.0); White Blood Count 6.9 X10*3/uL (4.8-10.8)
[2025-04-17 17:17] LABS: Iron 98 mcg/dL (30-160); Percent Iron Saturation 34 % (15-50); Total Iron Binding Capacity 292 mcg/dL (228-428); Unsaturated Iron Binding 194 ug/dL
[2025-04-17 17:32] LABS: TSH reflex Free T4 0.29 uIU/mL (0.32-4.0)
[2025-04-17 17:46] LABS: Folate 9.3 ng/mL (> or = 4.0); Vitamin B12 335 pg/mL (200-900)
[2025-04-17 17:51] LABS: Erythrocyte Sedimentation Rate 9 MM/HR (0-20)
[2025-04-17 18:49] LABS: Free T4 (Free Thyroxine) 1.15 ng/dL (0.71-1.85)
[2025-04-18 04:39] LABS: CRP High Sensitivity <0.2 mg/L
== END 2025-04-17 13:59 | disposition home or self-care (01) ==
LOC: HO.LAB 13:58
PROVIDERS: PCP Internal Medicine; Visit Provider Internal Medicine
DX: E03.9 Hypothyroidism, unspecified (principal); E53.8 Deficiency of other specified B group vitamins; M54.2 Cervicalgia; M25.512 Pain in left shoulder; M25.511 Pain in right shoulder; I25.10 Atherosclerotic heart disease of native coronary artery without angina pectoris; J44.9 Chronic obstructive pulmonary disease, unspecified; I10 Essential (primary) hypertension; E78.5 Hyperlipidemia, unspecified; N18.9 Chronic kidney disease, unspecified; D63.1 Anemia in chronic kidney disease; K21.9 Gastro-esophageal reflux disease without esophagitis; K58.9 Irritable bowel syndrome, unspecified; M54.9 Dorsalgia, unspecified; G89.4 Chronic pain syndrome; H81.10 Benign paroxysmal vertigo, unspecified ear; R53.1 Weakness; Z91.81 History of falling
CPT/HCPCS: 82607; 82746; 83540; 84439; 84443; 85025; 85652; 86141; 96127; 99202

== ENCOUNTER 2025-04-17 13:58 | Outpatient (AMB) | payer MEDICARE, SELFPAY ==
[2023-08-21 10:50] VITALS: BP 118/58; BP 122/60; BP 124/68; BMI 26.1
--- NOTE | 2025-04-17 13:17 | A.OFFPC_ITS ---
Vital Signs 04/17/25 14:16 Height 5 ft 4.5 in Weight 146 lb BMI 24.7 BP 128/70 Blood Pressure Location Rt brachial Position Sitting Pulse 60 Pulse Source Pulse Oximeter Temp 98 F Temp Source Axillary Pulse Oximetry (%) 99 Oxygen Delivery Method Room Air Intake Visit Reasons: Routine [employer] Required: No Accompanied by: Self / Same As Patient Allergies pollen extracts Allergy (Intermediate, Verified 04/17/25 13:18) Sneezing citalopram Allergy (Unknown, Verified 04/17/25 13:18) upsets stomach Tobacco use date assessed: 04/17/25 Fall risk assessment: 1 Fall in past year Last assessed Fall Risk: 04/17/25 Dental Screening Dental Screen Date: 04/17/25 Did you have a dental visit in the last 12 months?: Yes Did you have a dental problem in the last 6 months where you did not have access to dental care?: No HPI HPI Comments History of Present Illness Details 80-year-old female with a past medical h istory of CAD s/p PCI, asthma/copd, htn, hld, anemia, CKD,GERD, IBS, presenting for follow up More frequent falls. Increased neck pain, shoulder pain, back pain. Vertigo. Increases when turns over in bed, getting up from bed, quick head movements. Did traditional pt no prior vestibular rehab CV: Follows with cardiology. Crestor, plavix, atenolol, asa. Blood pressure is adequately controlled Hypothyroid-on levothyroxine Rsp: Follows with pulmonary. on incruse, albuterol. Would like [facility] referral ROS see HPI PHYSICAL EXAM: GENERAL: Alert and oriented x 3. NAD EYES: EOMI. Anicteric. HENT: Moist mucous membranes. No scleral icterus. No cervical lymphadenopathy. LUNGS: Clear to auscultation bilaterally. CARDIOVASCULAR: Regular rate and rhythm. No JVD. ABDOMEN: Soft, non-tender +bs EXTREMITIES: No edema. Non-tender. SKIN: No rashes or lesions. Warm. NEUROLOGIC: No focal neurological deficits. CN II-XII grossly intact PSYCHIATRIC: Cooperative. Appropriate mood and affect [facility] Medical History Coronary artery disease Surgical History History of cardiac catheterization History of heart artery stent Family History (Updated 04/17/25 @ 14:25 by Daniela García MA) Mother CAD (coronary artery disease) Father No problems noted. Social History Household Members: Spouse Housing: House Do you presently have visiting nurse or other home services: No Alcohol intake: current Alcohol intake frequency: holidays/special occasions only Alcohol type: wine and hard liquor Patient Tobacco Use Status: Former Tobacco user Tobacco use type: Cigarette Cigarette Packs Per Day: 0.25 Years Smoked: 30 e-Cigarette/Vaping Use: Former Use Second Hand Smoke Exposure: No service: No Current occupational status: retired Current occupation: right handed, retired Cognitive needs: No Hearing needs: No Vision needs: Yes (rx glasses) Questionnaire PHQ-9 Over the last 2 weeks, how often have you been bothered by any of the following problems? 1. Little interest or pleasure in doing things: not at all 2. Feeling down, depressed, or hopeless: not at all 3. Trouble falling or staying asleep, or sleeping too much: not at all 4. Feeling tired or having little energy: not at all 5. Poor appetite or overeating: not at all 6. Feeling bad about yourself - or that you are a failure or have let yourself or your family down: not at all 7. Trouble concentrating on things, such as reading the newspaper or watching television: not at all 8. Moving or speaking so slowly that other people could have noticed. Or the opposite - being so fidgety or restless that you have been moving around a lot more than usual: not at all 9. Thoughts that you would be better off or of hurting yourself in some way: not at all Total score: 0 Depression Screening Interpretation: Negative Depression Screening Done: Yes 33378 - PHQ-9 Billing: Yes Source: Developed by Drs. Brian Chang, Carolynn Gomes, Kenneth Pimentel and colleagues, with an educational larisa from [employer]. Thrive Questionnaire Date Thrive assessed: 04/17/25 I am a: Patient Within the past 12 months, did the food you bought not last and you didn't have the money to get more?: Never true Within the past 12 months, did you worry whether your food would run out before you got money to buy more?: Never true Do you have trouble paying for medicines?: No Do you have trouble getting transportation to medical appointments?: No Do you have trouble paying your heating and electricity bill?: No Do you have trouble taking care of your child, family member or friend?: No Do you have trouble with day-to-day activities such as bathing, preparing meals, shopping, managing finances, etc.?: No Are you currently unemployed and looking for a job?: No Are you interested in more education?: No THRIVE Score: 0 AUDIT C Alcohol Use Questionnaire (AUDIT-C) 1. How often do you have a drink containing alcohol?: Monthly or less 2. How many drinks containing alcohol do you have on a typical day when you are drinking?: 1 or 2 3. How often do you have six or more drinks on one occasion?: Less than monthly Total Score: 2 TAHIRA-7 AMB Questionnaire TAHIRA-7 Date TAHIRA - 7 assessed: 04/17/25 Feeling nervous, anxious, or on edge: 0 = Not at all Not being able to stop or control worryin = Not at all Worrying too much about different things: 0 = Not at all Trouble relaxin = Not at all Being so restless that it is hard to sit still: 0 = Not at all Becoming easily annoyed or irritable: 0 = Not at all Feeling afraid as if something awful might happen: 0 = Not at all Total TAHIRA-7 score (0-4 normal; 5-9 mild; 10-14 moderate; 15-21 severe): 0 Source: Developed by Drs. Brian Chang, Carolynn Gomes, Kenneth Pimentel and colleagues, with an educational larisa from [employer]. Physical exam (Primary Care) Vital Signs: Last Vital Signs Temp 98 F 04/17/25 14:16 Pulse 60 04/17/25 14:16 BP 128/70 04/17/25 14:16 Pulse Ox 99 04/17/25 14:16 Oxygen Delivery Method Room Air 04/17/25 14:16 BMI result Body Mass Index 24.7 Tobacco/Smoking Status: Tobacco use Status Tobacco use date assessed 04/17/25 04/17/25 13:19 Patient Tobacco Use Status Former Tobacco user 05/30/25 13:19 Tobacco use type Cigarette 04/17/25 13:19 e-Cigarette/Vaping Use Former Use 04/17/25 13:19 PHQ-9: PHQ-9 Score PHQ-9: Total score 0 04/17/25 14:28 Depression Screening Interpretation: Negative Thrive Assessment: Date of Thrive Assessment Date Thrive assessed 04/17/25 04/17/25 13:19 Coding Level of Care Code New Pt Level 4 (64845) Complex EM visit Add On G2211 Diagnoses Chronic pain syndrome G89.4 Chronic pain type: chronic pain syndrome Benign paroxysmal positional vertigo, unspecified laterality H81.10 Laterality: unspecified laterality Hypothyroidism, unspecified type E03.9 Hypothyroidism type: unspecified Weakness R53.1 Coronary artery disease, unspecified vessel or lesion type, unspecified whether angina present, unspecified whether [place] or transplanted heart I25.10 Coronary Disease-Associated Artery/Lesion type: unspecified vessel or lesion type [place] vs. transplanted heart: unspecified whether [place] or transplanted heart Associated angina: unspecified whether angina present Additional Codes PHQ-9 - 11541 - PHQ-9 Billing: Yes ([id number]) Assessment & Plan Assessment & Plan (1) Chronic pain: Code(s): G89.29 - Other chronic pain Category: Medical Qualifiers: Chronic pain type: chronic pain syndrome Qualified Code(s): G89.4 - Chronic pain syndrome (2) BPPV (benign paroxysmal positional vertigo): Code(s): H81.10 - Benign paroxysmal vertigo, unspecified ear Category: Medical Qualifiers: Laterality: unspecified laterality Qualified Code(s): H81.10 - Benign paroxysmal vertigo, unspecified ear (3) Hypothyroidism: Code(s): E03.9 - Hypothyroidism, unspecified Category: Medical Qualifiers: Hypothyroidism type: unspecified Qualified Code(s): E03.9 - Hypothyroidism, unspecified (4) Weakness: Code(s): R53.1 - Weakness Category: Medical (5) Coronary artery disease: Code(s): I25.10 - Atherosclerotic heart disease of [place] coronary artery without angina pectoris Category: Medical Qualifiers: Coronary Disease-Associated Artery/Lesion type: unspecified vessel or lesion type [place] vs. transplanted heart: unspecified whether [place] or transplanted heart Associated angina: unspecified whether angina present Qualified Code(s): I25.10 - Atherosclerotic heart disease of [place] coronary artery without angina pectoris Plan 80 yo to establish care Past medical, surgical, social reviewed Increase joint and muscle pain. Labs ordered. continue tylenol. Trial prn tramadol BPPV-vestibular therapy ordered Mammo ordered Orders: Orders IRON PROFILE 04/17/25 D64.9 - Anemia, unspecified, E03.9 - Hypothyroidism, unsp ecified, E53.8 - Deficiency of other specified B group vitamins, W19.XXXA - Unspecified fall, initial encounter CRP High Sensitivity 04/17/25 G89.29 - Other chronic pain, M25.511 - Pain in right shoulder, M25.512 - Pain in left shoulder, M54.2 - Cervicalgia PT Evaluation and Treatment 04/17/25 H81.10 - Benign paroxysmal vertigo, unspecified ear Vitamin B12 and Folate 04/17/25 D64.9 - Anemia, unspecified, E03.9 - Hypothyroidism, unspecified, E53.8 - Deficiency of other specified B group vitamins, W19.XXXA - Unspecified fall, initial encounter Complete Blood Count Auto Diff 04/17/25 D64.9 - Anemia, unspecified, E03.9 - Hypothyroidism, unspecified, E53.8 - Deficiency of other specified B group vitamins, W19.XXXA - Unspecified fall, initial encounter Pathologist Review - CBC 04/17/25 D64.9 - Anemia, unspecified, E03.9 - Hypothyroidism, unspecified, E53.8 - Deficiency of other specified B group vitamins, W19.XXXA - Unspecified fall, initial encounter TSH reflex Free T4 04/17/25 D64.9 - Anemia, unspecified, E03.9 - Hypothyroidis m, unspecified, E53.8 - Deficiency of other specified B group vitamins, W19.XXXA - Unspecified fall, initial encounter Erythrocyte Sedimentation Rate 04/17/25 G89.29 - Other chronic pain, M25.511 - Pain in right shoulder, M25.512 - Pain in left shoulder, M54.2 - Cervicalgia MM screening mammo BI 04/17/25 Z12.31 - Encounter for screening mammogram for malignant neoplasm of breast Referrals Pulmonology Referral J45.909 - Unspecified asthma, uncomplicated Medications: New acetaminophen (Pain Relief (acetaminophen)) 500 mg PO Q4H PRN 100 tabs 3RF fever tramadol 50 mg PO Q8H 7 days PRN 21 tabs 0RF pain tramadol may pay out of pocket if not covered by insurance 50 mg PO Q8H PRN 21 tabs 0RF pain 7 days
--- OUTSIDE RECORDS SUMMARY | 2025-04-17 14:01 | XMS_ITS | Clinical Summary ---
Author Organization [facility] Address [address] [place] [address] Phone Care Team Providers Care Hospital Cleaner Name Role Phone Unavailable Primary Care Provider Unavailabl e Allergies Active Allergy Reactions Criticality Noted Date Comments Citalopram 08/24/2022 Codeine Other (see comments) 08/24/2022 Medications rosuvastatin (CRESTOR) 20 MG tablet 07/13/2022 Active pantoprazole (PROTONIX) 40 MG EC tablet 07/13/2022 Active LORazepam (ATIVAN) 1 MG tablet Take 1 mg by mouth 2 (two) times a day if needed 07/14/2022 Active levothyroxine (SYNTHROID, LEVOTHROID) 75 MCG tablet 07/13/2022 Active Fluticasone-Jose meterol 500-50 MCG/ACT aerosol powder 08/22/2022 Active dicyclomine (BENTYL) 20 MG tablet 07/13/2022 Active clopidogrel (PLAVIX) 75 MG tablet Take 75 mg by mouth 06/16/2022 Active atenolol (TENORMIN) 25 MG tablet 2 (two) times a day 07/09/2022 Active albuterol HFA (PROVENTIL HFA;VENTOLIN HFA) 108 (90 Base) MCG/ACT inhaler 07/13/2022 Active cholecalciferol (VITAMIN D-3) 250 MCG (23170 UT) capsule Take 10,000 Units by mouth 1 (one) time each day Active Umeclidinium [place] (Incruse Ellipta) 62.5 MCG/ACT aerosol powder Inhale Active gabapentin (NEURONTIN) 100 MG capsule TAKE ONE CAPSULE BY MOUTH FOUR TIMES A DAY 04/19/2023 Active aspirin (ST LOVE) 81 MG EC tablet Take 81 mg by mouth 1 (one) time each day Active Active Problems Problem Noted Date Diagnosed Date Chronic kidney disease due to hypertension 08/24 Prerenal azotemia 08/24/2022 Proteinuria 08/24/2022 Stage 3b chronic kidney disease 08/24/2022 Renal osteodystrophy 08/24/2022 Essential hypertension 02/04/2018 Gastroesophageal reflux disease 02/04/2018 Gout 02/04/2018 Hypercholesterolemia 02/04/2018 Hypothyroidism 02/04/2018 Irritable bowel syndrome 02/04/2018 Chronic anxiety 02/04/2018 Chronic obstructive pulmonary disease 02/05/2012 Coronary atherosclerosis 02/05/2004 Encounters Date Type Department Care Team Description 04/16/2025 3:00 PM EDT Office Visit [facility] [address] [facility] [place] [address] Yovani Dewitt MD Stage 3b chronic kidney disease (HCC) (Primary Dx); Renal osteodystrophy; Essential hypertension 03/19/2025 Orders Only [facility] [address] [id number] Yovani Dewitt MD Chronic kidney disease, stage 4 (severe) (HCC) (Primary Dx); Anemia in chronic kidney disease; Hyperkalemia; Hypertension 03/19/2025 Orders Only [facility] [address] [phone] Yovani Dewitt MD from Last 3 Months Immunizations Immunization Administration Dates Next Due Influenza Split High Dose Pr eservative Free IM 12/08/2017 Moderna SARS-COV-2 11/23/2021,02/17/2021, 021 Pneumococcal Conjugate 13-Valent 05/08/2017 Pneumococcal, Unspecified 09/19/2006,11/19/1998 Td, Unspecified 12/15/2017 Tdap 12/20/2014 Family History Medical History Relation Comments Hypertension Child daughters/son Heart disease Mother 2 CHF Cancer Sibling half sister Hypertension Sibling sisters Relation Status Comments Child Father Mother 1 Mother 2 Sibling Social History Tobacco Use Types Packs/Day Years Used Date Smoking Tobacco: Former Cigarettes 0 05/08/1958 - 05/08/1992 Tobacco Cessation:Counseling Given: Not Answered Comments:Smoking History Info:Every day Alcohol Use Standard Drinks/Week Comments Yes 0 (1 standard drink = 0.6 oz pure alcohol) Alcoholic Drinks/day: 1-2 drinks per day Comments Unknown Sex and Gender Information Value Date Recorded Sex Assigned at Not on file Legal Sex Female 4:30 PM EST Gender Identity Not on file Sexual Orientation Not on file Last Filed Vital Signs Vital Sign Reading Time Taken Comments Blood Pressure 140/58 04/16/2025 3:06 PM EDT Pulse 69 04/16/2025 3:06 PM EDT Temperature 36.7 ??C (98 ??F) 06/06/2018 12:00 PM EDT Respiratory Rate 14 06/06/2018 12:00 PM EDT Oxygen Saturation 98% 04/16/2025 3:06 PM EDT Inhaled Oxygen Concentration - - Weight 67.1 kg (148 lb) 04/16/2025 3:06 PM EDT Height 162.6 cm (5' 4 ) 06/06/2018 12:00 PM EDT Body Mass Index 25.4 06/06/2018 12:00 PM EDT Plan of Treatment Upcoming Encounters Date Type Department Care Team (Late st Contact Info) Description 10/26/2025 2:15 PM EST Office Visit [facility] [address] [place] [phone] Yovani Dewitt MD [address] [facility] [address] [place] [address] Health Maintenance Due Date Last Done Comments Pneumococcal Vaccine: 50+ Years (2 of 2 - PPSV23, PCV20, or PCV21) 07/03/2017 05/08/2017, 09/19/2006, 11/19/1998 Influenza Vaccine (Season Ended) 2025 12/08/2017 Pneumococcal Vaccine: Peds (0 to 5 Years) and At-Risk Patients (6 to 49 Years) Discontinued 05/08/2017, 09/19/2006, 11/19/1998 Hepatitis B Vaccine Aged Out No longe r eligible based on patient's age to complete this topic Procedures Procedure Name Priority Date/Time Associated Diagnosis Comments PROTEIN / CREATININE RATIO, URINE Routine 04/09/2025 5:09 PM EDT Chronic kidney disease, stage 4 (severe) (HCC) Anemia in chronic kidney disease Hyperkalemia Hypertension FERRITIN Routine 04/08/2025 4:21 PM EDT Chronic kidney disease, stage 4 (severe) (HCC) Anemia in chronic kidney disease Hyperkalemia Hypertension IRON PANEL (FE, TIBC, TSAT) Routine 04/08/2025 4:21 PM EDT Chronic kidney disease, stage 4 (severe) (HCC) Anemia in chronic kidney disease Hyperkalemia Hypertension CBC AND DIFFERENTIAL Routine 04/08/2025 4:21 PM EDT Chronic kidney disease, stage 4 (severe) (HCC) Anemia in chronic kidney disease Hyperkalemia Hypertension COMPREHENSIVE METABOLIC PANEL Routine 04/08/2025 4:21 PM EDT Chronic kidney disease, stage 4 (severe) (HCC) Anemia in chronic kidney disease Hyperkalemia Hypertension from Last 3 Months Results * (ABNORMAL) Protein, Total, Random Urine w/Creatinine (Protein/Creat Ratio) (04/09/2025 5:09 PM EDT) Pathologist [facility] Creatinine, Urine 89.38 mg/dL See order comments Protein Urine Random 61(H) <12 mg/dL See order comments Protein/Creati nine Ratio, Urine 0.68(H) <0.2 See order comments Comment: The spot urine protein:creatinine ratio may increase to 0.3 during normal . Urine specimen (specimen) Urine specimen obtained by clean catch procedure / Unknown 04/09/2025 5:09 PM EDT 04/09/2025 5:09 PM EDT us Yovani Dewitt MD LAB URINE ORDERABLES Final Re sult [place] See order comments [place] [address] * Iron Panel (Fe, TIBC, TSAT) (04/08/2025 4:21 PM EDT) Pathologist [facility] Iron 98 30 - 160 mcg/dL See order comments TIBC 272 228 - 428 mcg/dL See order comments Iron Saturation (TSat) 36 15 - 50 % See order comments UIBC 174 ug/dL See order comments Blood specimen (specimen) Venous blood / Unknown 04/08/2025 4:21 PM EDT 04/08/2025 4:21 PM EDT us Yovani Dewitt MD LAB BLOOD ORDERABLES Final Re sult [place] See order comments [place] [address] * (ABNORMAL) CBC and Differential (04/08/2025 4:21 PM EDT) Pathologist [facility] WBC 6.1 4.8 - 10.8 X10*3/uL See order comments RBC 3.42(L) 4.20 - 5.50 X10*6/uL See order comments Hgb 10.4(L) 12.0 - 16.0 g/dl See order comments Hematocrit 33.1(L) 37.0 - 47.0 % See order comments MCV 96.8 80.0 - 98.0 fL See order comments MCH 30.4 27.0 - 33.0 pg See order comments MCHC 31.4 31.0 - 35.0 g/dl See order comments RDW 13.6 11.0 - 16.0 % See order comments Platelets 150(L) 160 - 400 X10*3/uL See order comments MPV 11.3 9.4 - 12.3 fL See order comments Neutrophils % Auto 64.7 45 - 73 % See order comments Immature Granulocytes 0.2 0.0 - 0.4 % See order comments Lymphocytes Relative 19.1(L) 20 - 40 % See order comments Monocytes 9.8 2 - 11 % See order comments Eosinophils Relative 4.7(H) 0 - 4 % See order comments Basophils Relative 1.5 0 - 2 % See order comments nRBC Count 0.0 0.0 - 0.2 /100WBC See order comments Neutrophils Absolute 4.0 2.0 - 8.3 x10*3/uL See order comments Immature Grans (Absolute) 0.01 0.00 - 0.03 X10*3/uL See order comments Lymphocytes Absolute 1.2 1.2 - 4.9 X10*3/uL See order comments Monocytes Absolute 0.6 0.1 - 1.2 X10*3/uL See order comments Eosinophils Absolute 0.3 0.0 - 0.4 X10*3/uL See order comments Basophils Absolute 0.1 0.0 - 0.2 X10*3/uL See order comments NRBC Absolute 0.000 0.0 - 0.012 X10*3/uL See order comments Blood specimen (specimen) Venous blood / Unknown 04/08/2025 4:21 PM EDT 04/08/2025 4:21 PM EDT us Yovani Dewitt MD LAB BLOOD ORDERABLES Final Re sult Performing Organization Address [facility]/ZIP Co de Phone Number [place] See order comments [place] [address] * Ferritin (04/08/2025 4:21 PM EDT) Ferritin 55 10 - 250 ng/mL See order comments Blood specimen (specimen) Venous blood / Unknown 04/08/2025 4:21 PM EDT 04/08/2025 4:21 PM EDT us Yovani Dewitt MD LAB BLOOD ORDERABLES Final Re sult Performing Organization Address [facility] Co de Phone Number [place] See order comments [place] [address] * (ABNORMAL) Comprehensive Metabolic Panel (04/08/2025 4:21 PM EDT) Sodium 142 135 - 145 mmol/L See order comments Potassium 3.7 3.3 - 5.1 mmol/L See order comments Chloride 107 96 - 108 mmol/L See order comments Bicarbonate (CO2) 28 22 - 29 mmol/L See order comments Anion Gap 11(L) 12 - 20 See order comments BUN 21(H) 9 - 16 mg/dL See order comments Creatinine Serum 1.25 0.5 - 1.4 mg/dL See order comments eGFR (Calc) 41 See orde r comments Comment: Chronic Kidney Disease: ??Estimated GFR < 60 mL/min/1.73m2 Severe Kidney Disease: ??Estimated GFR < 15 mL/min/1.73m2 Glucose 93 60 - 115 mg/dL See order comments Calcium 9.5 8.4 - 10.2 mg/dL See order comments Total Bilirubin 0.6 0.0 - 1.0 mg/dL See order comments AST (SGOT) 25 5 - 31 U/L See orde r comments ALT (SGPT) 16 0 - 31 U/L See orde r comments Total Protein 6.5 6.5 - 8.0 g/dL See order comments Albumin 4.2 3.5 - 5.0 g/dL See order comments Alkaline phosphatase 62 39 - 117 U/L See order comments Blood specimen (specimen) Venous blood / Unknown 04/08/2025 4:21 PM EDT 04/08/2025 4:21 PM EDT us Yovani Dewitt MD LAB BLOOD ORDERABLES Final Re sult [place] See order comments [place] [address] from Last 3 Months Insurance Medicare [facility] Medicare [facility]
[2025-04-17 14:16] VITALS: BP 128/70; PULSE 60; TEMP 36.6; O2SAT 99; BMI 24.7
== END 2025-04-17 15:08 | disposition home or self-care (01) ==
LOC: HO.HMCHD 13:58
PROVIDERS: PCP Internal Medicine; Visit Provider Internal Medicine
DX: G89.4 Chronic pain syndrome (principal); H81.10 Benign paroxysmal vertigo, unspecified ear; E03.9 Hypothyroidism, unspecified; R53.1 Weakness; I25.10 Atherosclerotic heart disease of native coronary artery without angina pectoris

== ENCOUNTER 2025-06-21 19:03 | Inpatient (IN) | payer MEDICARE, SELFPAY ==
[2023-08-21 10:50] VITALS: BP 118/58; BP 122/60; BP 124/68; BMI 26.1
--- NOTE | ~2025-06-21 | CT_ITS ---
CLINICAL HISTORY: unexplained hypoglycemia CT head without contrast Comparison: CT/CO/SR - CT HEAD WITHOUT IV CONTRAST - 07/16/24 16:25 EDT Findings: There is no acute intracranial hemorrhage. There is stable mild ex vacuo dilation of the ventricles. No mass effect or midline shift is present. The concepcion-white matter differentiation appears normal. There is generalized cerebral atrophy. Mild hypoattenuation in the periventricular white matter is stable and consistent with chronic small vessel ischemic disease. The visualized portions of the orbits, paranasal sinuses, and mastoids are unremarkable. No fractures are identified. IMPRESSION: No acute intracranial abnormality. This document has been electronically signed by: Diogenes Little MD on 06/22/2025 03:17:20
--- NOTE | ~2025-06-21 | XR_ITS ---
CLINICAL HISTORY: weakness 1 view chest x-ray Comparison: CT/REG/SR - CT CHEST W IV CON - 02/02/24 03:04 EDT Findings: The lungs are clear. There is enlargement of the cardiopericardial silhouette. There is elevation of the left hemidiaphragm. No acute fracture. IMPRESSION: 1. No acute findings. This document has been electronically signed by: Julian Perkins MD on 06/21/2025 20:04:12
[2025-06-21 19:11] VITALS: BP 170/74; BP 183/84; PULSE 101; PULSE 110; RESP 18; TEMP 36.4; O2SAT 96; O2SAT 97; BMI 25.4
[2025-06-21 19:15] LABS: Glucose, Whole Blood 103 mg/dL (60-115)
--- NOTE | 2025-06-21 19:15 | ED_ITS ---
HPI - General Adult General Chief complaint: General Medical Stated complaint: unresponsive, now a&0, bgl 61--now 161, htn 209/98 Time Seen by Provider: 06/21/25 19:15 History of Present Illness ED Provider: Darien PARDO narrative: The patient is an 80-year-old female with a history of coronary disease status post coronary stent. She also has a history of hypothyroidism, peripheral neuropathy, gastroesophageal reflux and who was most recently hospitalized at this hospital 1 year ago for an episode of an acute kidney injury. The patient was brought to the hospital today by ambulance after apparently losing consciousness. She says that she has felt very fatigued over the last few days and this evening felt even more fatigued. She apparently did not eat anything during the day today. She was at home with her . This evening she sat on a couch and seemed to pass out in her called 911. When paramedics arrived they say that the patient seemed quite unresponsive, so much so that they began to ventilate the patient with a bag-valve mask and a jaw thrust maneuver. They checked a point of care. Glucose was 61. 12.5 g of dextrose was given IV and the patient immediately seemed to be come much more awake and alert. She was brought to the hospital. Here she says that she does not really remember what happened this evening but does say that she had felt tired all day. She did not eat anything all day. She did not feel feverish. No specific symptoms such as headache, chest pain, abdominal pain, nausea, vomiting. Related Data Home Medications ?Medication ?Instructions ?Recorded ?Confirmed aspirin 81 mg tablet,delayed 81 mg PO DAILY 10/27/21 0 07/17/24 release dicyclomine 20 mg tablet 20 mg PO BID 10/27/21 albuterol sulfate 90 mcg/actuation 2 puff inhalation Q 4-6H PRN 04/19/22 07/17/24 aerosol inhaler Shortness Of Breath Or Wheez ing fluticasone 500 mcg-salmeterol 50 1 ea inhalation BID 10/26/22 07/17/24 mcg/dose blistr powdr for inhalation (Advair Diskus) cholecalciferol (vitamin D3) 50 50 mcg PO DAILY 07/17/24 mcg (2,000 unit) tablet (Vitamin D3) umeclidinium 62.5 mcg/actuation 1 inh inhalation DAILY 07/17/24 07/17/24 blister powder for inhalation (Incruse Ellipta) Previous Rx's ?Medication ?Instructions ?Recorded syringe with needle 1 mL 21 gauge #100 ea 07/18/24 x 1 clopidogrel 75 mg tablet (Plavix) 75 mg PO DAILY 90 da ys #90 tabs 02/06/25 pantoprazole 40 mg tablet,delayed 40 mg PO DAILY #90 t abs 03/31/25 release acetaminophen 500 mg tablet (Pain 500 mg PO Q4H PRN fe willa #100 tabs 04/17/25 Relief (acetaminophen)) tramadol 50 mg tablet 50 mg PO Q8H PRN pain 7 days #21 04/17/25 tabs levothyroxine 50 mcg tablet 50 mcg PO .six days per we ek #88 05/06/25 tabs gabapentin 100 mg capsule 200 mg (2 x 100 mg) PO BID # 120 05/27/25 caps lorazepam 1 mg tablet 1 mg PO BID PRN anxiety #60 tabs 05/27/25 rosuvastatin 20 mg tablet 20 mg PO DAILY #90 tabs 08/13 atenolol 25 mg tablet 25 mg PO BID #60 tabs Allergies Allergy/AdvReac Type Severity Reaction Status Date / Time pollen extracts Allergy Intermediate Sneezing Verified 06/21/25 19:17 citalopram Allergy Unknown upsets Verified 06/21/25 19:17 stomach Review of Systems 2 Review of Systems: Yes all other systems are reviewed and are negative [facility] Past Medical History Medical History Coronary artery disease Surgical History History of cardiac catheterization History of heart artery stent Family History Family History (Updated 04/17/25 @ 14:25 by Daniela García MA) Mother CAD (coronary artery disease) Father No problems noted. Social History Social History Household Members: Spouse Housing: House Do you presently have visiting nurse or other home services: No Alcohol intake: current Alcohol intake frequency: 0-2 drinks per day Alcohol type: beer and wine Patient Tobacco Use Status: Former Tobacco user Tobacco use type: Cigarette Cigarette Packs Per Day: 0.25 Years Smoked: 30 Smoked in Last 30 Days: No e-Cigarette/Vaping Use: Former Use Second Hand Smoke Exposure: No Use of substances other than those prescribed or required for medical reasons: No Advance Directives: No Advance Directives Information Provided: No service: No Current occupational status: retired Current occupation: right handed, retired Cognitive needs: No Hearing needs: No Vision needs: Yes (rx glasses) Physical Exam ED Vital Signs: Vital Signs - 24 hr 06/21/25 19:11 06/21/25 19:25 06/21/25 22:27 Temperature 97.6 F 97.6 F 97.4 F Pulse Rate 101 H 101 H 72 Respiratory Rate 18 18 18 Blood Pressure 170/74 H 170/74 H 174/145 H Pulse Oximetry 97 97 Oxygen Delivery Method Room Air Room Air 06/21/25 23:12 Temperature Pulse Rate 73 Respiratory Rate 13 Blood Pressure 146/63 H Pulse Oximetry 95 Oxygen Delivery Method Room Air BMI result Body Mass Index 25.4 Const Other: The patient is awake and alert. She is a somewhat chronically ill-appearing 80-year-old. She does not appear in obvious distress. She is pleasant and cooperative. She does not appear uncomfortable or short of breath. HENMT Other: Face is symmetrical. Tongue is midline. Mucous membranes moist Eyes Other: Pupils are round equal, conjunctivae are clear, extraocular movements intact General: appearance normal, both eyes and all related structures Neck Neck: Yes normal visual inspection, Yes full ROM and Yes no JVD Resp Effort & Inspection: normal respiratory effort Auscultation: clear to auscultation bilaterally Cardio Rate: regular rate Rhythm: regular rhythm Heart sounds: S1 normal heart sound present and S2 normal heart sound present GI Other: Abdomen is soft and nontender Skin Other: Skin is pale and dry Neuro Other: The patient is awake and alert. She is oriented. She does not seem confused. Pupils are round equal, extraocular movements are intact, visual fried are intact to confrontation, face is symmetrical, speech is without dysarthria or aphasia. She moves her extremities normally and appropriately. No pronator drift. Finger-nose is normal. No focal neurological finding. NIH stroke scale is 0. Extrem Other: Good pulses in the feet. No pitting edema. Medications Administered Generic Name Dose Route Start Last Admin Trade Name Freq PRN Reason Stop Dose Admin Dextrose/Sodium Chloride 1,000 mls @ 50 mls/hr 06/21/25 22:45 06/21/25 23:26 D5ns IVCONT 75 mls/hr .Q20H GERARD Infusion Medical Decision Making Medical Decision Making [facility] Narrative: The patient is an 80-year-old woman who says that she has felt tired for a few days. She is not a diabetic in his on no blood sugar lowering medications. This evening she seemed very fatigued and sat down on a couch and apparently passed out. Her called 911. When paramedics arrived they felt the patient was very unresponsive, so unresponsive they attempted to bag the patient and performed a jaw thrust maneuver. They then checked a point of care which was 61. 12.5 g of dextrose was given IV and the patient immediately woke up to a normal mental status. She was then brought to the hospital. Here in the emergency room she had and neurological exam showed no focal deficits. NIH stroke scale was 0. She had no particular complaints of headache, chest pain, or abdominal pain. She did not appear short of breath. The patient has initial point of care here in the emergency room was 103. She was given dusty genesis. She has a an unchanged EKG. Initial labs were suspect for their accuracy because the glucose on her basic metabolic panel was 518. All of her chemistries were therefore repeated. On a repeat basic metabolic panel her blood sugar was 44. This was consistent with a point of care of 44 that has been checked 9 minutes before. The patient was given a sandwich and other food and dusty genesis and orange juice. She was observed. Her blood sugar came up to 73 at 21:50. During a period of ongoing observation her next blood sugar checked at 22:32 was 54 by point of care. I do not have a good explanation for why the patient is having persistent hypoglycemia. Since the patient's had said that there has been some shortness of breath just before she passed out at home we checked a D-dimer. This was normal. I do not think the patient has any significant infectious component to her presentation. She has a an undetectable CRP. The patient's BNP is elevated at 1000 but this is similar to previous values. She is not showing signs of heart failure and her chest x-ray is negative. The patient was started on IV dextrose because of persistent unexplained hypoglycemia. She will be admitted to the hospitalist service. Lab Data 06/21/25 19:39 06/21/25 21:03 Labs: Lab Results 06/21/25 06/21/25 06/21/25 Range/Units 19:11 19:39 19:43 WBC 7.6 (4.8-10.8) X10*3/uL RBC 3.40 L (4.20-5.50) X10*6/uL Hgb 10.5 L (12.0-16.0) g/dl Hct 31.4 L (37.0-47.0) % MCV 92.4 (80.0-98.0) fL MCH 30.9 (27.0-33.0) pg MCHC 33.4 (31.0-35.0) g/dl RDW 12.9 (11.0-16.0) % Plt Count 138 L (160-400) X10*3/uL MPV 11.0 (9.4-12.3) fL Immature Gran % (Auto) 0.3 (0.0-0.4) % Neut % (Auto) 79.5 H (45-73) % Lymph % (Auto) 10.6 L (20-40) % [place] % (Auto) 8.3 (2-11) % Eos % (Auto) 0.8 (0-4) % Baso % (Auto) 0.5 (0-2) % Lymph # (Auto) 0.8 L (1.2-4.9) X10*3/uL [place] # (Auto) 0.6 (0.1-1.2) X10*3/uL Eos # (Auto) 0.1 (0.0-0.4) X10*3/uL Baso # (Auto) 0.0 (0.0-0.2) X10*3/uL Abs Immat Gran (auto) 0.02 (0.00-0.03) X10*3/uL Absolute Neuts (auto) 6.0 (2.0-8.3) x10*3/uL Absolute Nucleated RBC 0.000 (0.0-0.012) X10*3/uL Nucleated RBC % (auto) 0.0 (0.0-0.2) /100WBC PT 13.4 H (10.9-12.4) SEC INR 1.2 H (0.9-1.1) D-Dimer High Sensitivty < 150 NG/ML VBG pH (7.32-7.43) VBG pCO2 mmHg VBG pO2 mmHg VBG HCO3 (22-26) mmol/L VBG O2 Saturation % VBG Base Excess mmol/L Sodium 135 (135-145) mmol/L Potassium 3.1 L (3.3-5.1) mmol/L Chloride 100 (96-108) mmol/L Carbon Dioxide 27 (22-29) mmol/L Anion Gap 11 L (12-20) BUN 16 (9-16) mg/dL Creatinine 1.13 (0.5-1.4) mg/dL Estim Creat Clear Calc 36.7 Estimated GFR 46 POC Glucose 103 (60-115) mg/dL Random Glucose 518 H* (60-115) mg/dL Calcium 8.8 D (8.4-10.2) mg/dL Magnesium 1.4 L* (1.6-2.6) mg/dL Total Bilirubin 0.4 (0.0-1.0) mg/dL Direct Bilirubin 0.1 (0.0-0.5) mg/dL AST 27 (5-31) U/L ALT 14 (0-31) U/L Alkaline Phosphatase 52 (39-117) U/L Total Creatine Kinase 69 (26-140) U/L Troponin I High Sens 48.9 H D (<3.5-17.0) ng/L C-Reactive Protein < 0.10 (< or = 0.50) mg/dL B-Natriuretic Peptide 993 H (<100) pg/mL Total Protein 6.0 L (6.5-8.0) g/dL Albumin 3.8 (3.5-5.0) g/dL Lipase 45 (8-78) U/L TSH 0.74 (0.32-4.0) uIU/mL Urine Color Urine Appearance Urine pH (5.0-9.0) Ur Specific [place] (1.005-1.025) Urine Protein (Neg-Trace) mg/dL Urine Glucose (UA) (Negative) mg/dL Urine Ketones (Negative) mg/dL Urine Blood (Negative) Urine Nitrite (Negative) Ur Leukocyte Esterase (Negative) Urine RBC (0-2) /HPF Urine WBC (0-5) /HPF Ur Squamous Epith Cells (0-2) /HPF Urine Bacteria (None Seen) Hyaline Casts (0-2) /LPF Urine Opiates Screen (Not Detect) Ur Buprenorphine Scrn (Not Detect) ng/mL Ur Oxycodone Screen (Not Detect) ng/mL Urine Methadone Screen (Not Detect) ng/mL Urine Fentanyl Screen (Not Detect) Ur Barbiturates Screen (Not Detect) Ur Phencyclidine Scrn (Not Detect) Ur Amphetamines Screen (Not Detect) U Benzodiazepines Scrn (Not Detect) Urine Cocaine Screen (Not Detect) U Marijuana (THC) Screen (Not Detect) Ethyl Alcohol < 10 mg/dL Influenza Type A (PCR) NEGATIVE (Negative) Influenza Type B (PCR) NEGATIVE (Negative) RSV RNA Qual (PCR) NEGATIVE (Negative) SARS-CoV-2 RNA (RT-PCR) NEGATIVE (Negative) 06/21/25 06/21/25 06/21/25 Range/Units 19:46 20:54 21:03 WBC (4.8-10.8) X10*3/uL RBC (4.20-5.50) X10*6/uL Hgb (12.0-16.0) g/dl Hct (37.0-47.0) % MCV (80.0-98.0) fL MCH (27.0-33.0) pg MCHC (31.0-35.0) g/dl RDW (11.0-16.0) % Plt Count (160-400) X10*3/uL MPV (9.4-12.3) fL Immature Gran % (Auto) (0.0-0.4) % Neut % (Auto) (45-73) % Lymph % (Auto) (20-40) % [place] % (Auto) (2-11) % Eos % (Auto) (0-4) % Baso % (Auto) (0-2) % Lymph # (Auto) (1.2-4.9) X10*3/uL [place] # (Auto) (0.1-1.2) X10*3/uL Eos # (Auto) (0.0-0.4) X10*3/uL Baso # (Auto) (0.0-0.2) X10*3/uL Abs Immat Gran (auto) (0.00-0.03) X10*3/uL Absolute Neuts (auto) (2.0-8.3) x10*3/uL Absolute Nucleated RBC (0.0-0.012) X10*3/uL Nucleated RBC % (auto) (0.0-0.2) /100WBC PT (10.9-12.4) SEC INR (0.9-1.1) D-Dimer High Sensitivty NG/ML VBG pH 7.44 H (7.32-7.43) VBG pCO2 50 mmHg VBG pO2 35 mmHg VBG HCO3 34 H (22-26) mmol/L VBG O2 Saturation 54.0 % VBG Base Excess 9.1 mmol/L Sodium 141 (135-145) mmol/L Potassium 3.3 (3.3-5.1) mmol/L Chloride 105 (96-108) mmol/L Carbon Dioxide 29 (22-29) mmol/L Anion Gap 10 L (12-20) BUN 17 H (9-16) mg/dL Creatinine 1.04 (0.5-1.4) mg/dL Estim Creat Clear Calc 40.0 Estimated GFR 51 POC Glucose 44 L* (60-115) mg/dL Random Glucose 44 L* (60-115) mg/dL Calcium 9.2 (8.4-10.2) mg/dL Magnesium 1.5 L (1.6-2.6) mg/dL Total Bilirubin 0.4 (0.0-1.0) mg/dL Direct Bilirubin 0.2 (0.0-0.5) mg/dL AST 26 (5-31) U/L ALT 15 (0-31) U/L Alkaline Phosphatase 54 (39-117) U/L Total Creatine Kinase (26-140) U/L Troponin I High Sens 58.2 H* (<3.5-17.0) ng/L C-Reactive Protein < 0.10 (< or = 0.50) mg/dL B-Natriuretic Peptide (<100) pg/mL Total Protein 6.2 L (6.5-8.0) g/dL Albumin 3.9 (3.5-5.0) g/dL Lipase 44 (8-78) U/L TSH 0.66 (0.32-4.0) uIU/mL Urine Color Urine Appearance Urine pH (5.0-9.0) Ur Specific [place] (1.005-1.025) Urine Protein (Neg-Trace) mg/dL Urine Glucose (UA) (Negative) mg/dL Urine Ketones (Negative) mg/dL Urine Blood (Negative) Urine Nitrite (Negative) Ur Leukocyte Esterase (Negative) Urine RBC (0-2) /HPF Urine WBC (0-5) /HPF Ur Squamous Epith Cells (0-2) /HPF Urine Bacteria (None Seen) Hyaline Casts (0-2) /LPF Urine Opiates Screen (Not Detect) Ur Buprenorphine Scrn (Not Detect) ng/mL Ur Oxycodone Screen (Not Detect) ng/mL Urine Methadone Screen (Not Detect) ng/mL Urine Fentanyl Screen (Not Detect) Ur Barbiturates Screen (Not Detect) Ur Phencyclidine Scrn (Not Detect) Ur Amphetamines Screen (Not Detect) U Benzodiazepines Scrn (Not Detect) Urine Cocaine Screen (Not Detect) U Marijuana (THC) Screen (Not Detect) Ethyl Alcohol mg/dL Influenza Type A (PCR) (Negative) Influenza Type B (PCR) (Negative) RSV RNA Qual (PCR) (Negative) SARS-CoV-2 RNA (RT-PCR) (Negative) 06/21/25 06/21/25 06/21/25 Range/Units 21:50 22:02 22:26 WBC (4.8-10.8) X10*3/uL RBC (4.20-5.50) X10*6/uL Hgb (12.0-16.0) g/dl Hct (37.0-47.0) % MCV (80.0-98.0) fL MCH (27.0-33.0) pg MCHC (31.0-35.0) g/dl RDW (11.0-16.0) % Plt Count (160-400) X10*3/uL MPV (9.4-12.3) fL Immature Gran % (Auto) (0.0-0.4) % Neut % (Auto) (45-73) % Lymph % (Auto) (20-40) % [place] % (Auto) (2-11) % Eos % (Auto) (0-4) % Baso % (Auto) (0-2) % Lymph # (Auto) (1.2-4.9) X10*3/uL [place] # (Auto) (0.1-1.2) X10*3/uL Eos # (Auto) (0.0-0.4) X10*3/uL Baso # (Auto) (0.0-0.2) X10*3/uL Abs Immat Gran (auto) (0.00-0.03) X10*3/uL Absolute Neuts (auto) (2.0-8.3) x10*3/uL Absolute Nucleated RBC (0.0-0.012) X10*3/uL Nucleated RBC % (auto) (0.0-0.2) /100WBC PT (10.9-12.4) SEC INR (0.9-1.1) D-Dimer High Sensitivty NG/ML VBG pH (7.32-7.43) VBG pCO2 mmHg VBG pO2 mmHg VBG HCO3 (22-26) mmol/L VBG O2 Saturation % VBG Base Excess mmol/L Sodium (135-145) mmol/L Potassium (3.3-5.1) mmol/L Chloride (96-108) mmol/L Carbon Dioxide (22-29) mmol/L Anion Gap (12-20) BUN (9-16) mg/dL Creatinine (0.5-1.4) mg/dL Estim Creat Clear Calc Estimated GFR POC Glucose 73 (60-115) mg/dL Random Glucose (60-115) mg/dL Calcium (8.4-10.2) mg/dL Magnesium (1.6-2.6) mg/dL Total Bilirubin (0.0-1.0) mg/dL Direct Bilirubin (0.0-0.5) mg/dL AST (5-31) U/L ALT (0-31) U/L Alkaline Phosphatase (39-117) U/L Total Creatine Kinase (26-140) U/L Troponin I High Sens (<3.5-17.0) ng/L C-Reactive Protein (< or = 0.50) mg/dL B-Natriuretic Peptide 1115 H (<100) pg/mL Total Protein (6.5-8.0) g/dL Albumin (3.5-5.0) g/dL Lipase (8-78) U/L TSH (0.32-4.0) uIU/mL Urine Color Dark Yellow Urine Appearance Clear Urine pH 7.0 (5.0-9.0) Ur Specific [place] 1.010 (1.005-1.025) Urine Protein 100 (2+) H (Neg-Trace) mg/dL Urine Glucose (UA) Negative (Negative) mg/dL Urine Ketones Negative (Negative) mg/dL Urine Blood Negative (Negative) Urine Nitrite Negative (Negative) Ur Leukocyte Esterase Trace H (Negative) Urine RBC 0-2 (0-2) /HPF Urine WBC 0-5 (0-5) /HPF Ur Squamous Epith Cells 0-2 (0-2) /HPF Urine Bacteria Trace (None Seen) Hyaline Casts 0-2 (0-2) /LPF Urine Opiates Screen Not Detected (Not Detect) Ur Buprenorphine Scrn Not Detected (Not Detect) ng/mL Ur Oxycodone Screen Not Detected (Not Detect) ng/mL Urine Methadone Screen Not Detected (Not Detect) ng/mL Urine Fentanyl Screen Not Detected (Not Detect) Ur Barbiturates Screen Not Detected (Not Detect) Ur Phencyclidine Scrn Not Detected (Not Detect) Ur Amphetamines Screen Not Detected (Not Detect) U Benzodiazepines Scrn Not Detected (Not Detect) Urine Cocaine Screen Not Detected (Not Detect) U Marijuana (THC) Screen Not Detected (Not Detect) Ethyl Alcohol mg/dL Influenza Type A (PCR) (Negative) Influenza Type B (PCR) (Negative) RSV RNA Qual (PCR) (Negative) SARS-CoV-2 RNA (RT-PCR) (Negative) 06/21/25 Range/Units 22:32 WBC (4.8-10.8) X10*3/uL RBC (4.20-5.50) X10*6/uL Hgb (12.0-16.0) g/dl Hct (37.0-47.0) % MCV (80.0-98.0) fL MCH (27.0-33.0) pg MCHC (31.0-35.0) g/dl RDW (11.0-16.0) % Plt Count (160-400) X10*3/uL MPV (9.4-12.3) fL Immature Gran % (Auto) (0.0-0.4) % Neut % (Auto) (45-73) % Lymph % (Auto) (20-40) % [place] % (Auto) (2-11) % Eos % (Auto) (0-4) % Baso % (Auto) (0-2) % Lymph # (Auto) (1.2-4.9) X10*3/uL [place] # (Auto) (0.1-1.2) X10*3/uL Eos # (Auto) (0.0-0.4) X10*3/uL Baso # (Auto) (0.0-0.2) X10*3/uL Abs Immat Gran (auto) (0.00-0.03) X10*3/uL Absolute Neuts (auto) (2.0-8.3) x10*3/uL Absolute Nucleated RBC (0.0-0.012) X10*3/uL Nucleated RBC % (auto) (0.0-0.2) /100WBC PT (10.9-12.4) SEC INR (0.9-1.1) D-Dimer High Sensitivty NG/ML VBG pH (7.32-7.43) VBG pCO2 mmHg VBG pO2 mmHg VBG HCO3 (22-26) mmol/L VBG O2 Saturation % VBG Base Excess mmol/L Sodium (135-145) mmol/L Potassium (3.3-5.1) mmol/L Chloride (96-108) mmol/L Carbon Dioxide (22-29) mmol/L Anion Gap (12-20) BUN (9-16) mg/dL Creatinine (0.5-1.4) mg/dL Estim Creat Clear Calc Estimated GFR POC Glucose 54 L* (60-115) mg/dL Random Glucose (60-115) mg/dL Calcium (8.4-10.2) mg/dL Magnesium (1.6-2.6) mg/dL Total Bilirubin (0.0-1.0) mg/dL Direct Bilirubin (0.0-0.5) mg/dL AST (5-31) U/L ALT (0-31) U/L Alkaline Phosphatase (39-117) U/L Total Creatine Kinase (26-140) U/L Troponin I High Sens (<3.5-17.0) ng/L C-Reactive Protein (< or = 0.50) mg/dL B-Natriuretic Peptide (<100) pg/mL Total Protein (6.5-8.0) g/dL Albumin (3.5-5.0) g/dL Lipase (8-78) U/L TSH (0.32-4.0) uIU/mL Urine Color Urine Appearance Urine pH (5.0-9.0) Ur Specific [place] (1.005-1.025) Urine Protein (Neg-Trace) mg/dL Urine Glucose (UA) (Negative) mg/dL Urine Ketones (Negative) mg/dL Urine Blood (Negative) Urine Nitrite (Negative) Ur Leukocyte Esterase (Negative) Urine RBC (0-2) /HPF Urine WBC (0-5) /HPF Ur Squamous Epith Cells (0-2) /HPF Urine Bacteria (None Seen) Hyaline Casts (0-2) /LPF Urine Opiates Screen (Not Detect) Ur Buprenorphine Scrn (Not Detect) ng/mL Ur Oxycodone Screen (Not Detect) ng/mL Urine Methadone Screen (Not Detect) ng/mL Urine Fentanyl Screen (Not Detect) Ur Barbiturates Screen (Not Detect) Ur Phencyclidine Scrn (Not Detect) Ur Amphetamines Screen (Not Detect) U Benzodiazepines Scrn (Not Detect) Urine Cocaine Screen (Not Detect) U Marijuana (THC) Screen (Not Detect) Ethyl Alcohol mg/dL Influenza Type A (PCR) (Negative) Influenza Type B (PCR) (Negative) RSV RNA Qual (PCR) (Negative) SARS-CoV-2 RNA (RT-PCR) (Negative) Independent Interpretation I performed an independent interpretation of an: EKG Interpretation: EKG at 2003 shows normal sinus rhythm at 69 beats per minute. There was an old left bundle branch block. No significant change from previous. Critical Care Time Critical Care Time Critical Care Time: Yes Total Critical Care Time: 35 Attestation: The patient was critically ill with a high probability of imminent or life- threatening deterioration. ?I spent greater than 30 minutes of discontinuous time evaluating the patient, delivering critical care at the bedside, discussing evaluating data with consultants. ?Critical care time does not include time spent performing separately billable procedures or teaching. ?Time spent performing critical care with 35 minutes. Discharge Plan Discharge Clinical Impression: Hypoglycemia Patient Disposition: Admitted As Inpatient
[2025-06-21 19:25] VITALS: BP 170/74; PULSE 101; RESP 18; TEMP 36.4; O2SAT 97
--- NOTE | 2025-06-21 19:26 | ECG_ITS ---
Test Reason : AMS Blood Pressure : */* mmHG Vent. Rate : 69 BPM Atrial Rate : 69 BPM P-R Int : 156 ms QRS Dur : 146 ms QT Int : 420 ms P-R-T Axes : 66 23 159 degrees QTcB Int : 450 ms Normal sinus rhythm Left bundle branch block Abnormal ECG When compared with ECG of 16-Jul-2024 19:15, QT has shortened Referred By: Dany Ledezma Electronically Signed By: MARIELA JOYA
[2025-06-21 19:45] LABS: MANUAL DIFF FLAG NO
[2025-06-21 19:48] LABS: Hematocrit 31.4 % (37.0-47.0); Hemoglobin 10.5 g/dl (12.0-16.0); Imm Gran Abs Auto 0.02 X10*3/uL (0.00-0.03); Imm Gran Pct Auto 0.3 % (0.0-0.4); Lymphocytes Absolute Auto 0.8 X10*3/uL (1.2-4.9); Mean Corpuscular HGB Conc 33.4 g/dl (31.0-35.0); Mean Corpuscular Hemoglobin 30.9 pg (27.0-33.0); Mean Corpuscular Volume 92.4 fL (80.0-98.0); NRBC Abs Auto 0.000 X10*3/uL (0.0-0.012); NRBC Pct Auto 0.0 /100WBC (0.0-0.2); Platelet Count 138 X10*3/uL (160-400); Red Blood Count 3.40 X10*6/uL (4.20-5.50); White Blood Count 7.6 X10*3/uL (4.8-10.8)
[2025-06-21 19:48] LABS: Venous Blood Gas Refer to POC result
[2025-06-21 19:51] LABS: VBG HCO3 34 mmol/L (22-26); VBG O2 % Saturation 54.0 %
[2025-06-21 19:53] LABS: INTERNATIONAL NORM RATIO 1.2 (0.9-1.1); Prothrombin Time 13.4 SEC (10.9-12.4)
[2025-06-21 20:05] LABS: B Type Natriuretic Peptide 993 pg/mL (<100)
[2025-06-21 20:11] LABS: Troponin-I High Sensitivity 48.9 ng/L (<3.5-17.0)
[2025-06-21 20:17] LABS: Alanine Aminotransferase 14 U/L (0-31); Albumin Level 3.8 g/dL (3.5-5.0); Alkaline Phosphatase 52 U/L (39-117); Anion Gap 11 (12-20); Aspartate Amino Transferase 27 U/L (5-31); Blood Urea Nitrogen 16 mg/dL (9-16); Calcium 8.8 mg/dL (8.4-10.2); Carbon Dioxide 27 mmol/L (22-29); Chloride 100 mmol/L (96-108); Creatinine Clr Calc Pharmacy 36.7; Estimated Glomerular Filt Rate 46; Lipase 45 U/L (8-78); Potassium 3.1 mmol/L (3.3-5.1); Sodium 135 mmol/L (135-145); Total Protein 6.0 g/dL (6.5-8.0)
[2025-06-21 20:19] LABS: Magnesium 1.4 mg/dL (1.6-2.6)
[2025-06-21 20:24] LABS: Resp Syncy Virus RNA Qual PCR NEGATIVE (Negative); SARS COV2 PCR INHOUSE NEGATIVE (Negative)
[2025-06-21 20:25] LABS: Thyroid Stimulating Hormone 0.74 uIU/mL (0.32-4.0)
--- NOTE | 2025-06-21 20:59 | PC.NURSE ---
pts POC was 44- pt states she feels tired and mouth is dry . RN informed provider. Provider informed RN to give pt a dusty genesis and a sandwich.
[2025-06-21 21:00] LABS: Glucose, Whole Blood 44 mg/dL (60-115)
[2025-06-21 21:43] LABS: Thyroid Stimulating Hormone 0.66 uIU/mL (0.32-4.0)
[2025-06-21 21:44] LABS: Alanine Aminotransferase 15 U/L (0-31); Albumin Level 3.9 g/dL (3.5-5.0); Alkaline Phosphatase 54 U/L (39-117); Anion Gap 10 (12-20); Aspartate Amino Transferase 26 U/L (5-31); Blood Urea Nitrogen 17 mg/dL (9-16); Calcium 9.2 mg/dL (8.4-10.2); Carbon Dioxide 29 mmol/L (22-29); Chloride 105 mmol/L (96-108); Creatinine Clr Calc Pharmacy 40.0; Estimated Glomerular Filt Rate 51; Lipase 44 U/L (8-78); Potassium 3.3 mmol/L (3.3-5.1); Sodium 141 mmol/L (135-145); Total Protein 6.2 g/dL (6.5-8.0)
[2025-06-21 21:54] LABS: Glucose, Whole Blood 73 mg/dL (60-115)
[2025-06-21 22:10] LABS: Appearance Urine Clear; Glucose Urine UA Negative (Negative); PH 7.0 (5.0-9.0); Specific Gravity - Urine 1.010 (1.005-1.025); UMIC TRIGGER UACC YES
[2025-06-21 22:25] LABS: Cannabinoid Screen Urine Not Detected (Not Detect)
[2025-06-21 22:27] VITALS: BP 174/145; PULSE 72; RESP 18; TEMP 36.3
[2025-06-21 22:39] LABS: D Dimer High Sensitivity < 150 NG/ML
[2025-06-21 22:43] LABS: Magnesium 1.5 mg/dL (1.6-2.6)
[2025-06-21 22:49] LABS: Glucose, Whole Blood 54 mg/dL (60-115)
[2025-06-21 22:50] LABS: B Type Natriuretic Peptide 1115 pg/mL (<100)
[2025-06-21 22:50] LABS: Troponin-I High Sensitivity 58.2 ng/L (<3.5-17.0)
--- NOTE | 2025-06-21 23:03 | PC.NURSE ---
D5 NS started d/t hypoglycemic episodes. Will continue to monitor poc.
[2025-06-21 23:12] VITALS: BP 146/63; PULSE 73; RESP 13; O2SAT 95
--- NOTE | 2025-06-21 23:26 | PC.NURSE ---
Repeat POC 50, patient is awake, alert, asymptomatic for hypoglycemia, VSS. Dr. Ledezma notified, D5 in NS infusion rate increased from 50 ml/hr to 75 mL/hr per Dr. Ledezma verbal order.
--- NOTE | 2025-06-21 23:35 | P.HPHOSP_ITS ---
History of Present Illness Date of Service: 06/21/25 Chief Complaint: Syncope 80-year-old female with a past medical history of CAD status post cardiac catheterization, cardiomyopathy, anemia, chronic pain, B12 deficiency, asthma, BPPV presented to the hospital today with a chief complaint of syncope. Patient reported that she has been feeling weak and tired all day. Patient's reports that patient passed out in college. She has not had anything all day. Subsequently called EMS. In the EMS arrived patient is unconscious and concern for possible airway protection but when checked blood glucose levels it was 63. Given dextrose and with improvement in mental status. Patient asymptomatic in the ER. Alert and awake and answering questions appropriately. Denies any chest pain or palpitations. Denies any lightheaded and dizziness. Denies any shortness of breath or dyspnea on exertion. Denies any GI or symptoms. Review of all other systems is negative except mentioned above ER course: Per ER physician, On arrival here her point of care was 103. She was given dusty genesis Something must have gone wrong with her initial basic metabolic panel because her blood sugar from the lab came back at 518. We then checked another point of care in her blood sugar was 44. She was given a sandwich and orange juice. Another basic metabolic panel was sent and this gave a glucose 44 at 9:00 She was given additional food and orange juice. At 9:50 her blood sugar was 73 by point of care. At10:30 her blood sugar was 54. At that point we started D5 normal saline. Otherwise the patient does not really have any complaints or symptoms. She has an old left bundle branch block on her EKG. She has a white count of 7.6. Hemoglobin stable at 10.5. D-dimer less than 150. Troponins are 48.9 and 58.2 After 30 minutes of a D5 normal saline drip another point of care is 50. [facility] Medical History Coronary artery disease Family History (Updated 04/17/25 @ 14:25 by Daniela García MA) Mother CAD (coronary artery disease) Father No problems noted. Surgical History History of cardiac catheterization History of heart artery stent Social History Household Members: Spouse Housing: House Do you presently have visiting nurse or other home services: No Alcohol intake: current Alcohol intake frequency: 0-2 drinks per day Alcohol type: beer and wine Patient Tobacco Use Status: Former Tobacco user Tobacco use type: Cigarette Cigarette Packs Per Day: 0.25 Years Smoked: 30 Smoked in Last 30 Days: No e-Cigarette/Vaping Use: Former Use Second Hand Smoke Exposure: No Use of substances other than those prescribed or required for medical reasons: No Advance Directives: No Advance Directives Information Provided: No service: No Current occupational status: retired Current occupation: right handed, retired Cognitive needs: No Hearing needs: No Vision needs: Yes (rx glasses) Meds Allergies Allergy/AdvReac Type Severity Reaction Status Date / Time pollen extracts Allergy Intermediate Sneezing Verified 06/21/25 19:17 citalopram Allergy Unknown upsets Verified 06/21/25 19:17 stomach Active Medications: Current Medications Acetaminophen (Acetaminophen 325 Mg Tablet) 650 mg PO Q6H PRN PRN Reason: Pain, Mild 1-3,fever,headache Calcium Carbonate (Calcium Carbonate 750 Mg Tab.Chew) 750 mg PO Q4H PRN PRN Reason: Heartburn Dextrose (Dextrose 50 % 25 Gm/50 Ml Syringe) 25 gm IVPUSH Q15M PRN; Protocol PRN Reason: per Hypoglycemia Standing Ord. Enoxaparin Sodium (Enoxaparin Sodium 40 Mg/0.4 Ml Syringe) 40 mg SUBCUT Q24H GERARD Glucose (Glucose Gel 15 Gm Gel..Gram.) 15 gm PO Q15M PRN; Protocol PRN Reason: per Hypoglycemia Standing Ord. Dextrose/Sodium Chloride (D5ns) 1,000 mls @ 50 mls/hr IVCONT .Q20H [facility] Last Infusion: 06/21/25 23:26 Dose: 75 mls/hr Magnesium Hydroxide (Milk Of Magnesia 30 Ml Oral.Susp) 30 ml PO DAILY PRN PRN Reason: Constipation Melatonin (Melatonin 3 Mg Tablet) 6 mg PO BEDTIME PRN PRN Reason: Insomnia Sodium Chloride (0.9 % Sodium Chloride Flush 3 Ml Syringe) 3 ml IVFLUSH QSHIFT [facility] Home Medications ?Medication ?Instructions ?Recorded ?Confirmed ?Last Taken ?Type aspirin 81 mg tablet,delayed 81 mg PO DAILY 10/27/21 0 07/17/24 07/16/24 History release dicyclomine 20 mg tablet 20 mg PO BID 10/27/2107/16/24 History albuterol sulfate 90 mcg/actuation 2 puff inhalation Q 4-6H PRN 04/19/22 07/17/24 Unknown History aerosol inhaler Shortness Of Breath Or Wheez ing fluticasone 500 mcg-salmeterol 50 1 ea inhalation BID 10/26/22 07/17/24 07/16/24 History mcg/dose blistr powdr for inhalation (Advair Diskus) cholecalciferol (vitamin D3) 50 50 mcg PO DAILY 07/17/24 07/16/24 History mcg (2,000 unit) tablet (Vitamin D3) umeclidinium 62.5 mcg/actuation 1 inh inhalation DAILY 07/17/24 07/17/24 07/16/24 History blister powder for inhalation (Incruse Ellipta) Physical Exam 2 Vital Signs and Narrative: Vital Signs: Last Vital Signs Temp 97.4 F 06/21/25 22:27 Pulse 73 06/21/25 23:12 Resp 13 06/21/25 23:12 BP 146/63 H 06/21/25 23:12 Pulse Ox 95 06/21/25 23:12 O2 Del Method Room Air 06/21/25 23:12 BMI result Body Mass Index 25.4 Gen: Appears be in no acute distress HEENT: NCAT, Moist mucosa. Pulmonary: Vesicular breath sounds, fair air entry CVS: Normal S1-S2 Abdomen: BS+, Soft, Nontender Extremities: Warm well perfused Neuro: Alert and awake. Results Labs 06/21/25 19:39 06/21/25 21:03 Labs: Laboratory Results - last 24 hr 06/21/25 06/21/25 06/21/25 19:11 19:39 19:43 MCV 92.4 MCH 30.9 MCHC 33.4 RDW 12.9 Plt Count 138 L MPV 11.0 Immature Gran % (Auto) 0.3 Neut % (Auto) 79.5 H Lymph % (Auto) 10.[address] [place] % (Auto) 8.3 Eos % (Auto) 0.8 Baso % (Auto) 0.5 Lymph # (Auto) 0.[address] [place] # (Auto) 0.6 Eos # (Auto) 0.1 Baso # (Auto) 0.0 Abs Immat Gran (auto) 0.02 Absolute Neuts (auto) 6.0 Absolute Nucleated RBC 0.000 Nucleated RBC % (auto) 0.0 PT 13.4 H INR 1.2 H D-Dimer High Sensitivty < 150 VBG pH VBG pCO2 VBG pO2 VBG HCO3 VBG O2 Saturation VBG Base Excess Anion Gap 11 L Estim Creat Clear Calc 36.7 Estimated GFR 46 POC Glucose 103 Random Glucose 518 H* Calcium 8.8 D Magnesium 1.4 L* Total Bilirubin 0.4 Direct Bilirubin 0.1 AST 27 ALT 14 Alkaline Phosphatase 52 Total Creatine Kinase 69 C-Reactive Protein < 0.10 B-Natriuretic Peptide 993 H Total Protein 6.0 L Albumin 3.8 Lipase 45 TSH 0.74 Urine Color Urine Appearance Urine pH Ur Specific [place] Urine Protein Urine Glucose (UA) Urine Ketones Urine Blood Urine Nitrite Ur Leukocyte Esterase Urine RBC Urine WBC Ur Squamous Epith Cells Urine Bacteria Hyaline Casts Urine Opiates Screen Ur Buprenorphine Scrn Ur Oxycodone Screen Urine Methadone Screen Urine Fentanyl Screen Ur Barbiturates Screen Ur Phencyclidine Scrn Ur Amphetamines Screen U Benzodiazepines Scrn Urine Cocaine Screen U Marijuana (THC) Screen Ethyl Alcohol < 10 Influenza Type A (PCR) NEGATIVE Influenza Type B (PCR) NEGATIVE RSV RNA Qual (PCR) NEGATIVE SARS-CoV-2 RNA (RT-PCR) NEGATIVE 06/21/25 06/21/25 06/21/25 19:46 20:54 21:03 MCV MCH MCHC RDW Plt Count MPV Immature Gran % (Auto) Neut % (Auto) Lymph % (Auto) [place] % (Auto) Eos % (Auto) Baso % (Auto) Lymph # (Auto) [place] # (Auto) Eos # (Auto) Baso # (Auto) Abs Immat Gran (auto) Absolute Neuts (auto) Absolute Nucleated RBC Nucleated RBC % (auto) PT INR D-Dimer High Sensitivty VBG pH 7.44 H VBG pCO2 50 VBG pO2 35 VBG HCO3 34 H VBG O2 Saturation 54.0 VBG Base Excess 9.1 Anion Gap 10 L Estim Creat Clear Calc 40.0 Estimated GFR 51 POC Glucose 44 L* Random Glucose 44 L* Calcium 9.2 Magnesium 1.5 L Total Bilirubin 0.4 Direct Bilirubin 0.2 AST 26 ALT 15 Alkaline Phosphatase 54 Total Creatine Kinase C-Reactive Protein < 0.10 B-Natriuretic Peptide Total Protein 6.2 L Albumin 3.9 Lipase 44 TSH 0.66 Urine Color Urine Appearance Urine pH Ur Specific [place] Urine Protein Urine Glucose (UA) Urine Ketones Urine Blood Urine Nitrite Ur Leukocyte Esterase Urine RBC Urine WBC Ur Squamous Epith Cells Urine Bacteria Hyaline Casts Urine Opiates Screen Ur Buprenorphine Scrn Ur Oxycodone Screen Urine Methadone Screen Urine Fentanyl Screen Ur Barbiturates Screen Ur Phencyclidine Scrn Ur Amphetamines Screen U Benzodiazepines Scrn Urine Cocaine Screen U Marijuana (THC) Screen Ethyl Alcohol Influenza Type A (PCR) Influenza Type B (PCR) RSV RNA Qual (PCR) SARS-CoV-2 RNA (RT-PCR) 06/21/25 06/21/25 06/21/25 21:50 22:02 22:26 MCV MCH MCHC RDW Plt Count MPV Immature Gran % (Auto) Neut % (Auto) Lymph % (Auto) [place] % (Auto) Eos % (Auto) Baso % (Auto) Lymph # (Auto) [place] # (Auto) Eos # (Auto) Baso # (Auto) Abs Immat Gran (auto) Absolute Neuts (auto) Absolute Nucleated RBC Nucleated RBC % (auto) PT INR D-Dimer High Sensitivty VBG pH VBG pCO2 VBG pO2 VBG HCO3 VBG O2 Saturation VBG Base Excess Anion Gap Estim Creat Clear Calc Estimated GFR POC Glucose 73 Random Glucose Calcium Magnesium Total Bilirubin Direct Bilirubin AST ALT Alkaline Phosphatase Total Creatine Kinase C-Reactive Protein B-Natriuretic Peptide 1115 H Total Protein Albumin Lipase TSH Urine Color Dark Yellow Urine Appearance Clear Urine pH 7.0 Ur Specific [place] 1.010 Urine Protein 100 (2+) H Urine Glucose (UA) Negative Urine Ketones Negative Urine Blood Negative Urine Nitrite Negative Ur Leukocyte Esterase Trace H Urine RBC 0-2 Urine WBC 0-5 Ur Squamous Epith Cells 0-2 Urine Bacteria Trace Hyaline Casts 0-2 Urine Opiates Screen Not Detected Ur Buprenorphine Scrn Not Detected Ur Oxycodone Screen Not Detected Urine Methadone Screen Not Detected Urine Fentanyl Screen Not Detected Ur Barbiturates Screen Not Detected Ur Phencyclidine Scrn Not Detected Ur Amphetamines Screen Not Detected U Benzodiazepines Scrn Not Detected Urine Cocaine Screen Not Detected U Marijuana (THC) Screen Not Detected Ethyl Alcohol Influenza Type A (PCR) Influenza Type B (PCR) RSV RNA Qual (PCR) SARS-CoV-2 RNA (RT-PCR) 06/21/25 22:32 MCV MCH MCHC RDW Plt Count MPV Immature Gran % (Auto) Neut % (Auto) Lymph % (Auto) [place] % (Auto) Eos % (Auto) Baso % (Auto) Lymph # (Auto) [place] # (Auto) Eos # (Auto) Baso # (Auto) Abs Immat Gran (auto) Absolute Neuts (auto) Absolute Nucleated RBC Nucleated RBC % (auto) PT INR D-Dimer High Sensitivty VBG pH VBG pCO2 VBG pO2 VBG HCO3 VBG O2 Saturation VBG Base Excess Anion Gap Estim Creat Clear Calc Estimated GFR POC Glucose 54 L* Random Glucose Calcium Magnesium Total Bilirubin Direct Bilirubin AST ALT Alkaline Phosphatase Total Creatine Kinase C-Reactive Protein B-Natriuretic Peptide Total Protein Albumin Lipase TSH Urine Color Urine Appearance Urine pH Ur Specific [place] Urine Protein Urine Glucose (UA) Urine Ketones Urine Blood Urine Nitrite Ur Leukocyte Esterase Urine RBC Urine WBC Ur Squamous Epith Cells Urine Bacteria Hyaline Casts Urine Opiates Screen Ur Buprenorphine Scrn Ur Oxycodone Screen Urine Methadone Screen Urine Fentanyl Screen Ur Barbiturates Screen Ur Phencyclidine Scrn Ur Amphetamines Screen U Benzodiazepines Scrn Urine Cocaine Screen U Marijuana (THC) Screen Ethyl Alcohol Influenza Type A (PCR) Influenza Type B (PCR) RSV RNA Qual (PCR) SARS-CoV-2 RNA (RT-PCR) Assessment and Plan (1) Hypoglycemia: Status: Acute Plan 80-year-old female with a past medical history of CAD status post cardiac catheterization, cardiomyopathy, anemia, chronic pain, B12 deficiency, asthma, BPPV presented to the hospital today with a chief complaint of syncope. Syncope: EKG nonischemic Troponins indeterminate and plateaued Echocardiogram Telemetry Cardiology consult Holter at the time of discharge Hypoglycemia: Will obtain hypoglycemia panel Dextrose p.r.n. Continue D5 NS Q2h POC glucose CAD: Continue aspirin, Plavix, statin Hypothyroidism: Continue levothyroxine Anxiety: Ativan p.r.n. Neuropathy: Continue gabapentin Hypertension: Continue atenolol DVT prophylaxis: Lovenox Code status: Full code Quality Stroke Does the patient have a stroke diagnosis?: No VTE Prior VTE?: No VTE Risk Level:: Medical - moderate - high VTE Device Contraindication: Treatment Not Indicated VTE Drug Contraindication: N/A - Med Ordered
[2025-06-22] VITALS (11 sets, daily range): BP systolic 80–158; BP diastolic 46–67; PULSE 69–82; RESP 13–20; TEMP 36.6–37.2; O2SAT 92–100; BMI 24.6
[2025-06-22] MEDS: Dextrose 10 % 1,000 ML 50 ML IVCONT (00:32)
[2025-06-22 00:46] LABS: Glucose, Whole Blood 124 mg/dL (60-115)
[2025-06-22 00:46] LABS: Glucose, Whole Blood 47 mg/dL (60-115)
[2025-06-22 00:54] LABS: Troponin-I High Sensitivity 64.0 ng/L (<3.5-17.0)
[2025-06-22 01:50] LABS: Glucose, Whole Blood 72 mg/dL (60-115)
[2025-06-22 01:50] LABS: Glucose, Whole Blood 67 mg/dL (60-115)
--- NOTE | 2025-06-22 03:18 | PC.NURSE ---
POC 52, patient asymptomatic for hypoglycemia. Dr. Bauer notified, PRN D50 IVP administered, D10 infusion rate increased from 50 ml/hr to 75 mL hr, repeat POC 190. VSS. Patient is able to make her needs known, call collier placed within patient's reach.
[2025-06-22 03:42] LABS: Glucose, Whole Blood 190 mg/dL (60-115)
[2025-06-22 03:42] LABS: Glucose, Whole Blood 122 mg/dL (60-115)
[2025-06-22 03:42] LABS: Glucose, Whole Blood 52 mg/dL (60-115)
[2025-06-22 04:09] LABS: Glucose, Whole Blood 96 mg/dL (60-115)
[2025-06-22 04:30] LABS: Glucose, Whole Blood 87 mg/dL (60-115)
[2025-06-22 04:49] LABS: MANUAL DIFF FLAG NO
[2025-06-22 05:07] LABS: Hematocrit 29.5 % (37.0-47.0); Hemoglobin 9.8 g/dl (12.0-16.0); Imm Gran Abs Auto 0.02 X10*3/uL (0.00-0.03); Imm Gran Pct Auto 0.3 % (0.0-0.4); Lymphocytes Absolute Auto 1.3 X10*3/uL (1.2-4.9); Mean Corpuscular HGB Conc 33.2 g/dl (31.0-35.0); Mean Corpuscular Hemoglobin 30.9 pg (27.0-33.0); Mean Corpuscular Volume 93.1 fL (80.0-98.0); NRBC Abs Auto 0.000 X10*3/uL (0.0-0.012); NRBC Pct Auto 0.0 /100WBC (0.0-0.2); Platelet Count 127 X10*3/uL (160-400); Red Blood Count 3.17 X10*6/uL (4.20-5.50); White Blood Count 6.6 X10*3/uL (4.8-10.8)
[2025-06-22 05:08] LABS: Alanine Aminotransferase 12 U/L (0-31); Albumin Level 3.5 g/dL (3.5-5.0); Alkaline Phosphatase 52 U/L (39-117); Anion Gap 11 (12-20); Aspartate Amino Transferase 23 U/L (5-31); Blood Urea Nitrogen 16 mg/dL (9-16); Calcium 9.0 mg/dL (8.4-10.2); Carbon Dioxide 26 mmol/L (22-29); Chloride 108 mmol/L (96-108); Creatinine Clr Calc Pharmacy 36.7; Estimated Glomerular Filt Rate 46; Potassium 3.3 mmol/L (3.3-5.1); Sodium 142 mmol/L (135-145); Total Protein 5.6 g/dL (6.5-8.0)
[2025-06-22 05:16] LABS: Hemoglobin A1C 87.0239 umol/L; Total Hemoglobin (HGBA1C) 2673.8357 umol/L
[2025-06-22 05:29] LABS: Glucose, Whole Blood 89 mg/dL (60-115)
--- NOTE | 2025-06-22 06:46 | PC.NURSE ---
pt poc was 69- MD made aware. New order to offer pt ice cream.
--- NOTE | 2025-06-22 07:00 | CA_ITS ---
Transthoracic Echocardiogram Patient (Last, First, Middle): Tonia Lynch, Gender: Female Date of : 1945 Age: 80 Procedure Date: 06/22/2025 Procedure Type: Transthoracic Echocardiogram [place] [facility] [place]: 162.56 cm Weight: 67.13 kg BSA: 1.72 m2 Heart Rate: 75 bpm BP: 151 / 58 mmHg Organic Chemistry Teacher: NATALIE Referring MD: Catarino Bauer MD Symptoms: chf Study Quality: Fair, could not tolerate ECG Rhythm: Sinus Conclusions: - The left ventricular systolic function is mildly decreased. The calculated ejection fraction is 43% by biplane method. - The inferoseptal wall, the basal inferior, basal anteroseptal, mid anteroseptal, and basal inferolateral segments are akinetic. - No obvious valvular pathology seen on this study. Findings Procedure Information The study quality is limited by the patients inability to tolerate the test. Left Ventricle Normal left ventricular cavity size. There is moderately increased left ventricular wall thickness. The left ventricular systolic function is mildly decreased. The calculated ejection fraction is 43% by biplane method. There is evidence of regional wall motion abnormalities. Evidence suggests grade I (mild) diastolic dysfunction. Wall Motion Rest Echo Findings The inferoseptal wall, the basal inferior, basal anteroseptal, mid anteroseptal, and basal inferolateral segments are akinetic. Right Ventricle Normal right ventricular cavity size and systolic function. Atria The left atrium is mildly dilated. The right atrium is normal in size. Aortic Valve There is a normal trileaflet aortic valve. There is mild calcification of the aortic valve. There is no aortic valve stenosis. There is trace (trivial) aortic valve regurgitation. Mitral Valve There is mild mitral annular calcification. There is mild mitral valve regurgitation. There is no mitral valve stenosis. Pulmonic Valve The pulmonic valve is likely normal. Tricuspid Valve There is trace tricuspid valve regurgitation. There is no evidence of pulmonary hypertension. Great Vessels The asc aorta is normal in size. Venous The inferior vena cava is normal in size and collapses greater than 50% with inspiration. Pericardium/Pleural There is no evidence of pericardial effusion. Prior Study Comparison No significant change compared to prior study dated: 08/29/2022. Recommendations, Care & Conclusions No obvious valvular pathology seen on this study. Measurements 2D Linear Measurements IVSd: 0.95 0.6-0.9/0.6-1.0 cm LVIDd: 4.69 3.9-5.3/4.2-5.9 cm LVIDd Index: 2.73 2.4-3.2/2.2-3.1 cm/m2 LVIDs: 3.74 2.0-3.6 cm LVPWd: 1.47 0.7-1.1 cm LA Diam: 3.70 2.7-3.8/3.0-4.0 cm LAIDs Index: 2.15 1.5-2.3 cm/m2 LV Mass: 267.15 67-162/88-224 g LV Mass Index: 155.32 43-95/49-115 g/m2 LVOT Diam: 2.20 3.0+(-)1.3 cm 2D Systolic Function EF 4C: 41.80 >55% EF 2C: 46.00 >55% EF BiP: 43.30 >55% Mitral Valve MV Pk E: 0.59 MV PK A: 0.99 MV Decel Time: 169.00 E/A: 0.60 E'Lateral: 4.90 E'Medial: 3.15 E/E' Med: 18.60 E/E' Lat: 12.00 PHT: 49.00 MVA PHT: 4.49 Decel Mower: 3.48 Aortic Valve AoV Pk Pipo: 1.29 AoV Mn Pipo: 0.87 AoV VTI: 0.29 AoV Pk Grad: 7.00 Aov Mn Grad: 3.00 ABIGAIL Cont.VTI: 2.52 LVOT LVOT Pk Pipo: 0.72 LVOT Mn Pipo: 0.55 LVOT VTI: 0.19 LVOT Pk Grad: 2.00 LVOT Mn Grad: 1.00 LVOT Diam: 2.20 LVOT Area: 3.80 Diastolic Function MV Pk E: 0.59 MV Pk A: 0.99 E/A: 0.60 E'Medial: 3.15 E/E' Med: 18.60 E' Laterial: 4.90 E/E' Lat: 12.00 Right Ventricle TAPSE (mm): 24.00 TVS' Pipo: 15.30 Tricuspid Valve TR Pk Pipo: 2.14 TR Pk Grad: 18.00 Great Vessels Aorta Sinus of Valsalva: 3.30 2.0-3.5 cm Ao Asc: 3.50 2.1-3.4 cm Ao Arch: 3.00 Pulmonary Valve PV Pk Pipo: 0.81 Peak PV Grad: 3.00 Updated in Other Vendor System with Status of Final Fracisco Leonard MD electronically signed on 06/22/2025 12:29:24 PM with status of Final
--- NOTE | 2025-06-22 07:00 | PC.NURSE ---
BG was reported low from hand-off nurses, pt provided with orange juice with sugar packets and ice cream.
[2025-06-22 07:26] LABS: Glucose, Whole Blood 69 mg/dL (60-115)
[2025-06-22 07:32] LABS: Glucose, Whole Blood 114 mg/dL (60-115)
[2025-06-22 08:07] LABS: Glucose, Whole Blood 122 mg/dL (60-115)
--- NOTE | 2025-06-22 08:46 | PHA.MEDREC ---
Addendum entered by Tomy Bustillo PharmD 06/22/25 09:01: reviewed Original Note: Pharmacy Consult ? Medication Reconciliation Pharmacy has completed the medication reconciliation. Spoke with pt and she confirmed her medications. Pt confirmed her Levothyroxine 50mcg is only taken on Mo & and nothing on Dave.
[2025-06-22] MEDS: Aspirin Enteric Coated 81 MG TABLET.DR PO (10:40)
[2025-06-22] MEDS: Glucose Gel 15 GM GEL..GRAM. PO (11:22)
[2025-06-22 11:28] LABS: Glucose, Whole Blood 57 mg/dL (60-115)
[2025-06-22 11:47] LABS: Glucose, Whole Blood 96 mg/dL (60-115)
[2025-06-22] MEDS: Fluticasone/Vilanterol 200/25 BLST.W.DEV 1 PUFF INHALE (11:58)
[2025-06-22] MEDS: Tiotropium Bromide 2.5 mcg 1 PUFF/2.5 MCG MIST.INHAL 2 PUFF INHALE (11:58)
--- NOTE | 2025-06-22 13:04 | MHC.CM.PN ---
Addendum entered by Katy Cruz RN 06/22/25 13:12: REFERRALS PLACED TO [facility] AND [facility]. Original Note: IMM 06/22/25, EMR REVIEWED, PT W/SYNCOPE/HYPOGLYCEMIA, CM MET W/PT AND PREM AND SON MISAEL AT BEDSIDE, PT REPORTS SHE LIVES W/, ADULT DTR AND SON MISAEL WILL BE MOVING IN W/PT WELL. PT USES A CANE HOWEVER ALSO HAS A FWW AT HOME, PT DENIES HOME SERVICES AND GOAL FOR DC IS HOME W/NEW [facility] AND REF TO [facility] FOR SOMEONE TO ASSIST W/CLEANING. PT UNABLE TO RECALL NAME OF NEW PROVIDER AT DR. STOKES OFFICE THE PROVIDER SHE SAW AFTER DR. MORA RETIRED LEFT PRACTICE AND NOW HAS A NEW ONE ASSIGNED, CM CONTACTED OFFICE AND PT WILL SEE [facility] MORFIN ON 07/14 AT 3:15PM, PT'S SON MISAEL VERIFIES PT DOES HAVE A HCP ON FILE AT DR. STOKES OFFICE HOWEVER RECEPTIO AT OFFICE COULD NOT LOCATE, COPY REQUESTED.
[2025-06-22 14:13] LABS: Glucose, Whole Blood 116 mg/dL (60-115)
--- NOTE | 2025-06-22 14:58 | P.PNIM_ITS ---
Subjective Subjective Date of Service: 06/22/25 Interval History: f/u syncope, hypoglycemia Patient feeling well, reports poor p.o. intake over the last few days, decreased appetite, no nausea, vomiting or abdominal pain Denies chest pain, shortness of breath Review of Systems Review of Systems: Yes all other systems are reviewed and are negative Physical Exam 2 Exam: Exam: General: AOx3, no acute distress Resp: CTA bilaterally CVS: S1, S2, RRR GI: +BS, NT, no distention Skin: Warm, dry Neuro: Cranial nerves II-XII grossly intact bilaterally. Motor grossly intact bilaterally. Normal strength bilateral upper and lower extremities. Extremities: No LE edema Psych: Appropriate affect Vital Signs: Vital Signs: Last Vital Signs Temp 98.9 F 06/22/25 11:57 Pulse 75 06/22/25 12:01 Resp 16 06/22/25 12:01 BP 140/46 H 06/22/25 11:57 Pulse Ox 98 06/22/25 11:57 O2 Del Method Room Air 06/22/25 11:57 BMI result Body Mass Index 24.6 Objective Data Active Medications Acetaminophen (Acetaminophen 325 Mg Tablet) 650 mg PO Q6H PRN PRN Reason: Pain, Mild 1-3,fever,headache Last Admin: 06/22/25 04:38 Dose: 650 mg Documented By: CARISSA Albuterol Sulfate (Albuterol Sulfate 90 Mcg 8 Gm Inhaler) 2 puff INHALE Q4H PRN PRN Reason: Shortness Of Breath Or Wheezing Aspirin (Aspirin Enteric Coated 81 Mg Tablet.) 81 mg PO DAILY [facility] Last Admin: 06/22/25 10:40 Dose: 81 mg Documented By: ANA Atenolol (Atenolol 25 Mg Tablet) 25 mg PO DAILY [facility]; Protocol Last Admin: 06/22/25 10:49 Dose: Not Given Documented By: ANA Non-Admin Reason: Physician Held Med Atorvastatin Calcium (Atorvastatin Calcium 80 Mg Tablet) 80 mg PO BEDTIME [facility] Calcium Carbonate (Calcium Carbonate 750 Mg Tab.Chew) 750 mg PO Q4H PRN PRN Reason: Heartburn Clopidogrel Bisulfate (Clopidogrel Bisulfate 75 Mg Tablet) 75 mg PO DAILY [facility] Last Admin: 06/22/25 10:41 Dose: Not Given Documented By: ANA Non-Admin Reason: Patient Refused Dextrose (Dextrose 50 % 25 Gm/50 Ml Syringe) 25 gm IVPUSH Q15M PRN; Protocol PRN Reason: per Hypoglycemia Standing Ord. Last Admin: 06/22/25 02:55 Dose: 25 gm Documented By: RACHEL Enoxaparin Sodium (Enoxaparin Sodium 40 Mg/0.4 Ml Syringe) 40 mg SUBCUT Q24H [facility] Last Admin: 06/22/25 00:11 Dose: 40 mg Documented By: CARISSA Fluticasone/Vilanterol (Fluticasone/Vilanterol 200/25 Blst.W.Dev) 1 puff INHALE RDAILY [facility] Last Admin: 06/22/25 11:58 Dose: 1 puff Documented By: MARIANO Glucose (Glucose Gel 15 Gm Gel..Gram.) 15 gm PO Q15M PRN; Protocol PRN Reason: per Hypoglycemia Standing Ord. Last Admin: 06/22/25 11:22 Dose: 15 gm Documented By: BROBibiana Levothyroxine Sodium (Levothyroxine Sodium 50 Mcg Tablet) 50 mcg PO DAILY@0600 [facility] Last Admin: 06/22/25 05:21 Dose: 50 mcg Documented By: CARISSA Lorazepam (Lorazepam 1 Mg Tablet) 1 mg PO BID PRN PRN Reason: Anxiety Magnesium Hydroxide (Milk Of Magnesia 30 Ml Oral.Susp) 30 ml PO DAILY PRN PRN Reason: Constipation Melatonin (Melatonin 3 Mg Tablet) 6 mg PO BEDTIME PRN PRN Reason: Insomnia Multivitamins/Vitamin C (Multivitamin Tablet) 1 tab PO DAILY [facility] Pantoprazole Sodium (Pantoprazole Sodium 20 Mg Tablet.Dr) 40 mg PO DAILY@0630 [facility] Sodium Chloride (0.9 % Sodium Chloride Flush 3 Ml Syringe) 3 ml IVFLUSH QSHIFT [facility] Last Admin: 06/22/25 07:52 Dose: Not Given Documented By: SHASHI Non-Admin Reason: IV Running Tiotropium [place] (Tiotropium [place] 2.5 Mcg 1 Puff/2.5 Mcg Mist.Inhal) 2 puff INHALE RDAILY [facility] Last Admin: 06/22/25 11:58 Dose: 2 puff Documented By: MARIANO Vitamin D (Cholecalciferol (Vitamin D3) 25 Mcg Tablet) 50 mcg PO DAILY [facility] Labs 06/22/25 03:53 06/22/25 03:53 Labs: Laboratory Results - last 24 hr 06/21/25 06/21/25 06/21/25 19:11 19:39 19:43 MCV 92.4 MCH 30.9 MCHC 33.4 RDW 12.9 Plt Count 138 L MPV 11.0 Immature Gran % (Auto) 0.3 Neut % (Auto) 79.5 H Lymph % (Auto) 10.6 L [place] % (Auto) 8.3 Eos % (Auto) 0.8 Baso % (Auto) 0.5 Lymph # (Auto) 0.8 L [place] # (Auto) 0.6 Eos # (Auto) 0.1 Baso # (Auto) 0.0 Abs Immat Gran (auto) 0.02 Absolute Neuts (auto) 6.0 Absolute Nucleated RBC 0.000 Nucleated RBC % (auto) 0.0 PT 13.4 H INR 1.2 H D-Dimer High Sensitivty < 150 VBG pH VBG pCO2 VBG pO2 VBG HCO3 VBG O2 Saturation VBG Base Excess Anion Gap 11 L Estim Creat Clear Calc 36.7 Estimated GFR 46 POC Glucose 103 Random Glucose 518 H* Estimat Average Glucose Hemoglobin A1c % Calcium 8.8 D Magnesium 1.4 L* Total Bilirubin 0.4 Direct Bilirubin 0.1 AST 27 ALT 14 Alkaline Phosphatase 52 Total Creatine Kinase 69 C-Reactive Protein < 0.10 B-Natriuretic Peptide 993 H Total Protein 6.0 L Albumin 3.8 Lipase 45 TSH 0.74 Urine Color Urine Appearance Urine pH Ur Specific [place] Urine Protein Urine Glucose (UA) Urine Ketones Urine Blood Urine Nitrite Ur Leukocyte Esterase Urine RBC Urine WBC Ur Squamous Epith Cells Urine Bacteria Hyaline Casts Urine Opiates Screen Ur Buprenorphine Scrn Ur Oxycodone Screen Urine Methadone Screen Urine Fentanyl Screen Ur Barbiturates Screen Ur Phencyclidine Scrn Ur Amphetamines Screen U Benzodiazepines Scrn Urine Cocaine Screen U Marijuana (THC) Screen Ethyl Alcohol < 10 Influenza Type A (PCR) NEGATIVE Influenza Type B (PCR) NEGATIVE RSV RNA Qual (PCR) NEGATIVE SARS-CoV-2 RNA (RT-PCR) NEGATIVE 06/21/25 06/21/25 06/21/25 19:46 20:54 21:03 MCV MCH MCHC RDW Plt Count MPV Immature Gran % (Auto) Neut % (Auto) Lymph % (Auto) [place] % (Auto) Eos % (Auto) Baso % (Auto) Lymph # (Auto) [place] # (Auto) Eos # (Auto) Baso # (Auto) Abs Immat Gran (auto) Absolute Neuts (auto) Absolute Nucleated RBC Nucleated RBC % (auto) PT INR D-Dimer High Sensitivty VBG pH 7.44 H VBG pCO2 50 VBG pO2 35 VBG HCO3 34 H VBG O2 Saturation 54.0 VBG Base Excess 9.1 Anion Gap 10 L Estim Creat Clear Calc 40.0 Estimated GFR 51 POC Glucose 44 L* Random Glucose 44 L* Estimat Average Glucose Hemoglobin A1c % Calcium 9.2 Magnesium 1.5 L Total Bilirubin 0.4 Direct Bilirubin 0.2 AST 26 ALT 15 Alkaline Phosphatase 54 Total Creatine Kinase C-Reactive Protein < 0.10 B-Natriuretic Peptide Total Protein 6.2 L Albumin 3.9 Lipase 44 TSH 0.66 Urine Color Urine Appearance Urine pH Ur Specific [place] Urine Protein Urine Glucose (UA) Urine Ketones Urine Blood Urine Nitrite Ur Leukocyte Esterase Urine RBC Urine WBC Ur Squamous Epith Cells Urine Bacteria Hyaline Casts Urine Opiates Screen Ur Buprenorphine Scrn Ur Oxycodone Screen Urine Methadone Screen Urine Fentanyl Screen Ur Barbiturates Screen Ur Phencyclidine Scrn Ur Amphetamines Screen U Benzodiazepines Scrn Urine Cocaine Screen U Marijuana (THC) Screen Ethyl Alcohol Influenza Type A (PCR) Influenza Type B (PCR) RSV RNA Qual (PCR) SARS-CoV-2 RNA (RT-PCR) 06/21/25 06/21/25 06/21/25 21:50 22:02 22:26 MCV MCH MCHC RDW Plt Count MPV Immature Gran % (Auto) Neut % (Auto) Lymph % (Auto) [place] % (Auto) Eos % (Auto) Baso % (Auto) Lymph # (Auto) [place] # (Auto) Eos # (Auto) Baso # (Auto) Abs Immat Gran (auto) Absolute Neuts (auto) Absolute Nucleated RBC Nucleated RBC % (auto) PT INR D-Dimer High Sensitivty VBG pH VBG pCO2 VBG pO2 VBG HCO3 VBG O2 Saturation VBG Base Excess Anion Gap Estim Creat Clear Calc Estimated GFR POC Glucose 73 Random Glucose Estimat Average Glucose Hemoglobin A1c % Calcium Magnesium Total Bilirubin Direct Bilirubin AST ALT Alkaline Phosphatase Total Creatine Kinase C-Reactive Protein B-Natriuretic Peptide 1115 H Total Protein Albumin Lipase TSH Urine Color Dark Yellow Urine Appearance Clear Urine pH 7.0 Ur Specific [place] 1.010 Urine Protein 100 (2+) H Urine Glucose (UA) Negative Urine Ketones Negative Urine Blood Negative Urine Nitrite Negative Ur Leukocyte Esterase Trace H Urine RBC 0-2 Urine WBC 0-5 Ur Squamous Epith Cells 0-2 Urine Bacteria Trace Hyaline Casts 0-2 Urine Opiates Screen Not Detected Ur Buprenorphine Scrn Not Detected Ur Oxycodone Screen Not Detected Urine Methadone Screen Not Detected Urine Fentanyl Screen Not Detected Ur Barbiturates Screen Not Detected Ur Phencyclidine Scrn Not Detected Ur Amphetamines Screen Not Detected U Benzodiazepines Scrn Not Detected Urine Cocaine Screen Not Detected U Marijuana (THC) Screen Not Detected Ethyl Alcohol Influenza Type A (PCR) Influenza Type B (PCR) RSV RNA Qual (PCR) SARS-CoV-2 RNA (RT-PCR) 06/21/25 06/22/25 06/22/25 22:32 00:13 00:39 MCV MCH MCHC RDW Plt Count MPV Immature Gran % (Auto) Neut % (Auto) Lymph % (Auto) [place] % (Auto) Eos % (Auto) Baso % (Auto) Lymph # (Auto) [place] # (Auto) Eos # (Auto) Baso # (Auto) Abs Immat Gran (auto) Absolute Neuts (auto) Absolute Nucleated RBC Nucleated RBC % (auto) PT INR D-Dimer High Sensitivty VBG pH VBG pCO2 VBG pO2 VBG HCO3 VBG O2 Saturation VBG Base Excess Anion Gap Estim Creat Clear Calc Estimated GFR POC Glucose 54 L* 47 L* 124 H Random Glucose Estimat Average Glucose Hemoglobin A1c % Calcium Magnesium Total Bilirubin Direct Bilirubin AST ALT Alkaline Phosphatase Total Creatine Kinase C-Reactive Protein B-Natriuretic Peptide Total Protein Albumin Lipase TSH Urine Color Urine Appearance Urine pH Ur Specific [place] Urine Protein Urine Glucose (UA) Urine Ketones Urine Blood Urine Nitrite Ur Leukocyte Esterase Urine RBC Urine WBC Ur Squamous Epith Cells Urine Bacteria Hyaline Casts Urine Opiates Screen Ur Buprenorphine Scrn Ur Oxycodone Screen Urine Methadone Screen Urine Fentanyl Screen Ur Barbiturates Screen Ur Phencyclidine Scrn Ur Amphetamines Screen U Benzodiazepines Scrn Urine Cocaine Screen U Marijuana (THC) Screen Ethyl Alcohol Influenza Type A (PCR) Influenza Type B (PCR) RSV RNA Qual (PCR) SARS-CoV-2 RNA (RT-PCR) 06/22/25 06/22/25 06/22/25 01:14 01:44 02:48 MCV MCH MCHC RDW Plt Count MPV Immature Gran % (Auto) Neut % (Auto) Lymph % (Auto) [place] % (Auto) Eos % (Auto) Baso % (Auto) Lymph # (Auto) [place] # (Auto) Eos # (Auto) Baso # (Auto) Abs Immat Gran (auto) Absolute Neuts (auto) Absolute Nucleated RBC Nucleated RBC % (auto) PT INR D-Dimer High Sensitivty VBG pH VBG pCO2 VBG pO2 VBG HCO3 VBG O2 Saturation VBG Base Excess Anion Gap Estim Creat Clear Calc Estimated GFR POC Glucose 72 67 52 L* Random Glucose Estimat Average Glucose Hemoglobin A1c % Calcium Magnesium Total Bilirubin Direct Bilirubin AST ALT Alkaline Phosphatase Total Creatine Kinase C-Reactive Protein B-Natriuretic Peptide Total Protein Albumin Lipase TSH Urine Color Urine Appearance Urine pH Ur Specific [place] Urine Protein Urine Glucose (UA) Urine Ketones Urine Blood Urine Nitrite Ur Leukocyte Esterase Urine RBC Urine WBC Ur Squamous Epith Cells Urine Bacteria Hyaline Casts Urine Opiates Screen Ur Buprenorphine Scrn Ur Oxycodone Screen Urine Methadone Screen Urine Fentanyl Screen Ur Barbiturates Screen Ur Phencyclidine Scrn Ur Amphetamines Screen U Benzodiazepines Scrn Urine Cocaine Screen U Marijuana (THC) Screen Ethyl Alcohol Influenza Type A (PCR) Influenza Type B (PCR) RSV RNA Qual (PCR) SARS-CoV-2 RNA (RT-PCR) 06/22/25 06/22/25 06/22/25 03:16 03:37 03:53 MCV 93.1 MCH 30.9 MCHC 33.2 RDW 13.0 Plt Count 127 L MPV 11.3 Immature Gran % (Auto) 0.3 Neut % (Auto) 66.1 Lymph % (Auto) 19.1 L [place] % (Auto) 10.7 Eos % (Auto) 3.2 Baso % (Auto) 0.6 Lymph # (Auto) 1.3 [place] # (Auto) 0.7 Eos # (Auto) 0.2 Baso # (Auto) 0.0 Abs Immat Gran (auto) 0.02 Absolute Neuts (auto) 4.4 Absolute Nucleated RBC 0.000 Nucleated RBC % (auto) 0.0 PT INR D-Dimer High Sensitivty VBG pH VBG pCO2 VBG pO2 VBG HCO3 VBG O2 Saturation VBG Base Excess Anion Gap 11 L Estim Creat Clear Calc 36.7 Estimated GFR 46 POC Glucose 190 H 122 H Random Glucose 96 Estimat Average Glucose 100 Hemoglobin A1c % 5.1 Calcium 9.0 Magnesium Total Bilirubin 0.4 Direct Bilirubin AST 23 ALT 12 Alkaline Phosphatase 52 Total Creatine Kinase C-Reactive Protein B-Natriuretic Peptide Total Protein 5.6 L Albumin 3.5 Lipase TSH Urine Color Urine Appearance Urine pH Ur Specific [place] Urine Protein Urine Glucose (UA) Urine Ketones Urine Blood Urine Nitrite Ur Leukocyte Esterase Urine RBC Urine WBC Ur Squamous Epith Cells Urine Bacteria Hyaline Casts Urine Opiates Screen Ur Buprenorphine Scrn Ur Oxycodone Screen Urine Methadone Screen Urine Fentanyl Screen Ur Barbiturates Screen Ur Phencyclidine Scrn Ur Amphetamines Screen U Benzodiazepines Scrn Urine Cocaine Screen U Marijuana (THC) Screen Ethyl Alcohol Influenza Type A (PCR) Influenza Type B (PCR) RSV RNA Qual (PCR) SARS-CoV-2 RNA (RT-PCR) 06/22/25 06/22/25 06/22/25 04:01 04:26 05:24 MCV MCH MCHC RDW Plt Count MPV Immature Gran % (Auto) Neut % (Auto) Lymph % (Auto) [place] % (Auto) Eos % (Auto) Baso % (Auto) Lymph # (Auto) [place] # (Auto) Eos # (Auto) Baso # (Auto) Abs Immat Gran (auto) Absolute Neuts (auto) Absolute Nucleated RBC Nucleated RBC % (auto) PT INR D-Dimer High Sensitivty VBG pH VBG pCO2 VBG pO2 VBG HCO3 VBG O2 Saturation VBG Base Excess Anion Gap Estim Creat Clear Calc Estimated GFR POC Glucose 96 87 89 Random Glucose Estimat Average Glucose Hemoglobin A1c % Calcium Magnesium Total Bilirubin Direct Bilirubin AST ALT Alkaline Phosphatase Total Creatine Kinase C-Reactive Protein B-Natriuretic Peptide Total Protein Albumin Lipase TSH Urine Color Urine Appearance Urine pH Ur Specific [place] Urine Protein Urine Glucose (UA) Urine Ketones Urine Blood Urine Nitrite Ur Leukocyte Esterase Urine RBC Urine WBC Ur Squamous Epith Cells Urine Bacteria Hyaline Casts Urine Opiates Screen Ur Buprenorphine Scrn Ur Oxycodone Screen Urine Methadone Screen Urine Fentanyl Screen Ur Barbiturates Screen Ur Phencyclidine Scrn Ur Amphetamines Screen U Benzodiazepines Scrn Urine Cocaine Screen U Marijuana (THC) Screen Ethyl Alcohol Influenza Type A (PCR) Influenza Type B (PCR) RSV RNA Qual (PCR) SARS-CoV-2 RNA (RT-PCR) 06/22/25 06/22/25 06/22/25 06:42 07:28 08:02 MCV MCH MCHC RDW Plt Count MPV Immature Gran % (Auto) Neut % (Auto) Lymph % (Auto) [place] % (Auto) Eos % (Auto) Baso % (Auto) Lymph # (Auto) [place] # (Auto) Eos # (Auto) Baso # (Auto) Abs Immat Gran (auto) Absolute Neuts (auto) Absolute Nucleated RBC Nucleated RBC % (auto) PT INR D-Dimer High Sensitivty VBG pH VBG pCO2 VBG pO2 VBG HCO3 VBG O2 Saturation VBG Base Excess Anion Gap Estim Creat Clear Calc Estimated GFR POC Glucose 69 114 122 H Random Glucose Estimat Average Glucose Hemoglobin A1c % Calcium Magnesium Total Bilirubin Direct Bilirubin AST ALT Alkaline Phosphatase Total Creatine Kinase C-Reactive Protein B-Natriuretic Peptide Total Protein Albumin Lipase TSH Urine Color Urine Appearance Urine pH Ur Specific [place] Urine Protein Urine Glucose (UA) Urine Ketones Urine Blood Urine Nitrite Ur Leukocyte Esterase Urine RBC Urine WBC Ur Squamous Epith Cells Urine Bacteria Hyaline Casts Urine Opiates Screen Ur Buprenorphine Scrn Ur Oxycodone Screen Urine Methadone Screen Urine Fentanyl Screen Ur Barbiturates Screen Ur Phencyclidine Scrn Ur Amphetamines Screen U Benzodiazepines Scrn Urine Cocaine Screen U Marijuana (THC) Screen Ethyl Alcohol Influenza Type A (PCR) Influenza Type B (PCR) RSV RNA Qual (PCR) SARS-CoV-2 RNA (RT-PCR) 06/22/25 06/22/25 06/22/25 11:17 11:44 14:05 MCV MCH MCHC RDW Plt Count MPV Immature Gran % (Auto) Neut % (Auto) Lymph % (Auto) [place] % (Auto) Eos % (Auto) Baso % (Auto) Lymph # (Auto) [place] # (Auto) Eos # (Auto) Baso # (Auto) Abs Immat Gran (auto) Absolute Neuts (auto) Absolute Nucleated RBC Nucleated RBC % (auto) PT INR D-Dimer High Sensitivty VBG pH VBG pCO2 VBG pO2 VBG HCO3 VBG O2 Saturation VBG Base Excess Anion Gap Estim Creat Clear Calc Estimated GFR POC Glucose 57 L* 96 116 H Random Glucose Estimat Average Glucose Hemoglobin A1c % Calcium Magnesium Total Bilirubin Direct Bilirubin AST ALT Alkaline Phosphatase Total Creatine Kinase C-Reactive Protein B-Natriuretic Peptide Total Protein Albumin Lipase TSH Urine Color Urine Appearance Urine pH Ur Specific [place] Urine Protein Urine Glucose (UA) Urine Ketones Urine Blood Urine Nitrite Ur Leukocyte Esterase Urine RBC Urine WBC Ur Squamous Epith Cells Urine Bacteria Hyaline Casts Urine Opiates Screen Ur Buprenorphine Scrn Ur Oxycodone Screen Urine Methadone Screen Urine Fentanyl Screen Ur Barbiturates Screen Ur Phencyclidine Scrn Ur Amphetamines Screen U Benzodiazepines Scrn Urine Cocaine Screen U Marijuana (THC) Screen Ethyl Alcohol Influenza Type A (PCR) Influenza Type B (PCR) RSV RNA Qual (PCR) SARS-CoV-2 RNA (RT-PCR) Assessment and Plan (1) Syncope: Status: Acute (2) Hypoglycemia: Status: Acute Plan 80-year-old female with a past medical history of CAD status post cardiac catheterization, cardiomyopathy, anemia, chronic pain, B12 deficiency, asthma, BPPV presented to the hospital today with a chief complaint of syncope. Syncope: EKG nonischemic Troponins indeterminate and plateaued Echocardiogram - EF 43% Telemetry Cardiology consult pending +orthostatic hypotension, encourage PO fluids and recheck Qshift ?Holter at the time of discharge Hypoglycemia: hypoglycemia panel pending Dextrose p.r.n. discontinue D5NS Q2h POC glucose CAD: Continue aspirin, Plavix, statin Hypothyroidism: Continue levothyroxine Anxiety: Ativan p.r.n. Neuropathy: Continue gabapentin Hypertension: Continue atenolol DVT prophylaxis: Lovenox Code status: Full code continued need for hospitalization: Cardiology consultation, monitoring Quality Stroke Does the patient have a stroke diagnosis?: No VTE Prior VTE?: No VTE Risk Level:: Medical - moderate - high VTE Device Contraindication: Treatment Not Indicated VTE Drug Contraindication: N/A - Med Ordered
[2025-06-22 16:25] LABS: Glucose, Whole Blood 82 mg/dL (60-115)
[2025-06-22] MEDS: 0.9 % Sodium Chloride Flush 3 ML SYRINGE IVFLUSH ×2 (17:06→22:01)
[2025-06-22 18:54] LABS: Glucose, Whole Blood 160 mg/dL (60-115)
[2025-06-22 20:30] LABS: Glucose, Whole Blood 114 mg/dL (60-115)
[2025-06-22 23:00] LABS: Glucose, Whole Blood 124 mg/dL (60-115)
[2025-06-23] VITALS (18 sets, daily range): BP systolic 90–184; BP diastolic 48–94; PULSE 77–99; RESP 16–18; TEMP 36.4–37; O2SAT 91–100
[2025-06-23 02:25] LABS: Glucose, Whole Blood 110 mg/dL (60-115)
[2025-06-23 03:13] LABS: Glucose, Whole Blood 112 mg/dL (60-115)
--- NOTE | 2025-06-23 04:20 | PC.NURSE ---
As of 399,patient BP is elevated at 184/62, asymptomatic. Of note, morning dose of atenolol was held due to low BP. Provider made aware. No new orders given at this time.
[2025-06-23 05:45] LABS: Glucose, Whole Blood 124 mg/dL (60-115)
[2025-06-23 07:33] LABS: Glucose, Whole Blood 111 mg/dL (60-115)
[2025-06-23] MEDS: Tiotropium Bromide 2.5 mcg 1 PUFF/2.5 MCG MIST.INHAL 2 PUFF INHALE (07:55)
[2025-06-23] MEDS: Fluticasone/Vilanterol 200/25 BLST.W.DEV 1 PUFF INHALE (07:55)
[2025-06-23] MEDS: Aspirin Enteric Coated 81 MG TABLET.DR PO (08:59)
[2025-06-23] MEDS: 0.9 % Sodium Chloride Flush 3 ML SYRINGE IVFLUSH ×3 (09:03→20:26)
--- NOTE | 2025-06-23 09:30 | P.CONCA_ITS ---
History of Present Illness History of Present Illness Date of Service: 06/23/25 Chief complaint: Syncope Narrative: This is a cardiology consultation regarding question of orthostatic hypotension. Patient has a very poor historian she does not know why she is here. She sees and last appointment was in 2023. According to his clinic note, patient has a history of LAD/RCA PCI. Current hospitalization is because of a question of syncope. Patient does not really recall what happened. Per H and P, patient was feeling weak and tired all day. Then had reported that patient passed out. Apparently she had not had anything all day. EMS were called and they found her with a blood sugar of only 63. Then she got dextrose and there was improvement mental status. When she came to the ER, she was answering questions appropriately. No chest pain or other cardiac complaints. Then it seems that her labs were checked again and that actually had shown glucose of 44. Overall, it seems that she was hypoglycemic but however there was also concern for orthostatic hypotension and hence we are called. Patient is denying any clear-cut symptoms at this time. She had however seems confused and is not extra aware of why she is here extra. Review of Systems 2 Review of Systems: Yes all other systems are reviewed and are negative Constitutional: Constitutional: Reports as per HPI and Reports no additional constitutional complaints Eyes: Eyes: Reports as per HPI and Denies no additional eye complaints ENT: Denies system reviewed and no additional complaints, except as documented and Reports as per HPI Cardiovascular: Cardiovascular: Reports as per HPI, Reports no additional cardiovascular complaints, Denies acrocyanosis, Denies cool extremities, Denies chest pain, Denies leg edema, Denies lightheadedness, Denies palpitations and Denies dyspnea Respiratory: Respiratory: Reports as per HPI, Denies no additional respiratory complaints and Denies dyspnea Gastrointestinal: Gastrointestinal: Reports as per HPI and Denies no additional gastrointestinal complaints Genitourinary: Genitourinary: Reports as per HPI Musculoskeletal: Musculoskeletal: Reports no additional musculoskeletal complaints and Reports as per HPI Integumentary/Breasts: Skin/Breast: Reports system reviewed and no additional complaints, except as docu Neurologic: Reports system reviewed and no additional complaints, except as documented and Reports as per HPI Psychiatric: Psychiatric: Reports no additional psychiatric complaints and Reports as per HPI Endocrine: Endocrine: Reports no additional endocrine complaints, Reports as per HPI and Denies palpitations Hematologic/Lymphatic: Hematologic/Lymphatic: Reports no additional hematologic/lymphatic complaints and Reports as per HPI Allergic/Immunologic: Allergic/Immunologic: Reports no additional allergic/immunologic complaints and Reports as per HPI [facility] Past Medical History Medical History Coronary artery disease Family History Family History (Updated 04/17/25 @ 14:25 by Daniela García MA) Mother CAD (coronary artery disease) Father No problems noted. Surgical History Surgical History History of cardiac catheterization History of heart artery stent Social History Social History Household Members: Spouse Housing: House Do you presently have visiting nurse or other home services: No Alcohol intake: current Alcohol intake frequency: 0-2 drinks per day Alcohol type: beer and wine Patient Tobacco Use Status: Former Tobacco user Tobacco use type: Cigarette Cigarette Packs Per Day: 0.25 Cigarettes Per Day: 5.0 Years Smoked: 30 e-Cigarette/Vaping Use: Former Use Second Hand Smoke Exposure: No service: No Current occupational status: retired Current occupation: right handed, retired Cognitive needs: No Hearing needs: No Vision needs: Yes (rx glasses) Meds Allergies Allergy/AdvReac Type Severity Reaction Status Date / Time pollen extracts Allergy Intermediate Sneezing Verified 06/21/25 19:17 citalopram Allergy Unknown upsets Verified 06/21/25 19:17 stomach Active Medications: Current Medications Acetaminophen (Acetaminophen 325 Mg Tablet) 650 mg PO Q6H PRN PRN Reason: Pain, Mild 1-3,fever,headache Last Admin: 06/22/25 21:59 Dose: 650 mg Albuterol Sulfate (Albuterol Sulfate 90 Mcg 8 Gm Inhaler) 2 puff INHALE Q4H PRN PRN Reason: Shortness Of Breath Or Wheezing Aspirin (Aspirin Enteric Coated 81 Mg Tablet.Dr) 81 mg PO DAILY [facility] Last Admin: 06/23/25 08:59 Dose: 81 mg Atenolol (Atenolol 25 Mg Tablet) 25 mg PO DAILY [facility]; Protocol Last Admin: 06/22/25 10:49 Dose: Not Given Atorvastatin Calcium (Atorvastatin Calcium 80 Mg Tablet) 80 mg PO BEDTIME [facility] Last Admin: 06/22/25 21:59 Dose: 80 mg Calcium Carbonate (Calcium Carbonate 750 Mg Tab.Chew) 750 mg PO Q4H PRN PRN Reason: Heartburn Clopidogrel Bisulfate (Clopidogrel Bisulfate 75 Mg Tablet) 75 mg PO DAILY [facility] Last Admin: 06/23/25 09:00 Dose: 75 mg Dextrose (Dextrose 50 % 25 Gm/50 Ml Syringe) 25 gm IVPUSH Q15M PRN; Protocol PRN Reason: per Hypoglycemia Standing Ord. Last Admin: 06/22/25 02:55 Dose: 25 gm Enoxaparin Sodium (Enoxaparin Sodium 40 Mg/0.4 Ml Syringe) 40 mg SUBCUT Q24H [facility] Last Admin: 06/22/25 22:00 Dose: 40 mg Fluticasone/Vilanterol (Fluticasone/Vilanterol 200/25 Blst.W.Dev) 1 puff INHALE RDAILY [facility] Last Admin: 06/23/25 07:55 Dose: 1 puff Glucose (Glucose Gel 15 Gm Gel..Gram.) 15 gm PO Q15M PRN; Protocol PRN Reason: per Hypoglycemia Standing Ord. Last Admin: 06/22/25 11:22 Dose: 15 gm Levothyroxine Sodium (Levothyroxine Sodium 50 Mcg Tablet) 50 mcg PO DAILY@0600 [facility] Last Admin: 06/23/25 05:14 Dose: 50 mcg Lorazepam (Lorazepam 1 Mg Tablet) 1 mg PO BID PRN PRN Reason: Anxiety Last Admin: 06/23/25 04:26 Dose: 1 mg Magnesium Hydroxide (Milk Of Magnesia 30 Ml Oral.Susp) 30 ml PO DAILY PRN PRN Reason: Constipation Melatonin (Melatonin 3 Mg Tablet) 6 mg PO BEDTIME PRN PRN Reason: Insomnia Multivitamins/Vitamin C (Multivitamin Tablet) 1 tab PO DAILY [facility] Last Admin: 06/23/25 08:59 Dose: 1 tab Pantoprazole Sodium (Pantoprazole Sodium 20 Mg Tablet.Dr) 40 mg PO DAILY@0630 [facility] Last Admin: 06/23/25 05:14 Dose: 40 mg Sodium Chloride (0.9 % Sodium Chloride Flush 3 Ml Syringe) 3 ml IVFLUSH QSHIFT [facility] Last Admin: 06/23/25 09:03 Dose: 3 ml Tiotropium Seymour (Tiotropium Seymour 2.5 Mcg 1 Puff/2.5 Mcg Mist.Inhal) 2 puff INHALE RDAILY [facility] Last Admin: 06/23/25 07:55 Dose: 2 puff Vitamin D (Cholecalciferol (Vitamin D3) 25 Mcg Tablet) 50 mcg PO DAILY [facility] Last Admin: 06/23/25 09:00 Dose: 50 mcg Home Medications ?Medication ?Instructions ?Recorded ?Confirmed ?Last Taken ?Type aspirin 81 mg tablet,delayed 81 mg PO DAILY 10/27/21 0 06/22/25 1 Day Ago History release ~06/21/25 dicyclomine 20 mg tablet 20 mg PO BID 10/27/21 1 Day Ago History ~06/21/25 albuterol sulfate 90 mcg/actuation 2 puff inhalation Q 4-6H PRN 04/19/22 06/22/25 Unknown History aerosol inhaler Shortness Of Breath Or Wheez ing fluticasone 500 mcg-salmeterol 50 1 ea inhalation BID 10/26/22 06/22/25 1 Day Ago History mcg/dose blistr powdr for ~06/21/25 inhalation (Advair Diskus) cholecalciferol (vitamin D3) 50 50 mcg PO DAILY 06/22/25 1 Day Ago History mcg (2,000 unit) tablet (Vitamin ~02/10 D3) umeclidinium 62.5 mcg/actuation 1 inh inhalation DAILY 07/17/24 06/22/25 1 Day Ago History blister powder for inhalation ~ (Incruse Ellipta) acetaminophen 500 mg tablet (Pain 500 mg PO Q4H PRN Mi graine Headache 06/22/25 06/22/25 Unknown History Relief (acetaminophen)) levothyroxine 50 mcg tablet 50 mcg PO MOTUWETHFRSA 03/1306/22/25 06/20/25 History pantoprazole 40 mg tablet,delayed 40 mg PO DAILY@0630 06/22/25 06/22/25 1 Day Ago History release ~06/21/25 rosuvastatin 20 mg tablet 20 mg PO BEDTIME 06/22/2506/20/25 History vitamin B complex 1 tab PO DAILY 06/22/2503/13 1 Day Ago History ~06/21/25 Physical Exam 2 Vital Signs: Vital Signs: Last Vital Signs Temp 97.7 F 06/23/25 07:41 Pulse 91 06/23/25 08:33 Resp 16 06/23/25 07:55 BP 90/55 L 06/23/25 08:33 Pulse Ox 98 06/23/25 07:41 O2 Del Method Room Air 06/23/25 07:41 BMI result Body Mass Index 24.6 Const: General: comfortable and no acute distress O rientation/consciousness: patient oriented x3 HEENT: Other: Unremarkable Head: Yes normal to inspection Neck: Neck: Yes normal visual inspection Chest: Chest palpation & inspection: normal inspection of the chest Resp: Auscultation: clear to auscultation bilaterally Cardio: Palpation: normal PMI Heart sounds: S1 normal heart sound present, S2 normal heart sound present, no gallops, no murmurs and no rubs GI: Palpation (GI): Soft to palpation Back/Spine/Pelvis: Other: unremarkable Skin: General skin exam: no rashes or lesions noted Neuro: General: patient oriented x3 Extrem: General: Yes normal to inspection Psych: Mental Status: mental status grossly normal Objective Labs and Meds 06/22/25 03:53 06/22/25 03:53 Lab results: Laboratory Results - last 24 hr 06/22/25 06/22/25 06/22/25 11:17 11:44 14:05 POC Glucose 57 L* 96 116 H 06/22/25 06/22/25 06/22/25 16:21 18:46 20:23 POC Glucose 82 160 H 114 06/22/25 06/23/25 06/23/25 22:55 02:21 03:09 POC Glucose 124 H 110 112 06/23/25 06/23/25 05:39 07:26 POC Glucose 124 H 111 ECG Interpretation: EKG shows underlying sinus rhythm with a left bundle-branch block pattern. Chronic finding. Assessment and Plan (1) Syncope: Status: Acute (2) Hypoglycemia: Status: Acute (3) Coronary artery disease: Qualifiers: Coronary Disease-Associated Artery/Lesion type: unspecified vessel or lesion type [place] vs. transplanted heart: unspecified whether lummi or transplanted heart Associated angina: unspecified whether angina present Q ualified Code(s): I25.10 - Atherosclerotic heart disease of lummi coronary artery without angina pectoris Status: Acute (4) Cardiomyopathy: Status: Acute Plan High sensitivity troponin levels are 48, 58 and 64. Cardiac BNP levels are 993 and 1115. Echocardiogram with LVEF of 43% with wall motion abnormalities from underlying coronary disease. On vitals check, it seems there is also orthostatic blood pressure drop. This a.m., blood pressure drop from 149/59 sitting to 90/55 standing. Not entirely clear if these syncopal episode is from hypoglycemia as there was documentation of that versus blood pressure drop from orthostatic hypotension. Currently, she is denying any symptoms whatsoever. The only medication she takes at home which can affect blood pressures are atenolol. Okay to hold that for the time being. Review other meds including gabapentin, lorazepam as these also affect balance instability. Ambulate in the hallway and reassess. Upon discharge, follow up in clinic. Procedures Date of Service Date of Service: 06/23/25
[2025-06-23 11:14] LABS: Hematocrit 35.6 % (37.0-47.0); Hemoglobin 11.6 g/dl (12.0-16.0); Mean Corpuscular HGB Conc 32.6 g/dl (31.0-35.0); Mean Corpuscular Hemoglobin 31.2 pg (27.0-33.0); Mean Corpuscular Volume 95.7 fL (80.0-98.0); NRBC Abs Auto 0.000 X10*3/uL (0.0-0.012); NRBC Pct Auto 0.0 /100WBC (0.0-0.2); Platelet Count 157 X10*3/uL (160-400); Red Blood Count 3.72 X10*6/uL (4.20-5.50); White Blood Count 7.2 X10*3/uL (4.8-10.8)
[2025-06-23 11:28] LABS: Anion Gap 10 (12-20); Blood Urea Nitrogen 13 mg/dL (9-16); Carbon Dioxide 30 mmol/L (22-29); Chloride 107 mmol/L (96-108); Creatinine Clr Calc Pharmacy 32.8; Estimated Glomerular Filt Rate 45; Iron 133 mcg/dL (30-160); Percent Iron Saturation 42 % (15-50); Potassium 3.5 mmol/L (3.3-5.1); Sodium 143 mmol/L (135-145); Total Iron Binding Capacity 316 mcg/dL (228-428); Unsaturated Iron Binding 183 ug/dL
[2025-06-23 11:47] LABS: Glucose, Whole Blood 113 mg/dL (60-115)
[2025-06-23 12:02] LABS: Folate 15.4 ng/mL (> or = 4.0); Vitamin B12 282 pg/mL (200-900)
[2025-06-23 12:13] LABS: Calcium 10.2 mg/dL (8.4-10.2)
--- NOTE | 2025-06-23 14:14 | HO.PM.IMPN ---
Subjective Subjective Date of Service: 06/23/25 Interval History: f/u syncope, hypoglycemia no syncopla episodes, no pain, nausea, vomiting. not eating much as she does not like it Review of Systems Review of Systems: Yes all other systems are reviewed and are negative Physical Exam Exam: Exam: General: AOx3, no acute distress. seen with Resp: CTA bilaterally CVS: S1, S2, RRR GI: +BS, NT, no distention Skin: Warm, dry Neuro: Cranial nerves II-XII grossly intact bilaterally. Motor grossly intact bilaterally Extremities: No LE edema Psych: Appropriate affect Vital Signs: Vital Signs: Last Vital Signs Temp 97.7 F 06/23/25 11:38 Pulse 80 06/23/25 11:38 Resp 17 06/23/25 11:38 BP 143/63 H 06/23/25 11:38 Pulse Ox 91 L 06/23/25 11:38 O2 Del Method Room Air 06/23/25 11:38 BMI result Body Mass Index 24.6 Objective Data Active Medications Acetaminophen (Acetaminophen 325 Mg Tablet) 650 mg PO Q6H PRN PRN Reason: Pain, Mild 1-3,fever,headache Last Admin: 06/22/25 21:59 Dose: 650 mg Documented By: LOAN Albuterol Sulfate (Albuterol Sulfate 90 Mcg 8 Gm Inhaler) 2 puff INHALE Q4H PRN PRN Reason: Shortness Of Breath Or Wheezing Aspirin (Aspirin Enteric Coated 81 Mg Tablet.) 81 mg PO DAILY [facility] Last Admin: 06/23/25 08:59 Dose: 81 mg Documented By: ANA Atenolol (Atenolol 25 Mg Tablet) 25 mg PO DAILY [facility]; Protocol On Hold: 06/23/25 09:45 Last Admin: 06/23/25 09:51 Dose: Not Given Documented By: ANA Non-Admin Reason: Physician Held Med Atorvastatin Calcium (Atorvastatin Calcium 80 Mg Tablet) 80 mg PO BEDTIME [facility] Last Admin: 06/22/25 21:59 Dose: 80 mg Documented By: LOAN Calcium Carbonate (Calcium Carbonate 750 Mg Tab.Chew) 750 mg PO Q4H PRN PRN Reason: Heartburn Clopidogrel Bisulfate (Clopidogrel Bisulfate 75 Mg Tablet) 75 mg PO DAILY [facility] Last Admin: 06/23/25 09:00 Dose: 75 mg Documented By: ANA Dextrose (Dextrose 50 % 25 Gm/50 Ml Syringe) 25 gm IVPUSH Q15M PRN; Protocol PRN Reason: per Hypoglycemia Standing Ord. Last Admin: 06/22/25 02:55 Dose: 25 gm Documented By: RACHEL Enoxaparin Sodium (Enoxaparin Sodium 40 Mg/0.4 Ml Syringe) 40 mg SUBCUT Q24H [facility] Last Admin: 06/22/25 22:00 Dose: 40 mg Documented By: LOAN Fluticasone/Vilanterol (Fluticasone/Vilanterol 200/25 Blst.W.Dev) 1 puff INHALE RDAILY [facility] Last Admin: 06/23/25 07:55 Dose: 1 puff Documented By: MARIANO Glucose (Glucose Gel 15 Gm Gel..Gram.) 15 gm PO Q15M PRN; Protocol PRN Reason: per Hypoglycemia Standing Ord. Last Admin: 06/22/25 11:22 Dose: 15 gm Documented By: ANA Levothyroxine Sodium (Levothyroxine Sodium 50 Mcg Tablet) 50 mcg PO DAILY@0600 [facility] Last Admin: 06/23/25 05:14 Dose: 50 mcg Documented By: LOAN Lorazepam (Lorazepam 1 Mg Tablet) 1 mg PO BID PRN PRN Reason: Anxiety Last Admin: 06/23/25 04:26 Dose: 1 mg Documented By: LOAN Magnesium Hydroxide (Milk Of Magnesia 30 Ml Oral.Susp) 30 ml PO DAILY PRN PRN Reason: Constipation Melatonin (Melatonin 3 Mg Tablet) 6 mg PO BEDTIME PRN PRN Reason: Insomnia Multivitamins/Vitamin C (Multivitamin Tablet) 1 tab PO DAILY [facility] Last Admin: 06/23/25 08:59 Dose: 1 tab Documented By: ANA Pantoprazole Sodium (Pantoprazole Sodium 20 Mg Tablet.Dr) 40 mg PO DAILY@0630 [facility] Last Admin: 06/23/25 05:14 Dose: 40 mg Documented By: LOAN Sodium Chloride (0.9 % Sodium Chloride Flush 3 Ml Syringe) 3 ml IVFLUSH QSHIFT [facility] Last Admin: 06/23/25 09:03 Dose: 3 ml Documented By: ANA Tiotropium Nixon (Tiotropium Nixon 2.5 Mcg 1 Puff/2.5 Mcg Mist.Inhal) 2 puff INHALE RDAILY [facility] Last Admin: 06/23/25 07:55 Dose: 2 puff Documented By: MARIANO Vitamin D (Cholecalciferol (Vitamin D3) 25 Mcg Tablet) 50 mcg PO DAILY [facility] Last Admin: 06/23/25 09:00 Dose: 50 mcg Documented By: ANA Labs 06/23/25 11:01 06/23/25 11:11 Labs: Laboratory Results - last 24 hr 06/22/25 06/22/25 06/22/25 16:21 18:46 20:23 MCV MCH MCHC RDW Plt Count MPV Absolute Nucleated RBC Nucleated RBC % (auto) Anion Gap Estim Creat Clear Calc Estimated GFR POC Glucose 82 160 H 114 Random Glucose Calcium Iron TIBC % Saturation Unsat Iron Binding Vitamin B12 Folate 06/22/25 06/23/25 06/23/25 22:55 02:21 03:09 MCV MCH MCHC RDW Plt Count MPV Absolute Nucleated RBC Nucleated RBC % (auto) Anion Gap Estim Creat Clear Calc Estimated GFR POC Glucose 124 H 110 112 Random Glucose Calcium Iron TIBC % Saturation Unsat Iron Binding Vitamin B12 Folate 06/23/25 06/23/25 06/23/25 05:39 07:26 11:01 MCV 95.7 MCH 31.2 MCHC 32.6 RDW 13.5 Plt Count 157 L MPV 11.2 Absolute Nucleated RBC 0.000 Nucleated RBC % (auto) 0.0 Anion Gap Estim Creat Clear Calc Estimated GFR POC Glucose 124 H 111 Random Glucose Calcium Iron TIBC % Saturation Unsat Iron Binding Vitamin B12 282 Folate 15.4 06/23/25 06/23/25 11:11 11:41 MCV MCH MCHC RDW Plt Count MPV Absolute Nucleated RBC Nucleated RBC % (auto) Anion Gap 10 L Estim Creat Clear Calc 32.8 Estimated GFR 45 POC Glucose 113 Random Glucose 131 H Calcium 10.2 D Iron 133 TIBC 316 % Saturation 42 Unsat Iron Binding 183 Vitamin B12 Folate Assessment and Plan (1) Syncope: Status: Acute (2) HFrEF (heart failure with reduced ejection fraction): Status: Acute Plan 80-year-old female with a past medical history of CAD status post cardiac catheterization, cardiomyopathy, anemia, chronic pain, B12 deficiency, asthma, BPPV presented to the hospital today with a chief complaint of syncope. Syncope: EKG nonischemic Troponins indeterminate and plateaued Echocardiogram - EF 43% Telemetry Cardiology consult - hold atenolol +orthostatic hypotension, encourage PO fluids and recheck Qshift Hypoglycemia, resolved: hypoglycemia panel pending Dextrose p.r.n. POC QIDACHS glucose CAD: Continue aspirin, Plavix, statin Hypothyroidism: Continue levothyroxine Anxiety: Ativan p.r.n. Hypertension: hold atenolol DVT prophylaxis: Lovenox Code status: Full code continued need for hospitalization: Cardiac monitoring dispo: holding atenolol, ambulate pt, if orthostatic hypotension resolves, discharge tomorrow Quality Stroke Does the patient have a stroke diagnosis?: No VTE Prior VTE?: No VTE Risk Level:: Medical - moderate - high VTE Device Contraindication: Treatment Not Indicated VTE Drug Contraindication: N/A - Med Ordered
--- NOTE | 2025-06-23 15:15 | HO.WOUND ---
Wound Consult: Initial 80yr old female admitted to [facility] on 06/21/25 - See progress notes and H&P for detailed history.? Wound consult placed for Right Forearm bruise.? Patient agreeable to assessment and photo documentation. Right arm and forearm assessed - noted for intact significantly bruised arm. Minimal swelling noted. No topical interventions needed at this time. ? Re-consult wound care Nurse for wound development.
[2025-06-23 16:06] LABS: Glucose, Whole Blood 120 mg/dL (60-115)
[2025-06-23 20:20] LABS: Glucose, Whole Blood 97 mg/dL (60-115)
[2025-06-24] VITALS (10 sets, daily range): BP systolic 140–166; BP diastolic 66–82; PULSE 70–94; RESP 18; TEMP 36.5–37.6; O2SAT 98
[2025-06-24] MEDS: Tiotropium Bromide 2.5 mcg 1 PUFF/2.5 MCG MIST.INHAL 2 PUFF INHALE (07:42)
[2025-06-24] MEDS: Fluticasone/Vilanterol 200/25 BLST.W.DEV 1 PUFF INHALE (07:42)
[2025-06-24 08:01] LABS: Glucose, Whole Blood 86 mg/dL (60-115)
[2025-06-24] MEDS: Aspirin Enteric Coated 81 MG TABLET.DR PO (08:19)
[2025-06-24] MEDS: 0.9 % Sodium Chloride Flush 3 ML SYRINGE IVFLUSH (08:22)
[2025-06-24 11:09] LABS: Glucose, Whole Blood 139 mg/dL (60-115)
--- NOTE | 2025-06-24 14:42 | MHC.CM.PN ---
Pt. is not ready to DC yet, PT eval pending, CM to follow for DC needs.
--- NOTE | 2025-06-24 15:34 | P.DS_ITS ---
DS: Providers Provider Date of Service: 06/24/25 Date of admission: 06/21/25 23:28 Date of discharge: 06/24/25 Primary care physician: ANNA Frederick Consults: 06/22/25 10:46 Consult to Cardiology Routine Consulting Provider: [facility] Reason for consultation: ?syncope, orthostatic hypotension Has provider been notified: No 06/22/25 10:58 Consult to Wound Care Routine Reason for consultation: Large bruise to right forearm Has provider been notified: Yes DS: Diagnosis Discharge Diagnosis (1) Syncope: Status: Acute (2) HFrEF (heart failure with reduced ejection fraction): Status: Acute DS: Summary Hospital Course Hospital Course: 80-year-old female with a past medical history of CAD status post cardiac catheterization, cardiomyopathy, anemia, chronic pain, B12 deficiency, asthma, BPPV presented to the hospital today with a chief complaint of syncope.Patient reported that she has been feeling weak and tired all day. Subsequently called EMS. In the EMS arrived patient is unconscious and concern for possible airway protection but when checked blood glucose levels it was 63. Given dextrose and with improvement in mental status. Sugars stabilized upon arrival to ER. Hospital course Patient admitted to telemetry where monitor failed to demonstrate any acute dysrhythmias. Seen by Cardiology who felt this may be multifactorial related to hypoglycemia and atenolol. Atenolol was held and the patient remained asymptomatic. She was seen by Physical therapy and deemed appropriate to be DC home with home physical therapy and follow up with her PCP and geotechnical department manager next available. At that time a decision can be made regarding atenolol usage or other agents as deemed appropriate by PCP Time Attestation Discharge Coordination Time (in mins): 35 Quality: Safe Use of Opioids Does Pt have an Active Cancer Diagnosis on the Problem List?: No Quality: Stroke Does the patient have a stroke diagnosis?: No Physical Exam Vital Signs: Vital Signs: Last Vital Signs Temp 97.7 F 06/24/25 15:21 Pulse 84 06/24/25 15:21 Resp 18 06/24/25 15:21 BP 150/80 H 06/24/25 15:21 Pulse Ox 98 06/24/25 15:21 O2 Del Method Room Air 06/24/25 15:21 BMI result Body Mass Index 24.6 Const: Other: Awake alert oriented x3 in no acute distress Resp: Other: Clear to auscultation bilaterally no rales rhonchi or wheezes Cardio: Other: No S4; positive S1-S2; no S3 murmurs rubs or gallops GI: Other: Soft nontender nondistended normoactive bowel sounds Neuro: Other: Cranial nerves 2-12 grossly intact as tested. Motor is 5/5 all extremities. Sensation intact cognition appropriate gait steady Extrem: Other: No edema bilaterally DS: Data Data Completed and Pending Labs on day of discharge: Laboratory Results - last 24 hr 06/23/25 06/23/25 06/24/25 16:02 20:12 07:29 POC Glucose 120 H 97 86 06/24/25 11:04 POC Glucose 139 H Discharge Plan Discharge Anticipated Discharge Date/Time: 06/24/25 15:29 Patient Disposition: Home Health Service Discharge Diagnosis: Syncope Referrals: Viki Rascon PA [Primary Care Provider, Hospitalist] - 07/14/25 3:15 pm Referral Note: NEW PRIMARY CARE Physician,Unknown J [Physician, Medical] - 1 Week Discharge Medications: Continued clopidogrel [Plavix] 75 mg tablet 75 mg PO DAILY 90 Days Qty: 90 3RF lorazepam 1 mg tablet 1 mg PO BID PRN (Reason: anxiety) Qty: 60 0RF gabapentin 100 mg capsule 200 mg PO BID Qty: 120 3RF pantoprazole 40 mg tablet,delayed release (DR/EC) 40 mg PO DAILY@0630 vitamin B complex Tablet 1 tab PO DAILY acetaminophen [Pain Relief (acetaminophen)] 500 mg tablet 500 mg PO Q4H PRN (Reason: Migraine Headache) levothyroxine 50 mcg tablet 50 mcg PO MOTUWETHFRSA rosuvastatin 20 mg tablet 20 mg PO BEDTIME Incruse Ellipta 62.5 mcg/actuation blister with device 1 inh INHALATION DAILY cholecalciferol (vitamin D3) [Vitamin D3] 50 mcg (2,000 unit) Tablet 50 mcg PO DAILY (DME) syringe with needle 1 mL 21 gauge x 1 syringe See Rx Instructions .Route Qty: 100 0RF Rx Instructions: As directed dicyclomine 20 mg tablet 20 mg PO BID aspirin 81 mg tablet,delayed release (DR/EC) 81 mg PO DAILY albuterol sulfate 90 mcg/actuation HFA aerosol inhaler 2 puff inhalation Q4-6H PRN (Reason: Shortness Of Breath Or Wheezing) fluticasone propion-salmeterol [Advair Diskus] 500-50 mcg/dose blister with device 1 ea inhalation BID Discontinued atenolol 25 mg tablet 25 mg PO BID Qty: 60 1RF Discharge Orders: Discharge Order (Routine); Ordered 06/24/25 Ordered By: Curtis Stephen Diet: Advance to usual diet Activity on Discharge: As tolerated Stand Alone Forms: Patient Portal Discharge page Print Language: Setswana Care Plan Goals: Resume all meds as taken prior to hospitalization Health Concerns: Do not take her atenolol. Follow up with your PCP ; decision can be made at that time to restart atenolol versus other agents Plan of Treatment: Physical therapy and nursing we will see you at home Assessment: See discharge summary
--- NOTE | 2025-06-24 15:39 | W.MHC.F2F ---
Service Date Service Date: 06/24/25 Encounter Date of encounter: 06/24/25 Encounter: Acute hospitalization Reasons for Services Signs and symptoms assessed: We will need physical therapy for gait training and strengthening and fdc to follow up blood pressures and response to therapies Reason for fdc: medication management, teach disease management and other (Follow serial blood pressures) Reason for occupational therapy: home safety and mobility, gait/transfer training and ADL training Homebound: Leaving the home is medically contraindicated at this time without the asist of a device and/or another person due th the listed conditions above and below. Reason homebound: unsteady gait / fall risk and weakness related to hospital stay Certification: Based on the above findings, I certify that this patient is confined to the home and needs intermittent fdc care, physical therapy and/or speech therapy, or continues to need occupational therapy. The patient is under my care, and I have initiated the establishment of the plan of care. The patient will be followed by a physician who will periodically review the plan of care. Time Spent With Patient Time: Total time managing care of this patient today ____ minutes.
--- NOTE | 2025-06-24 15:47 | MHC.CM.PN ---
Pt. to DC today, she will go home via private transport and have home care services from [facility].
[2025-06-26 20:58] LABS: Pioglitazone None Detected; Rosiglitazone None Detected
== END 2025-06-24 16:35 | disposition home health service (06) | DRG 312 ==
LOC: HO.ED 23:38 → HO.EDOVER 23:40 → HO.IMC 06-22 07:23
PROVIDERS: Emergency Medicine; Physician Assistant; Admitting Provider Hospitalist; Emergency Provider Emergency Medicine; PCP Physician Assistant; Visit Provider Hospitalist
DX: I95.2 Hypotension due to drugs (principal); I42.9 Cardiomyopathy, unspecified; E16.2 Hypoglycemia, unspecified; I25.10 Atherosclerotic heart disease of native coronary artery without angina pectoris; E03.9 Hypothyroidism, unspecified; T44.7X5A Adverse effect of beta-adrenoreceptor antagonists, initial encounter; Z20.822 Contact with and (suspected) exposure to COVID-19; Z87.891 Personal history of nicotine dependence; Z79.02 Long term (current) use of antithrombotics/antiplatelets; Z79.51 Long term (current) use of inhaled steroids; Z79.82 Long term (current) use of aspirin; Z79.890 Hormone replacement therapy; Z79.899 Other long term (current) drug therapy
CPT/HCPCS: 36415; 70450; 71045; 80048; 80053; 80076; 80307; 80337; 81001; 82248; 82550; 82607; 82746; 82803; 82947; 83036; 83540; 83690; 83735; 83880; 84443; 84484; 85025; 85027; 85379; 85610; 86140; 87637; 93005; 93306; 94640; 97162; 99285; J1650; J3475; Q9957

== ENCOUNTER → 2025-06-21 19:26 | Outpatient (BNV) | payer MEDICARE, SELFPAY ==
[2023-08-21 10:50] VITALS: BP 118/58; BP 122/60; BP 124/68; BMI 26.1
== END ==
PROVIDERS: Emergency Provider Emergency Medicine; Visit Provider Nuclear Medicine
DX: R53.1 Weakness (principal)
CPT/HCPCS: 71045

== ENCOUNTER → 2025-06-21 19:26 | Outpatient (BNV) | payer MEDICARE, SELFPAY ==
[2023-08-21 10:50] VITALS: BP 118/58; BP 122/60; BP 124/68; BMI 26.1
== END ==
PROVIDERS: Admitting Provider Hospitalist; Emergency Provider Emergency Medicine; Visit Provider Internal Medicine
DX: I44.7 Left bundle-branch block, unspecified (principal)
CPT/HCPCS: 93010

== ENCOUNTER 2025-06-21 23:28 | Outpatient (BNV) | payer MEDICARE, SELFPAY ==
[2023-08-21 10:50] VITALS: BP 118/58; BP 122/60; BP 124/68; BMI 26.1
== END 2025-06-22 00:01 ==
PROVIDERS: Admitting Provider Hospitalist; Emergency Provider Emergency Medicine; Visit Provider Radiology Diagnostic Radiology
DX: E16.2 Hypoglycemia, unspecified (principal)
CPT/HCPCS: 70450

== ENCOUNTER 2025-06-21 23:28 | Outpatient (BNV) | payer MEDICARE, SELFPAY ==
[2023-08-21 10:50] VITALS: BP 118/58; BP 122/60; BP 124/68; BMI 26.1
== END 2025-06-22 07:00 ==
PROVIDERS: Admitting Provider Hospitalist; Emergency Provider Emergency Medicine; Visit Provider Internal Medicine
DX: I51.89 Other ill-defined heart diseases (principal); I35.8 Other nonrheumatic aortic valve disorders; I34.81 Nonrheumatic mitral (valve) annulus calcification
CPT/HCPCS: 93306

== ENCOUNTER → 2025-06-21 23:28 | Outpatient (BNV) | payer MEDICARE, SELFPAY ==
[2023-08-21 10:50] VITALS: BP 118/58; BP 122/60; BP 124/68; BMI 26.1
== END ==
PROVIDERS: Admitting Provider Hospitalist; Emergency Provider Emergency Medicine; Visit Provider Internal Medicine
DX: R55 Syncope and collapse (principal); I42.9 Cardiomyopathy, unspecified; E16.2 Hypoglycemia, unspecified; I25.10 Atherosclerotic heart disease of native coronary artery without angina pectoris
CPT/HCPCS: 99223

== ENCOUNTER → 2025-06-21 23:28 | Outpatient (BNV) | payer MEDICARE, SELFPAY ==
[2023-08-21 10:50] VITALS: BP 118/58; BP 122/60; BP 124/68; BMI 26.1
== END ==
PROVIDERS: Admitting Provider Hospitalist; Emergency Provider Emergency Medicine; Visit Provider Physician Assistant
DX: R55 Syncope and collapse (principal); E16.2 Hypoglycemia, unspecified
CPT/HCPCS: 99232

== ENCOUNTER 2025-07-15 13:54 | Outpatient (AMB) | payer MEDICARE, SELFPAY ==
[2023-08-21 10:50] VITALS: BP 118/58; BP 122/60; BP 124/68; BMI 26.1
[2025-07-15 14:18] VITALS: BP 130/64; PULSE 77; BMI 25.2
--- NOTE | 2025-07-15 14:18 | MHC.OFFVIS ---
Vital Signs 07/15/25 14:18 Height 5 ft 4 in Weight 146 lb 13.246 oz BMI 25.2 BP 130/64 Blood Pressure Location Lt brachial Position Sitting Pulse 77 Pulse Source Monitor Intake Visit Reasons: over due followup Intake Note: over due f/up Supervisor Line Department Required: No Iron Molder Helper: Iron Molder Helper Present Accompanied by: Significant Other Allergies pollen extracts Allergy (Intermediate, Verified 06/21/25 19:17) Sneezing citalopram Allergy (Unknown, Verified 06/21/25 19:17) upsets stomach Medication List - Last Reconciled 07/15/25 by Julio César Vanegas MD acetaminophen (Pain Relief (acetaminophen)) 500 mg PO Q4H PRN albuterol sulfate 90 mcg/actuation 2 puffs inhalation Q4-6H PRN aspirin 81 mg PO DAILY cholecalciferol (vitamin D3) (Vitamin D3) 50 mcg PO DAILY clopidogrel (Plavix) 75 mg PO DAILY 90 days dicyclomine 20 mg PO BID fluticasone propion-salmeterol 500-50 mcg/dose (Advair Diskus) 1 ea inhalation BID gabapentin 200 mg (2 x 100 mg) PO BID levothyroxine 50 mcg PO MOTUWETHFRSA lorazepam 1 mg PO BID PRN pantoprazole 40 mg PO DAILY@0630 rosuvastatin 20 mg PO BEDTIME syringe with needle As directed umeclidinium 62.5 mcg/actuation (Incruse Ellipta) 1 inh inhalation DAILY vitamin B complex 1 tab PO DAILY HPI Comments Details: 80-year-old female who is here for follow-up. She underwent right coronary artery PCI in the past. She is saying that she has been short of breath and has background of asthmatic bronchitis. she is following pulmonology for and has been started on new inhalers. She is still complaining of shortness of breath. Occasionally also gets chest discomfort. Previously had LAD PCI and there is InStent restenosis of the LAD which was medically treated in the past. Her main complaint is shortness of breath with exertion. She has no history of lung disease and new inhalers have been added. She is planning to go to [place] on October 31 and will come back and of the month. She will be attending her grandson's wedding. She returns for f/u today. She continues to have AGUSTIN. She has been taking medications regularly. No bleeding concern. 06/13/23: She is here for follow-up. She underwent LAD PCI for InStent restenoses. She is saying she has significant improvement in her dyspnea and feels great. She has no chest discomfort. Blood pressure control is good. No bleeding concerns currently. Tolerating medications well. Undergoing cardiac rehabilitation. 10/17/2023: She returns for follow-up. She has been doing well. No chest pain or shortness breath. She said she got admitted to [facility] with some chest discomfort and was ruled out and she was told that nothing serious was noted. Blood pressure is mildly elevated. She has been taking aspirin Plavix. No bleeding concerns. 02/18/24: She returns for follow-up. She was in the ER in January 2024 after a fall at night and injury to her arm. She had a broken chair with a spindles taking out which she unfortunately fell on an injured her arm. She was brought to [facility] and then transferred to [facility] for trauma assessment. She said she was assessed and sutured. She has been doing well since then. No syncope episode. No chest pain or shortness of breath otherwise clinically stable. 07/02/24: She is here for follow-up. She has been experiencing bilateral shoulder and arm discomfort with activities. She is thinking that this is due to neck problem and apparently is getting some neck imaging to. She also has been getting some shortness of breath. She has known history of coronary disease and previously had PCI to right coronary artery and LAD. 07/15/25: He is here for follow-up. Recent admission to [facility] when she presented with unresponsiveness. Apparently was noticed to be hypoglycemic and blood sugar was 41 in the ER. There was also some question about orthostasis and her atenolol was stopped. The patient is describing that CPR was performed on her but there is no documentation. Echocardiography in the hospital was showing EF 43% with wall motion abnormalities. She did not have any chest pain or shortness of breath before afterwards she did have some tenderness over the chest which she is saying he is due to CPR although this not documentation. [facility] Medical History HFrEF (heart failure with reduced ejection fraction) Cardiomyopathy Coronary artery disease Surgical History History of cardiac catheterization History of heart artery stent Family History Mother CAD (coronary artery disease) Father No problems noted. Social History Household Members: Spouse Housing: House Do you presently have visiting nurse or other home services: No Alcohol intake: current Alcohol intake frequency: 0-2 drinks per day Alcohol type: beer and wine Patient Tobacco Use Status: Former Tobacco user Tobacco use type: Cigarette Cigarette Packs Per Day: 0.25 Cigarettes Per Day: 5.0 Years Smoked: 30 e-Cigarette/Vaping Use: Former Use Second Hand Smoke Exposure: No service: No Current occupational status: retired Current occupation: right handed, retired Cognitive needs: No Hearing needs: No Vision needs: Yes (rx glasses) Review of Systems Const Denies chills, Denies fatigue, Denies fever(s), Denies frequent falls, Denies weakness, Denies weight gain and Denies weight loss ENT Denies dizziness Card Denies chest pain, Denies leg edema, Denies lightheadedness, Denies palpitations, Denies dyspnea and Denies dyspnea on exertion Resp Denies cough, Denies dyspnea and Denies dyspnea on exertion GI Denies hematochezia Musc Denies abnormal gait, Denies muscle weakness, Denies numbness, Denies radiating pain into limb and Denies tingling Neuro Denies abnormal gait, Denies dizziness, Denies frequent falls, Denies numbness, Denies tingling and Denies weakness Endo Denies fatigue and Denies palpitations Physical Exam Vital Signs: Last Vital Signs Pulse 77 07/15/25 14:18 BP 130/64 07/15/25 14:18 BMI result Body Mass Index 25.2 GENERAL APPEARANCE: in no acute distress, pleasant. NECK: no carotid bruit, no jugular venous distention. SKIN: no suspicious lesions, warm and dry. HEART: no murmurs, regular rate and rhythm. LUNGS: clear to auscultation bilaterally. ABDOMEN: soft, nontender. EXTREMITIES: no edema. PERIPHERAL PULSES: equal. NEUROLOGIC: No gross deficits, AAO X 3 Office Procedures EKG Details: NSR 77/min, LAD, LBBB, QTc 486 msec. [id number], Complete Assessment & Plan Assessment & Plan (1) Stable angina: Code(s): I20.8 - Other forms of angina pectoris Category: Medical (2) Dyspnea on exertion: Code(s): R06.00 - Dyspnea, unspecified Category: Medical Plan Pleasant 80-year-old female who is here for follow-up. She has known history of coronary artery disease with previous right coronary artery as well as LAD PCI. We will she was complaining of She is returning is complaining of bilateral shoulder discomfort and arm discomfort. Our plan was to do some basic blood workup and maybe pursue a stress test. In the meantime on June 23 she was admitted at [facility] because she was found unresponsive. She was noticed to be hypoglycemic and treated for that. She said she had some fatigue preceding this event. She did not receive any antibiotics for any infections to explain the hypoglycemic episode. She does not have known diabetes. She did not have any biomarkers check and her echocardiogram has shown EF for 43% with regional wall motion abnormalities. I doubt that this presentation was an ACS presentation. She also has denying any significant symptoms currently. I think we should observe for now and if she has any symptoms then pursue further testing. Likely reason for presentation was hypoglycemia. I think we continue to hold the atenolol. Thank you for allowing me to participate in the care of your patient. Please feel free to contact me if you have any questions. Coding Level of Care Code Est Pt Level 4 (48353) Diagnoses Stable angina I20.8 Dyspnea on exertion R06.00 CPT Codes EKG - CPT: 08678-[id number], Complete ([id number])
--- OUTSIDE RECORDS SUMMARY | 2025-07-15 14:48 | XMS_ITS | Clinical Summary ---
Author Organization [facility] Address [address] [place] [address] Phone Care Team Providers Care Pathology Tech Name Role Phone Unavailable Primary Care Provider [...] 07/13/2022 Active cholecalciferol (VITAMIN D-3) 250 MCG (33936 UT) capsule Take 10,000 Units by mouth 1 (one) time each day Active Umeclidinium [place] (Incruse Ellipta) 62.5 MCG/ACT aerosol powder Inhale [...] Visit [facility] [address] [place] [address] Yovani Dewitt MD Stage 3b chronic kidney disease (HCC) (Primary Dx); Renal osteodystrophy; Essential hypertension from Last 3 Months Immunizations Immunization Administration [...] 69 04/16/2025 3:06 PM EDT Temperature 36.7 C (98 F) 06/06/2018 12:00 PM EDT Respiratory Rate 14 [...] Visit [facility] [address] [place] [address] Yovani Dewitt MD [address] [facility] [address] [place] [address] Health Maintenance Due Date Last Done Comments Pneumococcal Vaccine: 50+ Years (2 of 2 - PPSV23, PCV20, or PCV21) 07/03/2017 05/08/2017, 09/19/2006, 11/19/1998 Influenza Vaccine (#1) 2025 12/08/2017 Pneumococcal Vaccine: Peds (0 to 5 Years) and At-Risk Patients (6 to 49 Years) Discontinued 05/08/2017, 09/19/2006, 11/19/1998 Hepatitis B Vaccine Aged Out No longe r eligible based on patient's age to complete this topic Insurance Medicare Member Subscriber Plan / Payer (Ef fective 2009-Present) Name:Tonia Lynch Member ID:[id number] Relation to Subscriber:Self Name:Tonia Lynch Subscriber ID:[id number] Payer ID:Not on file Group ID:Not on file Type:Not on file Address: [place] [id number] [facility] Medicare [facility]
== END 2025-07-15 14:55 | disposition home or self-care (01) ==
LOC: HO.HCS 13:55
PROVIDERS: PCP Internal Medicine; Visit Provider Internal Medicine Cardiovascular Disease
DX: I20.89 Other forms of angina pectoris (principal); R06.00 Dyspnea, unspecified
CPT/HCPCS: 93010; 99214

== ENCOUNTER → 2025-07-15 13:54 | Outpatient (BNVA) | payer MEDICARE, SELFPAY ==
[2023-08-21 10:50] VITALS: BP 118/58; BP 122/60; BP 124/68; BMI 26.1
== END ==
PROVIDERS: PCP Internal Medicine; Visit Provider Internal Medicine Cardiovascular Disease
DX: I20.89 Other forms of angina pectoris (principal); R06.09 Other forms of dyspnea; I45.4 Nonspecific intraventricular block; R94.31 Abnormal electrocardiogram [ECG] [EKG]
CPT/HCPCS: 93005; 99212

== ENCOUNTER 2025-07-22 15:20 | Outpatient (AMB) | payer MEDICARE, SELFPAY ==
[2023-08-21 10:50] VITALS: BP 118/58; BP 122/60; BP 124/68; BMI 26.1
--- NOTE | 2025-07-22 15:25 | A.OFFPC_ITS ---
Vital Signs 07/22/25 15:31 Height 5 ft 4 in Weight 67.132 kg BMI 25.4 BP 160/74 H Respiration 16 Pulse 83 Pulse Source Pulse Oximeter Temp 97.8 F Temp Source Temporal Artery Scan Pulse Oximetry (%) 97 Oxygen Delivery Method Room Air Intake Visit Reasons: ED F/U Mat Weaver Required: No Accompanied by: Self / Same As Patient Allergies pollen extracts Allergy (Intermediate, Verified 07/22/25 15:26) Sneezing citalopram Allergy (Unknown, Verified 07/22/25 15:26) upsets stomach Medication List - Last Reconciled 07/24/25 by ANNA Frederick acetaminophen (Pain Relief (acetaminophen)) 500 mg PO Q4H PRN albuterol sulfate 90 mcg/actuation 2 puffs inhalation Q4-6H PRN aspirin 81 mg PO DAILY cholecalciferol (vitamin D3) (Vitamin D3) 50 mcg PO DAILY clopidogrel (Plavix) 75 mg PO DAILY 90 days dicyclomine 20 mg PO BID fluticasone propion-salmeterol 500-50 mcg/dose (Advair Diskus) 1 ea inhalation BID gabapentin 200 mg (2 x 100 mg) PO BID levothyroxine 50 mcg PO MOTUWETHFRSA lorazepam 1 mg PO BID PRN pantoprazole 40 mg PO DAILY@0630 rosuvastatin 20 mg PO BEDTIME syringe with needle As directed umeclidinium 62.5 mcg/actuation (Incruse Ellipta) 1 inh inhalation DAILY vitamin B complex 1 tab PO DAILY Tobacco use date assessed: 04/17/25 Dental Screening Dental Screen Date: 04/17/25 HPI HPI Comments History of Present Illness Details 80-year-old female with a past medical h istory of CAD status post cardiac catheterization, cardiomyopathy, anemia, chronic pain, B12 deficiency, asthma, BPPV was admitted to [facility] from 06/22-06/24. She is accompanied by her Shaquille who witnessed the episode. The morning of the syncopal episode, he had noted that she appeared generally weak with garbled speech. She had thought this was related to having a bad night sleep and worrying about an appointment. However after she syncopized, called EMS. Glucose was found to be 41 and continued to lower to 66 despite dextrose. Episodes were likely related to hypoglycemia though atenolol was also considered. She has discontinued this medication. She has not had any recurrence of symptoms. She does question whether she took 1 of her 's glipizide as her medication boxes are next to each other's. CV: Follows with cardiology. Crestor, plavix, atenolol, asa. Blood pressure is adequately controlled Hypothyroid-on levothyroxine Rsp: Follows with pulmonary. on incruse, albuterol. ROS: See HPI EXAM: Constitutional - Awake and Alert, No apparent distress Eyes - PERRL Cardiovascular - S1S2, RRR, No edema Respiratory - Normal lung expansion, Normal respiratory effort, No respiratory distress, CTA bilaterally Extremities - no calf tenderness bilaterally, no swelling Skin - Warm/Dry Neurological - Alert & oriented x3 Psychological - Appropriate affect [facility] Medical History (Updated 07/24/25 @ 18:09 by ANNA Frederick) Cardiomyopathy Coronary artery disease HFrEF (heart failure with reduced ejection fraction) Surgical History History of cardiac catheterization History of heart artery stent Family History Mother CAD (coronary artery disease) Father No problems noted. Social History Household Members: Spouse Housing: House Do you presently have visiting nurse or other home services: No Alcohol intake: current Alcohol intake frequency: 0-2 drinks per day Alcohol type: beer and wine Patient Tobacco Use Status: Former Tobacco user Tobacco use type: Cigarette Cigarette Packs Per Day: 0.25 Cigarettes Per Day: 5.0 Years Smoked: 30 e-Cigarette/Vaping Use: Former Use Second Hand Smoke Exposure: No service: No Current occupational status: retired Current occupation: right handed, retired Cognitive needs: No Hearing needs: No Vision needs: Yes (rx glasses) Questionnaire Thrive Questionnaire Date Thrive assessed: 06/22/25 TAHIRA-7 AMB Questionnaire TAHIRA-7 Date TAHIRA - 7 assessed: 04/17/25 Source: Developed by Drs. Brian Chang, Carolynn Gomes, Kenneth Pimentel and colleagues, with an educational larisa from [employer]. Physical exam (Primary Care) Vital Signs: Last Vital Signs Temp 97.8 F 07/22/25 15:31 Pulse 83 07/22/25 15:31 Resp 16 07/22/25 15:31 BP 160/74 H 07/22/25 15:31 Pulse Ox 97 07/22/25 15:31 Oxygen Delivery Method Room Air 07/22/25 15:31 BMI result Body Mass Index 25.4 Tobacco/Smoking Status: Tobacco use Status Tobacco use date assessed 04/17/25 07/22/25 15:28 Patient Tobacco Use Status Former Tobacco user 07/22/25 15:28 Tobacco use type Cigarette 07/22/25 15:28 e-Cigarette/Vaping Use Former Use 07/22/25 15:28 Thrive Assessment: Date of Thrive Assessment Date Thrive assessed 06/22/25 07/22/25 15:28 Coding Level of Care Code Est Pt Level 4 (12207) Diagnoses Hypothyroidism, unspecified type E03.9 Hypothyroidism type: unspecified Cardiomyopathy I42.9 Coronary artery disease, unspecified vessel or lesion type, unspecified whether angina present, unspecified whether [place] or transplanted heart I25.10 Coronary Disease-Associated Artery/Lesion type: unspecified vessel or lesion type [place] vs. transplanted heart: unspecified whether [place] or transplanted heart Associated angina: unspecified whether angina present Asthma J45.909 Hospital discharge follow-up Z09 Assessment & Plan Assessment & Plan (1) Hypothyroidism: Code(s): E03.9 - Hypothyroidism, unspecified Category: Medical Qualifiers: Hypothyroidism type: unspecified Qualified Code(s): E03.9 - Hypothyroidism, unspecified Plan: Euthyroid. Continue levothyroxine (2) Cardiomyopathy: Code(s): I42.9 - Cardiomyopathy, unspecified Category: Medical Plan: Symptoms stable. Continue monitoring. Follow up with Cardiology as scheduled (3) Coronary artery disease: Code(s): I25.10 - Atherosclerotic heart disease of [place] coronary artery without angina pectoris Category: Medical Qualifiers: Coronary Disease-Associated Artery/Lesion type: unspecified vessel or lesion type [place] vs. transplanted heart: unspecified whether [place] or transplanted heart Associated angina: unspecified whether angina present Qualified Code(s): I25.10 - Atherosclerotic heart disease of [place] coronary artery without angina pectoris Plan: Stable. Continue following with cardiology. Continue aspirin and Plavix. Continue rosuvastatin. (4) Asthma: Code(s): J45.909 - Unspecified asthma, uncomplicated Category: Medical Plan: Stable. Continue following with pulmonology. Continue Advair, Incruse, and albuterol p.r.n. (5) Hospital discharge follow-up: Code(s): Z09 - Encounter for follow-up examination after completed treatment for conditions other than malignant neoplasm Plan: Reviewed H&P, discharge summary, head CT, labs
[2025-07-22 15:31] VITALS: BP 160/74; PULSE 83; RESP 16; TEMP 36.6; O2SAT 97; BMI 25.4
--- OUTSIDE RECORDS SUMMARY | 2025-07-22 17:25 | XMS_ITS | Clinical Summary ---
Author Organization [facility] Address [address] [place] [address] Phone Care Team Providers Care Radiographer Mammographer Name Role Phone Unavailable Primary Care Provider [...] 07/13/2022 Active cholecalciferol (VITAMIN D-3) 250 MCG (73039 UT) capsule Take 10,000 Units by mouth 1 (one) time each day Active Umeclidinium [place] (Incruse Ellipta) 62.5 MCG/ACT aerosol powder Inhale [...] obstructive pulmonary disease 02/05/2012 Coronary atherosclerosis 02/05/2004 Immunizations Immunization Administration Dates Next Due Influenza [...] Visit [facility] [address] [place] [address] Yovani Dewitt MD [address] [id number] Health Maintenance Due Date Last Done Comments [...] age to complete this topic Insurance Medicare [facility] Medicare [facility]
== END 2025-07-22 16:27 | disposition home or self-care (01) ==
LOC: HO.HMCHD 15:21
PROVIDERS: PCP Physician Assistant; Visit Provider Physician Assistant
DX: E03.9 Hypothyroidism, unspecified (principal); I42.9 Cardiomyopathy, unspecified; I25.10 Atherosclerotic heart disease of native coronary artery without angina pectoris; J45.909 Unspecified asthma, uncomplicated; Z09 Encounter for follow-up examination after completed treatment for conditions other than malignant neoplasm

== ENCOUNTER → 2025-07-22 15:20 | Outpatient (BNVA) | payer MEDICARE, SELFPAY ==
[2023-08-21 10:50] VITALS: BP 118/58; BP 122/60; BP 124/68; BMI 26.1
== END ==
PROVIDERS: PCP Physician Assistant; Visit Provider Physician Assistant
DX: Z09 Encounter for follow-up examination after completed treatment for conditions other than malignant neoplasm (principal); E03.9 Hypothyroidism, unspecified; I42.9 Cardiomyopathy, unspecified; I25.10 Atherosclerotic heart disease of native coronary artery without angina pectoris; J45.909 Unspecified asthma, uncomplicated; Z79.899 Other long term (current) drug therapy
CPT/HCPCS: 99212

== ENCOUNTER 2025-10-12 15:11 | Outpatient (AMB) | payer MEDICARE, SELFPAY ==
[2023-08-21 10:50] VITALS: BP 118/58; BP 122/60; BP 124/68; BMI 26.1
[2025-10-12 15:17] VITALS: BP 150/78; PULSE 71; O2SAT 99; BMI 25.4
--- NOTE | 2025-10-12 15:17 | A.OFFVIS_ITS ---
Vital Signs 10/12/25 15:17 Height 5 ft 4 in Weight 147 lb 11.355 oz BMI 25.4 BP 150/78 H Blood Pressure Location Rt brachial Position Sitting Pulse 71 Pulse Source Pulse Oximeter Pulse Oximetry (%) 99 Oxygen Delivery Method Room Air Intake Visit Reasons: asthma Allergies pollen extracts Allergy (Intermediate, Verified 10/12/25 15:23) Sneezing citalopram Allergy (Unknown, Verified 10/12/25 15:23) upsets stomach HPI HPI asthma: Details: Tonia is a pleasant 80-year-old female, former less than 15 pack year smoker, quit 40 years ago with underlying asthma, CAD s/p stents x 2, Anemia and BPPV. She was referred by PCP for asthma management. She was previously under the care of however wanted to transition to this office due to location. She reports longstanding history of asthma, diagnosed as an adult and never required intubation. She reports excellent control of respiratory symptoms on current regimen of Advair and Incruse, and albuterol used infrequently for shortness of breath. She denies h/o recurrent respiratory infections. The patient has a history of smoking, having started at age 14 and quitting around age 44, with minimal smoking habits reported. She endorses mild seasonal allergies, controlled with PRN anthistamines. She denies any occupational exposures. The patient has a history of cardiovascular stents placed and sees Dr. Leonard every six months, last echo 06/2025 demonstrated diastolic dysfunction, LVEF 43%. She currently denies any orthopnea or BLE edema. [facility] Medical History (Updated 07/24/25 @ 18:09 by ANNA Frederick) Cardiomyopathy Coronary artery disease HFrEF (heart failure with reduced ejection fraction) Surgical History History of cardiac catheterization History of heart artery stent Family History Mother CAD (coronary artery disease) Father No problems noted. Social History Household Members: Spouse Housing: House Do you presently have visiting nurse or other home services: No Alcohol intake: current Alcohol intake frequency: 0-2 drinks per day Alcohol type: beer and wine Patient Tobacco Use Status: Former Tobacco user Tobacco use type: Cigarette Cigarette Packs Per Day: 0.25 Cigarettes Per Day: 5.0 Years Smoked: 30 e-Cigarette/Vaping Use: Former Use Second Hand Smoke Exposure: No service: No Current occupational status: retired Current occupation: right handed, retired Cognitive needs: No Hearing needs: No Vision needs: Yes (rx glasses) Review of Systems Const Denies chills, Denies excessive sweating, Denies fever(s), Denies headache(s) and Denies night sweats Eyes Denies dry eyes, Denies irritation and Denies itchy eyes ENT Reports Normal hearing present, Denies headache(s), Denies nasal congestion, Denies nasal discharge, Denies post nasal drip and Denies sore throat Card Denies chest pain, Denies chest pain at rest, Denies chest pain with activity, Denies claudication, Denies leg edema, Denies dyspnea, Denies dyspnea on exertion, Denies orthopnea and Denies paroxysmal nocturnal dyspnea Resp Denies chest congestion, Denies cough, Denies excessive phlegm production, Denies pain on inspiration, Denies pain with cough, Denies dyspnea, Denies dyspnea on exertion, Denies stridor and Denies wheezing Musc Denies myalgias Neuro Reports Normal hearing present and Denies headache(s) Endo Denies excessive sweating Danny/Lymph Denies lymphadenopathy Aller/Immun Denies itchy eyes, Denies seasonal rhinorrhea and Denies wheezing Physical Exam Vital Signs: Last Vital Signs Pulse 71 10/12/25 15:17 BP 150/78 H 10/12/25 15:17 Pulse Ox 99 10/12/25 15:17 Oxygen Delivery Method Room Air 10/12/25 15:17 BMI result Body Mass Index 25.4 Const General: cooperative, healthy appearing, comfortable, no acute distress, well developed and alert Orientation/consciousness: patient oriented x3 Limitations: no limitations HEENT Head: Yes normal to inspection, Yes normocephalic and Yes atraumatic Ears: hearing grossly normal bilaterally and external ears normal Eyes General: appearance normal, both eyes and all related structures Eyelids: Yes eyelids normal Sclerae: sclerae normal EOM: EOMs intact bilaterally Neck Neck: Yes normal visual inspection and Yes no lymphadenopathy Lymphatic: no lymphadenopathy noted Chest Chest palpation & inspection: normal inspection of the chest Resp Effort & Inspection: normal respiratory effort, able to speak in complete sentences, no audible wheezes, no cough, no stridor, not tachypneic, no tripod positioning and no use of accessory muscles Auscultation: clear to auscultation bilaterally Cardio Jugular venous distension: no JVD Rate: regular rate Rhythm: regular rhythm Skin Other: warm, dry General skin exam: no rashes or lesions noted Neuro General: patient oriented x3 Cranial nerves: Yes Normal hearing present Cognition (Neuro): normal cognition Gait exam (Neuro): Normal gait present Extrem General: Yes normal to inspection, Yes capillary refill normal, Yes no clubbing, cyanosis or edema and Yes no pedal edema Psych Appearance: grossly normal and well kempt Speech and movement: Normal speech and movement present and Clear speech present Affect: normal affect Attitude: cooperative Thought process: Normal thought process present Thought content: Normal thought content present Insight: Good insight present (Psych) Judgement: Good judgement present (Psych) Assessment & Plan Assessment & Plan (1) Asthma: Code(s): J45.909 - Unspecified asthma, uncomplicated Category: Medical (2) Personal history of tobacco use: Code(s): Z87.891 - Personal history of nicotine dependence Category: Social Hx Plan The patient's asthma is currently managed with Advair and Incruse, with albuterol used infrequently for shortness of breath. The plan includes obtaining previous records to assess the severity of asthma and determine if there is any underlying COPD, based on prior PFTs. Follow-up is recommended in three to six months unless symptoms worsen, in which case the patient should contact the clinic. All questions were answered and patient is in agreement of plan. Coding Level of Care Code New Pt Level 3 (96862) Diagnoses Asthma J45.909 Personal history of tobacco use Z87.891
--- OUTSIDE RECORDS SUMMARY | 2025-10-12 19:57 | XMS_ITS | Data Portability ---
Author Organization [facility], Telehealth Patient Home Address [address] [place] [address] Assessment No assessment recorded. Plan of Treatment Reminders Order Date Submit Date Provider Last Modified By Organization Details Last Modified Time Details Appointments None recorded. Lab lipid panel, blood 2017 018 [facility], [address] [place] [address], [address], 9 07:57:43 CMP, serum or plasma 2017 018 [facility], [address] [place] [address], [address], 9 07:57:43 CBC 2017 018 [facility], [address] [place] [address], [address], 8 07:15:04 TSH + free T4, serum 2017 018 [facility], [address] [place] [address], [address], 8 07:15:04 CBC 2017 018 [facility], [address] [place] [address], [address], 8 08:23:22 lipid panel, blood 2017 018 [facility], [address] [place] [address], [address], 8 08:15:06 CMP, serum or plasma 2017 018 [facility], [address] [place] [address], [address], 8 08:15:06 TSH + free T4, serum 2017 018 [facility], [address] [place] [address], [address], 8 08:23:22 Referral physical therapist referral 2017 [facility], [address] [place] [address], [address], 9 08:59:35 Procedures None recorded. Surgeries None recorded. Imaging None recorded. Medication Orders cyclobenza medina [address] [facility], [address] [place], [address], 9 14:53:50 allopurino l 300 mg tablet [address] [facility], [address] [place], [address], 8 15:27:01 Advair Diskus 500 mcg-50 mcg/dose powder for inhalation 2017 018 [facility], [facility], [place], [address], 8 15:39:13 cholestyra mine (with sugar) 4 gram powder for susp in a packet [address] [facility], [address] [place], [address], 8 15:34:36 citalopram 40 mg tablet 2017 018 [facility], [address] [facility], [place], [address], 9 15:05:18 allopurino l 300 mg tablet 2017 018 [facility], [place], [address], 8 14:13:20 amlodipine 5 mg tablet 2017 018 [facility], [place], [address], 9 15:10:13 pantoprazo le 40 mg tablet,del ayed release 2017 018 [facility], [place], [address], 8 14:13:20 Patient TargetsNo targets recorded. Patient Instructions Encounter Date Encounter Id Patient Instructions Last Modified By Organization Details Last Modified Time 07/02/2018 [id number] probiotics education denys Not available 07/02/2018 14:13:20 40 minute visit with at least 1/2 of the face to face time with this patient was spent on counseling +/or coordination of care denys Not available 07/02/2018 14:15:09 10/23/2018 [id number] 30 minute visit with at least 1/2 of the face to face time with this patient was spent on counseling +/or coordination of care denys Not available 10/23/2018 16:28:34 01/15/2019 [id number] back care and preventing injuries: care instructions denys Not available 01/15/2019 14:53:47 learning about relief for back pain denys Not available 01/15/2019 14:53:47 Reason for Referral Physical Therapist Referral for Weakness of left leg percieved weakness left leg Referring Physician: Jackeline Baeza, Internal Medicine, Encounter Date: 10/23/2018 Results Created Date Observation Date Name Description Value Unit Range Abnormal Flag Note LastModifiedBy Organization Detail LastModifiedTime 01/23/20 19 01/21/2019 MAMMO , scree sajan, bilat eral No observ ation record ed. [facility] (Medical Records) [address] [place], [address], 01/23/2019 10:32:58 Result Notes None recorded. Problems Name Problem SNOMED Code Status Onset Date Resolution Date Notes Provider Name and Address Organization Details Recorded Time Coronary atheroscle rosis 897124094 Active 2003 Jackeline Baeza NP, S [address] [place] [address], [address], [facility] 8 14:08:05 Chronic obstructiv e pulmonary disease 89866801 Active 2011 Jackeline Baeza NP, S [address] [place] [address], [address], [facility] 8 14:06:19 Essential hypertensi on 45776186 Active 2017 Jackeline Baeza NP, S [address] [place] [address], [address], [facility] 8 14:05:32 Hyperchole sterolemia 18239551 Active 2017 Jackeline Baeza NP, S [address] [place] [address], [address], [facility] 8 14:05:48 Irritable bowel syndrome 22406799 Active 2017 Jackeline Baeza NP, S [address] [place] [address], [address], [facility] 8 14:06:37 Hypothyroi dism 61885424 Active 2017 Jackeline Baeza NP, S [address] [place] [address], [address], [facility] 8 14:06:50 Gout 60422035 Active 2017 Jackeline Baeza NP, S [address] [place] [address], [address], [facility] 8 14:06:59 Gastroesop hageal reflux disease 394038071 Active 2017 Jackeline Baeza NP, S [address] [place] [address], [address], [facility] 8 14:07:10 Chronic anxiety 357653008 Active 2017 Jackeline Baeza NP, S [address] [place] [address], [address], [facility] 8 14:10:34 Chronic kidney disease 576960585 Active 2017 Jackeline Baeza NP, S [address] [place] [address], [address], [facility] 8 13:53:23 Notes:Some problems listed i n Documents: #[id number], #[id number], #[id number] could not be added to this patient's chart. Please review these documents and add these problems to the patient's chart manually as needed. Problem Notes None recorded. Procedures Surgical History Date Name Laterality Status Provider Name and Address Organization Details Recorded Time 01/03/20 18 Most Recent Mammogram completed Jackeline Baeza NP, S [address] [place] [address], [address], [facility] 02/04/2018 14:19:41 03/19/20 13 Colonoscopy completed Jackeline Baeza NP, S [address] [place] [address], [address], [facility] 02/04/2018 14:18:57 11/19/19 13 Date of Last Pap Smear completed Jackeline Baeza NP, [place] [address] [place] [address], [address], [facility] 02/04/2018 14:20:11 03/19/20 00 Unlisted px cardiac surgery completed Jackeline Baeza NP, S [address] [place] [address], [address], [facility] 02/04/2018 14:16:04 Imaging Results None recorded. Procedure Notes None recorded. Medical Equipment None Reported. Allergies Allergen ID Allergen Name Allergen Category Reaction Reaction Severity Criticality Documentation Date Start Date Code Code System Note Provider Name and Address Organization Details Recorded Time 545 codeine medicatio n Not available Not available Not available 02/04/2018 1846 RxNorm Jackeline Baeza NP, S [address] [place], [address], [facility] 8 14:05:14 Medications Name Sig Start Date Stop Date Status Note LastModified by Organization Details LastModified Time cyclobenzap rine 10 mg tablet Take 1 tablet twice a day by oral route as needed. 2018 active Not Available Not Available Not Avai lable amoxicillin 500 mg capsule active Not Available Not Available Not Available doxycycline hyclate 100 mg capsule 04/01 completed Not Available Not Available Not Available citalopram 40 mg tablet Take 1 tablet every day by oral route. 01/03 completed Not Available Not Available Not Available prednisone 20 mg tablet 04/01 completed Not Available Not Available Not Available atenolol 25 mg tablet TAKE 1 TABLET TWICE A DAY active Not Available Not Available No t Available amlodipine 5 mg tablet TAKE 1 TABLET DAILY NEEDS APPT FOR FURTHER REFILLS active Not Available Not Available No t Available levothyroxi ne 75 mcg tablet 1 po daily active Not Available Not Available No t Available flaxseed oil 1,000 mg capsule Take 1 capsule twice a day by oral route. active Not Available Not Available No t Available prednisolon e acetate 1 % eye drops,suspe nsion active Not Available Not Available Not Available dicyclomine 20 mg tablet TAKE 1 TABLET 4 TIMES A DAY- NEEDS APPOINTME NT FOR FURTHER REFILLS active Not Available Not Available No t Available cephalexin 500 mg capsule 04/01 completed Not Available Not Available Not Available pantoprazol e 40 mg tablet,farzad yed release TAKE 1 TABLET ONCE DAILY active Not Available Not Available No t Available Advair Diskus 500 mcg-50 mcg/dose powder for inhalation Inhale 1 puff twice a day by inhalatio n route. active Not Available Not Available No t Available Prevalite 4 gram powder for suspension in a packet Take 1 packet 3 times a day by oral route. active Not Available Not Available No t Available allopurinol 300 mg tablet 1 tablet QD active Not Available Not Available No t Available lorazepam 1 mg tablet TAKE 1 TABLET 2 TIMES A DAY NEEDED BY MOUTH active Not Available Not Available No t Available albuterol sulfate HFA 90 mcg/actuati on aerosol inhaler active Not Available Not Available Not Available colchicine 0.6 mg tablet 04/01 completed Not Available Not Available Not Available Calcium + D 600 mg-5 mcg (200 unit) tablet Take 1 tablet every day by oral route. active Not Available Not Available No t Available valsartan 160 mg tablet Take 1 tablet every day by oral route. 07/02 completed Not Available Not Available Not Available Vitamin D3 25 mcg (1,000 unit) capsule Take 1 capsule every day by oral route. active Not Available Not Available No t Available cholestyram ine (with sugar) 4 gram powder for susp in a packet Take 1 packet every day by oral route. 2017 active Not Available Not Available Not Avai lable rosuvastati n 20 mg tablet TAKE 1 TABLET DAILY active Not Available Not Available No t Available aspirin 81 mg daily active Not Available Not Available No t Available amlodipine 5 mg daily active Not Available Not Available No t Available Ventolin HFA 2 puffs Q4h prn 08/23 completed Not Available Not Available Not Available omeprazole 20 mg tablet,farzad yed release Take 1 tablet every day by oral route. 07/02 completed Not Available Not Available Not Available Probiotic 10/23 completed Not Available Not Available Not Available Incruse Ellipta 62.5 mcg/actuati on powder for inhalation Inhale 1 puff every day by inhalatio n route. 07/02 completed Not Available Not Available Not Available Vitals Date Recorded Body height Body mass index (BMI) Body weight Heart rate Oxygen saturation Systolic And Diastolic Provider Name and Address Organization Details Last Updated DateTime 9 161.93 cm 29.6 kg/m2 55000.3 g 78 /min 97 % 130/64 mm[Hg] [facility] 9 14:58:34 Date Recorded Body height Body mass index (BMI) Body weight Heart rate Oxygen saturation Body temperature Systolic And Diastolic Provider Name and Address Organization Details Last Updated DateTime 9 161.93 cm 29.9 kg/m2 42517.1 2 g 73 /min 97 % 97.5 [degF] 114/68 mm[Hg] [facility] 9 14:31:08 Date Recorded Systolic And Diastolic Provider Name and Address Organization Details Last Updated DateTime 07/02/2018 150/68 mm[Hg] Jackeline Baeza NP, S [address] [place], [address], [facility] 07/02/2018 13:51:17 Date Recorded Body height Body mass index (BMI) Body weight Heart rate Oxygen saturation Provider Name and Address Organization Details Last Updated DateTime 07/02/2018 161.93 cm 31.1 kg/m2 83933.63 g 74 /min 96 % [facility] 8 13:32:50 Date Recorded Body height Body mass index (BMI) Body weight Heart rate Oxygen saturation Systolic And Diastolic Provider Name and Address Organization Details Last Updated DateTime 8 161.93 cm 30.6 kg/m2 19060.8 5 g 73 /min 97 % 124/60 mm[Hg] [facility] 8 14:14:44 Date Recorded Body height Body mass index (BMI) Body weight Heart rate Oxygen saturation Systolic And Diastolic Provider Name and Address Organization Details Last Updated DateTime 8 161.93 cm 30.5 kg/m2 38609.0 5 g 74 /min 97 % 116/60 mm[Hg] [facility] 8 15:20:16 Social History Question Answer Notes LastModified by Organizat ion Details LastModified Time Tobacco Smoking Status Former Smoker Not Available [facility] 09/21/2020 03:36:23 What Was The Date Of Your Most Recent Tobacco Screening? 01/15/2019 [id number] Information not available 09/21/2020 Sex: Unknown Functional Status None recorded. Mental Status None recorded. Family History Nothing Reported. Medical History No medical history recorded. Gynecological History Statement/Question Response If Post Menopausal, Age at Menopause 49 Abnormal Pap N Date of Last Pap Smear 11/19/2012 Most Recent Mammogram 01/03/2018 Obstetrics History GPAL:G 0 P 0 0 0 0 Immunizations Vaccine Type Date Status Note Provider Nam e and Address Organization Details Recorded Time pneumococcal, unspecified formulation 9 completed Jackeline Baeza NP, S [address] [place] [address], [address], [facility] 02/04/2018 14:14:18 pneumococcal, unspecified formulation 6 completed Jackeline Baeza NP, S [address] [place] [address], [address], [facility] 02/04/2018 14:14:39 Tdap 5 completed Jackeline Baeza NP, S [address] [place] [address], [address], [facility] 02/04/2018 14:16:48 Past Encounters Encounter ID Performer Location Encounter Start Date Encounter Closed Date Diagnosis/Indication Diagnosis SNOMED-CT Code Diagnosis ICD10 Code Diagnosis IMO Codes Diagnosis [id number] [address] [place] [address] 04/01/2018 13:31:06 04/01/2018 15:40:55 Prerenal azotemia 205209737 N25.9 Active or passive immunization 995335631 Z23 discussed getting shingrix at pharmacy Hypercholesterolemia 136 48868 E78.00 Gout 22614522 M10.9 off allopurina l-follow Hypothyroidism 83486551 E03.9 Irritable bowel syndrome with diarrhea 670003580 K58.0 no changes Chronic ob structive pulmonary disease 55056213 J44.9 stable [id number] [facility] [address] [place] [address] [place] [address] 07/02/2018 13:18:14 07/05/2018 10:42:03 Irritable bowel syndrome 36487190 K58.9 Gout 22889433 M10.9 Chronic ki dney disease 672418412 N18.9 Hypothyroidism 77985841 E03.9 Coronary atherosclerosis 428432048 I25.10 Gastroesop hageal reflux disease 071862067 K21.9 Gastroesop hageal reflux disease without esophagitis 107132870 K21.9 Active or passive immunization 648004605 Z23 discussed getting shingrix at pharmacy Screening procedure 2013 5006 Z13.9 schedule PAP [id number] Juvencio Hernandez [facility] [address] [facility],[place] [address] 08/23/2018 13:48:36 08/23/2018 16:04:56 Chronic kidney disease 219685052 N18.[address] Alvarez Chronic anxiety 63343853 9 F41.9 continue citalopram , see if symptoms improve Coronary atherosclerosis 703485193 I25.10 Hypothyroidism 44254051 E03.9 nml labs Irritable bowel syndrome 60527504 K58.9 Chronic ob structive pulmonary disease 42131727 J44.9 stable Hypercholesterolemia 136 72886 E78.00 on crestor Essential hypertension 57115285 I10 stable [id number] Juvencio Hernandez [facility] [address] [facility],[place] [address] 10/23/2018 15:14:33 10/28/2018 10:10:10 Chronic anxiety 612028351 F41.9 continue citalopram , Gout 42866106 M10.9 Diarrhea 60463254 R19.7 Weakness of left leg 222 5207702 9569717 G83.10 Chronic ob structive pulmonary disease 16757937 J44.9 stable Chronic ki dney disease 633157747 N18.9 stable Hypothyroidism 06240316 E03.9 stable Hypercholesterolemia 136 06326 E78.00 on crestor, recheck profile Essential hypertension 70344400 I10 stable [id number] Juvencio Hernandez [facility] [address] [facility],[place] [address] 01/03/2019 14:53:01 01/03/2019 16:23:53 Chronic kidney disease 492822090 N18.9 stable Chronic anxiety 53200499 9 F41.9 pt stopped citalopram , using lorazepam Gastroesop hageal reflux disease 814735227 K21.9 pantoprazo le helpful Hypothyroidism 98781518 E03.9 stable Hypercholesterolemia 136 37814 E78.00 on crestor, recheck profile Essential hypertension 36668538 I10 stable Gout 30338638 M10.9 stopped allopurino l Irritable bowel syndrome 06367292 K58.9 prevalite helpful Weakness of left leg 721 3005226 8038499 G83.10 cx d PT, wants to try increasing exercise Chronic ob structive pulmonary disease 56617387 J44.9 stable [id number] Juvencio GeorginaMar Hernandez DO [facility] [address] [facility],[place] [address] 01/15/2019 14:26:38 01/15/2019 15:01:34 Low back pain 399325301 M54.5 Chronic ki dney disease 681323917 N18.9 stable Hypothyroidism 42836136 E03.9 stable Essential hypertension 18302020 I10 stable Dry skin 00716328 L85.3 drink more fluids, continue moisturizi ng Health Concerns Section Related Observation LastModified by Organization Detai ls LastModified Time None Recorded Concern Status LastModified by Organization Details LastModified Time None Recorded Advance Directives Directive None Recorded Payers Insurance Date Sequence Insurance Name Policy Number Policy Hackett Covered Member ID Hackett Member ID Guarantor Name 01/15/2019 2 [place] [id number] Tonia Dafonseca [id number] Tonia A Dafonseca 12/29/2018 1 [place] [employer] Tonia A Dafonseca [id number] A Tonia A Dafonseca Notes Date Note Type Note Provider Name a nd Address Organization Details Recorded Time 07/02/2018 text/html Needs refills allopurinal 300mg and pantoprazole 40 mg Up to date with [facility] ( Dr. Wooten ). 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, and told to limit use ventolin, now if SOB-just rests for a minute Feels well, No CP Jackeline Baeza, CANDIDO, S [address] [facility], [place], [address], [facility] 07/02/2018 14:15:25 08/23/2018 text/html ROS as noted in the HPI Was off citalopram for 1-2 months, restarted 2 weeks ago-feels better overall But stomach has been upset-morning diarrhea ( no Change ) Has been having difficult time sleeping- has needed 2 lorazepam Missed appt recently 2nd diarrhea Going to [place] in couple months, No CP/SOB Jackeline Baeza NP, S [address] [place], [address], [facility] 08/23/2018 15:53:36 10/23/2018 text/html ROS as noted in the HPI Still noting 3-5 X a.m. stools that are liquid or semi formed ( no change) Stopped probotics leaving 11/04 for 3 weeks in [place] Has appt with Dr. Huerta ( pulm ) in November- needs refill advair, breathing well, off incruse Has appt February or March with Dr. Wooten (cardiology) No CP/SOB Notes weakness left leg going up stairs, no pain, no back pain Jackeline Baeza NP, S [address] [place], [address], [facility] 10/23/2018 16:28:48 01/03/2019 text/html Routine appt Feels well, was ill w/upper respiratory symptoms X 2-3 weeks, still some fatigue/SOB- Had to change appt w/Dr. Huerta (pulm) using Advair Has upcoming appt w/Dr. Wooten ( [facility] ) bowels seem to have improved-using probiotic, Vitamin C, D and flaxseed Has had normal BM's recently Wants to try more activity-cx'd PT for left leg weakness Jackeline Baeza NP, S [address] [place], [address], [facility] 01/03/2019 16:53:26 01/15/2019 text/html ROS as noted in the HPI SDV-called this a.m. Hurt back on Sunday ( 5 days ago ) right low back daughter fell & pt helped her to stand up ( daughter weighs 180-200 ) Used Aleve, heating pad, hot showers No abdominal pain, No leg weakness No ecchymosis, swelling noted Also C/O dry skin on lower legs Jackeline Baeza NP, S [address] [place], [address], [facility] 01/15/2019 14:53:52 OBGyn Episode No OBEpisode recorded.
== END 2025-10-12 15:44 | disposition home or self-care (01) ==
LOC: HO.HPS 15:11
PROVIDERS: PCP Physician Assistant; Visit Provider Nurse Practitioner Family
DX: J45.909 Unspecified asthma, uncomplicated (principal); Z87.891 Personal history of nicotine dependence
CPT/HCPCS: 99203

== ENCOUNTER → 2025-10-12 15:11 | Outpatient (BNVA) | payer MEDICARE, SELFPAY ==
[2023-08-21 10:50] VITALS: BP 118/58; BP 122/60; BP 124/68; BMI 26.1
== END ==
PROVIDERS: PCP Physician Assistant; Visit Provider Nurse Practitioner Family
DX: J45.909 Unspecified asthma, uncomplicated (principal); Z87.891 Personal history of nicotine dependence
CPT/HCPCS: 99202

== ENCOUNTER 2025-11-03 13:12 | Outpatient (AMB) | payer MEDICARE, SELFPAY ==
[2023-08-21 10:50] VITALS: BP 118/58; BP 122/60; BP 124/68; BMI 26.1
--- NOTE | 2025-11-03 13:32 | A.OFFPC_ITS ---
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: No Accompanied by: Self / Same As Patient Allergies pollen extracts Allergy (Intermediate, Verified 11/03/25 13:32) Sneezing citalopram Allergy (Unknown, Verified 11/03/25 13:32) upsets stomach Medication List - Last Reconciled 11/07/25 by ANNA Frederick acetaminophen (Pain Relief (acetaminophen)) 500 mg PO Q4H PRN albuterol sulfate 90 mcg/actuation 2 puffs inhalation Q4-6H PRN cholecalciferol (vitamin D3) (Vitamin D3) 50 mcg PO DAILY clopidogrel (Plavix) 75 mg PO DAILY 90 days dicyclomine 20 mg PO TID 90 days fluticasone propion-salmeterol 500-50 mcg/dose (Advair Diskus) 1 ea inhalation BID gabapentin 200 mg (2 x 100 mg) PO BID levothyroxine 50 mcg PO MOTUWETHFRSA lorazepam 1 mg PO BID PRN pantoprazole 40 mg PO DAILY@0630 rosuvastatin 20 mg PO BEDTIME syringe with needle As directed umeclidinium 62.5 mcg/actuation (Incruse Ellipta) 1 inh inhalation DAILY 90 days vitamin B complex 1 tab PO DAILY Tobacco use date assessed: 04/17/25 Fall risk assessment: No Falls in past year Last assessed Fall Risk: 11/03/25 Dental Screening Dental Screen Date: 04/17/25 HPI HPI Comments History of Present Illness Details 80-year-old female with a past medical h istory of CAD status post cardiac catheterization, cardiomyopathy, anemia, chronic pain, B12 deficiency, asthma, BPPV presents for follow up. CV: Follows with cardiology. Crestor, plavix, atenolol, asa. Blood pressure is adequately controlled Hypothyroid-on levothyroxine Rsp: Follows with pulmonary. on incruse, albuterol. Concerns: Significant bruising all extremities since starting plavix. Has been on DAPT since last RAYMOND placement in 2021 bruising ble- no pain, sore. since plavix ROS: See HPI EXAM: Constitutional - Awake and Alert, No apparent distress Eyes - PERRL Cardiovascular - S1S2, RRR, No edema Respiratory - Normal lung expansion, Normal respiratory effort, No respiratory distress, CTA bilaterally Extremities - no calf tenderness bilaterally, no swelling Skin - Warm/Dry. Large areas of ecchmosis on the legs and arms. No significant hematoma. No bleeding Neurological - Alert & oriented x3 Psychological - Appropriate affect [facility] Medical History (Updated 11/03/25 @ 14:09 by ANNA Frederick) Cardiomyopathy Coronary artery disease HFrEF (heart failure with reduced ejection fraction) Surgical History History of cardiac catheterization History of heart artery stent Family History Mother CAD (coronary artery disease) Father No problems noted. Social History Household Members: Spouse Housing: House Do you presently have visiting nurse or other home services: No Alcohol intake: current Alcohol intake frequency: 0-2 drinks per day Alcohol type: beer and wine Patient Tobacco Use Status: Former Tobacco user Tobacco use type: Cigarette Cigarette Packs Per Day: 0.25 Cigarettes Per Day: 5.0 Years Smoked: 30 e-Cigarette/Vaping Use: Former Use Second Hand Smoke Exposure: No service: No Current occupational status: retired Current occupation: right handed, retired Cognitive needs: No Hearing needs: No Vision needs: Yes (rx glasses) Questionnaire Thrive Questionnaire Date Thrive assessed: 06/22/25 TAHIRA-7 AMB Questionnaire TAHIRA-7 Date TAHIRA - 7 assessed: 04/17/25 Source: Developed by Drs. Brian Chang, Carolynn Gomes, Kenneth Pimentel and colleagues, with an educational larisa from [employer]. Physical exam (Primary Care) Vital Signs: Last Vital Signs Temp 98.5 F 11/03/25 13:38 Pulse 82 11/03/25 13:38 Resp 18 11/03/25 13:38 BP 138/64 11/03/25 13:38 Pulse Ox 96 11/03/25 13:38 Oxygen Delivery Method Room Air 11/03/25 13:38 BMI result Body Mass Index 24.5 Tobacco/Smoking Status: Tobacco use Status Tobacco use date assessed 04/17/25 11/03/25 13:33 Patient Tobacco Use Status Former Tobacco user 11/03/25 13:33 Tobacco use type Cigarette 11/03/25 13:33 e-Cigarette/Vaping Use Former Use 11/03/25 13:33 Thrive Assessment: Date of Thrive Assessment Date Thrive assessed 06/22/25 11/03/25 13:33 Coding Level of Care Code Est Pt Level 4 (10030) Add On Problem Visit Only Diagnoses Hypothyroidism, unspecified type E03.9 Hypothyroidism type: unspecified Cardiomyopathy I42.9 Coronary artery disease, unspecified vessel or lesion type, unspecified whether angina present, unspecified whether three affiliated or transplanted heart I25.10 Coronary Disease-Associated Artery/Lesion type: unspecified vessel or lesion type Douglas vs. transplanted heart: unspecified whether three affiliated or transplanted heart Associated angina: unspecified whether angina present Asthma J45.909 Assessment & Plan Assessment & Plan (1) Hypothyroidism: Code(s): E03.9 - Hypothyroidism, unspecified Category: Medical Qualifiers: Hypothyroidism type: unspecified Qualified Code(s): E03.9 - Hypothyroidism, unspecified Plan: Euthyroid. Continue levothyroxine (2) Cardiomyopathy: Code(s): I42.9 - Cardiomyopathy, unspecified Category: Medical Plan: Symptoms stable. Continue monitoring. Follow up with Cardiology as scheduled (3) Coronary artery disease: Code(s): I25.10 - Atherosclerotic heart disease of three affiliated coronary artery without angina pectoris Category: Medical Qualifiers: Coronary Disease-Associated Artery/Lesion type: unspecified vessel or lesion type Douglas vs. transplanted heart: unspecified whether three affiliated or transplanted heart Associated angina: unspecified whether angina present Qualified Code(s): I25.10 - Atherosclerotic heart disease of three affiliated coronary artery without angina pectoris Plan: Stable. Continue following with cardiology. Continue crestor. Discussed bruising of the extremities with cardiology recommending DC of asa. Continue plavix (4) Asthma: Code(s): J45.909 - Unspecified asthma, uncomplicated Category: Medical Plan: Stable. Continue following with pulmonology. Continue Advair, Incruse, and albuterol p.r.n. Orders: Orders Basic Metabolic Panel 4 Months E03.9 - Hypothyroidism, unspecified, I25.10 - Atherosclerotic heart disease of three affiliated coronary artery without angina pectoris, I42.9 - Cardiomyopathy, unspecified Lipid Panel 4 Months E03.9 - Hypothyroidism, unspecified, I25.10 - Atherosclerotic heart disease of three affiliated coronary artery without angina pectoris, I42.9 - Cardiomyopathy, unspecified Complete Blood Count Auto Diff 4 Months D64.9 - Anemia, unspecified, E03.9 - Hypothyroidism, unspecified TSH reflex Free T4 4 Months D64.9 - Anemia, unspecified, E03.9 - Hypothyroidism, unspecified Liver Panel 4 Months E03.9 - Hypothyroidism, unspecified, I25.10 - Atherosclerotic heart disease of three affiliated coronary artery without angina pectoris, I42.9 - Cardiomyopathy, unspecified Referrals Orthopedics Referral E03.9 - Hypothyroidism, unspecified, I25.10 - Atherosclerotic heart disease of three affiliated coronary artery without angina pectoris, I42.9 - Cardiomyopathy, unspecified, M65.30 - Trigger finger, unspecified finger Medications: New fluticasone propion-salmeterol 500-50 mcg/dose (Advair Diskus) 1 ea inhalation BID 180 ea 1RF levothyroxine 50 mcg PO MOTUWETHFRSA 90 tabs 1RF pantoprazole 40 mg PO DAILY@0630 90 tabs 1RF Refilled gabapentin 200 mg (2 x 100 mg) PO BID 360 caps 3RF
[2025-11-03 13:38] VITALS: BP 138/64; PULSE 82; RESP 18; TEMP 36.9; O2SAT 96; BMI 24.5
--- OUTSIDE RECORDS SUMMARY | 2025-11-03 17:14 | XMS_ITS | Data Portability ---
Author Organization [facility] Telehealth Patient Home Address [address] [place] [address] Assessment No assessment recorded. Plan of Treatment Reminders Order Date Submit Date Provider Last Modified By Organization Details Last Modified Time Details Appointments None recorded. Lab lipid panel, blood 2017 018 [facility], [address] [place] [address], [address], 9 07:57:43 CMP, serum or plasma 2017 018 [facility], [address] [place] [address], [address], 9 07:57:43 CBC 2017 018 [facility], [address] [place] [address], [address], 8 07:15:04 TSH + free T4, serum 2017 018 [facility], [address] [place] [address], [address], 8 07:15:04 CBC 2017 018 [facility], [address] [place] [address], [address], 8 08:23:22 lipid panel, blood 2017 018 [facility], [address] [place] [address], [address], 8 08:15:06 CMP, serum or plasma 2017 018 [facility], [address] [place] [address], [address], 8 08:15:06 TSH + free T4, serum 2017 018 [facility], [address] [place] [address], [address], 8 08:23:22 Referral physical therapist referral 2017 [facility], [address] [place] [address], [address], 9 08:59:35 Procedures None recorded. Surgeries None recorded. Imaging None recorded. Medication Orders cyclobenza medina 10 mg tablet 2018 019 [facility], [address] [place], [address], 9 14:53:50 allopurino l 300 mg tablet 2017 018 [facility], [address] [place], [address], 8 15:27:01 Advair Diskus 500 mcg-50 mcg/dose powder for inhalation 2017 018 [facility], [place], [address], 8 15:39:13 cholestyra mine (with sugar) 4 gram powder for susp in a packet 2017 018 [facility], [address] [place], [address], 8 15:34:36 citalopram 40 mg tablet 2017 018 [facility], [address] [facility], [place], [address], 9 15:05:18 allopurino l 300 mg tablet 2017 018 [facility], [place], [address], 8 14:13:20 amlodipine 5 mg tablet 2017 018 [facility], [place], [address], 9 15:10:13 pantoprazo le 40 mg tablet,del ayed release 2017 018 [facility], [place], [address], 8 14:13:20 Patient TargetsNo targets recorded. Patient Instructions Encounter Date Encounter Id Patient Instructions Last Modified By Organization Details Last Modified Time 07/02/2018 [id number] probiotics education denys Not available 07/02/2018 14:13:20 40 minute visit with at least 1/2 of the face to face time with this patient was spent on counseling +/or coordination of care denys Not available 07/02/2018 14:15:09 10/23/2018 [id number] 30 minute visit with at least 1/2 of the face to face time with this patient was spent on counseling +/or coordination of care denys Not available 10/23/2018 16:28:34 01/15/2019 [id number] back care and preventing injuries: care instructions [...] bilat eral No observ ation record ed. [facility] (Medical Records) [address] [place], [address], 01/23/2019 10:32:58 Result Notes None recorded. Problems Name Problem SNOMED Code Status Onset Date Resolution Date Notes Provider Name and Address Organization Details Recorded Time Coronary atheroscle rosis 514543819 Active 2003 Jackeline Baeza NP, S [address] [place] [address], [phone], [facility] 8 14:08:05 Chronic obstructiv e pulmonary disease 40170918 Active 2011 Jackeline Baeza NP, S [address] [place] [address], [address], [facility] 8 14:06:19 Essential hypertensi on 68825718 Active 2017 Jackeline Baeza NP, S [address] [place] [address], [address], [facility] 8 14:05:32 Hyperchole sterolemia 13751282 Active 2017 Jackeline Baeza NP, S [address] [place] [address], [address], [facility] 8 14:05:48 Irritable bowel syndrome 23578931 Active 2017 Jackeline Baeza NP, S [address] [place] [address], [address], [facility] 8 14:06:37 Hypothyroi dism 44711372 Active 2017 Jackeline Baeza NP, S [address] [place] [address], [address], [facility] 8 14:06:50 Gout 66203459 Active 2017 Jackeline Baeza NP, S [address] [place] [address], [phone], [facility] 8 14:06:59 Gastroesop hageal reflux disease 479205139 Active 2017 Jackeline Baeza NP, S [address] [place] [address], [address], [facility] 8 14:07:10 Chronic anxiety 861845239 Active 2017 Jackeline Baeza NP, S [address] [place] [address], [address], [facility] 8 14:10:34 Chronic kidney disease 178209057 Active 2017 Jackeline Baeza NP, S [address] [place] [address], [address], [facility] 8 13:53:23 Notes:Some problems listed i n Documents: #[id number], #[id number], #[id number] could not be added to this patient's chart. Please review these documents and add these problems to the patient's chart manually as needed. Problem Notes None recorded. Procedures Surgical History Date Name Laterality Status Provider Name and Address Organization Details Recorded Time 01/03/20 18 Most Recent Mammogram completed Jackeline Baeza NP, S [address] [place] [address], [phone], [facility] 02/04/2018 14:19:41 03/19/20 13 Colonoscopy completed Jackeline Baeza NP, S [address] [place] [address], [address], [facility] 02/04/2018 14:18:57 11/19/19 13 Date of Last Pap Smear completed Jackeline Baeza NP, Alvina [address] [place] [address], [phone], [facility] 02/04/2018 14:20:11 03/19/20 00 Unlisted px cardiac surgery completed Jackeline Baeza NP, S [address] [place] [address], [address], [facility] 02/04/2018 14:16:04 Imaging Results None recorded. Procedure Notes None recorded. Medical Equipment None Reported. Allergies Allergen ID Allergen Name Allergen Category Reaction Reaction Severity Criticality Documentation Date Start Date Code Code System Note Provider Name and Address Organization Details Recorded Time 545 codeine medicatio n Not available Not available Not available 02/04/2018 3616 RxNorm Jackeline Baeza NP, S [address] [place], [address], [facility] 8 14:05:14 Medications Name Sig [...] Updated DateTime 9 161.93 cm 29.6 kg/m2 54684.3 g 78 /min 97 % 130/64 mm[Hg] [facility] 9 14:58:34 Date Recorded Body height Body mass index (BMI) Body weight Heart rate Oxygen saturation Body temperature Systolic And Diastolic Provider Name and Address Organization Details Last Updated DateTime 9 161.93 cm 29.9 kg/m2 26754.1 2 g 73 /min 97 % 97.5 [degF] 114/68 mm[Hg] [facility] 9 14:31:08 Date Recorded Systolic And Diastolic Provider Name and Address Organization Details Last Updated DateTime 07/02/2018 150/68 mm[Hg] Jackeline Baeza NP, S [address] [place], [address], [facility] 07/02/2018 13:51:17 Date Recorded Body height Body mass index (BMI) Body weight Heart rate Oxygen saturation Provider Name and Address Organization Details Last Updated DateTime 07/02/2018 161.93 cm 31.1 kg/m2 67105.63 g 74 /min 96 % [facility] 8 13:32:50 Date Recorded Body height Body mass index (BMI) Body weight Heart rate Oxygen saturation Systolic And Diastolic Provider Name and Address Organization Details Last Updated DateTime 8 161.93 cm 30.6 kg/m2 01291.8 5 g 73 /min 97 % 124/60 mm[Hg] [facility] 8 14:14:44 Date Recorded Body height Body mass index (BMI) Body weight Heart rate Oxygen saturation Systolic And Diastolic Provider Name and Address Organization Details Last Updated DateTime 8 161.93 cm 30.5 kg/m2 00388.0 5 g 74 /min 97 % 116/60 mm[Hg] [facility] 8 15:20:16 Social History Question Answer Notes LastModified by Organizat ion Details LastModified Time Tobacco Smoking Status Former Smoker Not Available [facility] 09/21/2020 03:36:23 What Was The Date Of Your Most Recent Tobacco Screening? 01/15/2019 [id number] Information not available 09/21/2020 Sex: Unknown Functional [...] formulation 9 completed Jackeline Baeza NP, S [address] [place] [address], [address], [facility] 02/04/2018 14:14:18 pneumococcal, unspecified formulation 6 completed Jackeline Baeza NP, S [address] [place] [address], [address], [facility] 02/04/2018 14:14:39 Tdap 5 completed Jackeline Baeza NP, S [address] [place] [address], [address], [facility] 02/04/2018 14:16:48 Past Encounters Encounter ID Performer Location Encounter Start Date Encounter Closed Date Diagnosis/Indication Diagnosis SNOMED-CT Code Diagnosis ICD10 Code Diagnosis IMO Codes Diagnosis Note [id number] [address] [place] [address] 04/01/2018 13:31:06 04/01/2018 15:40:55 Prerenal azotemia 444342093 N25.9 Active or passive immunization 566301585 Z23 discussed getting shingrix at pharmacy Hypercholesterolemia 136 42861 E78.00 Gout 75136446 M10.9 off allopurina l-follow Hypothyroidism 90350048 E03.9 Irritable bowel syndrome with diarrhea 786476958 K58.0 no changes Chronic ob structive pulmonary disease 69848217 J44.9 stable [id number] [facility] [address] [place] [address] [place] [address] 07/02/2018 13:18:14 07/05/2018 10:42:03 Irritable bowel syndrome 87433563 K58.9 Gout 28477921 M10.9 Chronic ki dney disease 335979922 N18.9 Hypothyroidism 14005127 E03.9 Coronary atherosclerosis 401110289 I25.10 Gastroesop hageal reflux disease 665154557 K21.9 Gastroesop hageal reflux disease without esophagitis 967546773 K21.9 Active or passive immunization 671576935 Z23 discussed getting shingrix at pharmacy Screening procedure 2013 5006 Z13.9 schedule PAP [id number] Juvencio Hernandez [facility] [address] [facility],[place] [address] 08/23/2018 13:48:36 08/23/2018 16:04:56 Chronic kidney disease 464807683 N18.[address] Alvarez Chronic anxiety 22197079 9 F41.9 continue citalopram , see if symptoms improve Coronary atherosclerosis 620824499 I25.10 Hypothyroidism 74989259 E03.9 nml labs Irritable bowel syndrome 66964910 K58.9 Chronic ob structive pulmonary disease 75102441 J44.9 stable Hypercholesterolemia 136 74045 E78.00 on crestor Essential hypertension 37894916 I10 stable [id number] Juvencio Hernandez [facility] [address] [facility],[place] [address] 10/23/2018 15:14:33 10/28/2018 10:10:10 Chronic anxiety 040474159 F41.9 continue citalopram , Gout 13792506 M10.9 Diarrhea 83640794 R19.7 Weakness of left leg 136 6494749 9355869 G83.10 Chronic ob structive pulmonary disease 99002216 J44.9 stable Chronic ki dney disease 813157987 N18.9 stable Hypothyroidism 92289724 E03.9 stable Hypercholesterolemia 136 57240 E78.00 on crestor, recheck profile Essential hypertension 63693754 I10 stable [id number] Juvencio Hernandez [facility] [address] [facility],[place] [address] 01/03/2019 14:53:01 01/03/2019 16:23:53 Chronic kidney disease 116913822 N18.9 stable Chronic anxiety 66370494 9 F41.9 pt stopped citalopram , using lorazepam Gastroesop hageal reflux disease 703008705 K21.9 pantoprazo le helpful Hypothyroidism 28962844 E03.9 stable Hypercholesterolemia 136 67750 E78.00 on crestor, recheck profile Essential hypertension 10608967 I10 stable Gout 44804555 M10.9 stopped allopurino l Irritable bowel syndrome 02388497 K58.9 prevalite helpful Weakness of left leg 081 3429026 6360602 G83.10 cx d PT, wants to try increasing exercise Chronic ob structive pulmonary disease 08259976 J44.9 stable [id number] Juvencio GeorginaMar Hernandez DO [facility] [address] [facility],[place] [address] 01/15/2019 14:26:38 01/15/2019 15:01:34 Low back pain 384229420 M54.5 Chronic ki dney disease 460978749 N18.9 stable Hypothyroidism 01738122 E03.9 stable Essential hypertension 10996438 I10 stable Dry skin 77432933 L85.3 drink more fluids, continue moisturizi ng Health Concerns Section Related Observation LastModified by Organization Detai ls LastModified Time None Recorded Concern Status LastModified by Organization Details LastModified Time None Recorded Advance Directives Directive None Recorded Payers Insurance Date Sequence Insurance Name Policy Number Policy Hackett Covered Member ID Hackett Member ID Guarantor Name 01/15/2019 2 [place] [id number] Tonia Dafonseca [id number] Tonia A Dafonseca 12/29/2018 1 [place] [employer] Tonia A Dafonseca [id number] Tonia A Dafonseca Notes Date Note Type Note Provider Name a nd Address Organization Details Recorded Time 07/02/2018 text/html Needs refills allopurinal 300mg and pantoprazole 40 mg Up to date with soil expert ( Dr. Wooten ). was going to stop amlodipine if BP below 130/80 IBS hx: wants to start probiotic Saw senior interactive producer- only on advair, and told to limit use ventolin, now if SOB-just rests for a minute Feels well, No CP Jackeline Baeza, CANDIDO, S [address] [facility], [place], [address], [facility] 07/02/2018 14:15:25 08/23/2018 text/html ROS as noted in the HPI Was off citalopram for 1-2 months, restarted 2 weeks ago-feels better overall But stomach has been upset-morning diarrhea ( no Change ) Has been having difficult time sleeping- has needed 2 lorazepam Missed appt recently 2nd diarrhea Going to [place] in couple months, No CP/SOB Jackeline Baeza NP, S [address] [place], [address], [facility] 08/23/2018 15:53:36 10/23/2018 text/html ROS [...] back pain Jackeline Baeza NP, S [address] [place], [address], [facility] 10/23/2018 16:28:48 01/03/2019 text/html Routine appt Feels well, was ill w/upper respiratory symptoms X 2-3 weeks, still some fatigue/SOB- Had to change appt w/Dr. Huerta (pulm) using Advair Has upcoming appt w/Dr. Wooten ( soil expert ) bowels seem to have improved-using probiotic, Vitamin C, D and flaxseed Has had normal BM's recently Wants to try more activity-cx'd PT for left leg weakness Jackeline Baeza NP, S [address] [place], [address], [facility] 01/03/2019 16:53:26 01/15/2019 text/html ROS [...] lower legs Jackeline Baeza NP, S [address] [place], [address], [facility] 01/15/2019 14:53:52 OBGyn Episode No OBEpisode recorded.
== END 2025-11-03 14:14 | disposition home or self-care (01) ==
LOC: HO.HMCHD 13:12
PROVIDERS: PCP Physician Assistant; Visit Provider Physician Assistant
DX: E03.9 Hypothyroidism, unspecified (principal); I42.9 Cardiomyopathy, unspecified; I25.10 Atherosclerotic heart disease of native coronary artery without angina pectoris; J45.909 Unspecified asthma, uncomplicated

== ENCOUNTER → 2025-11-03 13:12 | Outpatient (BNVA) | payer MEDICARE, SELFPAY ==
[2023-08-21 10:50] VITALS: BP 118/58; BP 122/60; BP 124/68; BMI 26.1
== END ==
PROVIDERS: PCP Physician Assistant; Visit Provider Physician Assistant
DX: I42.9 Cardiomyopathy, unspecified (principal); E03.9 Hypothyroidism, unspecified; J45.909 Unspecified asthma, uncomplicated; D64.9 Anemia, unspecified; G89.29 Other chronic pain; E53.8 Deficiency of other specified B group vitamins
CPT/HCPCS: 99212